=== PATIENT | male | born 1970 | race Caucasian/White ===

== ENCOUNTER 2020-09-16 14:24 | Inpatient (IN) ==
[2020-09-16] MEDS ORDERED: 0.9 % SODIUM CHLORIDE 2,000 ML IV ONE (15:06)
--- NOTE | 2020-09-16 15:15 | XRay Report ---
CLINICAL INFORMATION: fever, weakness COMPARISON: 06/21/2020 FINDINGS: Heart size, mediastinum and pulmonary vessels are normal. Lungs are clear. No effusions. Air in the right subdiaphragmatic likely represents a loop of colon. IMPRESSION: No cardiopulmonary abnormality. Air in the right subdiaphragmatic region is almost certainly a loop of colon. Consider supine upright abdomen films Interpreted and Authenticated by: Jose Patricia 09/16/20
[2020-09-16] MEDS ORDERED: ROCURONIUM 10 MG/ML ML IV ONE (15:40)
[2020-09-16] MEDS ORDERED: ePHEDrine 50 MG/ML AMPUL IV ONE (15:40)
[2020-09-16] MEDS ORDERED: PHENYLEPHRINE 10 MG/ML VIAL ONE (15:40)
[2020-09-16] MEDS ORDERED: fentaNYL 100 MCG/2 ML VIAL IV ONE (15:40)
[2020-09-16] MEDS ORDERED: GLYCOPYRROLATE 0.2 MG/ML VIAL IV ONE (15:40)
[2020-09-16] MEDS ORDERED: SUCCINYLCHOLINE 20 MG/ML ML IV ONE (15:40)
[2020-09-16] MEDS ORDERED: MIDAZOLAM 2 MG/2 ML VIAL ONE (15:40)
[2020-09-16] MEDS ORDERED: LIDOCAINE HCL/PF 100 MG/5 ML SYRINGE IV ONE (15:40)
[2020-09-16] MEDS ORDERED: DEXAMETHASONE 10 MG/ML VIAL ONE (15:40)
[2020-09-16] MEDS ORDERED: VASOPRESSIN 20 UNIT/ML VIAL ONE (15:40)
[2020-09-16] MEDS ORDERED: ALBUMIN HUMAN 12.5 GM/50 ML BAG IV ONE (15:40)
[2020-09-16] MEDS ORDERED: KETAMINE 100 MG/ML ML ONE (15:40)
[2020-09-16] MEDS ORDERED: PROPOFOL 200 MG/20 ML VIAL IV ONE (15:40)
[2020-09-16] MEDS ORDERED: ONDANSETRON 4 MG/2 ML VIAL ONE (15:40)
[2020-09-16] MEDS ORDERED: NOREPINEPHRINE BITARTRATE 4 MG/4 ML VIAL IV ONE (15:40)
--- NOTE | 2020-09-16 16:17 | Emergency Department Note ---
Weakness HPI General Chief complaint: Weakness Stated complaint: weakness, dizziness, failure to thrive Time Seen by Provider: 09/16/20 14:47 Source: patient Mode of arrival: EMS Limitations: no limitations History of Present Illness HPI Narrative: Narrative: 50-year-old comes in complaining of generalized weakness and trouble walking. He says he is having trouble with his balance. 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 Then he got prostate cancer for which he had radiation treatment. 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 Because of this he did not want to eat. So he has refused to eat for a long time to the point now he can no longer get up. He is very tearful and frustrated with the situation because it hurts to go to the bathroom he does not want to eat Denies fever chills nausea vomiting recent illness Related Data Home Medications Medication Instructions Recorded Confirmed omeprazole 40 mg capsule,delayed 40 mg PO DAILY cap 03/22/18 07/02/20 release clotrimazole 10 mg nico 10 mg MUCOUS MEM TID 03/28/20 07/02/20 vitamin E (dl, acetate) 400 unit 400 unit PO QDAY 03/28/20 07/02/20 capsule ibuprofen 600 mg PO QID 06/17/20 07/02/20 loratadine 10 mg PO DAILY 06/17/20 07/02/20 ferrous sulfate 325 mg (65 mg 325 mg PO QDAY 07/02/20 07/02/20 iron) tablet Previous Rx's Medication Instructions Recorded alprazolam 1 mg tablet 1 mg PO BID-TID PRN #30 tab 10/25/19 potassium chloride 20 mEq 20 meq PO BID #60 tab 06/17/20 tablet,extended release tamsulosin 0.4 mg capsule 0.8 mg PO QHS #180 cap 07/29/20 fentanyl 50 mcg/hr transdermal 1 patch TRANSDERMA Q72H #10 each 08/15/20 patch hydrocodone 10 mg-acetaminophen 1 tab PO Q8H PRN #90 tab 08/26/20 325 mg tablet Allergies Allergy/AdvReac Type Severity Reaction Status Date / Time aspirin Allergy Severe Diarrhea Verified 09/16/20 14:28 shellfish derived Allergy Severe Vomiting Verified 09/16/20 14:28 Latex, Natural Rubber Allergy Intermediate Rash Verified 09/16/20 14:28 iodine Allergy Mild Rash Verified 09/16/20 14:28 Bees Allergy Unknown Swelling Uncoded 07/01/20 10:35 Review of Systems ROS ROS Narrative: Narrative: All systems ED: reviewed and negative except as stated. [facility] Narrative Patient History Narrative: Narrative: Medical/Surgical/Family History All Active Problems (Updated 09/16/20 @ 18:14 by Anastacio Fox MD) Anorexia (Acute) Malnutrition (Acute) Acute dehydration (Acute) Hypothyroidism (Acute) Acute hypokalemia (Acute) Radiation injury of bowel (Acute) Urinary frequency (Acute) Bright red rectal bleeding (Acute) Radiation colitis (Chronic) Chronic generalized abdominal pain (Chronic) Radiation proctitis (Chronic) Chronic constipation (Chronic) Tonsil cancer (Chronic) Prostate cancer (Chronic) Prostate cancer (Acute) Hypokalemia (Acute) Abnormal stools (Acute) Hypokalemia (Acute) C. 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 difficile colitis (Acute) Chronic constipation (Chronic) Depression (Chronic) 1999 Ear Problem (Acute) Encounter for Health Maintenance Examination in Adult (Chronic) Hypokalemia (Acute) Hypokalemia (Acute) Hypokalemia (Acute) Insomnia (Chronic) Joint pain (Chronic) Migraine (Chronic) 1976 Polyuria (Chronic) Prostate cancer (Chronic) Radiation proctitis (Chronic) Renal calculi (Acute) Tonsil cancer (Chronic) Right Surgical History History of colonoscopy (Chronic 01/18/19) History of dental surgery (Chronic) No pertinent past surgical history (Inactive) Family History Mother Arthritis Diabetes Type 2 Hypertension Grandfather Cancer Paternal Heart attack Maternal Grandmother Leukemia Paternal Dementia Maternal Family/Other Migraine Maternal side of famiy Social History Smoking Status: Former smoker Alcohol Intake Frequency: holiday/special occasion only Substance Use: marijuana Exam Narrative Narrative: Narrative: No acute distress. Cachectic male. Tearful. Normocephalic atraumatic. Conjunctive are clear sclerae white nonicteric. No nasal discharge or congestion. Edentulous. Oropharynx pink and moist. Neck is supple without lymphadenopathy thyromegaly. Heart is tachycardic mildly and very loud as he is very thin. I do not hear a significant murmur. Lungs are clear to auscultation bilaterally without wheezes rales rhonchi or respiratory distress. Abdomen is soft nontender nondistended. No pedal edema. +2 radial pulse. Alert oriented able to give me reasonable history and review of system He has a 3 cm well-healing ulcer at his left hip-he says he heard it pop like there was a boil there earlier. Erythema or fluctuant or induration. Looked at his rectum and do see an os off to the left-could be the fistula that the patient is talking about. General Limitations: no limitations Course Vital Signs Vital signs: Vital Signs Temperature 99.6 F H 09/16/20 14:25 Pulse Rate 116 H 09/16/20 14:25 Respiratory Rate 20 09/16/20 14:25 Blood Pressure 105/81 09/16/20 14:25 Pulse Oximetry (%) 99 09/16/20 14:25 Temperature 99.6 F H 09/16/20 14:25 Pulse Rate 90 09/16/20 18:55 Respiratory Rate 14 09/16/20 18:55 Blood Pressure 94/74 09/16/20 18:46 Pulse Oximetry (%) 99 09/16/20 18:55 MDM MDM Narrative Medical decision making narrative: Narrative: Weakness secondary to malnutrition most likely. He is likely dehydrated and tachycardic. We will start some IV fluids and check some laboratory. Check for other causes of weakness. We briefly discussed further work-up and treatment of his rectal fistula [place] influenza and Covid testing are negative Chest x-ray shows no acute finding Laboratory showed significantly low prealbumin consistent with his malnutrition. Other laboratory really also consistent with dehydration and malnutrition. Potassium is low at 2.8 so we will replace that with a K rider. TSH is markedly elevated at 22 so we will start him on some low-dose levothyroxine. I discussed results with him. I recommend that he follow-up with a surgeon have him take a second look at his rectum. We will put in referral for him to see Dr. Jacob Hardy. He will be here for the next hour or more while getting his K rider. I will send prescription for levothyroxine to his pharmacy. He should follow-up with Dr. Watkins to get the reevaluated here in the next week or 2. Shift change came and I handed the patient off to Dr. Willian Jacobs. Final disposition per Dr. Jacobs Lab Data Lab results reviewed: Yes I reviewed the patient's lab results. Result diagrams: 09/16/20 15:31 09/16/20 15:31 Labs: Lab Results 09/16/20 09/16/20 09/16/20 Range/Units 15:29 15:30 15:30 WBC (4.5-11.0) K/mcL RBC (4.50-5.90) M/mcL Hgb (13.5-16.5) g/dL Hct (41.0-55.0) % MCV (80.0-100.0) fL MCH (26.0-34.0) pg MCHC (31.0-36.0) g/dL RDW (11.5-14.5) % Plt Count (140-440) K/mcL MPV (7.4-10.4) fL Neut % (Auto) (38.0-78.0) % Lymph % (Auto) (15.0-49.0) % [place] % (Auto) (1.0-12.0) % Eos % (Auto) (0.0-7.0) % Baso % (Auto) (0.0-2.0) % Lymph # (Auto) (1.50-4.80) K/mcL [place] # (Auto) (0.10-0.90) K/mcL Eos # (Auto) (0.00-0.70) K/mcL Baso # (Auto) (0.00-0.20) K/mcL Absolute Neutrophils (1.80-8.00) K/mcL VBG Lactic Acid 1.1 (0.5-2.0) mmol/L Sodium (133-145) mmol/L Potassium (3.3-5.1) mmol/L Chloride (96-108) mmol/L Carbon Dioxide (22-30) mmol/L Anion Gap (8.0-16.0) BUN (6-20) mg/dL Creatinine (0.7-1.2) mg/dL GFR Calculation Glucose (70-105) mg/dL Calcium (8.6-10.4) mg/dL Magnesium (1.6-2.5) mg/dL Total Bilirubin (0.1-1.0) mg/dL AST (<40) U/L ALT (<40) U/L Alkaline Phosphatase (39-117) U/L Troponin T < 0.01 (<0.03) ng/mL C-Reactive Protein (0.03-0.80) mg/dL NT-Pro-B Natriuret Pep (<125.0) pg/mL Total Protein (5.9-8.4) gm/dL Albumin (3.2-5.2) gm/dL Globulin (2.2-3.7) gm/dL Albumin/Globulin Ratio (1.0-2.3) Prealbumin (20.0-40.0) mg/dL Procalcitonin 0.12 H (<0.10) ng/mL TSH (0.27-5.01) uIU/mL 09/16/20 09/16/20 Range/Units 15:31 15:31 WBC 8.5 (4.5-11.0) K/mcL RBC 4.18 L (4.50-5.90) M/mcL Hgb 10.4 L (13.5-16.5) g/dL Hct 32.2 L (41.0-55.0) % MCV 77.0 L (80.0-100.0) fL MCH 24.9 L (26.0-34.0) pg MCHC 32.3 (31.0-36.0) g/dL RDW 18.3 H (11.5-14.5) % Plt Count 481 H (140-440) K/mcL MPV 8.5 (7.4-10.4) fL Neut % (Auto) 80.1 H (38.0-78.0) % Lymph % (Auto) 10.8 L (15.0-49.0) % [place] % (Auto) 8.7 (1.0-12.0) % Eos % (Auto) 0.2 (0.0-7.0) % Baso % (Auto) 0.2 (0.0-2.0) % Lymph # (Auto) 0.92 L (1.50-4.80) K/mcL [place] # (Auto) 0.74 (0.10-0.90) K/mcL Eos # (Auto) 0.02 (0.00-0.70) K/mcL Baso # (Auto) 0.02 (0.00-0.20) K/mcL Absolute Neutrophils 6.84 (1.80-8.00) K/mcL VBG Lactic Acid (0.5-2.0) mmol/L Sodium 129 L (133-145) mmol/L Potassium 2.8 L* (3.3-5.1) mmol/L Chloride 83 L (96-108) mmol/L Carbon Dioxide 19 L (22-30) mmol/L Anion Gap 27.0 H (8.0-16.0) BUN 7 (6-20) mg/dL Creatinine 0.4 L (0.7-1.2) mg/dL GFR Calculation 137 Glucose 84 (70-105) mg/dL Calcium 9.1 (8.6-10.4) mg/dL Magnesium 1.7 (1.6-2.5) mg/dL Total Bilirubin 0.4 (0.1-1.0) mg/dL AST 14 (<40) U/L ALT 13 (<40) U/L Alkaline Phosphatase 103 (39-117) U/L Troponin T (<0.03) ng/mL C-Reactive Protein 19.90 H (0.03-0.80) mg/dL NT-Pro-B Natriuret Pep 208.6 H (<125.0) pg/mL Total Protein 6.9 (5.9-8.4) gm/dL Albumin 3.5 (3.2-5.2) gm/dL Globulin 3.4 (2.2-3.7) gm/dL Albumin/Globulin Ratio 1.0 (1.0-2.3) Prealbumin 9.3 L (20.0-40.0) mg/dL Procalcitonin (<0.10) ng/mL TSH 22.59 H (0.27-5.01) uIU/mL Radiology Data Radiology results reviewed: Yes I reviewed the patient's radiology results. EKG Data EKG #1: EKG attestation: Yes I reviewed and interpreted this EKG. and Yes There are no EKG findings of acute coronary syndrome EKG results narrative: Normal sinus rhythm Discharge Plan Patient/Caregiver Discharge Instructions Pt seen by CLOTH EXAMINER/PA only: No Clinical Impression: Anorexia, Acute dehydration, Acute hypokalemia Radiation injury of bowel Qualifiers: Encounter type: subsequent encounter Qualified Code(s): T66.XXXD - Radiation sickness, unspecified, subsequent encounter Malnutrition Qualifiers: Malnutrition type: unspecified type Qualified Code(s): E46 - Unspecified protein-calorie malnutrition Hypothyroidism Qualifiers: Hypothyroidism type: acquired Qualified Code(s): E03.9 - Hypothyroidism, unspecified Patient Disposition: Still a Patient Condition: Fair Follow up with: Jose Watkins DO [Primary Care Provider] - Jacob Hardy MD [Physician] - Prescriptions: No Action alprazolam [Xanax] 1 mg tablet 1 mg PO BID-TID PRN (Reason: anxiety) Qty: 30 RF: 0 tamsulosin 0.4 mg capsule 0.8 mg PO QHS Qty: 180 RF: 1 fentanyl 50 mcg/hr patch 72 hour 1 patch TRANSDERMA Q72H Qty: 10 RF: 0 hydrocodone-acetaminophen [[place]] 10-325 mg tablet 1 tab PO Q8H PRN (Reason: pain) Qty: 90 RF: 0 vitamin E (dl, acetate) 400 unit capsule 400 unit PO QDAY RF: 0 clotrimazole 10 mg nico 10 mg MUCOUS MEM TID RF: 0 ferrous sulfate [FeroSul] 325 mg (65 mg iron) tablet 325 mg PO QDAY RF: 0 loratadine 10 mg PO DAILY RF: 0 ibuprofen 600 mg PO QID RF: 0 potassium chloride 20 mEq tablet extended release 20 meq PO BID Qty: 60 RF: 2 omeprazole 40 mg capsule,delayed release(DR/EC) 40 mg PO DAILY RF: 0
[2020-09-16 16:36] LABS: Basophils # (Auto) 0.02 K/mcL (0.00-0.20); Basophils % (Auto) 0.2 % (0.0-2.0); Eosinophils # (Auto) 0.02 K/mcL (0.00-0.70); Eosinophils % (Auto) 0.2 % (0.0-7.0); Hematocrit 32.2 % (41.0-55.0); Hemoglobin 10.4 g/dL (13.5-16.5); Lymphocytes # (Auto) 0.92 K/mcL (1.50-4.80); Lymphocytes % (Auto) 10.8 % (15.0-49.0); Mean Corpuscular HGB Conc 32.3 g/dL (31.0-36.0); Mean Platelet Volume 8.5 fL (7.4-10.4); Monocytes # (Auto) 0.74 K/mcL (0.10-0.90); Monocytes % (Auto) 8.7 % (1.0-12.0); Neutrophils % (Auto) 80.1 % (38.0-78.0); Platelet Count 481 K/mcL (140-440); RBC 4.18 M/mcL (4.50-5.90); Red Cell Distribution Width 18.3 % (11.5-14.5); WBC 8.5 K/mcL (4.5-11.0)
[2020-09-16 17:04] LABS: Prealbumin 9.3 mg/dL (20.0-40.0)
[2020-09-16 17:15] LABS: proBNP 208.6 pg/mL (<125.0)
[2020-09-16 17:27] LABS: Thyroid Stimulating Hormone 22.59 uIU/mL (0.27-5.01)
[2020-09-16 17:56] LABS: ALT/SGPT 13 U/L (<40); AST/SGOT 14 U/L (<40); Albumin 3.5 gm/dL (3.2-5.2); Alkaline Phosphatase 103 U/L (39-117); Bilirubin,Total 0.4 mg/dL (0.1-1.0); Blood Urea Nitrogen 7 mg/dL (6-20); Calcium 9.1 mg/dL (8.6-10.4); Carbon Dioxide 19 mmol/L (22-30); Chloride 83 mmol/L (96-108); Globulin 3.4 gm/dL (2.2-3.7); Glomerular Filtration Rate 137; Glucose 84 mg/dL (70-105)
[2020-09-16] MEDS ORDERED: POTASSIUM CHLORIDE 20 MEQ in DEXTROSE 5% IN WATER 250 ML IV ONE ×2 (17:56→20:42)
[2020-09-16] MEDS ORDERED: LEVOTHYROXINE 50 MCG TABLET PO ONE (17:57)
--- NOTE | 2020-09-16 20:43 | Emergency Department Note ---
HPI General Chief complaint: Weakness Stated complaint: weakness, dizziness, failure to thrive Time Seen by Provider: 09/16/20 14:47 Source: patient Mode of arrival: EMS Limitations: no limitations History of Present Illness HPI Narrative: Narrative: Signed out to me by Dr. Fox. Please refer to his note for full history and physical. Related Data Home Medications Medication Instructions Recorded Confirmed omeprazole 40 mg capsule,delayed 40 mg PO DAILY cap 03/22/18 07/02/20 release clotrimazole 10 mg nico 10 mg MUCOUS MEM TID 03/28/20 07/02/20 vitamin E (dl, acetate) 400 unit 400 unit PO QDAY 03/28/20 07/02/20 capsule ibuprofen 600 mg PO QID 06/17/20 07/02/20 loratadine 10 mg PO DAILY 06/17/20 07/02/20 ferrous sulfate 325 mg (65 mg 325 mg PO QDAY 07/02/20 07/02/20 iron) tablet Previous Rx's Medication Instructions Recorded alprazolam 1 mg tablet 1 mg PO BID-TID PRN #30 tab 10/25/19 potassium chloride 20 mEq 20 meq PO BID #60 tab 06/17/20 tablet,extended release tamsulosin 0.4 mg capsule 0.8 mg PO QHS #180 cap 07/29/20 fentanyl 50 mcg/hr transdermal 1 patch TRANSDERMA Q72H #10 each 08/15/20 patch hydrocodone 10 mg-acetaminophen 1 tab PO Q8H PRN #90 tab 08/26/20 325 mg tablet Allergies Allergy/AdvReac Type Severity Reaction Status Date / Time aspirin Allergy Severe Diarrhea Verified 09/16/20 14:28 shellfish derived Allergy Severe Vomiting Verified 09/16/20 14:28 Latex, Natural Rubber Allergy Intermediate Rash Verified 09/16/20 14:28 iodine Allergy Mild Rash Verified 09/16/20 14:28 Bees Allergy Unknown Swelling Uncoded 07/01/20 10:35 Review of Systems ROS ROS Narrative: Narrative: PFSH Narrative Patient History Narrative: Narrative: Medical/Surgical/Family History All Active Problems (Updated 09/16/20 @ 20:43 by Willian Jacobs DO) Anorexia (Acute) Malnutrition (Acute) Acute dehydration (Acute) Hypothyroidism (Acute) Acute hypokalemia (Acute) Acute hyponatremia (Acute) Radiation injury of bowel (Acute) Urinary frequency (Acute) Bright red rectal bleeding (Acute) Radiation colitis (Chronic) Chronic generalized abdominal pain (Chronic) Radiation proctitis (Chronic) Chronic constipation (Chronic) Tonsil cancer (Chronic) Prostate cancer (Chronic) Prostate cancer (Acute) Hypokalemia (Acute) Abnormal stools (Acute) Hypokalemia (Acute) C. 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 difficile colitis (Acute) Chronic constipation (Chronic) Depression (Chronic) 1999 Ear Problem (Acute) Encounter for Health Maintenance Examination in Adult (Chronic) Hypokalemia (Acute) Hypokalemia (Acute) Hypokalemia (Acute) Insomnia (Chronic) Joint pain (Chronic) Migraine (Chronic) 1976 Polyuria (Chronic) Prostate cancer (Chronic) Radiation proctitis (Chronic) Renal calculi (Acute) Tonsil cancer (Chronic) Right Surgical History History of colonoscopy (Chronic 01/18/19) History of dental surgery (Chronic) No pertinent past surgical history (Inactive) Family History Mother Arthritis Diabetes Type 2 Hypertension Grandfather Cancer Paternal Heart attack Maternal Grandmother Leukemia Paternal Dementia Maternal Family/Other Migraine Maternal side of famiy Social History Smoking Status: Former smoker Alcohol Intake Frequency: holiday/special occasion only Substance Use: marijuana Exam Narrative Narrative: Narrative: General Limitations: no limitations Course Vital Signs Vital signs: Vital Signs Temperature 99.6 F H 09/16/20 14:25 Pulse Rate 116 H 09/16/20 14:25 Respiratory Rate 20 09/16/20 14:25 Blood Pressure 105/81 09/16/20 14:25 Pulse Oximetry (%) 99 09/16/20 14:25 Temperature 99.6 F H 09/16/20 14:25 Pulse Rate 90 09/16/20 20:40 Respiratory Rate 20 09/16/20 20:01 Blood Pressure 97/72 09/16/20 20:30 Pulse Oximetry (%) 100 09/16/20 20:40 MDM MDM Narrative Medical decision making narrative: Narrative: I did personally see and evaluate the patient. Patient's labs show hyponatremia as well as hypokalemia generalized weakness and hypotension. Patient did receive fluids he still does not feel well I think patient is has a metabolic acidosis secondary to failure to thrive and not eating. Patient is very cachectic on exam. I do not feel comfortable with patient going home he seems very weak he also does not feel comfortable going home secondary to electrolyte abnormalities I think he does need fluid resuscitation as well as better protein nutrition. I spoke with the hospitalist Dr. Wild who agreed to accept the patient. Patient is excepted in stable condition. Lab Data Result diagrams: 09/16/20 15:31 09/16/20 15:31 Labs: Lab Results 09/16/20 09/16/20 09/16/20 Range/Units 15:29 15:30 15:30 WBC (4.5-11.0) K/mcL RBC (4.50-5.90) M/mcL Hgb (13.5-16.5) g/dL Hct (41.0-55.0) % MCV (80.0-100.0) fL MCH (26.0-34.0) pg MCHC (31.0-36.0) g/dL RDW (11.5-14.5) % Plt Count (140-440) K/mcL MPV (7.4-10.4) fL Neut % (Auto) (38.0-78.0) % Lymph % (Auto) (15.0-49.0) % [place] % (Auto) (1.0-12.0) % Eos % (Auto) (0.0-7.0) % Baso % (Auto) (0.0-2.0) % Lymph # (Auto) (1.50-4.80) K/mcL [place] # (Auto) (0.10-0.90) K/mcL Eos # (Auto) (0.00-0.70) K/mcL Baso # (Auto) (0.00-0.20) K/mcL Absolute Neutrophils (1.80-8.00) K/mcL VBG Lactic Acid 1.1 (0.5-2.0) mmol/L Sodium (133-145) mmol/L Potassium (3.3-5.1) mmol/L Chloride (96-108) mmol/L Carbon Dioxide (22-30) mmol/L Anion Gap (8.0-16.0) BUN (6-20) mg/dL Creatinine (0.7-1.2) mg/dL GFR Calculation Glucose (70-105) mg/dL Calcium (8.6-10.4) mg/dL Magnesium (1.6-2.5) mg/dL Total Bilirubin (0.1-1.0) mg/dL AST (<40) U/L ALT (<40) U/L Alkaline Phosphatase (39-117) U/L Troponin T < 0.01 (<0.03) ng/mL C-Reactive Protein (0.03-0.80) mg/dL NT-Pro-B Natriuret Pep (<125.0) pg/mL Total Protein (5.9-8.4) gm/dL Albumin (3.2-5.2) gm/dL Globulin (2.2-3.7) gm/dL Albumin/Globulin Ratio (1.0-2.3) Prealbumin (20.0-40.0) mg/dL Procalcitonin 0.12 H (<0.10) ng/mL TSH (0.27-5.01) uIU/mL 09/16/20 09/16/20 Range/Units 15:31 15:31 WBC 8.5 (4.5-11.0) K/mcL RBC 4.18 L (4.50-5.90) M/mcL Hgb 10.4 L (13.5-16.5) g/dL Hct 32.2 L (41.0-55.0) % MCV 77.0 L (80.0-100.0) fL MCH 24.9 L (26.0-34.0) pg MCHC 32.3 (31.0-36.0) g/dL RDW 18.3 H (11.5-14.5) % Plt Count 481 H (140-440) K/mcL MPV 8.5 (7.4-10.4) fL Neut % (Auto) 80.1 H (38.0-78.0) % Lymph % (Auto) 10.8 L (15.0-49.0) % [place] % (Auto) 8.7 (1.0-12.0) % Eos % (Auto) 0.2 (0.0-7.0) % Baso % (Auto) 0.2 (0.0-2.0) % Lymph # (Auto) 0.92 L (1.50-4.80) K/mcL [place] # (Auto) 0.74 (0.10-0.90) K/mcL Eos # (Auto) 0.02 (0.00-0.70) K/mcL Baso # (Auto) 0.02 (0.00-0.20) K/mcL Absolute Neutrophils 6.84 (1.80-8.00) K/mcL VBG Lactic Acid (0.5-2.0) mmol/L Sodium 129 L (133-145) mmol/L Potassium 2.8 L* (3.3-5.1) mmol/L Chloride 83 L (96-108) mmol/L Carbon Dioxide 19 L (22-30) mmol/L Anion Gap 27.0 H (8.0-16.0) BUN 7 (6-20) mg/dL Creatinine 0.4 L (0.7-1.2) mg/dL GFR Calculation 137 Glucose 84 (70-105) mg/dL Calcium 9.1 (8.6-10.4) mg/dL Magnesium 1.7 (1.6-2.5) mg/dL Total Bilirubin 0.4 (0.1-1.0) mg/dL AST 14 (<40) U/L ALT 13 (<40) U/L Alkaline Phosphatase 103 (39-117) U/L Troponin T (<0.03) ng/mL C-Reactive Protein 19.90 H (0.03-0.80) mg/dL NT-Pro-B Natriuret Pep 208.6 H (<125.0) pg/mL Total Protein 6.9 (5.9-8.4) gm/dL Albumin 3.5 (3.2-5.2) gm/dL Globulin 3.4 (2.2-3.7) gm/dL Albumin/Globulin Ratio 1.0 (1.0-2.3) Prealbumin 9.3 L (20.0-40.0) mg/dL Procalcitonin (<0.10) ng/mL TSH 22.59 H (0.27-5.01) uIU/mL Discharge Plan Patient/Caregiver Discharge Instructions Pt seen by AGILE TEST LEAD/PA only: No Clinical Impression: Anorexia, Radiation injury of bowel, Malnutrition, Acute dehydration, Hy pothyroidism, Acute hypokalemia, Acute hyponatremia Patient Disposition: Xfer As Outpt/Obs ([facility]) Condition: Fair Follow up with: Jose Watkins DO [Primary Care Provider] - Bud Hardy MD [Physician] - Prescriptions: No Action alprazolam [Xanax] 1 mg tablet 1 mg PO BID-TID PRN (Reason: anxiety) Qty: 30 RF: 0 tamsulosin 0.4 mg capsule 0.8 mg PO QHS Qty: 180 RF: 1 fentanyl 50 mcg/hr patch 72 hour 1 patch TRANSDERMA Q72H Qty: 10 RF: 0 hydrocodone-acetaminophen [[place]] 10-325 mg tablet 1 tab PO Q8H PRN (Reason: pain) Qty: 90 RF: 0 vitamin E (dl, acetate) 400 unit capsule 400 unit PO QDAY RF: 0 clotrimazole 10 mg nico 10 mg MUCOUS MEM TID RF: 0 ferrous sulfate [FeroSul] 325 mg (65 mg iron) tablet 325 mg PO QDAY RF: 0 loratadine 10 mg PO DAILY RF: 0 ibuprofen 600 mg PO QID RF: 0 potassium chloride 20 mEq tablet extended release 20 meq PO BID Qty: 60 RF: 2 omeprazole 40 mg capsule,delayed release(DR/EC) 40 mg PO DAILY RF: 0
[2020-09-16] MEDS ORDERED: LACTATED RINGERS 1,000 ML IV SCH (20:45)
--- NOTE | 2020-09-16 21:01 | Internal Med History&Physical ---
HPI History of Present Illness Patient information: Note initiated : 09/16/20 at 8:51 pm Service Date, if different from initiated Date: [] Patient: Jose Moulton a 50 y/o M admitted on for weakness, dizziness, failure to thrive. Chief Complaint: [] History of present illness: Mr. Moulton is a 50 year old M Presents with severe weakness and lightheadedness. Patient states the reason he came in the ED is because he was severely weak and could hardly move around and became lightheaded and get up and move. 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 Was recommended to him to get a diverting colostomy he has not made a decision on that yet. He has not been eating very much for the past couple months because it hurts to go to the bathroom. And especially the past few weeks he is eating hardly anything. He says a couple days ago he had 8 ounces of Slim fast and then nothing for the few days prior to that nothing yesterday. He has had some water and some electrolyte drinks that about it. Denies fevers chills chest pain abdominal pain. In the ED is found to be hyponatremic hypokalemic hypochloremic. An elevated TSH but denies cold intolerance dry skin or constipation. Review of Systems: Pertinent positives as above. Denies headache/fever/chills/nausea/vomiting/chest or abdominal pain/cough/dyspnea/ diarrhea. Remaining 10 point review of system reviewed negative PFSH PFSH All Active Problems (Updated 09/16/20 @ 20:43 by Willian Jacobs DO) Anorexia (Acute) Malnutrition (Acute) Acute dehydration (Acute) Hypothyroidism (Acute) Acute hypokalemia (Acute) Acute hyponatremia (Acute) Radiation injury of bowel (Acute) Urinary frequency (Acute) Bright red rectal bleeding (Acute) Radiation colitis (Chronic) Chronic generalized abdominal pain (Chronic) Radiation proctitis (Chronic) Chronic constipation (Chronic) Tonsil cancer (Chronic) Prostate cancer (Chronic) Prostate cancer (Acute) Hypokalemia (Acute) Abnormal stools (Acute) Hypokalemia (Acute) C. 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 difficile colitis (Acute) Chronic constipation (Chronic) Depression (Chronic) 1999 Ear Problem (Acute) Encounter for Health Maintenance Examination in Adult (Chronic) Hypokalemia (Acute) Hypokalemia (Acute) Hypokalemia (Acute) Insomnia (Chronic) Joint pain (Chronic) Migraine (Chronic) 1976 Polyuria (Chronic) Prostate cancer (Chronic) Radiation proctitis (Chronic) Renal calculi (Acute) Tonsil cancer (Chronic) Right Surgical History History of colonoscopy (Chronic 01/18/19) History of dental surgery (Chronic) No pertinent past surgical history (Inactive) Family History Mother Arthritis Diabetes Type 2 Hypertension Grandfather Cancer Paternal Heart attack Maternal Grandmother Leukemia Paternal Dementia Maternal Family/Other Migraine Maternal side of famiy Social History marital status: single smoking status: Former smoker alcohol intake frequency: holiday/special occasion only substance use type: marijuana MEDS/ALLERGIES Home Medications and Allergies Home Medications Medication Instructions Recorded Confirmed Type omeprazole 40 mg capsule,delayed 40 mg PO DAILY cap 03/22/18 07/02/20 History release alprazolam 1 mg tablet 1 mg PO BID-TID PRN #30 tab 10/25/19 07/02/20 Rx clotrimazole 10 mg nico 10 mg MUCOUS MEM TID 03/28/20 07/02/20 History vitamin E (dl, acetate) 400 unit 400 unit PO QDAY 03/28/20 07/02/20 History capsule ibuprofen 600 mg PO QID 06/17/20 07/02/20 History loratadine 10 mg PO DAILY 06/17/20 07/02/20 History potassium chloride 20 mEq 20 meq PO BID #60 tab 06/17/20 07/02/20 Rx tablet,extended release ferrous sulfate 325 mg (65 mg 325 mg PO QDAY 07/02/20 07/02/20 History iron) tablet tamsulosin 0.4 mg capsule 0.8 mg PO QHS #180 cap 07/29/20 Rx fentanyl 50 mcg/hr transdermal 1 patch TRANSDERMA Q72H #10 each 08/15/20 Rx patch hydrocodone 10 mg-acetaminophen 1 tab PO Q8H PRN #90 tab 08/26/20 Rx 325 mg tablet Allergies Allergy/AdvReac Type Severity Reaction Status Date / Time aspirin Allergy Severe Diarrhea Verified 09/16/20 14:28 shellfish derived Allergy Severe Vomiting Verified 09/16/20 14:28 Latex, Natural Rubber Allergy Intermediate Rash Verified 09/16/20 14:28 iodine Allergy Mild Rash Verified 09/16/20 14:28 Bees Allergy Unknown Swelling Uncoded 07/01/20 10:35 EXAM Constitutional Vitals: Temp Pulse Resp BP Pulse Ox 99.6 F H 90 20 97/72 100 09/16/20 14:25 09/16/20 20:40 09/16/20 20:01 09/16/20 20:30 09/16/20 20:40 Exam: General: Alert, Awake, No acute Distress, cachectic Eyes/N/T: EOMI, PERRL, dry MM Head/Neck: neck supple, normocephalic atraumatic CV: Mildly tachycardic but regular, No murmurs, normal s1/s2 Pulm: Clear b/l, no wheezing/rhonchi/rales Abd: soft, nontender, +BS x4 Ext: no clubbing/cyanosis/edema Neuro: Alert, no focal deficits, moves all extremities, CN 2-12 grossly intact, symmetrical strength b/l upper/lower, sensations intact b/l upper/lower Skin: warm/dry, poor skin turgor DATA Data Completed and Pending Labs: Labs from last 24 hours 09/16/20 09/16/20 09/16/20 15:31 15:31 15:30 WBC 8.5 RBC 4.18 L Hgb 10.4 L Hct 32.2 L MCV 77.0 L MCH 24.9 L MCHC 32.3 RDW 18.3 H Plt Count 481 H MPV 8.5 Neut % (Auto) 80.1 H Lymph % (Auto) 10.8 L [place] % (Auto) 8.7 Eos % (Auto) 0.2 Baso % (Auto) 0.2 Lymph # (Auto) 0.92 L [place] # (Auto) 0.74 Eos # (Auto) 0.02 Baso # (Auto) 0.02 Absolute Neutrophils 6.84 VBG Lactic Acid Sodium 129 L Potassium 2.8 L* Chloride 83 L Carbon Dioxide 19 L Anion Gap 27.0 H BUN 7 Creatinine 0.4 L GFR Calculation 137 Glucose 84 Calcium 9.1 Magnesium 1.7 Total Bilirubin 0.4 AST 14 ALT 13 Alkaline Phosphatase 103 Troponin T C-Reactive Protein 19.90 H NT-Pro-B Natriuret Pep 208.6 H Total Protein 6.9 Albumin 3.5 Globulin 3.4 Albumin/Globulin Ratio 1.0 Prealbumin 9.3 L Procalcitonin 0.12 H TSH 22.59 H 09/16/20 09/16/20 15:30 15:29 WBC RBC Hgb Hct MCV MCH MCHC RDW Plt Count MPV Neut % (Auto) Lymph % (Auto) [place] % (Auto) Eos % (Auto) Baso % (Auto) Lymph # (Auto) [place] # (Auto) Eos # (Auto) Baso # (Auto) Absolute Neutrophils VBG Lactic Acid 1.1 Sodium Potassium Chloride Carbon Dioxide Anion Gap BUN Creatinine GFR Calculation Glucose Calcium Magnesium Total Bilirubin AST ALT Alkaline Phosphatase Troponin T < 0.01 C-Reactive Protein NT-Pro-B Natriuret Pep Total Protein Albumin Globulin Albumin/Globulin Ratio Prealbumin Procalcitonin TSH A/P Narrative A/P Narrative: A: *Hyponatremia/hypokalemia/hypochloremia: 2/2 poor oral intake and volume depletion *Hypotension: 2/2 volume depletion, improved with IV fluids *Volume depletion: *Severe generalized weakness *Failure to thrive/Severe malnutrition: *Radiation proctocolitis: 2/2 radiation for prostate cancer -Supposed to follow-up Dr. Hardy for diverting colostomy *Anxiety: *GERD: *Chronic pain: *Tobacco abuse: *Subclinical hypothyroidism: * P: -IVF -Electrolyte replacement -Dietary consult, nutritional supplements -PT/OT -Low-dose levothyroxine and follow-up with PCP, pending T4 -Follow-up with Dr. Hardy for diverting colostomy -update home meds -Smoking cessation counseling -ppx: Lovenox Full code Time Spent With Patient Time: Total time spent is greater than 50% in coordination of care (as documented) at patient's floor/unit and/or counseling patient:
[2020-09-16] MEDS ORDERED: POLYETHYLENE GLYCOL 3350 17 GM PACKET PO PRN (22:09)
[2020-09-16] MEDS ORDERED: POTASSIUM CHLORIDE 20 MEQ TABLET PO ONE ×2 (22:09→23:36)
[2020-09-16] MEDS ORDERED: IPRATROPIUM/ALBUTEROL 3 ML AMPUL.NEB NEB PRN (22:09)
[2020-09-16] MEDS ORDERED: POTASSIUM CHLORIDE 40 MEQ in DEXTROSE 5% IN WATER 500 ML IV PRN (22:09)
[2020-09-16] MEDS ORDERED: POTASSIUM CHLORIDE 20 MEQ TABLET PO PRN ×2 (22:09)
[2020-09-16] MEDS ORDERED: ONDANSETRON 4 MG/2 ML VIAL IV PRN (22:09)
[2020-09-16] MEDS ORDERED: SENNOSIDES 1 TABLET PO PRN (22:09)
[2020-09-16] MEDS ORDERED: ACETAMINOPHEN 325 MG TABLET PO PRN (22:09)
[2020-09-16] MEDS ORDERED: MAGNESIUM SULFATE 2 GM/50 ML BAG IV PRN (22:09)
[2020-09-16] MEDS ORDERED: ALPRAZolam 0.25 MG TABLET PO PRN (23:08)
[2020-09-16] MEDS: ALPRAZolam 0.5 MG TABLET ONE ×2 (23:24→23:29)
[2020-09-16] MEDS: fentaNYL 50 MCG PATCH TOPICAL SCH (23:25)
[2020-09-16] MEDS: TAMSULOSIN 0.4 MG CAPSULE PO SCH (23:25)
[2020-09-16] MEDS: OMEPRAZOLE 20 MG CAPSULE PO SCH (23:26)
[2020-09-16] MEDS ORDERED: HYDROcodone/APAP 10/325MG TABLET PO ONE (23:26)
[2020-09-16] MEDS: 0.9 % SODIUM CHLORIDE 10 ML SYRINGE IV SCH (23:30)
[2020-09-16] MEDS: LEVOTHYROXINE 50 MCG TABLET PO SCH (23:30)
[2020-09-17] MEDS: POTASSIUM CHLORIDE 10 MEQ in DEXTROSE 5%-NS 1,000 ML IV SCH ×2 (00:47→15:03)
[2020-09-17] MEDS ORDERED: POTASSIUM CHLORIDE 20 MEQ/10 ML VIAL IV ONE (00:50)
[2020-09-17 03:00] LABS: Appearance,Urine CLEAR (Clear); Bilirubin,Urine Negative (Negative); Color,Urine YELLOW; Culture Indicated,Urine No; Glucose,Urine (UA) Negative (Negative); Ketones,Urine 80 mg/dL (Negative); Leukocyte Esterase,Urine Negative /ug (Negative); Nitrate,Urine Negative (Negative); Protein,Urine Negative (Negative); Specific Gravity,Urine 1.015 (1.000-1.035); Urine Blood Negative (Negative); Urobilinogen,Urine Negative
[2020-09-17] MEDS: 0.9 % SODIUM CHLORIDE 10 ML SYRINGE IV SCH ×4 (04:25→20:55)
[2020-09-17] MEDS ORDERED: ACETAMINOPHEN 325 MG TABLET PO ONE (04:29)
[2020-09-17 05:21] LABS: Phosphorous 2.7 mg/dL (2.5-4.5)
[2020-09-17 06:19] LABS: Free T4 (Free Thyroxine) 0.33 ng/dL (0.93-1.70)
[2020-09-17 06:58] LABS: Basophils # (Auto) 0.02 K/mcL (0.00-0.20); Basophils % (Auto) 0.3 % (0.0-2.0); Eosinophils # (Auto) 0.04 K/mcL (0.00-0.70); Eosinophils % (Auto) 0.6 % (0.0-7.0); Hematocrit 26.2 % (41.0-55.0); Hemoglobin 8.3 g/dL (13.5-16.5); Lymphocytes # (Auto) 1.09 K/mcL (1.50-4.80); Lymphocytes % (Auto) 16.2 % (15.0-49.0); Mean Cell Volume 78.7 fL (80.0-100.0); Mean Corpuscular HGB Conc 31.7 g/dL (31.0-36.0); Mean Platelet Volume 8.3 fL (7.4-10.4); Monocytes # (Auto) 0.73 K/mcL (0.10-0.90); Monocytes % (Auto) 10.8 % (1.0-12.0); Neutrophils % (Auto) 72.1 % (38.0-78.0); Platelet Count 365 K/mcL (140-440); RBC 3.33 M/mcL (4.50-5.90); Red Cell Distribution Width 18.6 % (11.5-14.5); WBC 6.7 K/mcL (4.5-11.0)
[2020-09-17 07:19] LABS: ALT/SGPT 11 U/L (<40); AST/SGOT 15 U/L (<40); Albumin 2.6 gm/dL (3.2-5.2); Albumin/Globulin Ratio 0.8 (1.0-2.3); Alkaline Phosphatase 81 U/L (39-117); Bilirubin,Direct < 0.2 mg/dL (<0.3); Bilirubin,Total 0.3 mg/dL (0.1-1.0); Blood Urea Nitrogen 5 mg/dL (6-20); Calcium 8.1 mg/dL (8.6-10.4); Carbon Dioxide 24 mmol/L (22-30); Chloride 96 mmol/L (96-108); Globulin 3.3 gm/dL (2.2-3.7); Glomerular Filtration Rate 137; Glucose 119 mg/dL (70-105); Lactate Dehydrogenase 118 U/L (135-225); Phosphorous 1.5 mg/dL (2.5-4.5); Triglycerides 107 mg/dL (<150); Uric Acid 4.1 mg/dL (2.5-8.0)
[2020-09-17] MEDS: LEVOTHYROXINE 50 MCG TABLET PO SCH (07:48)
[2020-09-17] MEDS: OMEPRAZOLE 20 MG CAPSULE PO SCH (07:48)
[2020-09-17] MEDS ORDERED: POTASSIUM CHLORIDE 20 MEQ TABLET PO ONE (07:54)
--- NOTE | 2020-09-17 07:58 | Internal Med Progress Note ---
SUBJECTIVE Subjective Patient information: Note initiated : 09/17/20 at 7:49 am Service Date, if different from initiated Date: [] Patient: Jose Moulton a 50 y/o M admitted on 09/16/20 for weakness, dizziness, failure to thrive. Chief Complaint: [] Interval history: History of present illness: Mr. Moulton is a 50 year old M Presents with severe weakness and lightheadedness. Patient states the reason he came in the ED is because he was severely weak and could hardly move around and became lightheaded and get up and move. 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 Was recommended to him to get a diverting colostomy he has not made a decision on that yet. He has not been eating very much for the past couple months because it hurts to go to the bathroom. And especially the past few weeks he is eating hardly an ything. He says a couple days ago he had 8 ounces of Slim fast and then nothing for the few days prior to that nothing yesterday. He has had some water and some electrolyte drinks that about it. Denies fevers chills chest pain abdominal pain. In the ED is found to be hyponatremic hypokalemic hypochloremic. An elevated TSH but denies cold intolerance dry skin or constipation. 1/5 Poor sleep. Complains of leg pain and some rectal pain from stooling. States difficulty in urinating. Electrolyte imbalance slowly improving. Patient is supposed to receive a diverting colostomy. Will consult surgery to discuss timing. Review of Systems: denies headache/fever/chills/nausea/vomiting/chest or abdominal pain/cough/dyspnea. Otherwise see above. Constitutional Vitals: Vital Signs Temp Pulse Resp BP Pulse Ox 97.8 F 88 18 96/61 97 09/17/20 07:41 09/17/20 07:41 09/17/20 07:41 09/17/20 07:41 09/17/20 07:41 Period Temp Pulse Resp BP Sys/Greer Pulse Ox Last 24 Hr 97.8 F-99.6 F 81-118 10-20 84-115/61-86 97-100 Intake and Output 09/16/20 09/17/20 09/17/20 21:59 05:59 13:59 Intake Total 2260 760 Output Total 800 Balance 2260 -40 Weight 54.431 kg 55.111 kg Intake & Output: Intake & Output 09/16/20 09/17/20 09/17/20 21:59 05:59 13:59 Intake Total 2260 760 Output Total 800 Balance 2260 -40 Weight 54.431 kg 55.111 kg Intake: IV 2260 260 Sodium Chloride 0.9% 2,000 ml @ 2000 Wide Open IV .Q0M ONE Rx#: [id number] Potassium Chloride 20 Meq In 260 260 Dextrose 5% in Water 250 ml @ 130 mls/hr IV ONCE ONE Rx#: [id number] Oral 500 Output: Void Amount 800 Other: Stool Size Smear # Bowel Movements 1 Exam: General: Alert, Awake, No acute Distress, cachectic Eyes/N/T: EOMI, Head/Neck: neck supple, CV: RRR, No murmurs, Pulm: Clear b/l, no wheezing/rhonchi/rales Abd: soft, nontender, +BS x4 Ext: no clubbing/cyanosis/edema Neuro: Alert, no focal deficits, moves all extremities, Skin: warm/dry, OBJ DATA Labs CBC & Chem 7: 09/17/20 05:45 09/17/20 05:45 Labs: Abnormal Lab Results 09/17/20 09/17/20 09/17/20 05:45 05:45 01:51 RBC 3.33 L Hgb 8.3 L Hct 26.2 L MCV 78.7 L MCH 24.9 L RDW 18.6 H Plt Count Neut % (Auto) Lymph % (Auto) Lymph # (Auto) 1.09 L Sodium 130 L Potassium 3.0 L Chloride Carbon Dioxide Anion Gap BUN 5 L Creatinine 0.4 L Glucose 119 H Calcium 8.1 L Phosphorus 1.5 L Lactate Dehydrogenase 118 L C-Reactive Protein NT-Pro-B Natriuret Pep Albumin 2.6 L Prealbumin Albumin/Globulin Ratio 0.8 L Procalcitonin TSH Free T4 Urine Ketones 80 A 09/16/20 09/16/20 09/16/20 15:31 15:31 15:31 RBC 4.18 L Hgb 10.4 L Hct 32.2 L MCV 77.0 L MCH 24.9 L RDW 18.3 H Plt Count 481 H Neut % (Auto) 80.1 H Lymph % (Auto) 10.8 L Lymph # (Auto) 0.92 L Sodium 129 L Potassium 2.8 L* Chloride 83 L Carbon Dioxide 19 L Anion Gap 27.0 H BUN Creatinine 0.4 L Glucose Calcium Phosphorus Lactate Dehydrogenase C-Reactive Protein 19.90 H NT-Pro-B Natriuret Pep 208.6 H Albumin Prealbumin 9.3 L Albumin/Globulin Ratio Procalcitonin TSH 22.59 H Free T4 0.33 L Urine Ketones 09/16/20 15:30 RBC Hgb Hct MCV MCH RDW Plt Count Neut % (Auto) Lymph % (Auto) Lymph # (Auto) Sodium Potassium Chloride Carbon Dioxide Anion Gap BUN Creatinine Glucose Calcium Phosphorus Lactate Dehydrogenase C-Reactive Protein NT-Pro-B Natriuret Pep Albumin Prealbumin Albumin/Globulin Ratio Procalcitonin 0.12 H TSH Free T4 Urine Ketones Meds: Medications Acetaminophen (Tylenol) 650 mg PO Q6HP PRN PRN Reason: PAIN/FEVER > 101 Hydrocodone Bitart/Acetaminophen ([place] 10/325mg) 1 tab PO Q8HP PRN; Protocol PRN Reason: Per Pain Protocol Albuterol/Ipratropium (Duoneb) 3 ml NEB Q4HP PRN PRN Reason: Shortness Of Breath Alprazolam (Xanax) 0.25 mg PO TIDP PRN PRN Reason: Anxiety Docusate Sodium (Colace) 100 mg PO BID [facility] Enoxaparin Sodium (Lovenox) 30 mg SQ DAILY [facility] Fentanyl (Duragesic) 50 mcg TOPICAL Q72H [facility] Last Admin: 09/16/20 23:25 Dose: Not Given Documented by: Potassium Chloride 10 meq/ (Dextrose/Sodium Chloride) 1,005 mls @ 84 mls/hr IV .[id number] [facility] Stop: 09/17/20 22:04 Last Admin: 09/17/20 00:47 Dose: 84 mls/hr Documented by: Potassium Chloride 40 meq/ (Dextrose) 520 mls @ 130 mls/hr IV UD PRN PRN Reason: Potassium < 3 Magnesium Sulfate (Magnesium Sulfate) 2 gm in 50 mls @ 50 mls/hr IV UD PRN PRN Reason: Magnesium </= 1.6 Levothyroxine Sodium (Synthroid) 50 mcg PO QAMAC [facility] Last Admin: 09/17/20 07:48 Dose: 50 mcg Documented by: Omeprazole (Prilosec) 40 mg PO ACB [facility] Last Admin: 09/17/20 07:48 Dose: 40 mg Documented by: Ondansetron HCl (Zofran) 4 mg IV Q4HP PRN PRN Reason: Nausea And Vomiting Polyethylene Glycol (Miralax) 17 gm PO DAILYP PRN PRN Reason: Constipation Potassium Chloride (Kdur) 40 meq PO UD PRN PRN Reason: Potssium is 3-3.5 Potassium Chloride (Kdur) 40 meq PO UD PRN PRN Reason: Potassium < 3 Senna (Senokot) 2 tab PO DAILYP PRN PRN Reason: Constipation Sodium Chloride (Saline Flush) 10 ml IV Q8 [facility] Last Admin: 09/17/20 04:25 Dose: Not Given Documented by: Tamsulosin HCl (Flomax) 0.8 mg PO HS [facility] Last Admin: 09/16/20 23:25 Dose: 0.8 mg Documented by: A/P Narrative A/P Narrative: A: *Hyponatremia/hypokalemia/hypochloremia/hypophos: 2/2 poor oral intake and volume depletion *Hypotension: 2/2 volume depletion, improved with IV fluids *Volume depletion: *Severe generalized weakness *Failure to thrive/Severe malnutrition: *Radiation proctocolitis: 2/2 radiation for prostate cancer -Supposed to follow-up Dr. Hardy for diverting colostomy *Anemia, chronic: *Anxiety: *GERD: *Chronic pain: *Tobacco abuse: *Primary Hypothyroidism: treatment to likely help with FTT * P: -IVF -Electrolyte replacement -Dietary consult, nutritional supplements -PT/OT -started Low-dose levothyroxine and follow-up with PCP -Follow-up with Dr. Hardy for diverting colostomy -Smoking cessation counseling -ppx: Lovenox Full code Time Spent With Patient Time: Total time spent is greater than 50% in coordination of care (as documented) at patient's floor/unit and/or counseling patient: QUALITY VTE Deep Vein Thrombosis/Pulmonary Embolism Present on Admission: No
[2020-09-17] MEDS ORDERED: MAGNESIUM SULFATE 8.12 MEQ in DEXTROSE 5% IN WATER 50 ML IV ONE (08:08)
[2020-09-17] MEDS ORDERED: POTASSIUM PHOSPHATE 40 MEQ in DEXTROSE 5% IN WATER 500 ML IV ONE (09:00)
[2020-09-17] MEDS ORDERED: ENOXAPARIN 30 MG/0.3 ML SYRINGE SQ SCH (09:00)
[2020-09-17] MEDS: DOCUSATE SODIUM 100 MG CAPSULE PO SCH ×2 (09:52→20:52)
[2020-09-17] MEDS: NEUTRA PHOS 1 PACKET PO SCH ×3 (09:52→20:52)
[2020-09-17] MEDS: fentaNYL 50 MCG PATCH TOPICAL SCH (09:53)
[2020-09-17] MEDS: HYDROcodone/APAP 10/325MG TABLET PO PRN ×2 (10:04→20:53)
[2020-09-17] MEDS ORDERED: 0.9 % SODIUM CHLORIDE 10 ML SYRINGE IV PRN (12:47)
[2020-09-17] MEDS ORDERED: TPN PER PHARMACY IV SCH (13:00)
[2020-09-17] MEDS ORDERED: 0.9 % SODIUM CHLORIDE 250 ML IV SCH (13:00)
--- NOTE | 2020-09-17 13:47 | General Surgery Consult Note ---
HPI Data of Consult Patient: known to practice within the last 3 years Consult date: 09/17/20 Requesting physician: Pravin Salvador Primary Care Provider: Jose Watkins DO Consult Narrative Patient Information: Note initiated : 09/17/20 at 1:32 pm Service Date, if different from initiated Date: [] Patient: Jose Moulton 50 y/o M admitted on 09/16/20 for weakness, dizziness, failure to thrive. 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 Patient is status post radiation therapy for prostate cancer. He developed rectal bleeding and pain. He was endoscoped on 27 June 2020. There was found to have a very large ulcerative lesion of the posterior lateral aspect of his rectum that extended full-thickness necrosis of the rectal wall above the dentate line. Biopsy. Pathologic results were consistent with ra diation necrosis. He was counseled for diverting colostomy to prevent fecal contamination of the ulcer and this was scheduled in early July. He however did not want to have the colostomy and did not show for surgery. He has essentially starved himself because he had such severe pain with each bowel movement. He was admitted to the hospital with extreme emaciation with profound weakness. I had a long discussion with him about the need for permanent stoma. He finally consents. I will start him on TPN today with plans for bowel prep on and complete diverting colostomy on Wednesday Constitutional Constitutional: Present anorexia, fatigue, lethargy, malaise, weakness and weight loss EENT Eyes: Absent loss of vision Ears: Absent decreased hearing Nose, mouth and throat: Present dizziness and dry mouth; Absent mouth lesions and vertigo Cardiovascular Cardiovascular: Present dyspnea on exertion, irregular heart rhythm, lighth eadedness and rapid heart rate; Absent chest pain at rest and chest pain with activity Respiratory Respiratory: Absent cough, dyspnea and wheezing Gastrointestinal Gastrointestinal: Present abdominal pain, change in bowel habits, change in stool character, diarrhea, hematochezia, loose stools and nausea Genitourinary Genitourinary: change in urinary stream, difficulty urinating, urinary hesitancy and urinary urgency Musculoskeletal Musculoskeletal: Present arthralgias, muscle cramps, muscle weakness, myalgias and numbness Integumentary Integumentary: Present change in hair; Absent swelling Neurological Neurological: Present numbness, paresthesias and weakness Psychiatric Psychiatric: Present anxiety and depression Endocrine Endocrine: Present fatigue Hematologic/Lymphatic Hematologic/Lymphatic: Absent easy bleeding and easy bruising Allergic/Immunologic Allergic/Immunologic: Absent tongue swelling, throat swelling, uticaria, wheezin g and lip swelling PFSH PFSH All Active Problems Chronic blood loss anemia (Acute) Moderate dehydration (Acute) Cachexia (Acute) Anorexia (Acute) Malnutrition (Acute) Acute dehydration (Acute) Hypothyroidism (Acute) Acute hypokalemia (Acute) Acute hyponatremia (Acute) Radiation injury of bowel (Acute) Urinary frequency (Acute) Bright red rectal bleeding (Acute) Radiation colitis (Chronic) Chronic generalized abdominal pain (Chronic) Radiation proctitis (Chronic) Chronic constipation (Chronic) Tonsil cancer (Chronic) Prostate cancer (Chronic) Prostate cancer (Acute) Hypokalemia (Acute) Abnormal stools (Acute) Hypokalemia (Acute) C. 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 difficile colitis (Acute) Chronic constipation (Chronic) Depression (Chronic) 1999 Ear Problem (Acute) Encounter for Health Maintenance Examination in Adult (Chronic) Hypokalemia (Acute) Hypokalemia (Acute) Hypokalemia (Acute) Insomnia (Chronic) Joint pain (Chronic) Migraine (Chronic) 1976 Polyuria (Chronic) Prostate cancer (Chronic) Radiation proctitis (Chronic) Renal calculi (Acute) Tonsil cancer (Chronic) Right Surgical History History of colonoscopy (Chronic 01/18/19) History of dental surgery (Chronic) No pertinent past surgical history (Inactive) Family History Mother Arthritis Diabetes Type 2 Hypertension Grandfather Cancer Paternal Heart attack Maternal Grandmother Leukemia Paternal Dementia Maternal Family/Other Migraine Maternal side of famiy Social History marital status: single smoking status: Former smoker alcohol intake frequency: holiday/special occasion only substance use type: marijuana MEDS/ALLERGIES Home Medications and Allergies Home Medications Medication Instructions Recorded Confirmed Type omeprazole 40 mg capsule,delayed 40 mg PO DAILY cap 03/22/18 09/16/20 History release clotrimazole 10 mg nico 10 mg MUCOUS MEM TID PRN 03/28/20 09/16/20 History vitamin E (dl, acetate) 400 unit 400 unit PO QDAY 03/28/20 09/16/20 History capsule loratadine 10 mg PO DAILY 06/17/20 09/16/20 History potassium chloride 20 mEq 20 meq PO BID #60 tab 06/17/20 09/16/20 Rx tablet,extended release tamsulosin 0.4 mg capsule 0.8 mg PO QHS #180 cap 07/29/20 09/16/20 Rx fentanyl 50 mcg/hr transdermal 1 patch TRANSDERMA Q72H #10 each 08/15/20 09/16/20 Rx patch hydrocodone 10 mg-acetaminophen 1 tab PO Q8H PRN #90 tab 08/26/20 09/16/20 Rx 325 mg tablet alprazolam [Xanax] 0.25 mg PO TID PRN 09/16/20 09/16/20 History Allergies Allergy/AdvReac Type Severity Reaction Status Date / Time iodine Allergy Mild Rash Verified 09/16/20 14:28 Latex, Natural Rubber Allergy Mild Rash Verified 09/17/20 13:15 aspirin AdvReac Mild Diarrhea Verified 09/17/20 13:15 shellfish derived AdvReac Mild Vomiting Verified 09/17/20 13:15 Physical Examination Vital Signs Vital signs: Temp Pulse Resp BP Pulse Ox 97.9 F 93 H 18 95/64 96 09/17/20 12:00 09/17/20 12:00 09/17/20 12:00 09/17/20 12:00 09/17/20 12:00 General physical appearance General physical exam: moderate pain, cachectic and chronically ill Eyes Eye exam: PERRL, normal ocular movement and pale ENT ENT exam: no hearing loss and poor assisted Head Head exam IM: Present atraumatic, normal inspection and normocephalic Neck Neck exam: no masses, no bruits, trachea midline, no lymphadenopathy and no venous distension Cardiovascular Cardiovascular exam IM: Present RRR, +S1, +S2 and tachycardia; Absent JVD Respiratory Respiratory exam: normal expansion, normal respiratory effort, clear to percussion and clear to auscultation Abdomen Abdomen: Present soft and non tender; Absent masses, guarding and rebound Rectum Rectum: Present normal sphincter tone Integumentary Integumentary: Present no rash, no growths and no abnormal pigmentation Neurologic Neurologic: Present normal coordination and normal sensation Musculoskeletal Musculoskeletal: Present normal gait and normal posture Psychiatric Psychiatric: Present oriented to time, oriented to person, oriented to place, speech is normal and memory intact Results Labs Result diagrams: 09/17/20 05:45 09/17/20 05:45 Labs: Abnormal lab results 09/16/20 09/16/20 09/16/20 Range/Units 15:30 15:31 15:31 RBC 4.18 L (4.50-5.90) M/mcL Hgb 10.4 L (13.5-16.5) g/dL Hct 32.2 L (41.0-55.0) % MCV 77.0 L (80.0-100.0) fL MCH 24.9 L (26.0-34.0) pg RDW 18.3 H (11.5-14.5) % Plt Count 481 H (140-440) K/mcL Neut % (Auto) 80.1 H (38.0-78.0) % Lymph % (Auto) 10.8 L (15.0-49.0) % Lymph # (Auto) 0.92 L (1.50-4.80) K/mcL Sodium 129 L (133-145) mmol/L Potassium 2.8 L* (3.3-5.1) mmol/L Chloride 83 L (96-108) mmol/L Carbon Dioxide 19 L (22-30) mmol/L Anion Gap 27.0 H (8.0-16.0) BUN (6-20) mg/dL Creatinine 0.4 L (0.7-1.2) mg/dL Glucose (70-105) mg/dL Calcium (8.6-10.4) mg/dL Phosphorus (2.5-4.5) mg/dL Lactate Dehydrogenase (135-225) U/L C-Reactive Protein 19.90 H (0.03-0.80) mg/dL NT-Pro-B Natriuret Pep 208.6 H (<125.0) pg/mL Albumin (3.2-5.2) gm/dL Prealbumin 9.3 L (20.0-40.0) mg/dL Albumin/Globulin Ratio (1.0-2.3) Procalcitonin 0.12 H (<0.10) ng/mL TSH 22.59 H (0.27-5.01) uIU/mL Free T4 (0.93-1.70) ng/dL Urine Ketones (Negative) mg/dL 09/16/20 09/17/20 09/17/20 Range/Units 15:31 01:51 05:45 RBC 3.33 L (4.50-5.90) M/mcL Hgb 8.3 L (13.5-16.5) g/dL Hct 26.2 L (41.0-55.0) % MCV 78.7 L (80.0-100.0) fL MCH 24.9 L (26.0-34.0) pg RDW 18.6 H (11.5-14.5) % Plt Count (140-440) K/mcL Neut % (Auto) (38.0-78.0) % Lymph % (Auto) (15.0-49.0) % Lymph # (Auto) 1.09 L (1.50-4.80) K/mcL Sodium (133-145) mmol/L Potassium (3.3-5.1) mmol/L Chloride (96-108) mmol/L Carbon Dioxide (22-30) mmol/L Anion Gap (8.0-16.0) BUN (6-20) mg/dL Creatinine (0.7-1.2) mg/dL Glucose (70-105) mg/dL Calcium (8.6-10.4) mg/dL Phosphorus (2.5-4.5) mg/dL Lactate Dehydrogenase (135-225) U/L C-Reactive Protein (0.03-0.80) mg/dL NT-Pro-B Natriuret Pep (<125.0) pg/mL Albumin (3.2-5.2) gm/dL Prealbumin (20.0-40.0) mg/dL Albumin/Globulin Ratio (1.0-2.3) Procalcitonin (<0.10) ng/mL TSH (0.27-5.01) uIU/mL Free T4 0.33 L (0.93-1.70) ng/dL Urine Ketones 80 A (Negative) mg/dL 09/17/20 Range/Units 05:45 RBC (4.50-5.90) M/mcL Hgb (13.5-16.5) g/dL Hct (41.0-55.0) % MCV (80.0-100.0) fL MCH (26.0-34.0) pg RDW (11.5-14.5) % Plt Count (140-440) K/mcL Neut % (Auto) (38.0-78.0) % Lymph % (Auto) (15.0-49.0) % Lymph # (Auto) (1.50-4.80) K/mcL Sodium 130 L (133-145) mmol/L Potassium 3.0 L (3.3-5.1) mmol/L Chloride (96-108) mmol/L Carbon Dioxide (22-30) mmol/L Anion Gap (8.0-16.0) BUN 5 L (6-20) mg/dL Creatinine 0.4 L (0.7-1.2) mg/dL Glucose 119 H (70-105) mg/dL Calcium 8.1 L (8.6-10.4) mg/dL Phosphorus 1.5 L (2.5-4.5) mg/dL Lactate Dehydrogenase 118 L (135-225) U/L C-Reactive Protein (0.03-0.80) mg/dL NT-Pro-B Natriuret Pep (<125.0) pg/mL Albumin 2.6 L (3.2-5.2) gm/dL Prealbumin (20.0-40.0) mg/dL Albumin/Globulin Ratio 0.8 L (1.0-2.3) Procalcitonin (<0.10) ng/mL TSH (0.27-5.01) uIU/mL Free T4 (0.93-1.70) ng/dL Urine Ketones (Negative) mg/dL Diabetes panel 09/16/20 09/17/20 Range/Units 15:31 05:45 Sodium 129 L 130 L (133-145) mmol/L Potassium 2.8 L* 3.0 L (3.3-5.1) mmol/L Chloride 83 L 96 (96-108) mmol/L Carbon Dioxide 19 L 24 (22-30) mmol/L BUN 7 5 L (6-20) mg/dL Creatinine 0.4 L 0.4 L (0.7-1.2) mg/dL Glucose 84 119 H (70-105) mg/dL Calcium 9.1 8.1 L (8.6-10.4) mg/dL AST 14 15 (<40) U/L ALT 13 11 (<40) U/L Alkaline Phosphatase 103 81 (39-117) U/L Total Protein 6.9 5.9 (5.9-8.4) gm/dL Albumin 3.5 2.6 L (3.2-5.2) gm/dL Triglycerides 107 (<150) mg/dL Thyroid panel 09/16/20 Range/Units 15:31 TSH 22.59 H (0.27-5.01) uIU/mL Calcium panel 09/16/20 09/16/20 09/17/20 Range/Units 15:31 15:31 05:45 Calcium 9.1 8.1 L (8.6-10.4) mg/dL Phosphorus 2.7 1.5 L (2.5-4.5) mg/dL Albumin 3.5 2.6 L (3.2-5.2) gm/dL Pituitary panel 09/16/20 09/17/20 Range/Units 15:31 05:45 Sodium 129 L 130 L (133-145) mmol/L Potassium 2.8 L* 3.0 L (3.3-5.1) mmol/L Chloride 83 L 96 (96-108) mmol/L Carbon Dioxide 19 L 24 (22-30) mmol/L BUN 7 5 L (6-20) mg/dL Creatinine 0.4 L 0.4 L (0.7-1.2) mg/dL Glucose 84 119 H (70-105) mg/dL Calcium 9.1 8.1 L (8.6-10.4) mg/dL TSH 22.59 H (0.27-5.01) uIU/mL Adrenal panel 09/16/20 09/17/20 Range/Units 15:31 05:45 Sodium 129 L 130 L (133-145) mmol/L Potassium 2.8 L* 3.0 L (3.3-5.1) mmol/L Chloride 83 L 96 (96-108) mmol/L Carbon Dioxide 19 L 24 (22-30) mmol/L BUN 7 5 L (6-20) mg/dL Creatinine 0.4 L 0.4 L (0.7-1.2) mg/dL Glucose 84 119 H (70-105) mg/dL Calcium 9.1 8.1 L (8.6-10.4) mg/dL Total Bilirubin 0.4 0.3 (0.1-1.0) mg/dL AST 14 15 (<40) U/L ALT 13 11 (<40) U/L Alkaline Phosphatase 103 81 (39-117) U/L Total Protein 6.9 5.9 (5.9-8.4) gm/dL Albumin 3.5 2.6 L (3.2-5.2) gm/dL All other labs normal. A/P Assessment and plan (1) Cachexia: Status: Acute (2) Malnutrition: Status: Acute Qualifiers: Malnutrition type: unspecified type Qualified Code(s): E46 - Unspecified protein-calorie malnutrition (3) Chronic blood loss anemia: Status: Acute (4) Moderate dehydration: Status: Acute (5) Radiation injury of bowel: Status: Acute Qualifiers: Encounter type: subsequent encounter Qualified Code(s): T66.XXXD - Radiation sickness, unspecified, subsequent encounter (6) Radiation proctitis: Status: Chronic (7) Prostate cancer: Status: Acute (8) Unintended weight loss: Status: Acute (9) Depression: Status: Chronic Comment: 2000 Qualifiers: Depression Type: major depressive disorder Major depression recurrence: recurrent Active/Remission status: in full remission Qualified Code(s): F3 3.42 - Major depressive disorder, recurrent, in full remission Narrative A/P Narrative: the patient is counseled for total diverting colostomy. He was allowed to answer all questions. He states that he is made his decision to proceed with the stoma. TPN will be started after PICC line misplaced. He will have bowel prep on of this week with surgery on Wednesday. He should be hospitalized about 4-5 days post procedure and will have TPN continued until he is discharged. He should be able to start a regular diet after he has return of intestinal function. He is advised that he will intermittently have some blood and purulent from the radiation necrosis of his rectum, but this will not require any further therapy. Time Spent With Patient Time: Total time spent is greater than 50% in coordination of care (as documented) at patient's floor/unit and/or counseling patient:
[2020-09-17 14:14] LABS: INR 1.2 (0.9-1.1); Partial Thromboplastin Time 44.1 sec (20.0-37.0); Prothrombin Time 15.6 sec (11.9-14.5)
[2020-09-17] MEDS: TAMSULOSIN 0.4 MG CAPSULE PO SCH (20:52)
[2020-09-18] MEDS: HYDROcodone/APAP 10/325MG TABLET PO PRN ×3 (04:57→21:38)
[2020-09-18] MEDS: 0.9 % SODIUM CHLORIDE 10 ML SYRINGE IV SCH ×5 (05:53→21:45)
[2020-09-18] MEDS: LEVOTHYROXINE 50 MCG TABLET PO SCH (07:08)
[2020-09-18] MEDS: OMEPRAZOLE 20 MG CAPSULE PO SCH (07:08)
[2020-09-18 07:26] LABS: Basophils # (Auto) 0.02 K/mcL (0.00-0.20); Basophils % (Auto) 0.3 % (0.0-2.0); Eosinophils # (Auto) 0.02 K/mcL (0.00-0.70); Eosinophils % (Auto) 0.3 % (0.0-7.0); Hematocrit 32.3 % (41.0-55.0); Hemoglobin 10.9 g/dL (13.5-16.5); Lymphocytes # (Auto) 0.85 K/mcL (1.50-4.80); Lymphocytes % (Auto) 13.4 % (15.0-49.0); Mean Cell Volume 79.2 fL (80.0-100.0); Mean Corpuscular HGB Conc 33.7 g/dL (31.0-36.0); Mean Platelet Volume 8.5 fL (7.4-10.4); Monocytes # (Auto) 0.63 K/mcL (0.10-0.90); Monocytes % (Auto) 9.9 % (1.0-12.0); Neutrophils % (Auto) 76.1 % (38.0-78.0); Platelet Count 324 K/mcL (140-440); RBC 4.08 M/mcL (4.50-5.90); Red Cell Distribution Width 18.1 % (11.5-14.5); WBC 6.3 K/mcL (4.5-11.0)
--- NOTE | 2020-09-18 07:44 | Internal Med Progress Note ---
SUBJECTIVE Subjective Patient information: Note initiated : 09/18/20 at 7:38 am Service Date, if different from initiated Date: [] Patient: Jose Moulton a 50 y/o M admitted on 09/16/20 for weakness, dizziness, failure to thrive. Chief Complaint: [] Interval history: History of present illness: Mr. Moulton is a 50 year old M Presents with severe weakness and lightheadedness. Patient states the reason he came in the ED is because he was severely weak and could hardly move around and became lightheaded and get up and move. 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 Was recommended to him to get a diverting colostomy he has not made a decision on that yet. He has not been eating very much for the past couple months because it hurts to go to the bathroom. And especially the past few weeks he is eating hardly an ything. He says a couple days ago he had 8 ounces of Slim fast and then nothing for the few days prior to that nothing yesterday. He has had some water and some electrolyte drinks that about it. Denies fevers chills chest pain abdominal pain. In the ED is found to be hyponatremic hypokalemic hypochloremic. An elevated TSH but denies cold intolerance dry skin or constipation. 1/ Poor sleep. Complains of leg pain and some rectal pain from stooling. States difficulty in urinating. Electrolyte imbalance slowly improving. Patient is supposed to receive a diverting colostomy. Will consult surgery to discuss timing. 09/18 no overnight events or new complaints. Seen by general surgery and scheduled for diverting colostomy on Wednesday. TPN started.. Review of Systems: denies headache/fever/chills/nausea/vomiting/chest or abdominal pain/cough/dyspnea. Otherwise see above. Constitutional Vitals: Vital Signs Temp Pulse Resp BP Pulse Ox 98.6 F 84 18 86/60 99 09/18/20 07:28 09/18/20 07:28 09/18/20 07:28 09/18/20 07:28 09/18/20 07:28 Period Temp Pulse Resp BP Sys/Greer Pulse Ox Last 24 Hr 97.8 F-99.1 F 83-99 18-20 86-118/50-78 96-100 Intake and Output 09/17/20 09/18/20 09/18/20 21:59 05:59 13:59 Intake Total 1658.0909 1040 Output Total 350 825 Balance 1308.0909 215 Weight 55.111 kg 57.379 kg Intake & Output: Intake & Output 09/17/20 09/18/20 09/18/20 21:59 05:59 13:59 Intake Total 1658.0909 1040 Output Total 350 825 Balance 1308.0909 215 Weight 55.111 kg 57.379 kg Intake: IV 693.0909 Sodium Chloride 0.9% 250 ml @ 118 20 mls/hr IV .[id number] [facility] Rx#: [id number] Potassium Chloride 10 Meq In 66 Dextrose 5%-Ns IV Solution 1, 000 ml @ 84 mls/hr IV .[id number] [facility] Rx#:[id number] Potassium Phosphate 40 Meq In 509.0909 Dextrose 5% in Water 500 ml @ 127.273 mls/hr IV ONCE ONE Rx#: [id number] Oral 240 1040 Blood Product 725 Output: Void Amount 350 825 Other: Meal Lunch Percent of Meal Consumed 25% Feeding Ability Independent Urine Appearance Clear Urine Color Bright Yellow Tea Colored [place] Urine Odor Normal Exam: General: Alert, Awake, No acute Distress, cachectic Eyes/N/T: EOMI, Head/Neck: neck supple, CV: RRR, No murmurs, Pulm: Clear b/l, no wheezing/rhonchi/rales Abd: soft, nontender, +BS x4 Ext: no clubbing/cyanosis/edema Neuro: Alert, no focal deficits, moves all extremities, Skin: warm/dry, OBJ DATA Labs CBC & Chem 7: 09/18/20 06:15 09/17/20 05:45 Labs: Abnormal Lab Results 09/18/20 09/17/20 09/17/20 06:15 13:05 05:45 RBC 4.08 L Hgb 10.9 L Hct 32.3 L MCV 79.2 L MCH RDW 18.1 H Plt Count Neut % (Auto) Lymph % (Auto) 13.4 L Lymph # (Auto) 0.85 L PT 15.6 H INR 1.2 H APTT 44.1 H Sodium 130 L Potassium 3.0 L Chloride Carbon Dioxide Anion Gap BUN 5 L Creatinine 0.4 L Glucose 119 H Calcium 8.1 L Phosphorus 1.5 L Lactate Dehydrogenase 118 L C-Reactive Protein NT-Pro-B Natriuret Pep Albumin 2.6 L Prealbumin Albumin/Globulin Ratio 0.8 L Procalcitonin TSH Free T4 Urine Ketones 09/17/20 09/17/20 09/16/20 05:45 01:51 15:31 RBC 3.33 L Hgb 8.3 L Hct 26.2 L MCV 78.7 L MCH 24.9 L RDW 18.6 H Plt Count Neut % (Auto) Lymph % (Auto) Lymph # (Auto) 1.09 L PT INR APTT Sodium Potassium Chloride Carbon Dioxide Anion Gap BUN Creatinine Glucose Calcium Phosphorus Lactate Dehydrogenase C-Reactive Protein NT-Pro-B Natriuret Pep Albumin Prealbumin Albumin/Globulin Ratio Procalcitonin TSH Free T4 0.33 L Urine Ketones 80 A 09/16/20 09/16/20 09/16/20 15:31 15:31 15:30 RBC 4.18 L Hgb 10.4 L Hct 32.2 L MCV 77.0 L MCH 24.9 L RDW 18.3 H Plt Count 481 H Neut % (Auto) 80.1 H Lymph % (Auto) 10.8 L Lymph # (Auto) 0.92 L PT INR APTT Sodium 129 L Potassium 2.8 L* Chloride 83 L Carbon Dioxide 19 L Anion Gap 27.0 H BUN Creatinine 0.4 L Glucose Calcium Phosphorus Lactate Dehydrogenase C-Reactive Protein 19.90 H NT-Pro-B Natriuret Pep 208.6 H Albumin Prealbumin 9.3 L Albumin/Globulin Ratio Procalcitonin 0.12 H TSH 22.59 H Free T4 Urine Ketones Meds: Medications Acetaminophen (Tylenol) 650 mg PO Q6HP PRN PRN Reason: PAIN/FEVER > 101 Last Admin: 09/17/20 23:11 Dose: 650 mg Documented by: Hydrocodone Bitart/Acetaminophen ([place] 10/325mg) 1 tab PO Q8HP PRN; Protocol PRN Reason: Per Pain Protocol Last Admin: 09/18/20 04:57 Dose: 1 tab Documented by: Albuterol/Ipratropium (Duoneb) 3 ml NEB Q4HP PRN PRN Reason: Shortness Of Breath Alprazolam (Xanax) 0.25 mg PO TIDP PRN PRN Reason: Anxiety Docusate Sodium (Colace) 100 mg PO BID [facility] Last Admin: 09/17/20 20:52 Dose: 100 mg Documented by: Enoxaparin Sodium (Lovenox) 30 mg SQ DAILY [facility] Last Admin: 09/17/20 09:52 Dose: 30 mg Documented by: Fentanyl (Duragesic) 50 mcg TOPICAL Q72H [facility] Last Admin: 09/17/20 09:53 Dose: 50 mcg Documented by: Heparin Sodium (Porcine) (Heparin 10 Units/Ml Flush) 2 ml IV Q12 [facility] Last Admin: 09/17/20 20:54 Dose: Not Given Documented by: Potassium Chloride 40 meq/ (Dextrose) 520 mls @ 130 mls/hr IV UD PRN PRN Reason: Potassium < 3 Magnesium Sulfate (Magnesium Sulfate) 2 gm in 50 mls @ 50 mls/hr IV UD PRN PRN Reason: Magnesium </= 1.6 Levothyroxine Sodium (Synthroid) 50 mcg PO QAMAC [facility] Last Admin: 09/18/20 07:08 Dose: 50 mcg Documented by: Omeprazole (Prilosec) 40 mg PO ACB [facility] Last Admin: 09/18/20 07:08 Dose: 40 mg Documented by: Ondansetron HCl (Zofran) 4 mg IV Q4HP PRN PRN Reason: Nausea And Vomiting Polyethylene Glycol (Miralax) 17 gm PO DAILYP PRN PRN Reason: Constipation Potassium Chloride (Kdur) 40 meq PO UD PRN PRN Reason: Potssium is 3-3.5 Potassium Chloride (Kdur) 40 meq PO UD PRN PRN Reason: Potassium < 3 Senna (Senokot) 2 tab PO DAILYP PRN PRN Reason: Constipation Sodium Chloride (Saline Flush) 10 ml IV Q8 [facility] Last Admin: 09/18/20 05:53 Dose: Not Given Documented by: Sodium Chloride (Saline Flush) 10 ml IV UD PRN PRN Reason: FLUSH Sodium Chloride (Saline Flush) 10 ml IV Q12 [facility] Last Admin: 09/17/20 20:55 Dose: Not Given Documented by: Tamsulosin HCl (Flomax) 0.8 mg PO HS [facility] Last Admin: 09/17/20 20:52 Dose: 0.8 mg Documented by: A/P Narrative A/P Narrative: A: *Hyponatremia/hypokalemia/hypochloremia/hypophos: 2/2 poor oral intake and volume depletion *Hypotension: 2/2 volume depletion, improved with IV fluids *Volume depletion: *Severe generalized weakness *Failure to thrive/Severe malnutrition: *Radiation proctocolitis: 2/2 radiation for prostate cancer -was supposed to follow-up Dr. Hardy for diverting colostomy but has not *Anemia, chronic: *Anxiety: *GERD: *Chronic pain: *Tobacco abuse: *Primary Hypothyroidism: * P: -electrolyte replacement -Dr. Hardy following, diverting colostomy likely Wednesday -TPN per surgery -wound care -Dietary consult, nutritional supplements -PT/OT -started Low-dose levothyroxine and follow-up with PCP -Smoking cessation counseling -ppx: heparin Full code Time Spent With Patient Time: Total time spent is greater than 50% in coordination of care (as documented) at patient's floor/unit and/or counseling patient: QUALITY VTE Deep Vein Thrombosis/Pulmonary Embolism Present on Admission: No
[2020-09-18 08:38] LABS: ALT/SGPT 18 U/L (<40); AST/SGOT 19 U/L (<40); Albumin 2.6 gm/dL (3.2-5.2); Albumin/Globulin Ratio 0.9 (1.0-2.3); Alkaline Phosphatase 84 U/L (39-117); Bilirubin,Direct 0.2 mg/dL (<0.3); Bilirubin,Total 0.8 mg/dL (0.1-1.0); Blood Urea Nitrogen 3 mg/dL (6-20); Calcium 8.1 mg/dL (8.6-10.4); Carbon Dioxide 28 mmol/L (22-30); Chloride 94 mmol/L (96-108); Globulin 2.9 gm/dL (2.2-3.7); Glomerular Filtration Rate 183; Glucose 111 mg/dL (70-105); Lactate Dehydrogenase 144 U/L (135-225); Phosphorous 2.3 mg/dL (2.5-4.5); Triglycerides 98 mg/dL (<150); Uric Acid 1.7 mg/dL (2.5-8.0)
[2020-09-18] MEDS: DOCUSATE SODIUM 100 MG CAPSULE PO SCH ×2 (08:50→21:39)
[2020-09-18] MEDS: HEPARIN 5,000 UNIT/ML VIAL SQ SCH ×2 (08:50→21:41)
[2020-09-18] MEDS ORDERED: POTASSIUM CHLORIDE 40 MEQ in DEXTROSE 5% IN WATER 500 ML IV ONE (08:55)
--- NOTE | 2020-09-18 10:39 | XRay Report ---
CLINICAL INFORMATION: PICC placement COMPARISON: 09/16/2020 FINDINGS: Left PICC line tip is optimally placed over the SVC right atrial junction. Heart size, mediastinum and pulmonary vessels are normal. The lungs are clear. No effusions. Bones and soft tissues normal IMPRESSION: Negative chest. Left PICC line tip overlying the SVC right atrial junction. Interpreted and Authenticated by: Jose Patricia 09/18/20
[2020-09-18] MEDS: ALPRAZolam 0.25 MG TABLET PO PRN (11:35)
[2020-09-18] MEDS: INSULIN LISPRO 1 UNIT/0.01 ML UNIT SQ SCH ×3 (11:55→23:51)
[2020-09-18] MEDS ORDERED: CALCIUM GLUCONATE IV SCH (13:00)
[2020-09-18] MEDS ORDERED: [UNRECOGNIZED DRUG - OTHER] IV SCH (13:00)
[2020-09-18] MEDS ORDERED: SODIUM CHLORIDE IV SCH (13:00)
[2020-09-18] MEDS ORDERED: MAGNESIUM SULFATE IV SCH (13:00)
--- NOTE | 2020-09-18 15:44 | General Surgery Progress Note ---
SUBJECTIVE Subjective Patient information: Note initiated : 09/18/20 at 3:37 pm Service Date, if different from initiated Date: [] Patient: Jose Moulton 50 y/o M admitted on 09/16/20 for weakness, dizziness, failure to thrive. Chief Complaint: [] Interval history: patient states that he feels better. He is tolerated by mouth much better. He still has pain with bowel movements. His PICC line has been started and he is on TPN. Discussed with him the plan to proceed with surgery on Wednesday and he is agreeable. Advised that I will give him MiraLAX starting tomorrow morning along with clear liquids for prep. Potassium 3.1, BUN 3, creatinine 0.2, phosphorus 2.3, white blood count 6.3, hemoglobin 10.9, hematocrit 30 2.. Constitutional Vitals: Vital Signs Temp Pulse Resp BP Pulse Ox 98.1 F 85 20 102/69 97 09/18/20 12:00 09/18/20 12:00 09/18/20 12:00 09/18/20 12:00 09/18/20 12:00 Period Temp Pulse Resp BP Sys/Greer Pulse Ox Last 24 Hr 98.0 F-99.1 F 83-99 18-20 86-118/50-78 97-100 Intake and Output 09/18/20 09/18/20 09/18/20 05:59 13:59 21:59 Intake Total 1040 1229 Output Total 825 300 300 Balance 215 929 -300 Weight 126 lb 8 oz Intake & Output: Intake & Output 09/18/20 09/18/20 09/18/20 05:59 13:59 21:59 Intake Total 1040 1229 Output Total 825 300 300 Balance 215 929 -300 Weight 126 lb 8 oz Intake: IV 989 Potassium Chloride 10 Meq In 939 Dextrose 5%-Ns IV Solution 1, 000 ml @ 84 mls/hr IV .[id number] [facility] Rx#:[id number] Oral 1040 240 Output: Void Amount 825 300 300 Other: Meal Breakfast Percent of Meal Consumed 30 Feeding Ability Independent Urine Appearance Clear Clear Urine Color Tea Colored Dark Alisha Bartow Head Head exam: Present atraumatic and normocephalic Eye Eye exam: Present EOMI and normal appearance Pupils: Present PERRL ENT ENT exam: Present normal oropharynx Neck Neck exam: Present full ROM; Absent lymphadenopathy Respiratory Respiratory exam: Present normal respiratory exam and CTAB; Absent rales, rhonchi and wheezes Cardiovascular Cardiovascular exam: Present normal rate and rhythm, RRR, +S1 and +S2; Absent JVD GI/Abdominal GI/Abdominal exam: Present normal bowel sounds, soft and diminished bowel sounds; Absent guarding and mass Extremities Exam Extremities exam: Present full ROM and neurovascular intact; Absent pedal edema Back Exam Back exam: Present full ROM and normal inspection Neurological Exam Neurological exam: Present alert, normal gait and oriented X3; Absent motor sensory deficit Psychiatric Psychiatric exam: Present depressed and normal mood A/P Assessment and plan (1) Radiation injury of bowel: Status: Acute Qualifiers: Encounter type: subsequent encounter Qualified Code(s): T66.XXXD - Radiation sickness, unspecified, subsequent encounter (2) Chronic blood loss anemia: Status: Acute (3) Moderate dehydration: Status: Acute (4) Malnutrition: Status: Acute Qualifiers: Malnutrition type: unspecified type Qualified Code(s): E46 - Unspecified protein-calorie malnutrition (5) Radiation proctitis: Status: Chronic Narrative A/P Narrative: clear liquid diet in the a.m. MiraLAX every 4 hours 2 doses tomorrow. Potassium phosphate rider. Recheck chemistries in the a.m. Time Spent With Patient Time: Total time spent is greater than 50% in coordination of care (as documented) at patient's floor/unit and/or counseling patient:
[2020-09-18] MEDS ORDERED: FAT EMULSION 20% 250 ML in PREMIX 1 BAG IV SCH (16:00)
[2020-09-18 16:44] LABS: Prealbumin 5.8 mg/dL (20.0-40.0)
[2020-09-18] MEDS: TAMSULOSIN 0.4 MG CAPSULE PO SCH (21:38)
[2020-09-19] MEDS: HYDROcodone/APAP 10/325MG TABLET PO PRN ×3 (05:19→20:10)
[2020-09-19] MEDS: INSULIN LISPRO 1 UNIT/0.01 ML UNIT SQ SCH ×4 (05:33→23:52)
[2020-09-19 06:43] LABS: Basophils # (Auto) 0.02 K/mcL (0.00-0.20); Basophils % (Auto) 0.3 % (0.0-2.0); Eosinophils # (Auto) 0.02 K/mcL (0.00-0.70); Eosinophils % (Auto) 0.3 % (0.0-7.0); Hematocrit 34.7 % (41.0-55.0); Hemoglobin 11.5 g/dL (13.5-16.5); Lymphocytes % (Auto) 15.4 % (15.0-49.0); Mean Cell Volume 80.1 fL (80.0-100.0); Mean Corpuscular HGB Conc 33.1 g/dL (31.0-36.0); Mean Platelet Volume 8.7 fL (7.4-10.4); Monocytes # (Auto) 0.63 K/mcL (0.10-0.90); Monocytes % (Auto) 8.8 % (1.0-12.0); Neutrophils % (Auto) 75.2 % (38.0-78.0); Platelet Count 317 K/mcL (140-440); RBC 4.33 M/mcL (4.50-5.90); Red Cell Distribution Width 18.5 % (11.5-14.5); WBC 7.1 K/mcL (4.5-11.0)
[2020-09-19 07:06] LABS: ALT/SGPT 17 U/L (<40); AST/SGOT 15 U/L (<40); Albumin 2.7 gm/dL (3.2-5.2); Albumin/Globulin Ratio 0.8 (1.0-2.3); Alkaline Phosphatase 87 U/L (39-117); Bilirubin,Direct < 0.2 mg/dL (<0.3); Bilirubin,Total 0.4 mg/dL (0.1-1.0); Blood Urea Nitrogen 5 mg/dL (6-20); Calcium 8.2 mg/dL (8.6-10.4); Carbon Dioxide 28 mmol/L (22-30); Chloride 93 mmol/L (96-108); Globulin 3.3 gm/dL (2.2-3.7); Glomerular Filtration Rate 155; Glucose 115 mg/dL (70-105); Lactate Dehydrogenase 151 U/L (135-225); Phosphorous 2.3 mg/dL (2.5-4.5); Triglycerides 108 mg/dL (<150); Uric Acid 1.1 mg/dL (2.5-8.0)
[2020-09-19] MEDS: LEVOTHYROXINE 50 MCG TABLET PO SCH (07:22)
[2020-09-19] MEDS: OMEPRAZOLE 20 MG CAPSULE PO SCH (07:22)
--- NOTE | 2020-09-19 07:31 | Internal Med Progress Note ---
SUBJECTIVE Subjective Patient information: Note initiated : 09/19/20 at 7:30 am Service Date, if different from initiated Date: [] Patient: Jsoe Moulton a 50 y/o M admitted on 09/16/20 for weakness, dizziness, failure to thrive. Chief Complaint: [] Interval history: History of present illness: Mr. Moulton is a 50 year old M Presents with severe weakness and lightheadedness. Patient states the reason he came in the ED is because he was severely weak and could hardly move around and became lightheaded and get up and move. 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 Was recommended to him to get a diverting colostomy he has not made a decision on that yet. He has not been eating very much for the past couple months because it hurts to go to the bathroom. And especially the past few weeks he is eating hardly an ything. He says a couple days ago he had 8 ounces of Slim fast and then nothing for the few days prior to that nothing yesterday. He has had some water and some electrolyte drinks that about it. Denies fevers chills chest pain abdominal pain. In the ED is found to be hyponatremic hypokalemic hypochloremic. An elevated TSH but denies cold intolerance dry skin or constipation. 09/17 Poor sleep. Complains of leg pain and some rectal pain from stooling. States difficulty in urinating. Electrolyte imbalance slowly improving. Patient is supposed to receive a diverting colostomy. Will consult surgery to discuss timing. 09/18 no overnight events or new complaints. Seen by general surgery and scheduled for diverting colostomy on Wednesday. TPN started.. 09/19 Poor sleep. No new complaints. Will be prepped for surgery tomorrow. Review of Systems: denies headache/fever/chills/nausea/vomiting/chest or abdominal pain/cough/dyspnea. Otherwise see above. Constitutional Vitals: Vital Signs Temp Pulse Resp BP Pulse Ox 98.2 F 85 16 99/69 96 09/19/20 04:35 09/19/20 04:35 09/19/20 04:35 09/19/20 04:35 09/19/20 04:35 Period Temp Pulse Resp BP Sys/Greer Pulse Ox Last 24 Hr 98.1 F-99.2 F 85-99 16-20 90-102/61-75 96-99 Intake and Output 09/18/20 09/19/20 09/19/20 21:59 05:59 13:59 Intake Total 1680 750 Output Total 1475 1175 Balance 205 -425 Intake & Output: Intake & Output 09/18/20 09/19/20 09/19/20 21:59 05:59 13:59 Intake Total 1680 750 Output Total 1475 1175 Balance 205 -425 Intake: IV 520 250 Intralipid 20% 250 ml In Premix 250 1 Bag @ 25 mls/hr IV MoWeFr@ 1600 [facility] Rx#:[id number] Potassium Chloride 40 Meq In 520 Dextrose 5% in Water 500 ml @ 130 mls/hr IV ONCE ONE Rx#: [id number] Oral 1160 500 Output: Void Amount 1475 1175 Other: Meal Lunch Percent of Meal Consumed 100% Feeding Ability Assist with Tray Set Up Urine Color Straw Urine Odor Normal # of times incontinent of 1 Bowels Exam: General: Alert, Awake, No acute Distress, cachectic Eyes/N/T: EOMI, Head/Neck: neck supple, CV: RRR, No murmurs, Pulm: Clear b/l, no wheezing/rhonchi/rales Abd: soft, nontender, +BS x4 Ext: no clubbing/cyanosis/edema Neuro: Alert, no focal deficits, moves all extremities, Skin: warm/dry, OBJ DATA Labs CBC & Chem 7: 09/19/20 05:25 09/19/20 05:25 Labs: Abnormal Lab Results 09/19/20 09/19/20 09/18/20 05:25 05:25 11:29 RBC 4.33 L Hgb 11.5 L Hct 34.7 L MCV MCH RDW 18.5 H Plt Count Neut % (Auto) Lymph % (Auto) Lymph # (Auto) 1.10 L PT INR APTT Sodium 130 L Potassium 3.2 L Chloride 93 L Carbon Dioxide Anion Gap BUN 5 L Creatinine 0.3 L Glucose 115 H Uric Acid 1.1 L Calcium 8.2 L Phosphorus 2.3 L Lactate Dehydrogenase C-Reactive Protein NT-Pro-B Natriuret Pep Total Protein Albumin 2.7 L Prealbumin 5.8 L Albumin/Globulin Ratio 0.8 L Procalcitonin TSH Free T4 Urine Ketones 09/18/20 09/18/20 09/18/20 06:15 06:15 06:15 RBC 4.08 L Hgb 10.9 L Hct 32.3 L MCV 79.2 L MCH RDW 18.1 H Plt Count Neut % (Auto) Lymph % (Auto) 13.4 L Lymph # (Auto) 0.85 L PT INR APTT Sodium Potassium 3.1 L Chloride 94 L Carbon Dioxide Anion Gap BUN 3 L Creatinine 0.2 L Glucose 111 H Uric Acid 1.7 L Calcium 8.1 L Phosphorus 2.3 L Lactate Dehydrogenase C-Reactive Protein 12.80 H NT-Pro-B Natriuret Pep Total Protein 5.5 L Albumin 2.6 L Prealbumin Albumin/Globulin Ratio 0.9 L Procalcitonin TSH Free T4 Urine Ketones 09/17/20 09/17/20 09/17/20 13:05 05:45 05:45 RBC 3.33 L Hgb 8.3 L Hct 26.2 L MCV 78.7 L MCH 24.9 L RDW 18.6 H Plt Count Neut % (Auto) Lymph % (Auto) Lymph # (Auto) 1.09 L PT 15.6 H INR 1.2 H APTT 44.1 H Sodium 130 L Potassium 3.0 L Chloride Carbon Dioxide Anion Gap BUN 5 L Creatinine 0.4 L Glucose 119 H Uric Acid Calcium 8.1 L Phosphorus 1.5 L Lactate Dehydrogenase 118 L C-Reactive Protein NT-Pro-B Natriuret Pep Total Protein Albumin 2.6 L Prealbumin Albumin/Globulin Ratio 0.8 L Procalcitonin TSH Free T4 Urine Ketones 09/17/20 09/16/20 09/16/20 01:51 15:31 15:31 RBC Hgb Hct MCV MCH RDW Plt Count Neut % (Auto) Lymph % (Auto) Lymph # (Auto) PT INR APTT Sodium 129 L Potassium 2.8 L* Chloride 83 L Carbon Dioxide 19 L Anion Gap 27.0 H BUN Creatinine 0.4 L Glucose Uric Acid Calcium Phosphorus Lactate Dehydrogenase C-Reactive Protein 19.90 H NT-Pro-B Natriuret Pep 208.6 H Total Protein Albumin Prealbumin 9.3 L Albumin/Globulin Ratio Procalcitonin TSH 22.59 H Free T4 0.33 L Urine Ketones 80 A 09/16/20 09/16/20 15:31 15:30 RBC 4.18 L Hgb 10.4 L Hct 32.2 L MCV 77.0 L MCH 24.9 L RDW 18.3 H Plt Count 481 H Neut % (Auto) 80.1 H Lymph % (Auto) 10.8 L Lymph # (Auto) 0.92 L PT INR APTT Sodium Potassium Chloride Carbon Dioxide Anion Gap BUN Creatinine Glucose Uric Acid Calcium Phosphorus Lactate Dehydrogenase C-Reactive Protein NT-Pro-B Natriuret Pep Total Protein Albumin Prealbumin Albumin/Globulin Ratio Procalcitonin 0.12 H TSH Free T4 Urine Ketones Meds: Medications Acetaminophen (Tylenol) 650 mg PO Q6HP PRN PRN Reason: PAIN/FEVER > 101 Last Admin: 09/17/20 23:11 Dose: 650 mg Documented by: Hydrocodone Bitart/Acetaminophen (Iola 10/325mg) 1 tab PO Q8HP PRN; Protocol PRN Reason: Per Pain Protocol Last Admin: 09/19/20 05:19 Dose: 1 tab Documented by: Albuterol/Ipratropium (Duoneb) 3 ml NEB Q4HP PRN PRN Reason: Shortness Of Breath Alprazolam (Xanax) 0.25 mg PO TIDP PRN PRN Reason: Anxiety Last Admin: 09/18/20 11:35 Dose: 0.25 mg Documented by: Diagnostic Test (Pha) (Accu-Chek) 1 each FS Q6 [facility] Last Admin: 09/19/20 05:33 Dose: 1 each Documented by: Docusate Sodium (Colace) 100 mg PO BID [facility] Last Admin: 09/18/20 21:39 Dose: Not Given Documented by: Fentanyl (Duragesic) 50 mcg TOPICAL Q72H [facility] Last Admin: 09/17/20 09:53 Dose: 50 mcg Documented by: Heparin Sodium (Porcine) (Heparin 10 Units/Ml Flush) 2 ml IV Q12 [facility] Last Admin: 09/18/20 21:42 Dose: 2 ml Documented by: Heparin Sodium (Porcine) (Heparin) 5,000 unit SQ Q12 [facility] Last Admin: 09/18/20 21:41 Dose: 5,000 unit Documented by: Potassium Chloride 40 meq/ (Dextrose) 520 mls @ 130 mls/hr IV UD PRN PRN Reason: Potassium < 3 Magnesium Sulfate (Magnesium Sulfate) 2 gm in 50 mls @ 50 mls/hr IV UD PRN PRN Reason: Magnesium </= 1.6 Last Infusion: 09/18/20 12:25 Dose: Infused Documented by: Fat Emulsion Intravenous 250 (ml/ Premix) 250 mls @ 25 mls/hr IV MoWeFr@1600 [facility] Last Infusion: 09/19/20 02:07 Dose: Infused Documented by: Calcium Gluconate 5 meq/Magnesium Sulfate 8.12 meq/Sodium Chloride 30 meq/Potassium Chloride 40 meq/Multivitamins/Minerals 10 ml/Potassium Phosphate 10 meq/Amino Acids 1,052.5253 mls @ 30 mls/hr IV Q24H [facility] Last Admin: 09/18/20 13:08 Dose: 30 mls/hr Documented by: Insulin Human Lispro (Humalog) 0 unit SQ Q6 [facility]; Protocol Last Admin: 09/19/20 05:33 Dose: Not Given Documented by: Levothyroxine Sodium (Synthroid) 50 mcg PO QAMAC [facility] Last Admin: 09/19/20 07:22 Dose: 50 mcg Documented by: Omeprazole (Prilosec) 40 mg PO ACB [facility] Last Admin: 09/19/20 07:22 Dose: 40 mg Documented by: Ondansetron HCl (Zofran) 4 mg IV Q4HP PRN PRN Reason: Nausea And Vomiting Polyethylene Glycol (Miralax) 17 gm PO DAILYP PRN PRN Reason: Constipation Polyethylene Glycol (Miralax) 17 gm PO Q4H [facility] Stop: 09/20/20 04:01 Potassium Chloride (Kdur) 40 meq PO UD PRN PRN Reason: Potssium is 3-3.5 Potassium Chloride (Kdur) 40 meq PO UD PRN PRN Reason: Potassium < 3 Senna (Senokot) 2 tab PO DAILYP PRN PRN Reason: Constipation Sodium Chloride (Saline Flush) 10 ml IV UD PRN PRN Reason: FLUSH Sodium Chloride (Saline Flush) 10 ml IV Q12 [facility] Last Admin: 09/18/20 21:42 Dose: 10 ml Documented by: Tamsulosin HCl (Flomax) 0.8 mg PO HS [facility] Last Admin: 09/18/20 21:38 Dose: 0.8 mg Documented by: A/P Narrative A/P Narrative: A: *Hyponatremia/hypokalemia/hypochloremia/hypophos: 2/2 poor oral intake and volume depletion *Hypotension: 2/2 volume depletion, improved with IV fluids *Volume depletion: *Severe generalized weakness *Failure to thrive/Severe malnutrition: *Radiation proctocolitis: 2/2 radiation for prostate cancer -was supposed to follow-up Dr. Hardy for diverting colostomy but has not *Anemia, chronic: *Anxiety: *GERD: *Chronic pain: *Tobacco abuse: *Primary Hypothyroidism: * P: -electrolyte replacement, adjust per electrolytes -Dr. Hardy following, diverting colostomy likely Wednesday -TPN per surgery -wound care -Dietary consult, nutritional supplements -PT/OT -started Low-dose levothyroxine and follow-up with PCP for repeat labs -Smoking cessation counseling -ppx: heparin Full code Time Spent With Patient Time: Total time spent is greater than 50% in coordination of care (as documented) at patient's floor/unit and/or counseling patient: QUALITY VTE Deep Vein Thrombosis/Pulmonary Embolism Present on Admission: No
[2020-09-19] MEDS ORDERED: diphenhydrAMINE 25 MG CAPSULE PO PRN (08:31)
[2020-09-19] MEDS: HEPARIN 5,000 UNIT/ML VIAL SQ SCH ×2 (08:32→20:14)
[2020-09-19] MEDS: POLYETHYLENE GLYCOL 3350 17 GM PACKET PO SCH ×4 (08:32→20:09)
[2020-09-19] MEDS: 0.9 % SODIUM CHLORIDE 10 ML SYRINGE IV SCH ×2 (08:33→20:12)
[2020-09-19] MEDS: DOCUSATE SODIUM 100 MG CAPSULE PO SCH ×2 (08:33→20:10)
[2020-09-19] MEDS: HYDROmorphone 0.5 MG/0.5 ML SYRINGE IV PRN ×5 (08:34→23:52)
[2020-09-19] MEDS ORDERED: POTASSIUM CHLORIDE 20 MEQ in DEXTROSE 5% IN WATER 100 ML IV ONE (10:00)
--- NOTE | 2020-09-19 12:41 | General Surgery Progress Note ---
SUBJECTIVE Subjective Patient information: Note initiated : 09/19/20 at 12:35 pm Service Date, if different from initiated Date: [] Patient: Jose Moulton 50 y/o M admitted on 09/16/20 for weakness, dizziness, failure to thrive. Chief Complaint: [] Principal diagnosis: severe radiation necrosis of rectum.protein calorie malnutrition Interval history: patient is slightly improved clinically. His electrolytes and beginning to normalize. He still has moderately severe pain. He is counseled for laparotomy with colostomy in the morning. He is still agreeable to proceed. Sodium 1:30, potassium 3.2, phosphorus 2.3, white blood count 7.1, hemoglobin 11.5 Constitutional Vitals: Vital Signs Temp Pulse Resp BP Pulse Ox 98.0 F 78 22 106/56 96 09/19/20 08:00 09/19/20 08:00 09/19/20 08:00 09/19/20 08:00 09/19/20 08:00 Period Temp Pulse Resp BP Sys/Greer Pulse Ox Last 24 Hr 98.0 F-99.2 F 78-99 16-22 90-106/56-75 96-99 Intake and Output 09/18/20 09/19/20 09/19/20 21:59 05:59 13:59 Intake Total 1680 750 Output Total 1475 1175 Balance 205 -425 Weight 126 lb 8 oz Patient Weight 09/20/20 05:59 Weight 126 lb 8 oz Intake & Output: Intake & Output 09/18/20 09/19/20 09/19/20 21:59 05:59 13:59 Intake Total 1680 750 Output Total 1475 1175 Balance 205 -425 Weight 126 lb 8 oz Intake: IV 520 250 Intralipid 20% 250 ml In Premix 250 1 Bag @ 25 mls/hr IV MoWeFr@ 1600 [facility] Rx#:[id number] Potassium Chloride 40 Meq In 520 Dextrose 5% in Water 500 ml @ 130 mls/hr IV ONCE ONE Rx#: [id number] Oral 1160 500 Output: Void Amount 1475 1175 Other: Meal Lunch Percent of Meal Consumed 100% Feeding Ability Assist with Tray Set Up Urine Color Straw Urine Odor Normal # of times incontinent of 1 Bowels Head Head exam: Present atraumatic and normocephalic Eye Eye exam: Present EOMI and normal appearance Pupils: Present PERRL ENT ENT exam: Present normal oropharynx Neck Neck exam: Present full ROM; Absent lymphadenopathy Respiratory Respiratory exam: Present normal respiratory exam and CTAB; Absent rales, rhonchi and wheezes Cardiovascular Cardiovascular exam: Present normal rate and rhythm, RRR, +S1 and +S2; Absent JVD GI/Abdominal GI/Abdominal exam: Present normal bowel sounds, soft and diminished bowel sounds; Absent guarding and mass Extremities Exam Extremities exam: Present full ROM and neurovascular intact; Absent pedal edema Back Exam Back exam: Present full ROM and normal inspection Neurological Exam Neurological exam: Present alert, normal gait and oriented X3; Absent motor sensory deficit Psychiatric Psychiatric exam: Present depressed and normal mood A/P Assessment and plan (1) Radiation proctitis: Status: Chronic (2) Chronic blood loss anemia: Status: Acute (3) Moderate dehydration: Status: Acute (4) Malnutrition: Status: Acute Qualifiers: Malnutrition type: unspecified type Qualified Code(s): E46 - Unspecified protein-calorie malnutrition Narrative A/P Narrative: potassium phosphate replacement. nothing by mouth after midnight Ativan 1 mg daily at bedtime when necessary Operative treatment with colostomy tomorrow Time Spent With Patient Time: Total time spent is greater than 50% in coordination of care (as documented) at patient's floor/unit and/or counseling patient:
[2020-09-19] MEDS: CALCIUM GLUCONATE 5 MEQ, MAGNESIUM SULFATE 8.12 MEQ, SODIUM CHLORIDE 40 MEQ, POTASSIUM ... IV SCH (13:05)
[2020-09-19] MEDS ORDERED: POLYETHYLENE GLYCOL 3350 17 GM PACKET PO SCH (16:00)
[2020-09-19] MEDS: ALPRAZolam 0.25 MG TABLET PO PRN (20:10)
[2020-09-19] MEDS: TAMSULOSIN 0.4 MG CAPSULE PO SCH (20:10)
[2020-09-19] MEDS ORDERED: MELATONIN 3 MG TABLET PO SCH (21:00)
[2020-09-20] MEDS: HYDROmorphone 0.5 MG/0.5 ML SYRINGE IV PRN ×10 (02:27→23:41)
[2020-09-20] MEDS: INSULIN LISPRO 1 UNIT/0.01 ML UNIT SQ SCH ×4 (05:02→23:40)
[2020-09-20 07:02] LABS: ALT/SGPT 13 U/L (<40); AST/SGOT 11 U/L (<40); Albumin 2.7 gm/dL (3.2-5.2); Albumin/Globulin Ratio 0.8 (1.0-2.3); Alkaline Phosphatase 85 U/L (39-117); Bilirubin,Direct < 0.2 mg/dL (<0.3); Bilirubin,Total 0.4 mg/dL (0.1-1.0); Blood Urea Nitrogen 7 mg/dL (6-20); Calcium 8.4 mg/dL (8.6-10.4); Carbon Dioxide 28 mmol/L (22-30); Chloride 94 mmol/L (96-108); Globulin 3.4 gm/dL (2.2-3.7); Glomerular Filtration Rate 155; Glucose 118 mg/dL (70-105); Lactate Dehydrogenase 150 U/L (135-225); Triglycerides 133 mg/dL (<150); Uric Acid 0.8 mg/dL (2.5-8.0)
[2020-09-20] MEDS: OMEPRAZOLE 20 MG CAPSULE PO SCH (07:20)
[2020-09-20] MEDS: LEVOTHYROXINE 50 MCG TABLET PO SCH (07:20)
[2020-09-20] MEDS: DOCUSATE SODIUM 100 MG CAPSULE PO SCH ×2 (07:24→20:12)
[2020-09-20] MEDS: 0.9 % SODIUM CHLORIDE 10 ML SYRINGE IV SCH ×2 (08:14→20:12)
[2020-09-20] MEDS: HEPARIN 5,000 UNIT/ML VIAL SQ SCH ×2 (08:17→20:12)
[2020-09-20] MEDS: CALCIUM GLUCONATE 5 MEQ, MAGNESIUM SULFATE 8.12 MEQ, SODIUM CHLORIDE 40 MEQ, POTASSIUM ... IV SCH (09:00)
[2020-09-20] MEDS: fentaNYL 50 MCG PATCH TOPICAL SCH (09:19)
[2020-09-20] MEDS ORDERED: SODIUM CHLORIDE IV SCH (10:00)
[2020-09-20] MEDS ORDERED: [UNRECOGNIZED DRUG - OTHER] IV SCH (10:00)
[2020-09-20] MEDS ORDERED: CALCIUM GLUCONATE IV SCH (10:00)
[2020-09-20] MEDS ORDERED: MAGNESIUM SULFATE IV SCH (10:00)
[2020-09-20] MEDS ORDERED: ALBUMIN HUMAN 25 GM/100 ML BAG IV ONE ×2 (10:40→11:00)
[2020-09-20] MEDS ORDERED: DEXAMETHASONE 10 MG/ML VIAL ONE (11:00)
[2020-09-20] MEDS ORDERED: HYDROmorphone 1 MG/ML SYRINGE ONE (11:00)
[2020-09-20] MEDS ORDERED: IPRATROPIUM/ALBUTEROL 3 ML AMPUL.NEB NEB PRN ×4 (11:00→13:59)
[2020-09-20] MEDS ORDERED: PHENYLEPHRINE 10 MG/ML VIAL ONE (11:00)
[2020-09-20] MEDS ORDERED: LEVOFLOXACIN 750 MG/150 ML BAG IV ONE (11:00)
[2020-09-20] MEDS ORDERED: LIDOCAINE HCL/PF 100 MG/5 ML SYRINGE IV ONE (11:00)
[2020-09-20] MEDS ORDERED: SCOPOLAMINE 1 PATCH PATCH TOPICAL PRN ×2 (11:00→13:43)
[2020-09-20] MEDS ORDERED: SUGAMMADEX SODIUM 200 MG/2 ML VIAL IV ONE (11:00)
[2020-09-20] MEDS ORDERED: GLYCOPYRROLATE 0.2 MG/ML VIAL IV ONE (11:00)
[2020-09-20] MEDS ORDERED: ROCURONIUM 10 MG/ML ML IV ONE (11:00)
[2020-09-20] MEDS ORDERED: MIDAZOLAM 2 MG/2 ML VIAL ONE (11:00)
[2020-09-20] MEDS ORDERED: KETAMINE 100 MG/ML ML ONE (11:00)
[2020-09-20] MEDS ORDERED: ONDANSETRON 4 MG/2 ML VIAL ONE (11:00)
[2020-09-20] MEDS ORDERED: metroNIDAZOLE 500 MG/100 ML BAG IV ONE (11:00)
--- NOTE | 2020-09-20 12:28 | Brief Operative Note ---
Brief Operative Note Date of procedure: 09/20/20 Pre-op diagnosis: radiation proctitis with ulceration Post-op diagnosis: other Procedure: radiation proctitis with ulceration severe constipation Grafts/Implants: No Anesthesia: GETA Findings: severe total colonic constipation with near obstruction radiation proctitis Complications: none Surgeon: Bud Hardy Estimated blood loss (cc): 20 Specimens Removed/Pathology: none sent Condition: stable Disposition: PACU
[2020-09-20] MEDS ORDERED: MAGNESIUM SULFATE 2 GM/50 ML BAG IV PRN (13:43)
[2020-09-20] MEDS ORDERED: POTASSIUM CHLORIDE 20 MEQ TABLET PO PRN ×2 (13:43)
[2020-09-20] MEDS ORDERED: TPN PER PHARMACY IV SCH (13:43)
[2020-09-20] MEDS ORDERED: POTASSIUM CHLORIDE 40 MEQ in DEXTROSE 5% IN WATER 500 ML IV PRN (13:43)
[2020-09-20] MEDS ORDERED: SENNOSIDES 1 TABLET PO PRN (13:43)
[2020-09-20] MEDS ORDERED: fentaNYL 50 MCG PATCH TOPICAL SCH (13:43)
[2020-09-20] MEDS ORDERED: CLOTRIMAZOLE 10 MG TROCHE PO PRN (13:43)
[2020-09-20] MEDS ORDERED: ACETAMINOPHEN 325 MG TABLET PO PRN (13:43)
[2020-09-20] MEDS ORDERED: HYDROcodone/APAP 10/325MG TABLET PO PRN (13:43)
[2020-09-20] MEDS ORDERED: POLYETHYLENE GLYCOL 3350 17 GM PACKET PO PRN (13:43)
[2020-09-20] MEDS ORDERED: fentaNYL 100 MCG/2 ML VIAL IV PRN (13:59)
[2020-09-20] MEDS ORDERED: KETOROLAC 30 MG/ML VIAL IV PRN (13:59)
[2020-09-20] MEDS ORDERED: ePHEDrine 50 MG/ML AMPUL IV PRN (13:59)
[2020-09-20] MEDS ORDERED: HYDROmorphone 0.5 MG/0.5 ML SYRINGE IV PRN (13:59)
[2020-09-20] MEDS ORDERED: MEPERIDINE 25 MG/ML SYRINGE IV PRN (13:59)
[2020-09-20] MEDS ORDERED: ONDANSETRON 4 MG/2 ML VIAL IV PRN (13:59)
[2020-09-20] MEDS ORDERED: LACTATED RINGERS 1,000 ML IV SCH (14:00)
[2020-09-20] MEDS: ALPRAZolam 0.25 MG TABLET PO PRN ×2 (14:06→23:12)
[2020-09-20] MEDS: HYDROcodone/APAP 10/325MG TABLET PO PRN ×2 (14:49→23:11)
[2020-09-20] MEDS: METHYLNALTREXONE BROMIDE 12 MG/0.6 ML SYRINGE SQ SCH (14:50)
[2020-09-20] MEDS: FAT EMULSION 20% 250 ML in PREMIX 1 BAG IV SCH (15:53)
[2020-09-20] MEDS: POTASSIUM CHLORIDE 20 MEQ TABLET PO SCH (17:13)
[2020-09-20] MEDS: POLYETHYLENE GLYCOL 3350 17 GM PACKET PO SCH ×2 (17:13→23:12)
[2020-09-20] MEDS: METOCLOPRAMIDE 10 MG/2 ML VIAL IV SCH ×2 (17:17→23:41)
--- NOTE | 2020-09-20 17:58 | Internal Med Progress Note ---
SUBJECTIVE Subjective Patient information: Note initiated : 09/20/20 at 5:58 pm Service Date, if different from initiated Date: [] Patient: Jose Moulton a 50 y/o M admitted on 09/16/20 for weakness, dizziness, failure to thrive. Chief Complaint: [] Principal diagnosis: severe radiation necrosis of rectum.protein calorie malnutrition Interval history: Mr. Moulton is a 50 year old M Presents with severe weakness and lightheadedness. Patient states the reason he came in the ED is because he was severely weak and could hardly move around and became lightheaded and get up and move. 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 Was recommended to him to get a diverting colostomy he has not made a decision on that yet. He has not been eating very much for the past couple months because it hurts to go to the bathroom. And especially the past few weeks he is eating hardly anything. He says a couple days ago he had 8 ounces of Slim fast and then nothing for the few days prior to that nothing yesterday. He has had some water and some electrolyte drinks that about it. Denies fevers chills chest pain abdominal pain. In the ED is found to be hyponatremic hypokalemic hypochloremic. An elevated TSH but denies cold intolerance dry skin or constipation. 09/17 Poor sleep. Complains of leg pain and some rectal pain from stooling. States difficulty in urinating. Electrolyte imbalance slowly improving. Patient is supposed to receive a diverting colostomy. Will consult surgery to discuss timing. 09/18 no overnight events or new complaints. Seen by general surgery and scheduled for diverting colostomy on Wednesday. TPN started.. 09/19 Poor sleep. No new complaints. Will be prepped for surgery tomorrow. 09/20-patient seen postop. Doing well. Anxious and appears uncomfortable. On p ain management per surgery. Currently on TPN. No fever. White count stable. Stable electrolytes and renal function. Constitutional Vitals: Vital Signs Temp Pulse Resp BP Pulse Ox 97 F 97 H 18 105/77 99 09/20/20 13:38 09/20/20 15:38 09/20/20 14:14 09/20/20 15:38 09/20/20 15:38 Period Temp Pulse Resp BP Sys/Greer Pulse Ox Last 24 Hr 97 F-99.3 F 93-105 14-18 91-114/63-78 94-99 Intake and Output 09/20/20 09/20/20 09/20/20 05:59 13:59 21:59 Intake Total 480 3007.2981 0 Output Total 950 1010 1000 Balance -470 2981 Doing well postop On TPN Nonlabored breathing Appears anxious Intake & Output: Intake & Output 09/20/20 09/20/20 09/20/20 05:59 13:59 21:59 Intake Total 480 3007.2981 0 Output Total 950 1010 1000 Balance -470 2981 Intake: IV 1307.2981 Calcium Gluconate 5 Meq 1057.2981 Magnesium Sulfate 8.12 Meq Sodium Chloride 40 Meq Potassium Chloride 40 Meq Infuvite Adult 10 ml Potassium Phosphate 20 Meq In Clinimix 5% -20% Solution 1,000 ml @ 60 mls /hr IV Q17H [facility] Rx#:[id number] Oral 480 0 IV - Manual Only 1700 Output: Urine Catheter Amount 725 1000 Void Amount 950 275 Estimated Blood Loss 10 Other: Urine Appearance Clear Clear Clear Uretheral (Vincent) Clear Clear Urine Color Straw Bright Yellow Pale Uretheral (Vincent) Bright Yellow Bright Yellow Urine Odor Normal Normal Stool Size Small Stool Consistency Liquid # Bowel Movements 4 OBJ DATA Labs CBC & Chem 7: 09/21/20 05:32 09/21/20 05:31 Labs: Abnormal Lab Results 09/20/20 09/19/20 09/19/20 05:49 05:25 05:25 RBC 4.33 L Hgb 11.5 L Hct 34.7 L MCV RDW 18.5 H Lymph % (Auto) Lymph # (Auto) 1.10 L Sodium 131 L 130 L Potassium 3.2 L Chloride 94 L 93 L BUN 5 L Creatinine 0.3 L 0.3 L Glucose 118 H 115 H Uric Acid 0.8 L 1.1 L Calcium 8.4 L 8.2 L Phosphorus 2.3 L C-Reactive Protein Total Protein Albumin 2.7 L 2.7 L Albumin/Globulin Ratio 0.8 L 0.8 L Prealbumin 09/18/20 09/18/20 09/18/20 11:29 06:15 06:15 RBC 4.08 L Hgb 10.9 L Hct 32.3 L MCV 79.2 L RDW 18.1 H Lymph % (Auto) 13.4 L Lymph # (Auto) 0.85 L Sodium Potassium 3.1 L Chloride 94 L BUN 3 L Creatinine 0.2 L Glucose 111 H Uric Acid 1.7 L Calcium 8.1 L Phosphorus 2.3 L C-Reactive Protein Total Protein 5.5 L Albumin 2.6 L Albumin/Globulin Ratio 0.9 L Prealbumin 5.8 L 09/18/20 06:15 RBC Hgb Hct MCV RDW Lymph % (Auto) Lymph # (Auto) Sodium Potassium Chloride BUN Creatinine Glucose Uric Acid Calcium Phosphorus C-Reactive Protein 12.80 H Total Protein Albumin Albumin/Globulin Ratio Prealbumin Meds: Medications Acetaminophen (Tylenol) 650 mg PO Q6HP PRN PRN Reason: PAIN/FEVER > 101 Hydrocodone Bitart/Acetaminophen ([place] 10/325mg) 1 tab PO Q8HP PRN; Protocol PRN Reason: pain Last Admin: 09/20/20 14:49 Dose: 1 tab Documented by: Albuterol/Ipratropium (Duoneb) 3 ml NEB Q4HP PRN PRN Reason: Shortness Of Breath Alprazolam (Xanax) 0.25 mg PO TIDP PRN PRN Reason: Anxiety Last Admin: 09/20/20 14:06 Dose: 0.25 mg Documented by: Clotrimazole (Mycelex) 10 mg PO TIDP PRN PRN Reason: Mouth Pain Diagnostic Test (Pha) (Accu-Chek) 1 each FS Q6 [facility] Last Admin: 09/20/20 17:45 Dose: 1 each Documented by: Diphenhydramine HCl (Benadryl) 25 mg PO HSP PRN PRN Reason: Insomnia Docusate Sodium (Colace) 100 mg PO BID [facility] Fentanyl (Duragesic) 50 mcg TOPICAL Q72H [facility] Heparin Sodium (Porcine) (Heparin) 5,000 unit SQ Q12 [facility] Heparin Sodium (Porcine) (Heparin 10 Units/Ml Flush) 2 ml IV Q12 [facility] Hydromorphone HCl (Dilaudid) 0.5 mg IV Q2HP PRN; Protocol PRN Reason: Per Pain Protocol Last Admin: 09/20/20 17:18 Dose: 0.5 mg Documented by: Calcium Gluconate 10 meq/Magnesium Sulfate 16.24 meq/Sodium Chloride 100 meq/Potassium Chloride 80 meq/Multivitamins/Minerals 10 ml/Potassium Phosphate 40 meq/Amino Acids 2,109.5962 mls @ 80 mls/hr IV Q24H [facility] Fat Emulsion Intravenous 250 (ml/ Premix) 250 mls @ 25 mls/hr IV MoWeFr@1600 [facility] Last Admin: 09/20/20 15:53 Dose: 25 mls/hr Documented by: Magnesium Sulfate (Magnesium Sulfate) 2 gm in 50 mls @ 50 mls/hr IV UD PRN PRN Reason: Magnesium </= 1.6 Potassium Chloride 40 meq/ (Dextrose) 520 mls @ 130 mls/hr IV UD PRN PRN Reason: Potassium < 3 Insulin Human Lispro (Humalog) 0 unit SQ Q6H [facility]; Protocol Last Admin: 09/20/20 17:50 Dose: 6 units Documented by: Levothyroxine Sodium (Synthroid) 50 mcg PO QAMAC [facility] Loratadine (Claritin) 10 mg PO DAILY [facility] Melatonin (Melatonin 3mg Tablet) 3 mg PO QHS [facility] Methylnaltrexone [place] (Relistor) 12 mg SQ DAILY [facility] Stop: 09/23/20 09:01 Last Admin: 09/20/20 14:50 Dose: 12 mg Documented by: Metoclopramide HCl (Reglan) 10 mg IV Q6 [facility] Last Admin: 09/20/20 17:17 Dose: 10 mg Documented by: Omeprazole (Prilosec) 40 mg PO ACB [facility] Ondansetron HCl (Zofran) 4 mg IV Q4HP PRN PRN Reason: Nausea And Vomiting Polyethylene Glycol (Miralax) 17 gm PO Q6H [facility] Last Admin: 09/20/20 17:13 Dose: 17 gm Documented by: Potassium Chloride (Kdur) 40 meq PO UD PRN PRN Reason: Potssium is 3-3.5 Potassium Chloride (Kdur) 40 meq PO UD PRN PRN Reason: Potassium < 3 Potassium Chloride (Kdur) 20 meq PO BIDCC [facility] Last Admin: 09/20/20 17:13 Dose: 20 meq Documented by: Senna (Senokot) 2 tab PO DAILYP PRN PRN Reason: Constipation Sodium Chloride (Saline Flush) 10 ml IV Q12 [facility] Sodium Chloride (Saline Flush) 10 ml IV UD PRN PRN Reason: FLUSH Tamsulosin HCl (Flomax) 0.8 mg PO HS [facility] Vitamin E (Vitamin E) 400 unit PO QDAY [facility] A/P Narrative A/P Narrative: * 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 Postop day 1 with diverting colostomy. Managed per surgery Dr. Hardy * Postop pain management per Dr. Hardy surgery * Parenteral nutrition per surgery Stable medical issues as below *Hyponatremia/hypokalemia/hypochloremia/hypophos: Secondary to poor p.o. intake. On TPN. Fully resolved. *Hypotension: Resolved *Volume depletion: Resolved *Severe generalized weakness improving *Failure to thrive/Severe malnutrition: *Anemia, chronic: Stable *Anxiety: Stable *GERD: *Chronic pain: *Tobacco abuse: *Primary Hypothyroidism: On low-dose levothyroxine. Plan -Postop care per Dr. Hardy/colostomy care/pain management -TPN per surgery -PT/OT as tolerated -Smoking cessation counseling -ppx: heparin Full code Time Spent With Patient Time: Total time spent is greater than 50% in coordination of care (as documented) at patient's floor/unit and/or counseling patient: QUALITY VTE Deep Vein Thrombosis/Pulmonary Embolism Present on Admission: No
[2020-09-20] MEDS: MELATONIN 3 MG TABLET PO SCH (20:12)
[2020-09-20] MEDS: TAMSULOSIN 0.4 MG CAPSULE PO SCH (20:12)
[2020-09-20] MEDS ORDERED: diphenhydrAMINE 25 MG CAPSULE PO PRN (21:00)
[2020-09-20] MEDS ORDERED: TAMSULOSIN 0.4 MG CAPSULE PO SCH (21:00)
[2020-09-21] MEDS: HYDROmorphone 0.5 MG/0.5 ML SYRINGE IV PRN ×6 (01:27→12:28)
[2020-09-21] MEDS: POLYETHYLENE GLYCOL 3350 17 GM PACKET PO SCH ×4 (05:45→23:25)
[2020-09-21] MEDS: METOCLOPRAMIDE 10 MG/2 ML VIAL IV SCH ×4 (05:47→23:25)
[2020-09-21] MEDS: INSULIN LISPRO 1 UNIT/0.01 ML UNIT SQ SCH ×4 (05:47→23:25)
[2020-09-21 06:25] LABS: Basophils # (Auto) 0.01 K/mcL (0.00-0.20); Basophils % (Auto) 0.1 % (0.0-2.0); Eosinophils # (Auto) 0 K/mcL (0.00-0.70); Eosinophils % (Auto) 0 % (0.0-7.0); Hematocrit 34.9 % (41.0-55.0); Hemoglobin 11.4 g/dL (13.5-16.5); Lymphocytes # (Auto) 0.67 K/mcL (1.50-4.80); Lymphocytes % (Auto) 6.9 % (15.0-49.0); Mean Cell Volume 82.7 fL (80.0-100.0); Mean Corpuscular HGB Conc 32.7 g/dL (31.0-36.0); Monocytes # (Auto) 0.99 K/mcL (0.10-0.90); Monocytes % (Auto) 10.2 % (1.0-12.0); Neutrophils % (Auto) 82.8 % (38.0-78.0); Platelet Count 281 K/mcL (140-440); RBC 4.22 M/mcL (4.50-5.90); Red Cell Distribution Width 19.2 % (11.5-14.5); WBC 9.7 K/mcL (4.5-11.0)
[2020-09-21 06:56] LABS: ALT/SGPT 11 U/L (<40); AST/SGOT 10 U/L (<40); Albumin 3.2 gm/dL (3.2-5.2); Albumin/Globulin Ratio 0.9 (1.0-2.3); Alkaline Phosphatase 95 U/L (39-117); Bilirubin,Direct < 0.2 mg/dL (<0.3); Bilirubin,Total 0.4 mg/dL (0.1-1.0); Blood Urea Nitrogen 10 mg/dL (6-20); Calcium 9.1 mg/dL (8.6-10.4); Carbon Dioxide 28 mmol/L (22-30); Chloride 97 mmol/L (96-108); Globulin 3.5 gm/dL (2.2-3.7); Glomerular Filtration Rate 155; Glucose 202 mg/dL (70-105); Lactate Dehydrogenase 170 U/L (135-225); Phosphorous 2.1 mg/dL (2.5-4.5); Triglycerides 83 mg/dL (<150); Uric Acid 0.5 mg/dL (2.5-8.0)
[2020-09-21] MEDS: LEVOTHYROXINE 50 MCG TABLET PO SCH (07:13)
[2020-09-21] MEDS: HYDROcodone/APAP 10/325MG TABLET PO PRN (07:13)
[2020-09-21] MEDS: OMEPRAZOLE 20 MG CAPSULE PO SCH (07:13)
[2020-09-21] MEDS: ALPRAZolam 0.25 MG TABLET PO PRN ×2 (08:13→23:14)
[2020-09-21] MEDS: DOCUSATE SODIUM 100 MG CAPSULE PO SCH ×2 (08:14→21:02)
[2020-09-21] MEDS: POTASSIUM CHLORIDE 20 MEQ TABLET PO SCH ×2 (08:14→17:01)
[2020-09-21] MEDS: LORATADINE 10 MG TABLET PO SCH (08:15)
[2020-09-21] MEDS: VITAMIN E (DL,TOCOPHERYL ACET) 400 UNIT CAPSULE PO SCH (08:15)
[2020-09-21] MEDS: 0.9 % SODIUM CHLORIDE 10 ML SYRINGE IV SCH ×2 (08:16→21:02)
[2020-09-21] MEDS: HEPARIN 5,000 UNIT/ML VIAL SQ SCH ×2 (08:22→21:02)
[2020-09-21] MEDS: METHYLNALTREXONE BROMIDE 12 MG/0.6 ML SYRINGE SQ SCH (08:24)
[2020-09-21] MEDS ORDERED: NON FORMULARY MEDICATION 1 DOSE MISCELL (Omeprazole 40 MG) PO SCH (09:00)
[2020-09-21] MEDS ORDERED: [UNRECOGNIZED DRUG - OTHER] IV SCH ×2 (10:00)
[2020-09-21] MEDS ORDERED: SODIUM CHLORIDE IV SCH ×2 (10:00)
[2020-09-21] MEDS ORDERED: CALCIUM GLUCONATE IV SCH ×2 (10:00)
[2020-09-21] MEDS ORDERED: MAGNESIUM SULFATE IV SCH ×2 (10:00)
--- NOTE | 2020-09-21 10:40 | Internal Med Progress Note ---
SUBJECTIVE Subjective Patient information: Note initiated : 09/21/20 at 10:38 am Service Date, if different from initiated Date: [] Patient: Jose Moulton a 50 y/o M admitted on 09/16/20 for weakness, dizziness, failure to thrive. Chief Complaint: [] Principal diagnosis: severe radiation necrosis of rectum.protein calorie malnutrition Interval history: Mr. Moulton is a 50 year old M Presents with severe weakness and lightheadedness. Patient states the reason he came in the ED is because he was severely weak and could hardly move around and became lightheaded and get up and move. 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 Was recommended to him to get a diverting colostomy he has not made a decision on that yet. He has not been eating very much for the past couple months because it hurts to go to the bathroom. And especially the past few weeks he is eating hardly anything. He says a couple days ago he had 8 ounces of Slim fast and then nothing for the few days prior to that nothing yesterday. He has had some water and some electrolyte drinks that about it. Denies fevers chills chest pain abdominal pain. In the ED is found to be hyponatremic hypokalemic hypochloremic. An elevated TSH but denies cold intolerance dry skin or constipation. 09/17 Poor sleep. Complains of leg pain and some rectal pain from stooling. States difficulty in urinating. Electrolyte imbalance slowly improving. Patient is supposed to receive a diverting colostomy. Will consult surgery to discuss timing. 09/18 no overnight events or new complaints. Seen by general surgery and scheduled for diverting colostomy on Wednesday. TPN started.. 09/19 Poor sleep. No new complaints. Will be prepped for surgery tomorrow. 09/20-patient seen postop. Doing well. Anxious and appears uncomfortable. On pain management per surgery. Currently on TPN. No fever. White count stable. Stable electrolytes and renal function. 09/21-patient doing well. No overnight events. No concerns per staff. Postop day 2. Managed per surgery. Feels little uncomfortable unable to get a restful night sleep. Ongoing TPN. Constitutional Vitals: Vital Signs Temp Pulse Resp BP Pulse Ox 97.7 F 87 18 118/79 100 09/21/20 07:19 09/21/20 07:30 09/21/20 07:30 09/21/20 07:19 09/21/20 07:30 Period Temp Pulse Resp BP Sys/Greer Pulse Ox Last 24 Hr 97 F-99 F 86-105 14-22 92-118/67-79 94-100 Intake and Output 09/20/20 09/21/20 09/21/20 21:59 05:59 13:59 Intake Total 0 990 Output Total 1000 1650 Balance -1000 -660 Weight 55.338 kg alert but anxious Nonlabored breathing Colostomy site nontender Intake & Output: Intake & Output 09/20/20 09/21/20 09/21/20 21:59 05:59 13:59 Intake Total 0 990 Output Total 1000 1650 Balance -1000 -660 Weight 55.338 kg Intake: IV 250 Intralipid 20% 250 ml In Premix 250 1 Bag @ 25 mls/hr IV MoWeFr@ 1600 [facility] Rx#:[id number] Oral 0 740 Output: Urine Catheter Amount 1000 1650 Other: Urine Appearance Clear Clear Clear Uretheral (Vincent) Clear Clear Urine Color Bright Yellow Dark Yellow Dark Yellow Uretheral (Vincent) Bright Yellow Bright Yellow Urine Odor Normal Normal Exam: General: Alert, Awake, No acute Distress, cachectic Eyes/N/T: EOMI, Head/Neck: neck supple, CV: RRR, No murmurs, Pulm: Clear b/l, no wheezing/rhonchi/rales Abd: soft, nontender, +BS x4 Ext: no clubbing/cyanosis/edema Neuro: Alert, no focal deficits, moves all extremities, Skin: warm/dry, OBJ DATA Labs CBC & Chem 7: 09/21/20 05:32 09/21/20 05:31 Labs: Abnormal Lab Results 09/21/20 09/21/20 09/21/20 05:32 05:31 05:31 RBC 4.22 L Hgb 11.4 L Hct 34.9 L RDW 19.2 H Neut % (Auto) 82.8 H Lymph % (Auto) 6.9 L Lymph # (Auto) 0.67 L [place] # (Auto) 0.99 H Sodium Potassium Chloride BUN Creatinine 0.3 L Glucose 202 H Uric Acid 0.5 L Calcium Phosphorus 2.1 L Albumin Albumin/Globulin Ratio 0.9 L Prealbumin 8.4 L 09/20/20 09/19/20 09/19/20 05:49 05:25 05:25 RBC 4.33 L Hgb 11.5 L Hct 34.7 L RDW 18.5 H Neut % (Auto) Lymph % (Auto) Lymph # (Auto) 1.10 L [place] # (Auto) Sodium 131 L 130 L Potassium 3.2 L Chloride 94 L 93 L BUN 5 L Creatinine 0.3 L 0.3 L Glucose 118 H 115 H Uric Acid 0.8 L 1.1 L Calcium 8.4 L 8.2 L Phosphorus 2.3 L Albumin 2.7 L 2.7 L Albumin/Globulin Ratio 0.8 L 0.8 L Prealbumin 09/18/20 11:29 RBC Hgb Hct RDW Neut % (Auto) Lymph % (Auto) Lymph # (Auto) [place] # (Auto) Sodium Potassium Chloride BUN Creatinine Glucose Uric Acid Calcium Phosphorus Albumin Albumin/Globulin Ratio Prealbumin 5.8 L Meds: Medications Acetaminophen (Tylenol) 650 mg PO Q6HP PRN PRN Reason: PAIN/FEVER > 101 Hydrocodone Bitart/Acetaminophen ([place] 10/325mg) 1 tab PO Q8HP PRN; Protocol PRN Reason: pain Last Admin: 09/21/20 07:13 Dose: 1 tab Documented by: Albuterol/Ipratropium (Duoneb) 3 ml NEB Q4HP PRN PRN Reason: Shortness Of Breath Alprazolam (Xanax) 0.25 mg PO TIDP PRN PRN Reason: Anxiety Last Admin: 09/21/20 08:13 Dose: 0.25 mg Documented by: Clotrimazole (Mycelex) 10 mg PO TIDP PRN PRN Reason: Mouth Pain Diagnostic Test (Pha) (Accu-Chek) 1 each FS Q6 [facility] Last Admin: 09/21/20 05:46 Dose: 1 each Documented by: Diphenhydramine HCl (Benadryl) 25 mg PO HSP PRN PRN Reason: Insomnia Docusate Sodium (Colace) 100 mg PO BID [facility] Last Admin: 09/21/20 08:14 Dose: 100 mg Documented by: Fentanyl (Duragesic) 50 mcg TOPICAL Q72H [facility] Heparin Sodium (Porcine) (Heparin) 5,000 unit SQ Q12 [facility] Last Admin: 09/21/20 08:22 Dose: 5,000 unit Documented by: Heparin Sodium (Porcine) (Heparin 10 Units/Ml Flush) 2 ml IV Q12 [facility] Last Admin: 09/21/20 08:21 Dose: 2 ml Documented by: Hydromorphone HCl (Dilaudid) 0.5 mg IV Q2HP PRN; Protocol PRN Reason: Per Pain Protocol Last Admin: 09/21/20 10:07 Dose: 0.5 mg Documented by: Fat Emulsion Intravenous 250 (ml/ Premix) 250 mls @ 25 mls/hr IV MoWeFr@1600 [facility] Last Infusion: 09/21/20 02:09 Dose: Infused Documented by: Magnesium Sulfate (Magnesium Sulfate) 2 gm in 50 mls @ 50 mls/hr IV UD PRN PRN Reason: Magnesium </= 1.6 Potassium Chloride 40 meq/ (Dextrose) 520 mls @ 130 mls/hr IV UD PRN PRN Reason: Potassium < 3 Calcium Gluconate 10 meq/Magnesium Sulfate 16.24 meq/Sodium Chloride 100 meq/Potassium Chloride 20 meq/Multivitamins/Minerals 10 ml/Potassium Phosphate 60 meq/Amino Acids 2,084.1417 mls @ 80 mls/hr IV DAILY@1000 [facility] Last Admin: 09/21/20 09:53 Dose: 80 mls/hr Documented by: Insulin Human Lispro (Humalog) 0 unit SQ Q6H [facility]; Protocol Last Admin: 09/21/20 05:47 Dose: 6 units Documented by: Levothyroxine Sodium (Synthroid) 50 mcg PO QAMAC [facility] Last Admin: 09/21/20 07:13 Dose: 50 mcg Documented by: Loratadine (Claritin) 10 mg PO DAILY [facility] Last Admin: 09/21/20 08:15 Dose: Not Given Documented by: Melatonin (Melatonin 3mg Tablet) 3 mg PO QHS [facility] Last Admin: 09/20/20 20:12 Dose: 3 mg Documented by: Methylnaltrexone [place] (Relistor) 12 mg SQ DAILY [facility] Stop: 09/23/20 09:01 Last Admin: 09/21/20 08:24 Dose: 12 mg Documented by: Metoclopramide HCl (Reglan) 10 mg IV Q6 [facility] Last Admin: 09/21/20 05:47 Dose: 10 mg Documented by: Omeprazole (Prilosec) 40 mg PO ACB [facility] Last Admin: 09/21/20 07:13 Dose: 40 mg Documented by: Ondansetron HCl (Zofran) 4 mg IV Q4HP PRN PRN Reason: Nausea And Vomiting Polyethylene Glycol (Miralax) 17 gm PO Q6H [facility] Last Admin: 09/21/20 05:45 Dose: 17 gm Documented by: Potassium Chloride (Kdur) 40 meq PO UD PRN PRN Reason: Potssium is 3-3.5 Potassium Chloride (Kdur) 40 meq PO UD PRN PRN Reason: Potassium < 3 Potassium Chloride (Kdur) 20 meq PO BIDCC [facility] Last Admin: 09/21/20 08:14 Dose: 20 meq Documented by: Senna (Senokot) 2 tab PO DAILYP PRN PRN Reason: Constipation Sodium Chloride (Saline Flush) 10 ml IV Q12 [facility] Last Admin: 09/21/20 08:16 Dose: 10 ml Documented by: Sodium Chloride (Saline Flush) 10 ml IV UD PRN PRN Reason: FLUSH Tamsulosin HCl (Flomax) 0.8 mg PO HS [facility] Last Admin: 09/20/20 20:12 Dose: 0.8 mg Documented by: Vitamin E (Vitamin E) 400 unit PO QDAY [facility] Last Admin: 09/21/20 08:15 Dose: Not Given Documented by: A/P Assessment and plan (1) Radiation proctitis: Status: Chronic Narrative A/P Narrative: * 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 Postop diverting colostomy. Managed per surgery Dr. Hardy * Postop pain management per Dr. Hardy surgery * Parenteral nutrition per surgery-continue TPN Stable medical issues as below *Multiple electrolyte maladies including low sodium/hypokalemia/hypophos: Secondary to poor p.o. intake. Fully resolved on TPN *Hypotension secondary to volume depletion: Resolved *Severe generalized weakness improving with parenteral nutrition/therapies *Anemia, chronic: Stable *Anxiety: Stable *GERD: *Chronic pain: *Tobacco abuse: Counseled for cessation *Primary Hypothyroidism: On low-dose levothyroxine. Plan -Postop care per Dr. Hardy/colostomy care/pain management -TPN per surgery -PT/OT as tolerated -ppx: heparin Full code Time Spent With Patient Time: Total time spent is greater than 50% in coordination of care (as documented) at patient's floor/unit and/or counseling patient: QUALITY VTE Deep Vein Thrombosis/Pulmonary Embolism Present on Admission: No
[2020-09-21] MEDS: HYDROmorphone 1 MG/ML SYRINGE IV PRN ×5 (14:32→23:10)
[2020-09-21] MEDS: ACETAMINOPHEN 800 MG/80 ML BAG IV SCH ×2 (17:13→23:46)
[2020-09-21] MEDS: oxyCODONE HCL 5 MG TABLET PO PRN (21:01)
[2020-09-21] MEDS: TAMSULOSIN 0.4 MG CAPSULE PO SCH (21:01)
[2020-09-21] MEDS: MELATONIN 3 MG TABLET PO SCH (21:02)
[2020-09-21] MEDS: ONDANSETRON 4 MG/2 ML VIAL IV PRN (23:39)
[2020-09-22] MEDS: HYDROmorphone 1 MG/ML SYRINGE IV PRN ×10 (01:10→20:16)
[2020-09-22] MEDS: 0.9 % SODIUM CHLORIDE 10 ML SYRINGE IV SCH ×3 (05:11→21:07)
[2020-09-22] MEDS: oxyCODONE HCL 5 MG TABLET PO PRN ×3 (05:34→22:16)
[2020-09-22] MEDS: METOCLOPRAMIDE 10 MG/2 ML VIAL IV SCH ×3 (05:39→17:54)
[2020-09-22] MEDS: ACETAMINOPHEN 800 MG/80 ML BAG IV SCH ×3 (05:49→18:01)
[2020-09-22] MEDS: INSULIN LISPRO 1 UNIT/0.01 ML UNIT SQ SCH ×3 (05:58→18:00)
[2020-09-22] MEDS: POLYETHYLENE GLYCOL 3350 17 GM PACKET PO SCH ×3 (05:58→17:49)
[2020-09-22 06:39] LABS: Basophils # (Auto) 0.02 K/mcL (0.00-0.20); Basophils % (Auto) 0.3 % (0.0-2.0); Eosinophils # (Auto) 0.02 K/mcL (0.00-0.70); Eosinophils % (Auto) 0.3 % (0.0-7.0); Hematocrit 39.3 % (41.0-55.0); Hemoglobin 10.7 g/dL (13.5-16.5); Lymphocytes # (Auto) 0.91 K/mcL (1.50-4.80); Lymphocytes % (Auto) 11.4 % (15.0-49.0); Mean Corpuscular HGB Conc 27.2 g/dL (31.0-36.0); Mean Platelet Volume 9.3 fL (7.4-10.4); Monocytes # (Auto) 0.76 K/mcL (0.10-0.90); Monocytes % (Auto) 9.6 % (1.0-12.0); Neutrophils % (Auto) 78.4 % (38.0-78.0); Platelet Count 275 K/mcL (140-440); RBC 4.05 M/mcL (4.50-5.90); Red Cell Distribution Width 21.2 % (11.5-14.5)
[2020-09-22] MEDS: POTASSIUM CHLORIDE 20 MEQ TABLET PO SCH ×2 (07:32→17:48)
[2020-09-22] MEDS: LEVOTHYROXINE 50 MCG TABLET PO SCH (07:33)
[2020-09-22] MEDS: OMEPRAZOLE 20 MG CAPSULE PO SCH (07:35)
[2020-09-22] MEDS: LORATADINE 10 MG TABLET PO SCH (07:44)
[2020-09-22] MEDS: VITAMIN E (DL,TOCOPHERYL ACET) 400 UNIT CAPSULE PO SCH (07:44)
[2020-09-22] MEDS: ONDANSETRON 4 MG/2 ML VIAL IV PRN (09:39)
[2020-09-22] MEDS: DOCUSATE SODIUM 100 MG CAPSULE PO SCH ×2 (09:42→20:27)
[2020-09-22] MEDS: HEPARIN 5,000 UNIT/ML VIAL SQ SCH ×2 (09:43→20:27)
[2020-09-22] MEDS: METHYLNALTREXONE BROMIDE 12 MG/0.6 ML SYRINGE SQ SCH (09:46)
[2020-09-22 09:57] LABS: ALT/SGPT 12 U/L (<40); AST/SGOT 14 U/L (<40); Albumin 3.1 gm/dL (3.2-5.2); Albumin/Globulin Ratio 0.9 (1.0-2.3); Alkaline Phosphatase 103 U/L (39-117); Bilirubin,Direct < 0.2 mg/dL (<0.3); Bilirubin,Total 0.4 mg/dL (0.1-1.0); Blood Urea Nitrogen 12 mg/dL (6-20); Calcium 9.2 mg/dL (8.6-10.4); Carbon Dioxide 28 mmol/L (22-30); Chloride 94 mmol/L (96-108); Globulin 3.5 gm/dL (2.2-3.7); Glomerular Filtration Rate 155; Glucose 133 mg/dL (70-105); Lactate Dehydrogenase 239 U/L (135-225); Phosphorous 3.7 mg/dL (2.5-4.5); Triglycerides 104 mg/dL (<150); Uric Acid 0.4 mg/dL (2.5-8.0)
--- NOTE | 2020-09-22 10:42 | Internal Med Progress Note ---
SUBJECTIVE Subjective Patient information: Note initiated : 09/22/20 at 10:41 am Service Date, if different from initiated Date: [] Patient: Jose Moulton a 50 y/o M admitted on 09/16/20 for weakness, dizziness, failure to thrive. Chief Complaint: [] Principal diagnosis: severe radiation necrosis of rectum.protein calorie malnutrition Interval history: Mr. Moulton is a 50 year old M Presents with severe weakness and lightheadedness. Patient states the reason he came in the ED is because he was severely weak and could hardly move around and became lightheaded and get up and move. 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 Was recommended to him to get a diverting colostomy he has not made a decision on that yet. He has not been eating very much for the past couple months because it hurts to go to the bathroom. And especially the past few weeks he is eating hardly anything. He says a couple days ago he had 8 ounces of Slim fast and then nothing for the few days prior to that nothing yesterday. He has had some water and some electrolyte drinks that about it. Denies fevers chills chest pain abdominal pain. In the ED is found to be hyponatremic hypokalemic hypochloremic. An elevated TSH but denies cold intolerance dry skin or constipation. 09/17 Poor sleep. Complains of leg pain and some rectal pain from stooling. States difficulty in urinating. Electrolyte imbalance slowly improving. Patient is supposed to receive a diverting colostomy. Will consult surgery to discuss timing. 09/18 no overnight events or new complaints. Seen by general surgery and scheduled for diverting colostomy on Wednesday. TPN started.. 09/19 Poor sleep. No new complaints. Will be prepped for surgery tomorrow. 09/20-patient seen postop. Doing well. Anxious and appears uncomfortable. On pain management per surgery. Currently on TPN. No fever. White count stable. Stable electrolytes and renal function. 09/21-patient doing well. No overnight events. No concerns per staff. Postop day 2. Managed per surgery. Feels little uncomfortable unable to get a restful night sleep. Ongoing TPN. 09/22-patient doing well postop. Ongoing management per surgery. Continue TPN. Denies overnight events. Minimal anxiety. No additional recommendations from hospitalist service. Case discussed with surgery. At this time hospital service will sign off Constitutional Vitals: Vital Signs Temp Pulse Resp BP Pulse Ox 97.8 F 108 H 22 124/82 97 09/22/20 08:00 09/22/20 08:00 09/22/20 08:00 09/22/20 08:00 09/22/20 08:00 Period Temp Pulse Resp BP Sys/Greer Pulse Ox Last 24 Hr 97.3 F-98.5 F 90-108 16-22 108-131/63-83 96-99 Intake and Output 09/21/20 09/22/20 09/22/20 21:59 05:59 13:59 Intake Total 1120 560 80 Output Total 550 1500 Balance 570 -940 80 Weight 55.792 kg nonlabored breathing Minimally anxious ostomy site nontender Intake & Output: Intake & Output 09/21/20 09/22/20 09/22/20 21:59 05:59 13:59 Intake Total 1120 560 80 Output Total 550 1500 Balance 570 -940 80 Weight 55.792 kg Intake: IV 80 80 80 Oral 1040 480 Output: Urine Catheter Amount 550 1500 Other: Urine Appearance Clear Clear Clear Uretheral (Vincent) Clear Clear Urine Color Dark Yellow Dark Yellow Dark Yellow Uretheral (Vincent) Dark Yellow Dark Yellow Urine Odor Normal Normal Normal Uretheral (Vincent) Normal Normal Stool Size Smear Smear Stool Color Bright Red Blood Bright Red Blood Stool Consistency Liquid Liquid Exam: General: Alert, Awake, No acute Distress, cachectic Eyes/N/T: EOMI, Head/Neck: neck supple, CV: RRR, No murmurs, Pulm: Clear b/l, no wheezing/rhonchi/rales Abd: soft, nontender, +BS x4 Ext: no clubbing/cyanosis/edema Neuro: Alert, no focal deficits, moves all extremities, Skin: warm/dry, OBJ DATA Labs CBC & Chem 7: 09/22/20 05:54 09/23/20 04:38 Labs: Abnormal Lab Results 09/22/20 09/22/20 09/22/20 08:35 05:54 05:54 RBC 4.05 L Hgb 10.7 L Hct 39.3 L MCHC 27.2 L RDW 21.2 H Neut % (Auto) 78.4 H Lymph % (Auto) 11.4 L Lymph # (Auto) 0.91 L Vernon # (Auto) Sodium Chloride 94 L Creatinine 0.3 L Glucose 133 H Uric Acid 0.4 L Calcium Phosphorus GGT 66 H Lactate Dehydrogenase 239 H Albumin 3.1 L Albumin/Globulin Ratio 0.9 L Prealbumin 10.0 L 09/21/20 09/21/20 09/21/20 05:32 05:31 05:31 RBC 4.22 L Hgb 11.4 L Hct 34.9 L MCHC RDW 19.2 H Neut % (Auto) 82.8 H Lymph % (Auto) 6.9 L Lymph # (Auto) 0.67 L Vernon # (Auto) 0.99 H Sodium Chloride Creatinine 0.3 L Glucose 202 H Uric Acid 0.5 L Calcium Phosphorus 2.1 L GGT Lactate Dehydrogenase Albumin Albumin/Globulin Ratio 0.9 L Prealbumin 8.4 L 09/20/20 05:49 RBC Hgb Hct MCHC RDW Neut % (Auto) Lymph % (Auto) Lymph # (Auto) Vernon # (Auto) Sodium 131 L Chloride 94 L Creatinine 0.3 L Glucose 118 H Uric Acid 0.8 L Calcium 8.4 L Phosphorus GGT Lactate Dehydrogenase Albumin 2.7 L Albumin/Globulin Ratio 0.8 L Prealbumin Meds: Medications Acetaminophen (Tylenol) 650 mg PO Q6HP PRN PRN Reason: PAIN/FEVER > 101 Albuterol/Ipratropium (Duoneb) 3 ml NEB Q4HP PRN PRN Reason: Shortness Of Breath Alprazolam (Xanax) 0.25 mg PO TIDP PRN PRN Reason: Anxiety Last Admin: 09/21/20 23:14 Dose: 0.25 mg Documented by: Clotrimazole (Mycelex) 10 mg PO TIDP PRN PRN Reason: Mouth Pain Diagnostic Test (Pha) (Accu-Chek) 1 each FS Q6 [facility] Last Admin: 09/22/20 05:38 Dose: 1 each Documented by: Diphenhydramine HCl (Benadryl) 25 mg PO HSP PRN PRN Reason: Insomnia Docusate Sodium (Colace) 100 mg PO BID [facility] Last Admin: 09/22/20 09:42 Dose: 100 mg Documented by: Fentanyl (Duragesic) 50 mcg TOPICAL Q72H [facility] Heparin Sodium (Porcine) (Heparin) 5,000 unit SQ Q12 [facility] Last Admin: 09/22/20 09:43 Dose: 5,000 unit Documented by: Heparin Sodium (Porcine) (Heparin 10 Units/Ml Flush) 2 ml IV Q12 [facility] Last Admin: 09/22/20 09:48 Dose: 2 ml Documented by: Hydromorphone HCl (Dilaudid) 1 mg IV Q2HP PRN; Protocol PRN Reason: Per Pain Protocol Last Admin: 09/22/20 09:37 Dose: 1 mg Documented by: Fat Emulsion Intravenous 250 (ml/ Premix) 250 mls @ 25 mls/hr IV MoWeFr@1600 [facility] Last Infusion: 09/21/20 02:09 Dose: Infused Documented by: Magnesium Sulfate (Magnesium Sulfate) 2 gm in 50 mls @ 50 mls/hr IV UD PRN PRN Reason: Magnesium </= 1.6 Potassium Chloride 40 meq/ (Dextrose) 520 mls @ 130 mls/hr IV UD PRN PRN Reason: Potassium < 3 Acetaminophen (Ofirmev) 800 mg in 80 mls @ 160 mls/hr IV Q6H [facility]; Protocol Last Infusion: 09/22/20 06:21 Dose: Infused Documented by: Calcium Gluconate 10 meq/Magnesium Sulfate 16.24 meq/Sodium Chloride 140 meq/Multivitamins/Minerals 10 ml/Potassium Phosphate 40 meq/Amino Acids 2,079.5962 mls @ 80 mls/hr IV DAILY@1100 [facility] Insulin Human Lispro (Humalog) 0 unit SQ Q6H [facility]; Protocol Last Admin: 09/22/20 05:58 Dose: 2 units Documented by: Levothyroxine Sodium (Synthroid) 50 mcg PO QAMAC [facility] Last Admin: 09/22/20 07:33 Dose: 50 mcg Documented by: Loratadine (Claritin) 10 mg PO DAILY [facility] Last Admin: 09/22/20 07:44 Dose: Not Given Documented by: Melatonin (Melatonin 3mg Tablet) 3 mg PO QHS [facility] Last Admin: 09/21/20 21:02 Dose: 3 mg Documented by: Methylnaltrexone [place] (Relistor) 12 mg SQ DAILY [facility] Stop: 09/23/20 09:01 Last Admin: 09/22/20 09:46 Dose: 12 mg Documented by: Metoclopramide HCl (Reglan) 10 mg IV Q6 [facility] Last Admin: 09/22/20 05:39 Dose: 10 mg Documented by: Omeprazole (Prilosec) 40 mg PO ACB [facility] Last Admin: 09/22/20 07:35 Dose: 40 mg Documented by: Ondansetron HCl (Zofran) 4 mg IV Q4HP PRN PRN Reason: Nausea And Vomiting Last Admin: 09/22/20 09:39 Dose: 4 mg Documented by: Oxycodone HCl (Roxicodone) 10 mg PO Q8HP PRN; Protocol PRN Reason: PAIN PROTOCOL Last Admin: 09/22/20 05:34 Dose: 10 mg Documented by: Polyethylene Glycol (Miralax) 17 gm PO Q6H [facility] Last Admin: 09/22/20 05:58 Dose: 17 gm Documented by: Potassium Chloride (Kdur) 40 meq PO UD PRN PRN Reason: Potssium is 3-3.5 Potassium Chloride (Kdur) 40 meq PO UD PRN PRN Reason: Potassium < 3 Potassium Chloride (Kdur) 20 meq PO BIDCC [facility] Last Admin: 09/22/20 07:32 Dose: 20 meq Documented by: Senna (Senokot) 2 tab PO DAILYP PRN PRN Reason: Constipation Sodium Chloride (Saline Flush) 10 ml IV Q12 [facility] Last Admin: 09/22/20 09:47 Dose: 10 ml Documented by: Sodium Chloride (Saline Flush) 10 ml IV UD PRN PRN Reason: FLUSH Tamsulosin HCl (Flomax) 0.8 mg PO HS [facility] Last Admin: 09/21/20 21:01 Dose: 0.8 mg Documented by: Vitamin E (Vitamin E) 400 unit PO QDAY [facility] Last Admin: 09/22/20 07:44 Dose: Not Given Documented by: A/P Assessment and plan (1) Radiation proctitis: Status: Chronic Narrative A/P Narrative: * 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 Postop diverting colostomy. Managed per surgery Dr. Hardy * Postop pain management per Dr. Hardy surgery * Parenteral nutrition per surgery-continue TPN Stable medical issues as below *Multiple electrolyte maladies including low sodium/hypokalemia/hypophos: Clinically resolved. Currently on TPN. *Hypotension secondary to volume depletion: Resolved *Severe generalized weakness improving with parenteral nutrition/therapies *Anemia, chronic: Stable *Anxiety: Stable *GERD: *Chronic pain: *Tobacco abuse: Counseled for cessation *Primary Hypothyroidism: On low-dose levothyroxine. Plan -Postop care per Dr. Hardy/colostomy care/pain management -TPN per surgery -PT/OT as tolerated -ppx: heparin -All active acute issues appears to have resolved. At this time hospital service will sign off and will be available for future needs. Time Spent With Patient Time: Total time spent is greater than 50% in coordination of care (as documented) at patient's floor/unit and/or counseling patient: QUALITY VTE Deep Vein Thrombosis/Pulmonary Embolism Present on Admission: No
[2020-09-22] MEDS ORDERED: [UNRECOGNIZED DRUG - OTHER] IV SCH (11:00)
[2020-09-22] MEDS ORDERED: SODIUM CHLORIDE IV SCH ×2 (11:00)
[2020-09-22] MEDS ORDERED: MVI IV SCH ×2 (11:00)
[2020-09-22] MEDS ORDERED: [UNRECOGNIZED DRUG - OTHER] IV SCH (11:00)
[2020-09-22] MEDS ORDERED: MAGNESIUM SULFATE IV SCH ×2 (11:00)
[2020-09-22] MEDS ORDERED: CALCIUM GLUCONATE IV SCH ×2 (11:00)
--- NOTE | 2020-09-22 12:09 | General Surgery Progress Note ---
SUBJECTIVE Subjective Patient information: Note initiated : 09/22/20 at 12:05 pm Service Date, if different from initiated Date: [] Patient: Jose Moulton 50 y/o M admitted on 09/16/20 for weakness, dizziness, failure to thrive. Chief Complaint: [] Principal diagnosis: severe radiation necrosis of rectum.protein calorie malnutrition Interval history: the patient is clinically stable, but he has significant pain due to constipation. He has not had any output through his stoma so far. White blood count 8, hemoglobin 10.7, hematocrit 39.3, potassium 4.9, BUN 12, creatinine 0.3. Constitutional Vitals: Vital Signs Temp Pulse Resp BP Pulse Ox 97.8 F 108 H 22 124/82 97 09/22/20 08:00 09/22/20 08:00 09/22/20 08:00 09/22/20 08:00 09/22/20 08:00 Period Temp Pulse Resp BP Sys/Greer Pulse Ox Last 24 Hr 97.3 F-98.0 F 90-108 16-22 117-131/63-83 96-99 Intake and Output 09/21/20 09/22/20 09/22/20 21:59 05:59 13:59 Intake Total 1120 560 80 Output Total 550 1500 Balance 570 -940 80 Weight 123 lb Intake & Output: Intake & Output 09/21/20 09/22/20 09/22/20 21:59 05:59 13:59 Intake Total 1120 560 80 Output Total 550 1500 Balance 570 -940 80 Weight 123 lb Intake: IV 80 80 80 Oral 1040 480 Output: Urine Catheter Amount 550 1500 Other: Urine Appearance Clear Clear Clear Uretheral (Vincent) Clear Clear Urine Color Dark Yellow Dark Yellow Dark Yellow Uretheral (Vincent) Dark Yellow Dark Yellow Urine Odor Normal Normal Normal Uretheral (Vincent) Normal Normal Stool Size Smear Smear Stool Color Bright Red Blood Bright Red Blood Stool Consistency Liquid Liquid Head Head exam: Present atraumatic and normocephalic Eye Eye exam: Present EOMI and normal appearance Pupils: Present PERRL ENT ENT exam: Present normal oropharynx Neck Neck exam: Present full ROM; Absent lymphadenopathy Respiratory Respiratory exam: Present normal respiratory exam and CTAB; Absent rales, rhonchi and wheezes Cardiovascular Cardiovascular exam: Present normal rate and rhythm, RRR, +S1 and +S2; Absent JVD GI/Abdominal GI/Abdominal exam: Present normal bowel sounds, soft, diminished bowel sounds and distended (moderate distention and tenderness; active bowel sounds); Absent guarding and mass Extremities Exam Extremities exam: Present full ROM and neurovascular intact; Absent pedal edema Back Exam Back exam: Present full ROM and normal inspection Psychiatric Psychiatric exam: Present depressed and normal mood A/P Assessment and plan (1) Radiation injury of bowel: Status: Acute Qualifiers: Encounter type: subsequent encounter Qualified Code(s): T66.XXXD - Radiation sickness, unspecified, subsequent encounter (2) Chronic blood loss anemia: Status: Acute (3) Colostomy status: Status: Acute Narrative A/P Narrative: continue with MiraLAX. 2 view abdominal x-rays. We will try stronger laxatives if no bowel movement by tomorrow Time Spent With Patient Time: Total time spent is greater than 50% in coordination of care (as documented) at patient's floor/unit and/or counseling patient:
[2020-09-22] MEDS: 0.9 % SODIUM CHLORIDE 10 ML SYRINGE IV PRN (20:22)
[2020-09-22] MEDS: MELATONIN 3 MG TABLET PO SCH (20:27)
[2020-09-22] MEDS: ALPRAZolam 0.25 MG TABLET PO PRN (20:30)
[2020-09-22] MEDS: TAMSULOSIN 0.4 MG CAPSULE PO SCH (20:30)
[2020-09-23] MEDS: HYDROmorphone 1 MG/ML SYRINGE IV PRN ×11 (00:12→22:28)
[2020-09-23] MEDS: METOCLOPRAMIDE 10 MG/2 ML VIAL IV SCH ×4 (00:13→17:37)
[2020-09-23] MEDS: POLYETHYLENE GLYCOL 3350 17 GM PACKET PO SCH ×4 (00:16→17:57)
[2020-09-23] MEDS: ACETAMINOPHEN 800 MG/80 ML BAG IV SCH ×4 (00:17→17:57)
[2020-09-23] MEDS: INSULIN LISPRO 1 UNIT/0.01 ML UNIT SQ SCH ×4 (00:40→17:59)
[2020-09-23] MEDS: 0.9 % SODIUM CHLORIDE 10 ML SYRINGE IV PRN (03:51)
[2020-09-23] MEDS: oxyCODONE HCL 5 MG TABLET PO PRN ×3 (06:00→23:39)
[2020-09-23] MEDS: 0.9 % SODIUM CHLORIDE 10 ML SYRINGE IV SCH ×3 (06:01→18:59)
[2020-09-23 06:49] LABS: ALT/SGPT 16 U/L (<40); AST/SGOT 15 U/L (<40); Albumin 3.4 gm/dL (3.2-5.2); Alkaline Phosphatase 119 U/L (39-117); Bilirubin,Direct 0.4 mg/dL (<0.3); Bilirubin,Total 0.8 mg/dL (0.1-1.0); Blood Urea Nitrogen 21 mg/dL (6-20); Calcium 9.1 mg/dL (8.6-10.4); Carbon Dioxide 28 mmol/L (22-30); Chloride 92 mmol/L (96-108); Globulin 3.5 gm/dL (2.2-3.7); Glomerular Filtration Rate 155; Glucose 121 mg/dL (70-105); Lactate Dehydrogenase 188 U/L (135-225); Phosphorous 3.2 mg/dL (2.5-4.5); Triglycerides 117 mg/dL (<150); Uric Acid 0.5 mg/dL (2.5-8.0)
[2020-09-23] MEDS: VITAMIN E (DL,TOCOPHERYL ACET) 400 UNIT CAPSULE PO SCH (08:08)
[2020-09-23] MEDS: HEPARIN 5,000 UNIT/ML VIAL SQ SCH ×2 (08:08→20:35)
[2020-09-23] MEDS: OMEPRAZOLE 20 MG CAPSULE PO SCH (08:09)
[2020-09-23] MEDS: LORATADINE 10 MG TABLET PO SCH (08:09)
[2020-09-23] MEDS: POTASSIUM CHLORIDE 20 MEQ TABLET PO SCH ×2 (08:09→17:37)
[2020-09-23] MEDS: LEVOTHYROXINE 50 MCG TABLET PO SCH (08:10)
[2020-09-23] MEDS: DOCUSATE SODIUM 100 MG CAPSULE PO SCH ×2 (08:10→20:35)
[2020-09-23] MEDS: METHYLNALTREXONE BROMIDE 12 MG/0.6 ML SYRINGE SQ SCH (08:35)
--- NOTE | 2020-09-23 08:58 | XRay Report ---
CLINICAL INFORMATION: FOR F/U OF ILEUS COMPARISON: 06/30/2016 FINDINGS: Stomach small and large bowel show moderate dilatation with air-fluid levels on the decubitus film. A tiny amount of free air is seen over the diaphragm recent: laparotomy acknowledged. No pathologic calcification, soft tissue mass or organomegaly. IMPRESSION: Moderate postsurgical ileus Interpreted and Authenticated by: Jose Patricia 09/23/20
[2020-09-23] MEDS ORDERED: fentaNYL 50 MCG PATCH TOPICAL SCH (10:00)
[2020-09-23] MEDS ORDERED: CALCIUM GLUCONATE IV SCH (11:00)
[2020-09-23] MEDS ORDERED: [UNRECOGNIZED DRUG - OTHER] IV SCH (11:00)
[2020-09-23] MEDS ORDERED: SODIUM CHLORIDE IV SCH (11:00)
[2020-09-23] MEDS ORDERED: MVI IV SCH (11:00)
[2020-09-23] MEDS ORDERED: MAGNESIUM SULFATE IV SCH (11:00)
[2020-09-23] MEDS: FAT EMULSION 20% 250 ML in PREMIX 1 BAG IV SCH (15:55)
[2020-09-23] MEDS: CALCIUM CARBONATE 500 MG TAB.CHEW CHEWED PRN (17:37)
[2020-09-23] MEDS: PANTOPRAZOLE 40 MG TABLET PO SCH (17:37)
--- NOTE | 2020-09-23 18:11 | General Surgery Progress Note ---
SUBJECTIVE Subjective Patient information: Note initiated : 09/23/20 at 6:10 pm Service Date, if different from initiated Date: [] Patient: Jose Moulton 50 y/o M admitted on 09/16/20 for weakness, dizziness, failure to thrive. Chief Complaint: [] Principal diagnosis: severe radiation necrosis of rectum.protein calorie malnutrition Interval history: Patient remains symptomatic. He has not had any output of stool or gas through his stoma. He complains of moderately severe pain and nausea. X-rays of the abdomen showed dilation of the small bowel and colon with persistent large volume of stool. Sodium 128, potassium 4.8, BUN 21, creatinine 0.3. Constitutional Vitals: Vital Signs Temp Pulse Resp BP Pulse Ox 97.5 F 123 H 20 112/75 96 09/23/20 12:00 09/23/20 12:00 09/23/20 12:00 09/23/20 12:00 09/23/20 12:00 Period Temp Pulse Resp BP Sys/Greer Pulse Ox Last 24 Hr 97.4 F-98.1 F 117-125 16-20 109-117/75-80 96-98 Intake and Output 09/23/20 09/23/20 09/23/20 05:59 13:59 21:59 Intake Total 1666 860 400 Output Total 625 600 Balance 1041 860 -200 Weight 133 lb 5 oz Intake & Output: Intake & Output 09/23/20 09/23/20 09/23/20 05:59 13:59 21:59 Intake Total 1666 860 400 Output Total 625 600 Balance 1041 860 -200 Weight 133 lb 5 oz Intake: IV 1416 160 Calcium Gluconate 10 Meq 1336 Magnesium Sulfate 16.24 Meq Sodium Chloride 140 Meq Infuvite Adult 10 ml Potassium Phosphate 40 Meq In Clinimix 5% -20% Solution 2,000 ml @ 80 mls /hr IV DAILY@1100 [facility] Rx#: [id number] Oral 250 700 400 Output: Urine Catheter Amount 610 600 Stool 15 Other: Urine Appearance Clear Clear Uretheral (Vincent) Clear Urine Color Dark Alisha Dark Yellow Uretheral (Vincent) Dark Yellow Urine Odor Normal Strong Uretheral (Vincent) Normal Stool Size Smear Stool Color Dark Red Blood Dark Red Blood Stool Consistency Liquid ENT ENT exam: Present normal oropharynx Neck Neck exam: Present full ROM; Absent lymphadenopathy Respiratory Respiratory exam: Present accessory muscle use, decreased breath sounds and CTAB; Absent rales, rhonchi and wheezes Additional comments: patient is ventilated Cardiovascular Cardiovascular exam: Present normal rate and rhythm, RRR, +S1 and +S2; Absent JVD GI/Abdominal GI/Abdominal exam: Present normal bowel sounds, soft, diminished bowel sounds and distended (moderate distention and tenderness; active bowel sounds); Absent guarding and mass Extremities Exam Extremities exam: Present full ROM and neurovascular intact; Absent pedal edema Back Exam Back exam: Present full ROM and normal inspection Psychiatric Psychiatric exam: Present depressed and normal mood A/P Assessment and plan (1) Colostomy status: Status: Acute (2) Moderate dehydration: Status: Acute (3) Cachexia: Status: Acute (4) Malnutrition: Status: Acute Qualifiers: Malnutrition type: unspecified type Qualified Code(s): E46 - Unspecified protein-calorie malnutrition (5) Radiation injury of bowel: Status: Acute Qualifiers: Encounter type: subsequent encounter Qualified Code(s): T66.XXXD - Radiation sickness, unspecified, subsequent encounter (6) Chronic constipation: Status: Chronic Narrative A/P Narrative: Continue present therapy Discussed with patient the probable need for reoperation with examination under anesthesia and attempted disimpaction of the stoma Time Spent With Patient Time: Total time spent is greater than 50% in coordination of care (as documented) at patient's floor/unit and/or counseling patient:
[2020-09-23] MEDS: MELATONIN 3 MG TABLET PO SCH (20:35)
[2020-09-23] MEDS: TAMSULOSIN 0.4 MG CAPSULE PO SCH (20:35)
[2020-09-23] MEDS: ALPRAZolam 0.25 MG TABLET PO PRN (20:35)
[2020-09-24] MEDS: HYDROmorphone 1 MG/ML SYRINGE IV PRN ×11 (00:31→23:19)
[2020-09-24] MEDS: ACETAMINOPHEN 800 MG/80 ML BAG IV SCH ×5 (00:32→23:29)
[2020-09-24] MEDS: POLYETHYLENE GLYCOL 3350 17 GM PACKET PO SCH ×5 (00:32→23:36)
[2020-09-24] MEDS: METOCLOPRAMIDE 10 MG/2 ML VIAL IV SCH ×5 (00:32→23:36)
[2020-09-24] MEDS: INSULIN LISPRO 1 UNIT/0.01 ML UNIT SQ SCH ×5 (00:33→23:42)
[2020-09-24] MEDS: ALPRAZolam 0.25 MG TABLET PO PRN (00:39)
[2020-09-24] MEDS: 0.9 % SODIUM CHLORIDE 10 ML SYRINGE IV SCH ×3 (04:07→20:46)
[2020-09-24] MEDS: 0.9 % SODIUM CHLORIDE 10 ML SYRINGE IV PRN ×3 (05:51→23:20)
[2020-09-24 07:27] LABS: ALT/SGPT 24 U/L (<40); AST/SGOT 20 U/L (<40); Albumin 2.9 gm/dL (3.2-5.2); Albumin/Globulin Ratio 0.8 (1.0-2.3); Alkaline Phosphatase 135 U/L (39-117); Bilirubin,Direct 0.5 mg/dL (<0.3); Bilirubin,Total 0.8 mg/dL (0.1-1.0); Blood Urea Nitrogen 20 mg/dL (6-20); Carbon Dioxide 27 mmol/L (22-30); Chloride 92 mmol/L (96-108); Globulin 3.5 gm/dL (2.2-3.7); Glomerular Filtration Rate 155; Glucose 102 mg/dL (70-105); Lactate Dehydrogenase 184 U/L (135-225); Phosphorous 3.2 mg/dL (2.5-4.5); Triglycerides 129 mg/dL (<150); Uric Acid 0.6 mg/dL (2.5-8.0)
[2020-09-24] MEDS: POTASSIUM CHLORIDE 20 MEQ TABLET PO SCH ×2 (08:05→16:58)
[2020-09-24] MEDS: oxyCODONE HCL 5 MG TABLET PO PRN ×2 (08:06→20:44)
[2020-09-24] MEDS: LORATADINE 10 MG TABLET PO SCH (08:08)
[2020-09-24] MEDS: DOCUSATE SODIUM 100 MG CAPSULE PO SCH ×2 (08:08→20:45)
[2020-09-24] MEDS: VITAMIN E (DL,TOCOPHERYL ACET) 400 UNIT CAPSULE PO SCH (08:08)
[2020-09-24] MEDS: LEVOTHYROXINE 50 MCG TABLET PO SCH (08:08)
[2020-09-24] MEDS: PANTOPRAZOLE 40 MG TABLET PO SCH ×2 (08:08→16:58)
[2020-09-24] MEDS: HEPARIN 5,000 UNIT/ML VIAL SQ SCH ×2 (08:09→20:45)
--- NOTE | 2020-09-24 10:41 | Operative Note ---
DATE OF OPERATION: 09/20/2020 PREOPERATIVE DIAGNOSES: Radiation proctitis with ulceration. POSTOPERATIVE DIAGNOSES: 1. Radiation proctitis with ulceration. 2. Severe constipation. PROCEDURE: Flexible sigmoidoscopy. SURGEON: Bud Hardy M.D. FINDINGS: Severe total colonic constipation with near obstruction and radiation proctitis. DESCRIPTION OF PROCEDURE: Under general anesthesia, the patient was turned to the left lateral decubitus position. Digital examination confirmed the presence of the major ulcer along the posterolateral aspect of the rectum. Solid stool could be palpated above that in the rectum. Scope was introduced and with some maneuvering and washing could be advanced to about 25 cm. There was solid stool above that. The scope was gradually withdrawn. The large ulcer was noted. Previous biopsies had been taken. The scope was removed. The patient tolerated the procedure well. RECOMMENDATION: The patient is advised very strongly to proceed with diverting colostomy in order to prevent continuous pain and contamination of the ulcerated rectum and perirectal space. The patient was awakened and transferred to the postanesthetic care unit. LCS:maricruz Job ID: [id number] Doc ID: [id number] Bud Hardy M.D.
[2020-09-24] MEDS ORDERED: MVI IV SCH (11:00)
[2020-09-24] MEDS ORDERED: MAGNESIUM SULFATE IV SCH (11:00)
[2020-09-24] MEDS ORDERED: [UNRECOGNIZED DRUG - OTHER] IV SCH (11:00)
[2020-09-24] MEDS ORDERED: SODIUM CHLORIDE IV SCH (11:00)
[2020-09-24] MEDS ORDERED: CALCIUM GLUCONATE IV SCH (11:00)
[2020-09-24] MEDS: CALCIUM CARBONATE 500 MG TAB.CHEW CHEWED PRN (11:51)
--- NOTE | 2020-09-24 16:55 | General Surgery Progress Note ---
SUBJECTIVE Subjective Patient information: Note initiated : 09/24/20 at 4:51 pm Service Date, if different from initiated Date: [] Patient: Jose Moulton 50 y/o M admitted on 09/16/20 for weakness, dizziness, failure to thrive. Chief Complaint: [] Principal diagnosis: severe radiation necrosis of rectum.protein calorie malnutrition Interval history: patient continues to have poor movement of stool. He had a very small amount of gas earlier today. Discussed with him the need to do examination under anesthesia and to disimpact his stoma. This will be performed tomorrow. Constitutional Vitals: Vital Signs Temp Pulse Resp BP Pulse Ox 98.2 F 127 H 22 109/84 94 09/24/20 12:00 09/24/20 12:00 09/24/20 12:00 09/24/20 12:00 09/24/20 12:00 Period Temp Pulse Resp BP Sys/Greer Pulse Ox Last 24 Hr 97.6 F-98.2 F 114-127 22-24 109-125/73-85 92-97 Intake and Output 09/24/20 09/24/20 09/24/20 05:59 13:59 21:59 Intake Total 2167 410 100 Output Total 700 300 5 Balance 1467 110 95 Weight 133 lb 5 oz Patient Weight 09/25/20 05:59 Weight 133 lb 5 oz Intake & Output: Intake & Output 09/24/20 09/24/20 09/24/20 05:59 13:59 21:59 Intake Total 2167 410 100 Output Total 700 300 5 Balance 1467 110 95 Weight 133 lb 5 oz Intake: IV 1667 160 Calcium Gluconate 10 Meq 1337 Magnesium Sulfate 16.24 Meq Sodium Chloride 180 Meq Infuvite Adult 10 ml Potassium Phosphate 40 Meq In Clinimix 5% -20% Solution 2,000 ml @ 80 mls /hr IV DAILY@1100 [facility] Rx#: [id number] Intralipid 20% 250 ml In Premix 250 1 Bag @ 25 mls/hr IV MoWeFr@ 1600 [facility] Rx#:[id number] Oral 500 250 100 Output: Urine Catheter Amount 700 300 Stool 0 5 Other: Urine Appearance Clear Clear Uretheral (Vincent) Clear Urine Color Light Alisha Tea Colored Tea Colored Uretheral (Vincent) Dark Yellow Urine Odor Normal Stool Size Smear Small Stool Color Dark Red Blood Dark Red Blood Stool Consistency Liquid Loose # Bowel Movements 1 Head Head exam: Present atraumatic and normocephalic Eye Eye exam: Present EOMI and normal appearance Pupils: Present PERRL ENT ENT exam: Present normal oropharynx Neck Neck exam: Present full ROM; Absent lymphadenopathy Respiratory Respiratory exam: Present normal respiratory exam and CTAB; Absent rales, rhonchi and wheezes Cardiovascular Cardiovascular exam: Present normal rate and rhythm, RRR, +S1 and +S2; Absent JVD GI/Abdominal GI/Abdominal exam: Present normal bowel sounds, soft, diminished bowel sounds and distended (moderate distention and tenderness; active bowel sounds); Absent guarding and mass Extremities Exam Extremities exam: Present full ROM and neurovascular intact; Absent pedal edema Back Exam Back exam: Present full ROM and normal inspection Neurological Exam Neurological exam: Present alert, normal gait and oriented X3; Absent motor sensory deficit Psychiatric Psychiatric exam: Present depressed and normal mood A/P Assessment and plan (1) Colostomy status: Status: Acute (2) Chronic constipation: Status: Chronic (3) Radiation injury of bowel: Status: Acute Qualifiers: Encounter type: subsequent encounter Qualified Code(s): T66.XXXD - Radiation sickness, unspecified, subsequent encounter Narrative A/P Narrative: nothing by mouth after midnight. Scheduled for examination under anesthesia with fecal disimpaction of stoma tomorrow Time Spent With Patient Time: Total time spent is greater than 50% in coordination of care (as documented) at patient's floor/unit and/or counseling patient:
[2020-09-24] MEDS: TAMSULOSIN 0.4 MG CAPSULE PO SCH (20:44)
[2020-09-24] MEDS: MELATONIN 3 MG TABLET PO SCH (20:45)
[2020-09-25] MEDS: HYDROmorphone 1 MG/ML SYRINGE IV PRN ×6 (01:51→11:19)
[2020-09-25] MEDS: oxyCODONE HCL 5 MG TABLET PO PRN (03:59)
[2020-09-25] MEDS: 0.9 % SODIUM CHLORIDE 10 ML SYRINGE IV PRN ×2 (04:01→06:56)
[2020-09-25] MEDS: POLYETHYLENE GLYCOL 3350 17 GM PACKET PO SCH ×2 (07:16→11:46)
[2020-09-25] MEDS: PANTOPRAZOLE 40 MG TABLET PO SCH (07:17)
[2020-09-25] MEDS: LEVOTHYROXINE 50 MCG TABLET PO SCH (07:18)
[2020-09-25] MEDS: POTASSIUM CHLORIDE 20 MEQ TABLET PO SCH (07:18)
[2020-09-25] MEDS: METOCLOPRAMIDE 10 MG/2 ML VIAL IV SCH ×3 (07:49→23:42)
[2020-09-25] MEDS: ACETAMINOPHEN 800 MG/80 ML BAG IV SCH ×4 (07:50→23:43)
[2020-09-25 08:30] LABS: ALT/SGPT 42 U/L (<40); AST/SGOT 38 U/L (<40); Albumin 2.7 gm/dL (3.2-5.2); Albumin/Globulin Ratio 0.9 (1.0-2.3); Alkaline Phosphatase 171 U/L (39-117); Bilirubin,Direct 1.7 mg/dL (<0.3); Blood Urea Nitrogen 24 mg/dL (6-20); Calcium 8.9 mg/dL (8.6-10.4); Carbon Dioxide 20 mmol/L (22-30); Chloride 92 mmol/L (96-108); Globulin 2.9 gm/dL (2.2-3.7); Glomerular Filtration Rate 155; Glucose 197 mg/dL (70-105); Lactate Dehydrogenase 196 U/L (135-225); Phosphorous 3.2 mg/dL (2.5-4.5); Triglycerides 116 mg/dL (<150)
[2020-09-25] MEDS: LORATADINE 10 MG TABLET PO SCH (08:35)
[2020-09-25] MEDS: DOCUSATE SODIUM 100 MG CAPSULE PO SCH (08:35)
[2020-09-25] MEDS: HEPARIN 5,000 UNIT/ML VIAL SQ SCH (08:36)
[2020-09-25] MEDS: VITAMIN E (DL,TOCOPHERYL ACET) 400 UNIT CAPSULE PO SCH (08:36)
[2020-09-25 08:41] LABS: Basophils # (Auto) 0.02 K/mcL (0.00-0.20); Basophils % (Auto) 0.2 % (0.0-2.0); Eosinophils # (Auto) 0.01 K/mcL (0.00-0.70); Eosinophils % (Auto) 0.1 % (0.0-7.0); Hematocrit 25.9 % (41.0-55.0); Hemoglobin 8.3 g/dL (13.5-16.5); Lymphocytes # (Auto) 1.48 K/mcL (1.50-4.80); Lymphocytes % (Auto) 11.4 % (15.0-49.0); Mean Cell Volume 84.1 fL (80.0-100.0); Mean Platelet Volume 9.5 fL (7.4-10.4); Monocytes # (Auto) 1.09 K/mcL (0.10-0.90); Monocytes % (Auto) 8.4 % (1.0-12.0); Neutrophils % (Auto) 79.9 % (38.0-78.0); Platelet Count 325 K/mcL (140-440); RBC 3.08 M/mcL (4.50-5.90); Red Cell Distribution Width 20.3 % (11.5-14.5); WBC 12.9 K/mcL (4.5-11.0)
[2020-09-25] MEDS ORDERED: 0.9 % SODIUM CHLORIDE 250 ML IV SCH ×3 (09:30→19:02)
[2020-09-25] MEDS: INSULIN LISPRO 1 UNIT/0.01 ML UNIT SQ SCH ×3 (10:05→23:39)
[2020-09-25] MEDS: 0.9 % SODIUM CHLORIDE 10 ML SYRINGE IV SCH ×2 (10:09→21:55)
[2020-09-25] MEDS ORDERED: SODIUM CHLORIDE IV SCH (11:00)
[2020-09-25] MEDS ORDERED: MVI IV SCH (11:00)
[2020-09-25] MEDS ORDERED: [UNRECOGNIZED DRUG - OTHER] IV SCH (11:00)
[2020-09-25] MEDS ORDERED: CALCIUM GLUCONATE IV SCH (11:00)
[2020-09-25] MEDS ORDERED: MAGNESIUM SULFATE IV SCH (11:00)
[2020-09-25] MEDS ORDERED: ALBUMIN HUMAN 37.5 GM/150 ML BAG IV ONE (16:20)
[2020-09-25] MEDS ORDERED: MINERAL OIL 1 DOSE ENEMA PR ONE (16:55)
[2020-09-25] MEDS ORDERED: FLEETS ADULT ENEMA PR ONE (17:01)
[2020-09-25] MEDS ORDERED: PIPERACILLIN SODIUM/TAZOBACTAM 3.375 GM in DEXTROSE 5% IN WATER 50 ML IV SCH (17:15)
[2020-09-25] MEDS ORDERED: DIATRIZOATE MEGLU/DIATRIZO SOD 30 ML BOTTLE PO ONE (17:16)
[2020-09-25] MEDS ORDERED: NOREPINEPHRINE BITARTRATE 16 MG in 0.9 % SODIUM CHLORIDE 234 ML IV SCH (18:00)
--- NOTE | 2020-09-25 18:45 | Brief Operative Note ---
Brief Operative Note Date of procedure: 11/08/20 Pre-op diagnosis: small BOWEL OBSTRUCTION;FECAL IMPACTION; RECTAL BLEEDING FROM RADIATION INJ Post-op diagnosis: other (SBO, FECAL IMPACTION ;ULCERATION OF ANTERIOR HALF OF RECTAL STUMP) Procedure: LAPAROTOMY WITH APPENDECTOMY AND LAVAGE OF COLON WITH GASTROGRAPHIN AND FLEETS ENEMA VIA RECTAL STUMP; COLOSTOMY REVISION ANOSCOPY WITH EVALUATION OF BLEEDING FROM RECTAL STUMP; PACKING OF RECTAL POUCH Grafts/Implants: No Anesthesia: GETA Complications: other (PATIENT HYPOTENSIVE DURING THE PROCEDURE ) Surgeon: Bud Hardy Estimated blood loss (cc): 50 Specimens Removed/Pathology: none sent Condition: critical Disposition: ICU
[2020-09-25] MEDS: 0.9 % SODIUM CHLORIDE 250 ML IV SCH (19:02)
[2020-09-25] MEDS ORDERED: MAGNESIUM SULFATE 2 GM/50 ML BAG IV PRN (19:02)
[2020-09-25] MEDS ORDERED: ONDANSETRON 4 MG/2 ML VIAL IV PRN (19:02)
[2020-09-25] MEDS ORDERED: POTASSIUM CHLORIDE 40 MEQ in DEXTROSE 5% IN WATER 500 ML IV PRN (19:02)
[2020-09-25] MEDS ORDERED: IPRATROPIUM/ALBUTEROL 3 ML AMPUL.NEB NEB PRN (19:02)
[2020-09-25] MEDS ORDERED: HETASTARCH 6% 30 GM/500 ML BAG IV ONE ×2 (19:02→22:15)
[2020-09-25] MEDS ORDERED: TPN PER PHARMACY IV SCH (19:02)
[2020-09-25] MEDS ORDERED: 0.9 % SODIUM CHLORIDE 10 ML SYRINGE IV PRN (19:02)
--- NOTE | 2020-09-25 19:08 | Internal Med Progress Note ---
SUBJECTIVE Subjective Patient information: Note initiated : 09/25/20 at 7:02 pm Service Date, if different from initiated Date: [] Patient: Jose Moulton a 50 y/o M admitted on 09/16/20 for weakness, dizziness, failure to thrive. Chief Complaint: [] Principal diagnosis: severe radiation necrosis of rectum.protein calorie malnutrition Interval history: severe radiation necrosis of rectum.protein calorie malnutrition Interval history: Mr. Moulton is a 50 year old M Presents with severe weakness and lightheadedness. Patient states the reason he came in the ED is because he was severely weak and could hardly move around and became lightheaded and get up and move. 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 Was recommended to him to get a diverting colostomy he has not made a decision on that yet. He has not been eating very much for the past couple months because it hurts to go to the bathroom. And especially the past few weeks he is eating hardly anything. He says a couple days ago he had 8 ounces of Slim fast and then nothing for the few days prior to that nothing yesterday. He has had some water and some electrolyte drinks that about it. Denies fevers chills chest pain abdominal pain. In the ED is found to be hyponatremic hypokalemic hypochloremic. An elevated TSH but denies cold intolerance dry skin or constipation. 09/17 Poor sleep. Complains of leg pain and some rectal pain from stooling. States difficulty in urinating. Electrolyte imbalance slowly improving. Patient is supposed to receive a diverting colostomy. Will consult surgery to discuss timing. 09/18 no overnight events or new complaints. Seen by general surgery and scheduled for diverting colostomy on Wednesday. TPN started.. 09/19 Poor sleep. No new complaints. Will be prepped for surgery tomorrow. 09/20-patient seen postop. Doing well. Anxious and appears uncomfortable. On pain management per surgery. Currently on TPN. No fever. White count stable. Stable electrolytes and renal function. 09/21-patient doing well. No overnight events. No concerns per staff. Postop day 2. Managed per surgery. Feels little uncomfortable unable to get a restful night sleep. Ongoing TPN. 09/22-patient doing well postop. Ongoing management per surgery. Continue TPN. Denies overnight events. Minimal anxiety. No additional recommendations from hospitalist service. Case discussed with surgery. At this time hospital service will sign off 09/25-received phone call from Dr. Hardy postoperatively for reconsultation and management of mechanical ventilation/circulatory shock. Patient intubated currently on mechanical ventilation at 100% FiO2. On vasopressors. Patient also received 2 units PRBC transfusion. Levophed 12 mics. Case discussed with anesthesia Julia Sandoval. Patient had over 4500 cc of NG aspirate and possibly aspirated which may explain the profound hypoxemia despite 100% FiO2 on mechanical ventilation. Patient critically ill with [place] 2 score over 20 and very high risk mortality. Surgery confirms extremely poor prognosis. At this time patient is being transferred to ICU for continued management of mechanical ventilation/circulatory shock and postop care will be managed as per surgery. We will initiate fentanyl/propofol sedation along with continued TPN/vasopressors and crystalloid challenges to keep MAP at goal. Serial electrolytes/blood gases and vent titration will be managed per protocol. Reviewed ABG/chest imaging. Bilateral diffuse airspace disease. Likely aspiration. On empiric antibiotic coverage. ABG 7.1 /50 on 100% FiO2. Remains critically ill. Surgery discussed patient's critical status with patient's family. Continue mechanical ventilation per protocol Constitutional Vitals: Vital Signs Temp Pulse Resp BP Pulse Ox 97.6 F 126 H 26 H 97/68 94 09/25/20 12:14 09/25/20 12:14 09/25/20 12:14 09/25/20 12:14 09/25/20 12:14 Period Temp Pulse Resp BP Sys/Greer Pulse Ox Last 24 Hr 97.6 F-98.5 F 118-132 22-26 97-119/68-78 91-95 Intake and Output 09/25/20 09/25/20 09/25/20 05:59 13:59 21:59 Intake Total 505 2184.5962 Output Total 425 250 Balance 80 2184.5962 -250 on mechanical ventilation Map at goal on vasopressors Quad lumen PICC line Tachycardia Colostomy stoma no bleeding No edema Vincent draining clear urine Bilateral diminished breath sounds Intake & Output: Intake & Output 09/25/20 09/25/20 09/25/20 05:59 13:59 21:59 Intake Total 505 2184.5962 Output Total 425 250 Balance 80 2184.5962 -250 Intake: IV 80 2184.5962 Sodium Chloride 0.9% 250 ml @ 0 20 mls/hr IV .[id number] [facility] Rx#: [id number] Calcium Gluconate 10 Meq 2104.5962 Magnesium Sulfate 16.24 Meq Sodium Chloride 240 Meq Infuvite Adult 10 ml Potassium Phosphate 40 Meq In Clinimix 5% -20% Solution 2,000 ml @ 80 mls /hr IV DAILY@1100 [facility] Rx#: [id number] Oral 425 Output: Urine Catheter Amount 425 Stool 0 Estimated Blood Loss 250 Other: Urine Appearance Clear Clear Uretheral (Vincent) Clear Urine Color Tea Colored Tea Colored Uretheral (Vincent) Tea Colored Urine Odor Strong Stool Size Moderate Moderate Stool Color Dark Red Blood Dark Red Blood Stool Consistency Liquid # Unmeasured Emesis 1 OBJ DATA Labs CBC & Chem 7: 09/26/20 05:01 09/26/20 05:01 Labs: Abnormal Lab Results 09/25/20 09/25/20 09/24/20 06:39 06:39 05:00 WBC 12.9 H RBC 3.08 L Hgb 8.3 L Hct 25.9 L RDW 20.3 H Neut % (Auto) 79.9 H Lymph % (Auto) 11.4 L Lymph # (Auto) 1.48 L [place] # (Auto) 1.09 H Absolute Neutrophils 10.33 H Sodium 127 L 126 L Chloride 92 L 92 L Carbon Dioxide 20 L Anion Gap 7.0 L BUN 24 H Creatinine 0.3 L 0.3 L Glucose 197 H Uric Acid 1.0 L 0.6 L Total Bilirubin 2.0 H Direct Bilirubin 1.7 H 0.5 H GGT 244 H 195 H ALT 42 H Alkaline Phosphatase 171 H 135 H Total Protein 5.6 L Albumin 2.7 L 2.9 L Albumin/Globulin Ratio 0.9 L 0.8 L Prealbumin 09/23/20 09/23/20 04:38 04:38 WBC RBC Hgb Hct RDW Neut % (Auto) Lymph % (Auto) Lymph # (Auto) [place] # (Auto) Absolute Neutrophils Sodium 128 L Chloride 92 L Carbon Dioxide Anion Gap BUN 21 H Creatinine 0.3 L Glucose 121 H Uric Acid 0.5 L Total Bilirubin Direct Bilirubin 0.4 H GGT 144 H ALT Alkaline Phosphatase 119 H Total Protein Albumin Albumin/Globulin Ratio Prealbumin 15.2 L Meds: Medications Acetaminophen (Tylenol) 650 mg PO Q6HP PRN PRN Reason: PAIN/FEVER > 101 Albuterol/Ipratropium (Duoneb) 3 ml NEB Q4HP PRN PRN Reason: Shortness Of Breath Alprazolam (Xanax) 0.25 mg PO TIDP PRN PRN Reason: Anxiety Last Admin: 09/24/20 00:39 Dose: 0.25 mg Documented by: Calcium Carbonate/Glycine (Tums) 1,000 mg CHEWED Q4HP PRN PRN Reason: Dyspepsia Last Admin: 09/24/20 11:51 Dose: 1,000 mg Documented by: Clotrimazole (Mycelex) 10 mg PO TIDP PRN PRN Reason: Mouth Pain Diagnostic Test (Pha) (Accu-Chek) 1 each FS Q6 [facility] Last Admin: 09/25/20 12:24 Dose: 1 each Documented by: Diphenhydramine HCl (Benadryl) 25 mg PO HSP PRN PRN Reason: Insomnia Docusate Sodium (Colace) 100 mg PO BID [facility] Last Admin: 09/25/20 08:35 Dose: Not Given Documented by: Fentanyl (Duragesic) 50 mcg TOPICAL Q72H [facility] Last Admin: 09/23/20 09:48 Dose: 50 mcg Documented by: Heparin Sodium (Porcine) (Heparin) 5,000 unit SQ Q12 [facility] Last Admin: 09/25/20 08:36 Dose: Not Given Documented by: Heparin Sodium (Porcine) (Heparin 10 Units/Ml Flush) 2 ml IV Q12 [facility] Last Admin: 09/25/20 11:42 Dose: Not Given Documented by: Hydromorphone HCl (Dilaudid) 1 mg IV Q1HP PRN; Protocol PRN Reason: Per Pain Protocol Last Admin: 09/25/20 11:19 Dose: 1 mg Documented by: Fat Emulsion Intravenous 250 (ml/ Premix) 250 mls @ 25 mls/hr IV MoWeFr@1600 [facility] Last Infusion: 09/24/20 01:55 Dose: Infused Documented by: Magnesium Sulfate (Magnesium Sulfate) 2 gm in 50 mls @ 50 mls/hr IV UD PRN PRN Reason: Magnesium </= 1.6 Potassium Chloride 40 meq/ (Dextrose) 520 mls @ 130 mls/hr IV UD PRN PRN Reason: Potassium < 3 Acetaminophen (Ofirmev) 800 mg in 80 mls @ 160 mls/hr IV Q6H [facility]; Protocol Last Admin: 09/25/20 15:01 Dose: Not Given Documented by: Calcium Gluconate 10 meq/Magnesium Sulfate 32.48 meq/Sodium Chloride 240 meq/Multivitamins/Minerals 10 ml/Potassium Phosphate 60 meq/Sodium Acetate 40 meq/Potassium Acetate 20 meq/Amino Acids 2,143.1417 mls @ 80 mls/hr IV DAILY@1100 [facility] Last Admin: 09/25/20 11:22 Dose: 80 mls/hr Documented by: Sodium Chloride (Sodium Chloride 0.9%) 250 mls @ 20 mls/hr IV .[id number] [facility] Stop: 09/25/20 21:59 Last Infusion: 09/25/20 12:15 Dose: 0 mls/hr Documented by: Piperacillin Sod/Tazobactam (Sod 3.375 gm/ Dextrose) 50 mls @ 100 mls/hr IV Q6H [facility]; Protocol Norepinephrine Bitartrate 16 (mg/ Sodium Chloride) 250 mls @ 9.375 mls/hr IV Q24H [facility]; Protocol Sodium Chloride (Sodium Chloride 0.9%) 250 mls @ 20 mls/hr IV .[id number] [facility] Stop: 09/26/20 06:14 Insulin Human Lispro (Humalog) 0 unit SQ Q6H [facility]; Protocol Last Admin: 09/25/20 12:28 Dose: 6 units Documented by: Levothyroxine Sodium (Synthroid) 50 mcg PO QAMAC [facility] Last Admin: 09/25/20 07:18 Dose: Not Given Documented by: Loratadine (Claritin) 10 mg PO DAILY [facility] Last Admin: 09/25/20 08:35 Dose: Not Given Documented by: Melatonin (Melatonin 3mg Tablet) 3 mg PO QHS [facility] Last Admin: 09/24/20 20:45 Dose: 3 mg Documented by: Metoclopramide HCl (Reglan) 10 mg IV Q6 [facility] Last Admin: 09/25/20 11:59 Dose: 10 mg Documented by: Ondansetron HCl (Zofran) 4 mg IV Q4HP PRN PRN Reason: Nausea And Vomiting Last Admin: 09/22/20 09:39 Dose: 4 mg Documented by: Oxycodone HCl (Roxicodone) 10 mg PO Q8HP PRN; Protocol PRN Reason: PAIN PROTOCOL Last Admin: 09/25/20 03:59 Dose: 10 mg Documented by: Pantoprazole Sodium (Protonix) 40 mg PO BIDAC [facility] Last Admin: 09/25/20 07:17 Dose: Not Given Documented by: Polyethylene Glycol (Miralax) 17 gm PO Q6H [facility] Last Admin: 09/25/20 11:46 Dose: Not Given Documented by: Potassium Chloride (Kdur) 40 meq PO UD PRN PRN Reason: Potssium is 3-3.5 Potassium Chloride (Kdur) 40 meq PO UD PRN PRN Reason: Potassium < 3 Potassium Chloride (Kdur) 20 meq PO BIDCC [facility] Last Admin: 09/25/20 07:18 Dose: Not Given Documented by: Senna (Senokot) 2 tab PO DAILYP PRN PRN Reason: Constipation Sodium Chloride (Saline Flush) 10 ml IV Q12 [facility] Last Admin: 09/25/20 10:09 Dose: 10 ml Documented by: Sodium Chloride (Saline Flush) 10 ml IV UD PRN PRN Reason: FLUSH Last Admin: 09/25/20 06:56 Dose: 10 ml Documented by: Tamsulosin HCl (Flomax) 0.8 mg PO HS [facility] Last Admin: 09/24/20 20:44 Dose: 0.8 mg Documented by: Vitamin E (Vitamin E) 400 unit PO QDAY [facility] Last Admin: 09/25/20 08:36 Dose: Not Given Documented by: A/P Narrative A/P Narrative: * Mechanical ventilation for airway protection and acute hypoxic respiratory failure. Continue midazolam/fentanyl sedation * Acute hypoxic respiratory failure secondary to aspiration pneumonia. Large AA gradient. ABG 7.1 8/50 100% FiO2/PEEP 8. * Circulatory shock likely volume depletion versus severe sepsis. Continue crystalloids/Vasopressors, Follow central venous oxygen sats. On broad antibiotic coverage * 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 Status post repeat ex lap today. For details refer to surgery note/description of procedure * Acute blood loss anemia secondary to rectal bleed. Status post 2 units blood transfusion. * Parenteral nutrition on TPN * Hyponatremia/hypokalemia-corrected via TPN Plan * Start mechanical ventilation per protocol * Propofol fentanyl sedation * Repeat blood gas/serial chest imaging * Vasopressors to keep MAP goal * Crystalloid challenges * TPN * Extremely poor prognosis based on [place] 2 score 20. Time Spent With Patient Time: Critical time in excess of 105 minutes spent on management of hypoxic respiratory failure/labs, imaging/antibiotics pressure management QUALITY VTE Deep Vein Thrombosis/Pulmonary Embolism Present on Admission: No
[2020-09-25] MEDS ORDERED: 0.9 % SODIUM CHLORIDE 1,000 ML IV ONE (19:10)
[2020-09-25] MEDS: fentaNYL 2,500 MCG in 0.9 % SODIUM CHLORIDE 200 ML IV SCH (19:15)
[2020-09-25] MEDS ORDERED: HEPARIN/NS 500 ML IV SCH (19:15)
[2020-09-25] MEDS: 0.9 % SODIUM CHLORIDE 1,000 ML IV SCH (19:15)
[2020-09-25] MEDS ORDERED: MIDAZOLAM PF 50 MG in 0.9 % SODIUM CHLORIDE 90 ML IV SCH (19:15)
[2020-09-25] MEDS ORDERED: fentaNYL 50 ML ONE (19:24)
[2020-09-25] MEDS: FAT EMULSION 20% 250 ML in PREMIX 1 BAG IV SCH (21:14)
[2020-09-25 22:04] LABS: POC Blood Urea Nitrogen 19 mg/dL (6-20); POC CO2 22 mmol/L (22-30); POC Calcium, Ionized 0.88 mmEq/L (1.16-1.32); POC Chloride 103 mEq/L (96-108); POC Creatinine < 0.2 mg/dL; POC Glucose, Random 245 mg/dL (70-105); POC Hematocrit 30 % (41-55); POC Potassium 3.2 mEql/L (3.3-5.1); POC Sodium 139 mEq/L (133-145)
[2020-09-25] MEDS: CHLORHEXIDINE GLUCONATE 1 ML ORAL.SOL SWABMOUTH SCH (23:06)
[2020-09-25] MEDS: FAMOTIDINE/PF 20 MG/2 ML VIAL IV SCH (23:06)
[2020-09-25] MEDS: PIPERACILLIN SODIUM/TAZOBACTAM 3.375 GM in DEXTROSE 5% IN WATER 50 ML IV SCH (23:07)
[2020-09-26] MEDS: POTASSIUM CHLORIDE 20 MEQ TABLET PO SCH (00:23)
[2020-09-26] MEDS: POLYETHYLENE GLYCOL 3350 17 GM PACKET PO SCH (00:27)
[2020-09-26] MEDS: INSULIN LISPRO 1 UNIT/0.01 ML UNIT SQ SCH ×4 (00:27→18:29)
[2020-09-26] MEDS: PANTOPRAZOLE 40 MG TABLET PO SCH (00:28)
[2020-09-26] MEDS: METOCLOPRAMIDE 10 MG/2 ML VIAL IV SCH ×5 (00:29→23:37)
[2020-09-26] MEDS: 0.9 % SODIUM CHLORIDE 1,000 ML IV SCH ×3 (02:30→16:18)
--- NOTE | 2020-09-26 04:17 | XRay Report ---
CLINICAL INFORMATION: ETT Placement COMPARISON: 09/18/2020 FINDINGS: Endotracheal tube has been placed tip is 4 cm above the lilly. NG tube is also in place tip is off the edge of the patella with the gastric body. Heart size, mediastinum and pulmonary vessels are normal. Diffuse airspace disease has developed throughout both lungs. It is relatively vague with the exception of the right lung base which shows increased density. Probable small bilateral pleural effusions noted. IMPRESSION: Diffuse bilateral alveolar airspace disease - more severe in the right base. Consider ARDS, infection, aspiration and hemorrhage Interpreted and Authenticated by: Jose Patricia 09/26/20
[2020-09-26] MEDS: ACETAMINOPHEN 800 MG/80 ML BAG IV SCH ×4 (05:18→23:38)
[2020-09-26] MEDS: PIPERACILLIN SODIUM/TAZOBACTAM 3.375 GM in DEXTROSE 5% IN WATER 50 ML IV SCH ×4 (05:20→23:38)
[2020-09-26] MEDS: 0.9 % SODIUM CHLORIDE 250 ML IV SCH (05:37)
--- NOTE | 2020-09-26 05:55 | XRay Report ---
CLINICAL INFORMATION: Mechanically Ventilated COMPARISON: 09/25/2020 FINDINGS: Lines and tubes in stable satisfactory position. Heart is normal for technique. Mediastinum and pulmonary vessels are unremarkable. Bilateral infiltrates have improved since yesterday's exam. There is now only moderate vague patchy airspace disease in the right mid / lower lung and the left lower lung. Small region of consolidated atelectasis seen in the left medial base has also improved. No effusion IMPRESSION: Moderate improvement in bilateral infiltrates since yesterday Interpreted and Authenticated by: Jose Patricia 09/26/20
[2020-09-26 06:56] LABS: Hematocrit 25.8 % (41.0-55.0); Hemoglobin 8.4 g/dL (13.5-16.5); Mean Cell Volume 87.2 fL (80.0-100.0); Mean Corpuscular HGB Conc 32.6 g/dL (31.0-36.0); Mean Platelet Volume 10.6 fL (7.4-10.4); Platelet Count 138 K/mcL (140-440); RBC 2.96 M/mcL (4.50-5.90); Red Cell Distribution Width 17.1 % (11.5-14.5); WBC 5.4 K/mcL (4.5-11.0)
[2020-09-26] MEDS: HYDROmorphone 1 MG/ML SYRINGE IV PRN (07:28)
[2020-09-26] MEDS ORDERED: LEVOTHYROXINE 50 MCG TABLET PO SCH (07:30)
[2020-09-26 07:39] LABS: ALT/SGPT 35 U/L (<40); AST/SGOT 20 U/L (<40); Albumin 1.6 gm/dL (3.2-5.2); Albumin/Globulin Ratio 0.7 (1.0-2.3); Alkaline Phosphatase 87 U/L (39-117); Bilirubin,Direct 1.7 mg/dL (<0.3); Bilirubin,Total 2.2 mg/dL (0.1-1.0); Blood Urea Nitrogen 16 mg/dL (6-20); Calcium 6.9 mg/dL (8.6-10.4); Carbon Dioxide 23 mmol/L (22-30); Chloride 111 mmol/L (96-108); Globulin 2.2 gm/dL (2.2-3.7); Glomerular Filtration Rate 137; Glucose 162 mg/dL (70-105); Lactate Dehydrogenase 151 U/L (135-225); Phosphorous 4.1 mg/dL (2.5-4.5); Triglycerides 88 mg/dL (<150); Uric Acid 0.7 mg/dL (2.5-8.0)
[2020-09-26 08:03] LABS: Anisocytosis 1+ (None Seen); Band Neutrophils % 55 % (0-10); Hypochromasia 1+ (None Seen); Lymphocytes % 10 % (15-49); Metamyelocytes % 1 %; Monocytes % (Manual) 2 % (1-12); Platelet Estimate NORMAL (Normal); Poikilocytosis 1+ (None Seen); Polychromasia 1+ (None Seen); RBC Fragments OCC (None Seen); RBC Morphology ABNORMAL (Normal); Segmented Neutrophils % 32 % (38-78); Spherocytes 1+ (None Seen); Tear Drop Cells OCC (None Seen); Toxic Granulation 2+ (None Seen)
[2020-09-26] MEDS: MIDAZOLAM PF 50 MG in 0.9 % SODIUM CHLORIDE 90 ML IV SCH ×2 (08:05→23:22)
[2020-09-26] MEDS: FAMOTIDINE/PF 20 MG/2 ML VIAL IV SCH ×2 (09:28→20:18)
[2020-09-26] MEDS: methylPREDNISolone SOD SUCC 125 MG/2 ML VIAL IV SCH ×2 (09:29→20:17)
[2020-09-26] MEDS: CHLORHEXIDINE GLUCONATE 1 ML ORAL.SOL SWABMOUTH SCH ×2 (09:29→19:40)
[2020-09-26] MEDS: 0.9 % SODIUM CHLORIDE 10 ML SYRINGE IV SCH ×2 (09:30→20:18)
[2020-09-26] MEDS ORDERED: fentaNYL 50 MCG PATCH TOPICAL SCH (10:00)
--- NOTE | 2020-09-26 10:41 | XRay Report ---
CLINICAL INFORMATION: NG tube placement COMPARISON: None. FINDINGS: The NG tube is distally placed and coiled the gastric antrum and the tip is redirected towards the fundus. Mild ileus pattern persists. The stomach small bowel and colon are mildly dilated. There is retained enteric contrast seen within the colon. No free air or soft tissue mass. IMPRESSION: Mild ileus pattern. NG tube is distally position. ICU nurses were instructed to withdraw tube 20 cm. Interpreted and Authenticated by: Jose Patricia 09/26/20
[2020-09-26] MEDS ORDERED: SODIUM CHLORIDE IV SCH (11:00)
[2020-09-26] MEDS ORDERED: CALCIUM GLUCONATE IV SCH (11:00)
[2020-09-26] MEDS ORDERED: MAGNESIUM SULFATE IV SCH (11:00)
[2020-09-26] MEDS ORDERED: [UNRECOGNIZED DRUG - OTHER] IV SCH (11:00)
--- NOTE | 2020-09-26 11:31 | Internal Med Progress Note ---
SUBJECTIVE Subjective Patient information: Note initiated : 09/26/20 at 11:28 am Service Date, if different from initiated Date: [] Patient: Jose Moulton a 50 y/o M admitted on 09/16/20 for weakness, dizziness, failure to thrive. Chief Complaint: [] Principal diagnosis: severe radiation necrosis of rectum.protein calorie malnutrition Interval history: severe radiation necrosis of rectum.protein calorie malnutrition Interval history: Mr. Moulton is a 50 year old M Presents with severe weakness and lightheadedness. Patient states the reason he came in the ED is because he was severely weak and could hardly move around and became lightheaded and get up and move. 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 Was recommended to him to get a diverting colostomy he has not made a decision on that yet. He has not been eating very much for the past couple months because it hurts to go to the bathroom. And especially the past few weeks he is eating hardly anything. He says a couple days ago he had 8 ounces of Slim fast and then nothing for the few days prior to that nothing yesterday. He has had some water and some electrolyte drinks that about it. Denies fevers chills chest pain abdominal pain. In the ED is found to be hyponatremic hypokalemic hypochloremic. An elevated TSH but denies cold intolerance dry skin or constipation. 09/17 Poor sleep. Complains of leg pain and some rectal pain from stooling. States difficulty in urinating. Electrolyte imbalance slowly improving. Patient is supposed to receive a diverting colostomy. Will consult surgery to discuss timing. 09/18 no overnight events or new complaints. Seen by general surgery and scheduled for diverting colostomy on Wednesday. TPN started.. 09/19 Poor sleep. No new complaints. Will be prepped for surgery tomorrow. 09/20-patient seen postop. Doing well. Anxious and appears uncomfortable. On pain management per surgery. Currently on TPN. No fever. White count stable. Stable electrolytes and renal function. 09/21-patient doing well. No overnight events. No concerns per staff. Postop day 2. Managed per surgery. Feels little uncomfortable unable to get a restful night sleep. Ongoing TPN. 09/22-patient doing well postop. Ongoing management per surgery. Continue TPN. Denies overnight events. Minimal anxiety. No additional recommendations from hospitalist service. Case discussed with surgery. At this time hospital service will sign off 09/25-received phone call from Dr. Hardy postoperatively for reconsultation and management of mechanical ventilation/circulatory shock. Patient intubated currently on mechanical ventilation at 100% FiO2. On vasopressors. Patient also received 2 units PRBC transfusion. Levophed 12 mics. Case discussed with anesthesia Julia Sandoval. Patient had over 4500 cc of NG aspirate and possibly aspirated which may explain the profound hypoxemia despite 100% FiO2 on mechanical ventilation. Patient critically ill with [place] 2 score over 20 and very high risk mortality. Surgery confirms extremely poor prognosis. At this time patient is being transferred to ICU for continued management of mechanical ventilation/circulatory shock and postop care will be managed as per surgery. We will initiate fentanyl/propofol sedation along with continued TPN/vasopressors and crystalloid challenges to keep MAP at goal. Serial electrolytes/blood gases and vent titration will be managed per protocol. Reviewed ABG/chest imaging. Bilateral diffuse airspace disease. Likely aspiration. On empiric antibiotic coverage. ABG 7.1 /50 on 100% FiO2. Remains critically ill. Surgery discussed patient's critical status with patient's family. Continue mechanical ventilation per protocol 09/26-patient continuing on mechanical ventilation. On midazolam/Versed. Improved interval chest infiltrate. On antibiotic coverage. Continue TPN/potassium replacement, potassium 2.7. Off pressors. Will undergo trial of spontaneous breathing/sedation holiday in a.m. Case discussed with surgery. No major telemetry events or concerns per staff. Blood gases stable, white count 5.4, hemoglobin 8.4 additional units transfusion ongoing per surgery. Constitutional Vitals: Vital Signs Temp Pulse Resp BP Pulse Ox 98.4 F 121 H 26 H 115/78 95 09/26/20 08:00 09/26/20 11:05 09/26/20 11:05 09/26/20 11:00 09/26/20 11:05 Period Temp Pulse Resp BP Sys/Greer Pulse Ox Last 24 Hr 95.7 F-98.4 F 91-126 12-33 97-145/68-94 90-100 Intake and Output 09/25/20 09/26/20 09/26/20 21:59 05:59 13:59 Intake Total 3 2513 1454 Output Total 1500 1925 930 Balance 533 588 524 Weight 58.604 kg Patient Weight 09/27/20 05:59 Weight 58.604 kg On mechanical ventilation TPN infusing NG minimal output Urine output 60 to 80 cc an hour Map at goal No telemetry events Ostomy output liquid Intake & Output: Intake & Output 09/25/20 09/26/20 09/26/20 21:59 05:59 13:59 Intake Total 20323 1454 Output Total 1500 1925 930 Balance 533 588 524 Weight 58.604 kg Intake: IV 1723 2513 1454 Sodium Chloride 0.9% 1,000 ml @ 1000 1000 1000 150 mls/hr IV .Q6H40M [facility] Rx#: [id number] Sodium Chloride 0.9% 250 ml @ 0 212 20 mls/hr IV .[id number] [facility] Rx#: [id number] Calcium Gluconate 10 Meq 713 Magnesium Sulfate 32.48 Meq Sodium Chloride 240 Meq Infuvite Adult 10 ml Potassium Phosphate 60 Meq Sodium Acetate 40 Meq Potassium Acetate 20 Meq In Clinimix 5%-20% Solution 2,000 ml @ 80 mls/hr IV DAILY@ 1100 [facility] Rx#:[id number] Intralipid 20% 250 ml In Premix 250 1 Bag @ 25 mls/hr IV MoWeFr@ 1600 [facility] Rx#:[id number] Versed 50 mg In Sodium Chloride 13 113 0.9% 90 ml @ 0.02 MG/KG/HR 2. 344 mls/hr IV Q12H [facility] Rx#: [id number] Levophed 16 mg In Sodium 10 Chloride 0.9% 234 ml @ 10 MCG/ MIN 9.375 mls/hr IV Q24H [facility] Rx #:[id number] Zosyn 3.375 gm In Dextrose 5% 100 in Water 50 ml @ 100 mls/hr IV Q6H [facility] Rx#:[id number] fentaNYL 2,500 MCG In Sodium 28 91 Chloride 0.9% 200 ml @ 25 MCG/ HR 2.5 mls/hr IV Q24H [facility] Rx#: [id number] Tube Feeding 0 Blood Product 310 Output: Gastric Drainage 350 150 NG/OG 350 150 Urine Catheter Amount 1250 1300 730 Void Amount 130 Stool 145 50 Estimated Blood Loss 250 Other: Urine Appearance Clear Clear Clear Uretheral (Vincent) Clear Clear Urine Color Dark Yellow Dark Yellow Dark Yellow Uretheral (Vincent) Dark Yellow Dark Yellow Urine Odor Normal Normal Uretheral (Vincent) Normal Normal Stool Color Brown Pale Stool Consistency Liquid Watery # Unmeasured Emesis 1 Exam: General: Alert, Awake, No acute Distress, cachectic Eyes/N/T: EOMI, Head/Neck: neck supple, CV: RRR, No murmurs, Pulm: Clear b/l, no wheezing/rhonchi/rales Abd: soft, nontender, +BS x4 Ext: no clubbing/cyanosis/edema Neuro: Alert, no focal deficits, moves all extremities, Skin: warm/dry, OBJ DATA Labs CBC & Chem 7: 09/26/20 05:01 09/27/20 07:14 Labs: Abnormal Lab Results 09/26/20 09/26/20 09/25/20 05:01 05:01 21:57 WBC RBC 2.96 L Hgb 8.4 L Hct 25.8 L POC Hct 30 L RDW 17.1 H Plt Count 138 L MPV 10.6 H Neut % (Auto) Lymph % (Auto) Lymph # (Auto) [place] # (Auto) Seg Neutrophils % 32 L Band Neutrophils % 55 H Lymphocytes % 10 L Absolute Neutrophils WBC Morphology Abnormal A Toxic Granulation 2+ A RBC Morphology Abnormal A Polychromasia 1+ A Hypochromasia 1+ A Poikilocytosis 1+ A Anisocytosis 1+ A Spherocytes 1+ A Tear Drop Cells Occ A RBC Fragments Occ A Sodium POC Potassium 3.2 L Potassium 2.9 L* Chloride 111 H Carbon Dioxide Anion Gap BUN Creatinine 0.4 L POC Creatinine < 0.2 L Glucose 162 H POC Glucose 245 H Uric Acid 0.7 L Calcium 6.9 L POC WB Ioniz Calcium 0.88 L Total Bilirubin 2.2 H Direct Bilirubin 1.7 H GGT 117 H ALT Alkaline Phosphatase Total Protein 3.8 L Albumin 1.6 L Albumin/Globulin Ratio 0.7 L 09/25/20 09/25/20 09/24/20 06:39 06:39 05:00 WBC 12.9 H RBC 3.08 L Hgb 8.3 L Hct 25.9 L POC Hct RDW 20.3 H Plt Count MPV Neut % (Auto) 79.9 H Lymph % (Auto) 11.4 L Lymph # (Auto) 1.48 L [place] # (Auto) 1.09 H Seg Neutrophils % Band Neutrophils % Lymphocytes % Absolute Neutrophils 10.33 H WBC Morphology Toxic Granulation RBC Morphology Polychromasia Hypochromasia Poikilocytosis Anisocytosis Spherocytes Tear Drop Cells RBC Fragments Sodium 127 L 126 L POC Potassium Potassium Chloride 92 L 92 L Carbon Dioxide 20 L Anion Gap 7.0 L BUN 24 H Creatinine 0.3 L 0.3 L POC Creatinine Glucose 197 H POC Glucose Uric Acid 1.0 L 0.6 L Calcium POC WB Ioniz Calcium Total Bilirubin 2.0 H Direct Bilirubin 1.7 H 0.5 H GGT 244 H 195 H ALT 42 H Alkaline Phosphatase 171 H 135 H Total Protein 5.6 L Albumin 2.7 L 2.9 L Albumin/Globulin Ratio 0.9 L 0.8 L Meds: Medications Albuterol/Ipratropium (Duoneb) 3 ml NEB Q4HP PRN PRN Reason: Shortness Of Breath Chlorhexidine Gluconate (Peridex) 15 ml SWABMOUTH BID [facility] Last Admin: 09/26/20 09:29 Dose: 15 ml Documented by: Diagnostic Test (Pha) (Accu-Chek) 1 each FS Q6 [facility] Last Admin: 09/26/20 05:18 Dose: 1 each Documented by: Famotidine (Pepcid) 20 mg IV Q12 [facility] Last Admin: 09/26/20 09:28 Dose: 20 mg Documented by: Hydromorphone HCl (Dilaudid) 1 mg IV Q1HP PRN; Protocol PRN Reason: Per Pain Protocol Last Admin: 09/26/20 07:28 Dose: 1 mg Documented by: Sodium Chloride (Sodium Chloride 0.9%) 1,000 mls @ 150 mls/hr IV .Q6H40M [facility] Last Infusion: 09/26/20 09:12 Dose: Infused Documented by: Acetaminophen (Ofirmev) 800 mg in 80 mls @ 160 mls/hr IV Q6H [facility]; Protocol Last Admin: 09/26/20 11:23 Dose: 160 mls/hr Documented by: Fat Emulsion Intravenous 250 (ml/ Premix) 250 mls @ 25 mls/hr IV MoWeFr@1600 [facility] Magnesium Sulfate (Magnesium Sulfate) 2 gm in 50 mls @ 50 mls/hr IV UD PRN PRN Reason: Magnesium </= 1.6 Norepinephrine Bitartrate 16 (mg/ Sodium Chloride) 250 mls @ 9.375 mls/hr IV Q24HP PRN; Protocol PRN Reason: Hypotension Piperacillin Sod/Tazobactam (Sod 3.375 gm/ Dextrose) 50 mls @ 100 mls/hr IV Q6H [facility]; Protocol Last Admin: 09/26/20 11:23 Dose: 100 mls/hr Documented by: Potassium Chloride 40 meq/ (Dextrose) 520 mls @ 130 mls/hr IV UD PRN PRN Reason: Potassium < 3 Last Admin: 09/26/20 07:58 Dose: 130 mls/hr Documented by: Heparin Sodium/Sodium Chloride (Heparin/Ns) 500 mls @ 0 mls/hr IV .Q0M [facility]; Protocol Fentanyl 2,500 mcg/ Sodium (Chloride) 250 mls @ 2.5 mls/hr IV Q24H [facility]; Protocol Last Titration: 09/26/20 10:35 Dose: 100 mcg/hr, 10 mls/hr Documented by: Midazolam HCl 50 mg/ Sodium (Chloride) 100 mls @ 2.344 mls/hr IV Q12H [facility]; P rotocol Last Titration: 09/26/20 10:35 Dose: 0.12 mg/kg/hr, 14 mls/hr Documented by: Calcium Gluconate 15 meq/Magnesium Sulfate 32.48 meq/Sodium Chloride 160 meq/Potassium Chloride 80 meq/Potassium Phosphate 40 meq/Multivitamins/Minerals 10 ml/Amino Acids 2,139.3489 mls @ 80 mls/hr IV Q24H [facility] Last Admin: 09/26/20 11:12 Dose: 80 mls/hr Documented by: Insulin Human Lispro (Humalog) 0 unit SQ Q6H [facility]; Protocol Last Admin: 09/26/20 05:18 Dose: 2 units Documented by: Levothyroxine Sodium (Synthroid) 50 mcg PO QAMAC [facility] Last Admin: 09/26/20 06:56 Dose: Not Given Documented by: Methylprednisolone Sodium Succinate (Solu-Medrol) 62.5 mg IV Q12 [facility] Last Admin: 09/26/20 09:29 Dose: 62.5 mg Documented by: Metoclopramide HCl (Reglan) 10 mg IV Q6 [facility] Last Admin: 09/26/20 11:24 Dose: 10 mg Documented by: Ondansetron HCl (Zofran) 4 mg IV Q4HP PRN PRN Reason: Nausea And Vomiting Sodium Chloride (Saline Flush) 10 ml IV Q12 [facility] Last Admin: 09/26/20 09:30 Dose: 10 ml Documented by: Sodium Chloride (Saline Flush) 10 ml IV UD PRN PRN Reason: FLUSH A/P Assessment and plan (1) Colostomy status: Status: Acute (2) Chronic constipation: Status: Chronic (3) Radiation injury of bowel: Status: Acute Qualifiers: Encounter type: subsequent encounter Qualified Code(s): T66.XXXD - Radiation sickness, unspecified, subsequent encounter Narrative A/P Narrative: * Mechanical ventilation for airway protection and acute hypoxic respiratory failure. Continue midazolam/fentanyl sedation, sedation holiday a.m./weaning protocol * Acute hypoxic respiratory failure secondary to aspiration pneumonia. Clinically improving on interval imaging/not tolerating low PEEP/FiO2 down to 40%. Continue titrating/antibiotic coverage. * Circulatory shock likely volume depletion versus severe sepsis. Continue crystalloids/Vasopressors, Follow central venous oxygen sats. On broad antibiotic coverage * Hypokalemia 2.7 on aggressive replacement IV/TPN * 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 Status post repeat ex lap today. For details refer to surgery note/description of procedure. Management per surgery. * Acute blood loss anemia secondary to rectal bleed. Status post 4 units PRBC * Nutrition on TPN * Full code * Prophylaxis heparin Plan * Continue mechanical ventilation per protocol. Wean as tolerated * Sedation holiday * Interval chest imaging/blood gas * Antibiotic coverage * TPN * Improved short-term prognosis, possible extubation in 24 hours Time Spent With Patient Time: Total time spent is greater than 50% in coordination of care (as documented) at patient's floor/unit and/or counseling patient: QUALITY VTE Deep Vein Thrombosis/Pulmonary Embolism Present on Admission: No
[2020-09-26] MEDS ORDERED: 0.9 % SODIUM CHLORIDE 250 ML IV SCH (13:15)
--- NOTE | 2020-09-26 13:18 | General Surgery Progress Note ---
SUBJECTIVE Subjective Patient information: Note initiated : 09/26/20 at 1:10 pm Service Date, if different from initiated Date: [] Patient: Jose Moulton 50 y/o M admitted on 09/16/20 for weakness, dizziness, failure to thrive. Chief Complaint: [] Principal diagnosis: severe radiation necrosis of rectum.protein calorie malnutrition Interval history: patient has improved since last evening. His vital signs have stabilized and he no longer needs pressors. His blood gases are improved and his oxygen requirement is down to 45% with a PO2 of 86. He is still ventilated. Chest x-ray shows significant improvement from last evening. White blood count 5.4, hemoglobin 8.4, hematocrit 25.8, potassium 2.9, BUN 16, creatinine 0.4, magnesium 1.8, albumin 1.6. Constitutional Vitals: Vital Signs Temp Pulse Resp BP Pulse Ox 100.0 F H 125 H 30 H 110/78 94 09/26/20 12:00 09/26/20 12:06 09/26/20 12:06 09/26/20 12:00 09/26/20 12:06 Period Temp Pulse Resp BP Sys/Greer Pulse Ox Last 24 Hr 95.7 F-100.0 F 91-126 12-33 106-145/68-94 90-100 Intake and Output 09/25/20 09/26/20 09/26/20 21:59 05:59 13:59 Intake Total 2033 2513 1534 Output Total 1500 1925 1070 Balance 533 588 464 Weight 129 lb 3.2 oz Patient Weight 09/27/20 05:59 Weight 129 lb 3.2 oz Intake & Output: Intake & Output 09/25/20 09/26/20 09/26/20 21:59 05:59 13:59 Intake Total 2033 2513 1534 Output Total 1500 1925 1070 Balance 533 588 464 Weight 129 lb 3.2 oz Intake: IV 1723 2513 1534 Sodium Chloride 0.9% 1,000 ml @ 1000 1000 1000 150 mls/hr IV .Q6H40M [facility] Rx#: [id number] Sodium Chloride 0.9% 250 ml @ 0 212 20 mls/hr IV .[id number] [facility] Rx#: [id number] Calcium Gluconate 10 Meq 713 Magnesium Sulfate 32.48 Meq Sodium Chloride 240 Meq Infuvite Adult 10 ml Potassium Phosphate 60 Meq Sodium Acetate 40 Meq Potassium Acetate 20 Meq In Clinimix 5%-20% Solution 2,000 ml @ 80 mls/hr IV DAILY@ 1100 [facility] Rx#:[id number] Intralipid 20% 250 ml In Premix 250 1 Bag @ 25 mls/hr IV MoWeFr@ 1600 [facility] Rx#:[id number] Versed 50 mg In Sodium Chloride 13 113 0.9% 90 ml @ 0.02 MG/KG/HR 2. 344 mls/hr IV Q12H [facility] Rx#: [id number] Levophed 16 mg In Sodium 10 Chloride 0.9% 234 ml @ 10 MCG/ MIN 9.375 mls/hr IV Q24H [facility] Rx #:[id number] Zosyn 3.375 gm In Dextrose 5% 100 in Water 50 ml @ 100 mls/hr IV Q6H [facility] Rx#:[id number] fentaNYL 2,500 MCG In Sodium 28 91 Chloride 0.9% 200 ml @ 25 MCG/ HR 2.5 mls/hr IV Q24H [facility] Rx#: [id number] Tube Feeding 0 Blood Product 310 Output: Gastric Drainage 350 150 NG/OG 350 150 Urine Catheter Amount 1250 1300 870 Void Amount 130 Stool 145 50 Estimated Blood Loss 250 Other: Urine Appearance Clear Clear Clear Uretheral (Vincent) Clear Clear Urine Color Dark Yellow Dark Yellow Dark Yellow Uretheral (Vincent) Dark Yellow Dark Yellow Urine Odor Normal Normal Uretheral (Vincent) Normal Normal Stool Color Brown Pale Stool Consistency Liquid Watery # Unmeasured Emesis 1 Head Head exam: Present atraumatic and normocephalic ENT ENT exam: Present normal oropharynx Neck Neck exam: Present full ROM; Absent lymphadenopathy Respiratory Respiratory exam: Present accessory muscle use and decreased breath sounds; Absent rales, rhonchi and wheezes Additional comments: patient is ventilated Cardiovascular Cardiovascular exam: Present +S1, +S2 and tachycardia; Absent JVD GI/Abdominal GI/Abdominal exam: Present diminished bowel sounds and distended Rectal Rectal exam: Present bloody stool (bloody drainage per rectum) Extremities Exam Extremities exam: Present full ROM and neurovascular intact; Absent pedal edema Neurological Exam Additional comments: patient is sedated and ventilated A/P Assessment and plan (1) Colostomy status: Status: Acute (2) Chronic blood loss anemia: Status: Acute (3) Radiation injury of bowel: Status: Acute Qualifiers: Encounter type: subsequent encounter Qualified Code(s): T66.XXXD - Radiation sickness, unspecified, subsequent encounter (4) Cachexia: Status: Acute Narrative A/P Narrative: patient is clinically improved from last evening. His hemoglobin has drifted down, so he will be transfused 2 units of packed red cells. There is no major bleeding from his rectum so this is probably dilutional. Chest x- ray is significantly improved and he is started on Solu-Medrol IV. Electrolytes will be adjusted as needed Since he is on TPN. He may potentially be able to be taken off ventilatory support tomorrow. Time Spent With Patient Time: Total time spent is greater than 50% in coordination of care (as documented) at patient's floor/unit and/or counseling patient:
[2020-09-26] MEDS ORDERED: NOREPINEPHRINE BITARTRATE 16 MG in 0.9 % SODIUM CHLORIDE 234 ML IV PRN (18:00)
[2020-09-26 22:15] LABS: POC Blood Urea Nitrogen 15 mg/dL (6-20); POC CO2 23 mmol/L (22-30); POC Calcium, Ionized 1.13 mmEq/L (1.16-1.32); POC Chloride 110 mEq/L (96-108); POC Creatinine < 0.2 mg/dL; POC Glucose, Random 140 mg/dL (70-105); POC Hematocrit 27 % (41-55); POC Potassium 2.7 mEql/L (3.3-5.1); POC Sodium 146 mEq/L (133-145)
[2020-09-26] MEDS ORDERED: POTASSIUM CHLORIDE IV ONE (22:18)
[2020-09-26] MEDS ORDERED: WATER IV ONE (22:18)
[2020-09-26] MEDS ORDERED: DEXTROSE 5% IV ONE (22:18)
[2020-09-26] MEDS ORDERED: POTASSIUM CHLORIDE 20 MEQ/10 ML VIAL IV ONE (22:34)
[2020-09-27] MEDS: fentaNYL 2,500 MCG in 0.9 % SODIUM CHLORIDE 200 ML IV SCH (04:00)
[2020-09-27] MEDS: ACETAMINOPHEN 800 MG/80 ML BAG IV SCH ×3 (05:20→17:46)
[2020-09-27] MEDS: METOCLOPRAMIDE 10 MG/2 ML VIAL IV SCH ×3 (05:21→17:10)
[2020-09-27] MEDS: PIPERACILLIN SODIUM/TAZOBACTAM 3.375 GM in DEXTROSE 5% IN WATER 50 ML IV SCH ×3 (05:21→17:09)
[2020-09-27] MEDS: INSULIN LISPRO 1 UNIT/0.01 ML UNIT SQ SCH ×4 (05:22→17:49)
[2020-09-27] MEDS: LEVOTHYROXINE 100 MCG VIAL IV SCH (06:50)
[2020-09-27] MEDS: MIDAZOLAM PF 50 MG in 0.9 % SODIUM CHLORIDE 90 ML IV SCH (07:20)
[2020-09-27 08:00] LABS: ALT/SGPT 138 U/L (<40); AST/SGOT 152 U/L (<40); Albumin 1.9 gm/dL (3.2-5.2); Albumin/Globulin Ratio 0.8 (1.0-2.3); Alkaline Phosphatase 102 U/L (39-117); Bilirubin,Direct 1.8 mg/dL (<0.3); Bilirubin,Total 2.2 mg/dL (0.1-1.0); Blood Urea Nitrogen 22 mg/dL (6-20); Calcium 7.9 mg/dL (8.6-10.4); Carbon Dioxide 23 mmol/L (22-30); Chloride 109 mmol/L (96-108); Globulin 2.3 gm/dL (2.2-3.7); Glomerular Filtration Rate 155; Glucose 130 mg/dL (70-105); Lactate Dehydrogenase 249 U/L (135-225); Phosphorous 2.5 mg/dL (2.5-4.5); Triglycerides 71 mg/dL (<150); Uric Acid 0.9 mg/dL (2.5-8.0)
[2020-09-27] MEDS: methylPREDNISolone SOD SUCC 125 MG/2 ML VIAL IV SCH ×2 (09:25→21:22)
[2020-09-27] MEDS: CHLORHEXIDINE GLUCONATE 1 ML ORAL.SOL SWABMOUTH SCH (09:25)
[2020-09-27] MEDS: FAMOTIDINE/PF 20 MG/2 ML VIAL IV SCH ×2 (09:25→21:22)
[2020-09-27] MEDS: 0.9 % SODIUM CHLORIDE 10 ML SYRINGE IV SCH ×2 (09:26→21:22)
--- NOTE | 2020-09-27 09:33 | XRay Report ---
CLINICAL INFORMATION: Mechanically Ventilated COMPARISON: 09/26/2020 FINDINGS: Lines and tubes remain in stable satisfactory position. Heart size, mediastinum and pulmonary vessels are normal. Mild patchy infiltrate in the right mid and lower lung show continued improvement. On the previous study, there was left lower lobe atelectasis, but this lobe is now re-aerated with only minimal residual airspace disease. IMPRESSION: Improving bilateral infiltrates/atelectasis. Interpreted and Authenticated by: Jose Patricia 09/27/20
--- NOTE | 2020-09-27 10:15 | XRay Report ---
CLINICAL INFORMATION: NG tube placement COMPARISON: 09/26/2020 FINDINGS: NG tube overlies the gastric body. Mild ileus pattern unchanged. No free air. IMPRESSION: Mild ileus. NG tube overlies the gastric body. Interpreted and Authenticated by: Jose Patricia 09/27/20
[2020-09-27] MEDS ORDERED: CALCIUM GLUCONATE IV SCH (11:00)
[2020-09-27] MEDS ORDERED: [UNRECOGNIZED DRUG - OTHER] IV SCH (11:00)
[2020-09-27] MEDS ORDERED: POTASSIUM CHLORIDE 40 MEQ in DEXTROSE 5% IN WATER 500 ML IV ONE (11:00)
[2020-09-27] MEDS ORDERED: SODIUM CHLORIDE IV SCH (11:00)
[2020-09-27] MEDS ORDERED: MAGNESIUM SULFATE IV SCH (11:00)
--- NOTE | 2020-09-27 11:29 | Internal Med Progress Note ---
SUBJECTIVE Subjective Patient information: Note initiated : 09/27/20 at 11:24 am Service Date, if different from initiated Date: [] Patient: oJse Moulton a 50 y/o M admitted on 09/16/20 for weakness, dizziness, failure to thrive. Chief Complaint: [] Principal diagnosis: severe radiation necrosis of rectum.protein calorie malnutrition Interval history: severe radiation necrosis of rectum.protein calorie malnutrition Interval history: Mr. Moulton is a 50 year old M Presents with severe weakness and lightheadedness. Patient states the reason he came in the ED is because he was severely weak and could hardly move around and became lightheaded and get up and move. 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 Was recommended to him to get a diverting colostomy he has not made a decision on that yet. He has not been eating very much for the past couple months because it hurts to go to the bathroom. And especially the past few weeks he is eating hardly anything. He says a couple days ago he had 8 ounces of Slim fast and then nothing for the few days prior to that nothing yesterday. He has had some water and some electrolyte drinks that about it. Denies fevers chills chest pain abdominal pain. In the ED is found to be hyponatremic hypokalemic hypochloremic. An elevated TSH but denies cold intolerance dry skin or constipation. 09/17 Poor sleep. Complains of leg pain and some rectal pain from stooling. States difficulty in urinating. Electrolyte imbalance slowly improving. Patient is supposed to receive a diverting colostomy. Will consult surgery to discuss timing. 09/18 no overnight events or new complaints. Seen by general surgery and scheduled for diverting colostomy on Wednesday. TPN started.. 09/19 Poor sleep. No new complaints. Will be prepped for surgery tomorrow. 09/20-patient seen postop. Doing well. Anxious and appears uncomfortable. On pain management per surgery. Currently on TPN. No fever. White count stable. Stable electrolytes and renal function. 09/21-patient doing well. No overnight events. No concerns per staff. Postop day 2. Managed per surgery. Feels little uncomfortable unable to get a restful night sleep. Ongoing TPN. 09/22-patient doing well postop. Ongoing management per surgery. Continue TPN. Denies overnight events. Minimal anxiety. No additional recommendations from hospitalist service. Case discussed with surgery. At this time hospital service will sign off 09/25-received phone call from Dr. Hardy postoperatively for reconsultation and management of mechanical ventilation/circulatory shock. Patient intubated currently on mechanical ventilation at 100% FiO2. On vasopressors. Patient also received 2 units PRBC transfusion. Levophed 12 mics. Case discussed with anesthesia Julia Sandoval. Patient had over 4500 cc of NG aspirate and possibly aspirated which may explain the profound hypoxemia despite 100% FiO2 on mechanical ventilation. Patient critically ill with Kaw 2 score over 20 and very high risk mortality. Surgery confirms extremely poor prognosis. At this time patient is being transferred to ICU for continued management of mechanical ventilation/circulatory shock and postop care will be managed as per surgery. We will initiate fentanyl/propofol sedation along with continued TPN/vasopressors and crystalloid challenges to keep MAP at goal. Serial electrolytes/blood gases and vent titration will be managed per protocol. Reviewed ABG/chest imaging. Bilateral diffuse airspace disease. Likely aspiration. On empiric antibiotic coverage. ABG 7.1 /50 on 100% FiO2. Remains critically ill. Surgery discussed patient's critical status with patient's family. Continue mechanical ventilation per protocol 09/26-patient continuing on mechanical ventilation. On midazolam/Versed. Improved interval chest infiltrate. On antibiotic coverage. Continue TPN/potassium replacement, potassium 2.7. Off pressors. Will undergo trial of spontaneous breathing/sedation holiday in a.m. Case discussed with surgery. No major telemetry events or concerns per staff. Blood gases stable, white count 5.4, hemoglobin 8.4 additional units transfusion ongoing per surgery. 09/27-favorable rapid shallow breathing index. On PEEP 5/FiO2 35%. Interval chest imaging improving infiltrates. Extubated to nasal cannula. NG output minimal. On TPN. Urine output at goal. Stable labs and hemodynamics excessive potassium at 3 on aggressive replacement. Continue antibiotic coverage. Osto my output liquid. Postop care ongoing per Surgery. Hematocrit 27 status post 4 units PRBC, elevated LFTs secondary early shock liver. Continue monitoring. Constitutional Vitals: Vital Signs Temp Pulse Resp BP Pulse Ox 99 F 97 H 24 H 123/80 92 09/27/20 08:01 09/27/20 11:01 09/27/20 11:01 09/27/20 11:01 09/27/20 11:01 Period Temp Pulse Resp BP Sys/Greer Pulse Ox Last 24 Hr 98.2 F-100.0 F 92-126 14-31 82-130/53-85 92-99 Intake and Output 09/26/20 09/27/20 09/27/20 21:59 05:59 13:59 Intake Total 2641.1417 740 149 Output Total 1155 835 355 Balance 1486.14195 -206 Weight 66.224 kg extubated to nasal cannula Vincent draining clear urine NG output minimal Nontender nondistended abdomen, ostomy with good output Patient alert and oriented Intake & Output: Intake & Output 09/26/20 09/27/20 09/27/20 21:59 05:59 13:59 Intake Total 2641.1417 740 149 Output Total 1155 835 355 Balance 1486.141206 Weight 66.224 kg Intake: IV 1959.1417 740 149 Sodium Chloride 0.9% 250 ml @ 250 250 20 mls/hr IV .[id number] [facility] Rx#: [id number] Calcium Gluconate 10 Meq 1430.1417 Magnesium Sulfate 32.48 Meq Sodium Chloride 240 Meq Infuvite Adult 10 ml Potassium Phosphate 60 Meq Sodium Acetate 40 Meq Potassium Acetate 20 Meq In Clinimix 5%-20% Solution 2,000 ml @ 80 mls/hr IV DAILY@ 1100 [facility] Rx#:[id number] Versed 50 mg In Sodium Chloride 74 23 0.9% 90 ml @ 0.02 MG/KG/HR 2. 344 mls/hr IV Q12H [facility] Rx#: [id number] Zosyn 3.375 gm In Dextrose 5% 50 50 50 in Water 50 ml @ 100 mls/hr IV Q6H [facility] Rx#:[id number] Potassium Chloride 60 Meq In 280 Dextrose 5% in Water 250 ml @ 67.5 mls/hr IV ONCE ONE Rx#: [id number] fentaNYL 2,500 MCG In Sodium 75 57 19 Chloride 0.9% 200 ml @ 25 MCG/ HR 2.5 mls/hr IV Q24H [facility] Rx#: [id number] Tube Feeding 0 Blood Product 682 Output: Gastric Drainage 325 Left Lower Quadrant 75 NG/OG 250 Urine Catheter Amount 830 735 155 Stool 100 200 Other: Urine Appearance Clear Clear Clear Uretheral (Vincent) Clear Clear Urine Color Dark Yellow Tea Colored Bright Yellow Uretheral (Vincent) Dark Yellow Dark Yellow Urine Odor Normal Normal Normal Uretheral (Vincent) Normal Normal Stool Size Moderate Moderate Stool Color Brown Brown Brown Stool Consistency Liquid Liquid Liquid Watery Exam: General: Alert, Awake, No acute Distress, cachectic Eyes/N/T: EOMI, Head/Neck: neck supple, CV: RRR, No murmurs, Pulm: Clear b/l, no wheezing/rhonchi/rales Abd: soft, nontender, +BS x4 Ext: no clubbing/cyanosis/edema Neuro: Alert, no focal deficits, moves all extremities, Skin: warm/dry, OBJ DATA Labs CBC & Chem 7: 09/26/20 05:01 09/27/20 07:14 Labs: Abnormal Lab Results 09/27/20 09/26/20 09/26/20 07:14 22:02 05:01 WBC RBC 2.96 L Hgb 8.4 L Hct 25.8 L POC Hct 27 L RDW 17.1 H Plt Count 138 L MPV 10.6 H Neut % (Auto) Lymph % (Auto) Lymph # (Auto) Addison # (Auto) Seg Neutrophils % 32 L Band Neutrophils % 55 H Lymphocytes % 10 L Absolute Neutrophils WBC Morphology Abnormal A Toxic Granulation 2+ A RBC Morphology Abnormal A Polychromasia 1+ A Hypochromasia 1+ A Poikilocytosis 1+ A Anisocytosis 1+ A Spherocytes 1+ A Tear Drop Cells Occ A RBC Fragments Occ A POC Sodium 146 H Sodium POC Potassium 2.7 L* Potassium 3.0 L POC Chloride 110 H Chloride 109 H Carbon Dioxide BUN 22 H Creatinine 0.3 L POC Creatinine < 0.2 L Glucose 130 H POC Glucose 140 H Uric Acid 0.9 L Calcium 7.9 L POC WB Ioniz Calcium 1.13 L Total Bilirubin 2.2 H Direct Bilirubin 1.8 H GGT 92 H AST 152 H ALT 138 H Alkaline Phosphatase Lactate Dehydrogenase 249 H Total Protein 4.2 L Albumin 1.9 L Albumin/Globulin Ratio 0.8 L 09/26/20 09/25/20 09/25/20 05:01 21:57 06:39 WBC RBC Hgb Hct POC Hct 30 L RDW Plt Count MPV Neut % (Auto) Lymph % (Auto) Lymph # (Auto) Addison # (Auto) Seg Neutrophils % Band Neutrophils % Lymphocytes % Absolute Neutrophils WBC Morphology Toxic Granulation RBC Morphology Polychromasia Hypochromasia Poikilocytosis Anisocytosis Spherocytes Tear Drop Cells RBC Fragments POC Sodium Sodium 127 L POC Potassium 3.2 L Potassium 2.9 L* POC Chloride Chloride 111 H 92 L Carbon Dioxide 20 L BUN 24 H Creatinine 0.4 L 0.3 L POC Creatinine < 0.2 L Glucose 162 H 197 H POC Glucose 245 H Uric Acid 0.7 L 1.0 L Calcium 6.9 L POC WB Ioniz Calcium 0.88 L Total Bilirubin 2.2 H 2.0 H Direct Bilirubin 1.7 H 1.7 H GGT 117 H 244 H AST ALT 42 H Alkaline Phosphatase 171 H Lactate Dehydrogenase Total Protein 3.8 L 5.6 L Albumin 1.6 L 2.7 L Albumin/Globulin Ratio 0.7 L 0.9 L 09/25/20 06:39 WBC 12.9 H RBC 3.08 L Hgb 8.3 L Hct 25.9 L POC Hct RDW 20.3 H Plt Count MPV Neut % (Auto) 79.9 H Lymph % (Auto) 11.4 L Lymph # (Auto) 1.48 L Addison # (Auto) 1.09 H Seg Neutrophils % Band Neutrophils % Lymphocytes % Absolute Neutrophils 10.33 H WBC Morphology Toxic Granulation RBC Morphology Polychromasia Hypochromasia Poikilocytosis Anisocytosis Spherocytes Tear Drop Cells RBC Fragments POC Sodium Sodium POC Potassium Potassium POC Chloride Chloride Carbon Dioxide BUN Creatinine POC Creatinine Glucose POC Glucose Uric Acid Calcium POC WB Ioniz Calcium Total Bilirubin Direct Bilirubin GGT AST ALT Alkaline Phosphatase Lactate Dehydrogenase Total Protein Albumin Albumin/Globulin Ratio Meds: Medications Albuterol/Ipratropium (Duoneb) 3 ml NEB Q4HP PRN PRN Reason: Shortness Of Breath Diagnostic Test (Pha) (Accu-Chek) 1 each FS Q6 [facility] Last Admin: 09/27/20 05:22 Dose: 1 each Documented by: Famotidine (Pepcid) 20 mg IV Q12 [facility] Last Admin: 09/27/20 09:25 Dose: 20 mg Documented by: Hydromorphone HCl (Dilaudid) 1 mg IV Q1HP PRN; Protocol PRN Reason: Per Pain Protocol Last Admin: 09/26/20 07:28 Dose: 1 mg Documented by: Acetaminophen (Ofirmev) 800 mg in 80 mls @ 160 mls/hr IV Q6H [facility]; Protocol Last Infusion: 09/27/20 06:09 Dose: Infused Documented by: Fat Emulsion Intravenous 250 (ml/ Premix) 250 mls @ 25 mls/hr IV [id number]@1600 [facility] Magnesium Sulfate (Magnesium Sulfate) 2 gm in 50 mls @ 50 mls/hr IV UD PRN PRN Reason: Magnesium </= 1.6 Norepinephrine Bitartrate 16 (mg/ Sodium Chloride) 250 mls @ 9.375 mls/hr IV Q24HP PRN; Protocol PRN Reason: Hypotension Piperacillin Sod/Tazobactam (Sod 3.375 gm/ Dextrose) 50 mls @ 100 mls/hr IV Q6H [facility]; Protocol Last Infusion: 09/27/20 06:09 Dose: Infused Documented by: Potassium Chloride 40 meq/ (Dextrose) 520 mls @ 130 mls/hr IV UD PRN PRN Reason: Potassium < 3 Last Infusion: 09/26/20 11:58 Dose: Infused Documented by: Heparin Sodium/Sodium Chloride (Heparin/Ns) 500 mls @ 0 mls/hr IV .Q0M [facility]; Protocol Calcium Gluconate 15 meq/Magnesium Sulfate 32.48 meq/Sodium Chloride 100 meq/Potassium Chloride 120 meq/Potassium Phosphate 80 meq/Multivitamins/Minerals 10 ml/Amino Acids 2,153.4398 mls @ 80 mls/hr IV Q24H [facility] Potassium Chloride 40 meq/ (Dextrose) 520 mls @ 130 mls/hr IV ONCE ONE Stop: 09/27/20 14:59 Potassium Chloride 20 meq/ (Dextrose) 260 mls @ 130 mls/hr IV ONCE ONE Stop: 09/27/20 16:59 Insulin Human Lispro (Humalog) 0 unit SQ Q6H [facility]; Protocol Last Admin: 09/27/20 05:22 Dose: 4 units Documented by: Levothyroxine Sodium (Synthroid) 125 mcg IV QAMAC [facility] Last Admin: 09/27/20 06:50 Dose: Not Given Documented by: Methylprednisolone Sodium Succinate (Solu-Medrol) 62.5 mg IV Q12 [facility] Last Admin: 09/27/20 09:25 Dose: 62.5 mg Documented by: Metoclopramide HCl (Reglan) 10 mg IV Q6 [facility] Last Admin: 09/27/20 05:21 Dose: 10 mg Documented by: Ondansetron HCl (Zofran) 4 mg IV Q4HP PRN PRN Reason: Nausea And Vomiting Sodium Chloride (Saline Flush) 10 ml IV Q12 [facility] Last Admin: 09/27/20 09:26 Dose: 10 ml Documented by: Sodium Chloride (Saline Flush) 10 ml IV UD PRN PRN Reason: FLUSH A/P Assessment and plan (1) Colostomy status: Status: Acute (2) Chronic constipation: Status: Chronic (3) Radiation injury of bowel: Status: Acute Qualifiers: Encounter type: subsequent encounter Qualified Code(s): T66.XXXD - Radiation sickness, unspecified, subsequent encounter Narrative A/P Narrative: * Acute hypoxic respiratory failure secondary to aspiration pneumonia. Secondary to aspiration pneumonitis. Now on 2 L oxygen. Extubated 09/27 * Aspiration pneumonia-on antibiotic coverage. Maintain aspiration precautions. * Circulatory shock - Clinically resolved. Off pressors. * Acute blood loss anemia status post 4 units PRBC transfusion, hematocrit 27. * Hypokalemia @ 2.7->3-on replacement IV/per TPN * 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 Status post repeat ex lap today. For details refer to surgery note/description of procedure. Management per surgery. * Nutrition on TPN * Full code * Prophylaxis heparin Plan * Wean oxygen as tolerated * Antibiotic coverage * Electrolyte replacement * TPN * Aggressive postop rehab * Postop care/therapies as per surgery Critical care time 35 minutes on management mechanical ventilation /ventilator weaning/extubation Time Spent With Patient Time: Total time spent is greater than 50% in coordination of care (as documented) at patient's floor/unit and/or counseling patient: QUALITY VTE Deep Vein Thrombosis/Pulmonary Embolism Present on Admission: No
--- NOTE | 2020-09-27 14:01 | Surgical Pathology Report ---
Histology Microscopic Diagnosis Specimen A- APPENDIX, APPENDECTOMY: --- APPENDIX WITH FIBROUS OBLITERATION OF THE TIP. --- NO ACUTE APPENDICITIS IDENTIFIED. Clinical History Radiation injury to bowel, chronic blood loss. Gross Description Received in formalin designated as appendix, is a thomason-john appendix that is 2.7 cm in length by 0.5 cm in diameter. The margin is inked black. Cut surfaces are thomason-john. Sectioned, entirely submitted - one cassette. Microscopic Diagnosis Specimen B- COLON AND SKIN, STOMA, COLOSTOMY REVISION: --- SKIN AND COLON WITH FOCI OF FIBROSIS, MILD CHRONIC INFLAMMATION, AND MULTINUCLEATED GIANT CELL RESPONSE. --- VIABLE MARGINS OF RESECTION. --- NO MALIGNANCY IDENTIFIED. (RLF:sln) Gross Description Received in formalin designated as stoma, are two pieces of tissue. The first is a piece of skin with attached bowel. The skin measures 3.6 x 1.3 cm and has an open area centrally measuring 3 x 0.6 cm. The segment of colon measure 4.2 cm in diameter and 3.2 cm in length and is closed with a staple line. There is a 3.1 x 1 cm disrupted are approximately 0.3 cm beneath the skin surface. The colon margin is inked black. Upon opening, the mucosa is john and plicated and the wall is up to 0.5 cm thick. Also in the container is a thomason-john membranous strip of tissue that measures 4.3 x 0.6 x 0.3 cm. Assembly Machine Set Up Mechanic sections submitted in three cassettes: B1 - ends of skin; B2 - artist representative sections showing transition from skin to mucosal surface; B3 - colon margin and artist representative sections of additional fragment. (SCB:sln) Electronically Signed Lala Cardoso MD, FCAP Electronically Signed 09/27/2020 14:00
[2020-09-27] MEDS ORDERED: POTASSIUM CHLORIDE 20 MEQ in DEXTROSE 5% IN WATER 250 ML IV ONE (15:00)
[2020-09-27] MEDS ORDERED: FAT EMULSION 20% 250 ML in PREMIX 1 BAG IV SCH (16:00)
[2020-09-27] MEDS ORDERED: ALTEPLASE 2 MG VIAL IV PRN (16:00)
[2020-09-27] MEDS: MAGNESIUM CITRATE 300 ML ORAL.SOL PO SCH ×2 (17:09→19:09)
--- NOTE | 2020-09-27 17:27 | General Surgery Progress Note ---
SUBJECTIVE Subjective Patient information: Note initiated : 09/27/20 at 5:27 pm Service Date, if different from initiated Date: [] Patient: Jose Moulton 50 y/o M admitted on 09/16/20 for weakness, dizziness, failure to thrive. Chief Complaint: [] Principal diagnosis: severe radiation necrosis of rectum.protein calorie malnutrition Interval history: Patient is doing well. He has improved ventilatory status throughout the night and was extubated earlier today. Chest x-ray shows improving infiltrates. He states that his pain is well controlled. Potassium 3, BUN 22, creatinine 0.3, liver function tests are trending down. Urine output is good. He has increased volume liquid output via his stoma. Constitutional Vitals: Vital Signs Temp Pulse Resp BP Pulse Ox 98 F 80 28 H 134/84 97 09/27/20 16:01 09/27/20 15:01 09/27/20 16:01 09/27/20 16:01 09/27/20 16:01 Period Temp Pulse Resp BP Sys/Greer Pulse Ox Last 24 Hr 98 F-99.3 F 80-122 14-28 107-134/68-85 92-99 Intake and Output 09/27/20 09/27/20 09/27/20 05:59 13:59 21:59 Intake Total 740 2418.3489 520 Output Total 835 964 130 Balance -95 1454.3489 390 Intake & Output: Intake & Output 09/27/20 09/27/20 09/27/20 05:59 13:59 21:59 Intake Total 740 2418.3489 520 Output Total 835 964 130 Balance -95 1454.3489 390 Intake: IV 740 2418.3489 520 Sodium Chloride 0.9% 250 ml @ 250 20 mls/hr IV .[id number] [facility] Rx#: [id number] Calcium Gluconate 15 Meq 2139.3489 Magnesium Sulfate 32.48 Meq Sodium Chloride 160 Meq Potassium Chloride 80 Meq Potassium Phosphate 40 Meq Infuvite Adult 10 ml In Clinimix 5%-20% Solution 2,000 ml @ 80 mls/hr IV Q24H [facility] Rx#: [id number] Versed 50 mg In Sodium Chloride 23 0.9% 90 ml @ 0.02 MG/KG/HR 2. 344 mls/hr IV Q12H [facility] Rx#: [id number] Zosyn 3.375 gm In Dextrose 5% 50 100 in Water 50 ml @ 100 mls/hr IV Q6H [facility] Rx#:[id number] Potassium Chloride 60 Meq In 280 Dextrose 5% in Water 250 ml @ 67.5 mls/hr IV ONCE ONE Rx#: [id number] Potassium Chloride 40 Meq In 520 Dextrose 5% in Water 500 ml @ 130 mls/hr IV ONCE ONE Rx#: [id number] fentaNYL 2,500 MCG In Sodium 57 19 Chloride 0.9% 200 ml @ 25 MCG/ HR 2.5 mls/hr IV Q24H [facility] Rx#: [id number] Tube Feeding 0 Output: Gastric Drainage 50 NG/OG 50 Urine Catheter Amount 735 414 130 Stool 100 500 Other: Urine Appearance Clear Cloudy Cloudy Uretheral (Vincent) Clear Clear Clear Urine Color Tea Colored Dark Alisha Dark Alisha Uretheral (Vincent) Dark Yellow Dark Yellow Dark Yellow Urine Odor Normal Normal Normal Uretheral (Vincent) Normal Normal Normal Stool Size Moderate Large Stool Color Brown Brown Brown Stool Consistency Liquid Liquid Liquid Eye Eye exam: Present EOMI and normal appearance Pupils: Present PERRL Neck Neck exam: Present full ROM; Absent lymphadenopathy Respiratory Respiratory exam: Present accessory muscle use and decreased breath sounds; Absent rales, rhonchi and wheezes Additional comments: patient is ventilated Cardiovascular Cardiovascular exam: Present bradycardia, irregular rhythm, +S1 and +S2; Absent JVD GI/Abdominal GI/Abdominal exam: Present diminished bowel sounds and distended Rectal Rectal exam: Present bloody stool (bloody drainage per rectum) Extremities Exam Extremities exam: Present full ROM and neurovascular intact; Absent pedal edema Back Exam Back exam: Present full ROM and normal inspection Neurological Exam Neurological exam: Absent CN II-XII intact and motor sensory deficit Psychiatric Psychiatric exam: Present anxious and normal mood A/P Assessment and plan (1) Colostomy status: Status: Acute (2) Chronic blood loss anemia: Status: Acute (3) Moderate dehydration: Status: Acute (4) Malnutrition: Status: Acute Qualifiers: Malnutrition type: unspecified type Qualified Code(s): E46 - Unspecified protein-calorie malnutrition (5) Radiation injury of bowel: Status: Acute Qualifiers: Encounter type: subsequent encounter Qualified Code(s): T66.XXXD - Radiation sickness, unspecified, subsequent encounter (6) Chronic constipation: Status: Chronic Narrative A/P Narrative: Patient is making steady improvement We will consider discontinuing nasogastric tube if he tolerates having it clamped Discussed long-term care with the patient and with our discharge planners Time Spent With Patient Time: Total time spent is greater than 50% in coordination of care (as documented) at patient's floor/unit and/or counseling patient:
[2020-09-27] MEDS: HYDROmorphone 1 MG/ML SYRINGE IV PRN ×2 (19:16→20:33)
[2020-09-28] MEDS: ACETAMINOPHEN 800 MG/80 ML BAG IV SCH ×4 (00:23→17:58)
[2020-09-28] MEDS: METOCLOPRAMIDE 10 MG/2 ML VIAL IV SCH ×4 (00:23→17:56)
[2020-09-28] MEDS: PIPERACILLIN SODIUM/TAZOBACTAM 3.375 GM in DEXTROSE 5% IN WATER 50 ML IV SCH ×4 (00:23→17:57)
[2020-09-28] MEDS: INSULIN LISPRO 1 UNIT/0.01 ML UNIT SQ SCH ×4 (00:25→18:15)
[2020-09-28] MEDS: HYDROmorphone 1 MG/ML SYRINGE IV PRN ×8 (06:10→20:10)
[2020-09-28 06:57] LABS: Basophils # (Auto) 0.01 K/mcL (0.00-0.20); Basophils % (Auto) 0.1 % (0.0-2.0); Eosinophils # (Auto) 0 K/mcL (0.00-0.70); Eosinophils % (Auto) 0 % (0.0-7.0); Hematocrit 30.3 % (41.0-55.0); Lymphocytes # (Auto) 0.61 K/mcL (1.50-4.80); Lymphocytes % (Auto) 4.6 % (15.0-49.0); Mean Cell Volume 86.3 fL (80.0-100.0); Mean Platelet Volume 9.9 fL (7.4-10.4); Monocytes # (Auto) 0.39 K/mcL (0.10-0.90); Platelet Count 291 K/mcL (140-440); RBC 3.51 M/mcL (4.50-5.90); Red Cell Distribution Width 18.4 % (11.5-14.5); WBC 13.2 K/mcL (4.5-11.0)
[2020-09-28 07:04] LABS: ALT/SGPT 271 U/L (<40); AST/SGOT 187 U/L (<40); Albumin 2.1 gm/dL (3.2-5.2); Albumin/Globulin Ratio 0.9 (1.0-2.3); Alkaline Phosphatase 153 U/L (39-117); Bilirubin,Direct 1.6 mg/dL (<0.3); Bilirubin,Total 2.1 mg/dL (0.1-1.0); Blood Urea Nitrogen 26 mg/dL (6-20); Calcium 8.2 mg/dL (8.6-10.4); Carbon Dioxide 21 mmol/L (22-30); Chloride 106 mmol/L (96-108); Globulin 2.4 gm/dL (2.2-3.7); Glomerular Filtration Rate 155; Glucose 182 mg/dL (70-105); Lactate Dehydrogenase 256 U/L (135-225); Phosphorous 2.9 mg/dL (2.5-4.5); Triglycerides 200 mg/dL (<150)
[2020-09-28] MEDS: LEVOTHYROXINE 100 MCG VIAL IV SCH (07:40)
[2020-09-28 08:22] LABS: Neutrophils % (Auto) 92.3 % (38.0-78.0)
[2020-09-28] MEDS: methylPREDNISolone SOD SUCC 125 MG/2 ML VIAL IV SCH ×2 (09:49→21:42)
[2020-09-28] MEDS: FAMOTIDINE/PF 20 MG/2 ML VIAL IV SCH ×2 (09:49→21:42)
[2020-09-28] MEDS: 0.9 % SODIUM CHLORIDE 10 ML SYRINGE IV SCH ×2 (09:49→21:42)
[2020-09-28] MEDS: 0.9 % SODIUM CHLORIDE 1,000 ML IV SCH (10:05)
--- NOTE | 2020-09-28 10:08 | Internal Med Progress Note ---
SUBJECTIVE Subjective Patient information: Note initiated : 09/28/20 at 10:03 am Service Date, if different from initiated Date: [] Patient: Jose Moulton a 50 y/o M admitted on 09/16/20 for weakness, dizziness, failure to thrive. Chief Complaint: [] Principal diagnosis: severe radiation necrosis of rectum.protein calorie malnutrition Interval history: severe radiation necrosis of rectum.protein calorie malnutrition Interval history: Mr. Moulton is a 50 year old M Presents with severe weakness and lightheadedness. Patient states the reason he came in the ED is because he was severely weak and could hardly move around and became lightheaded and get up and move. 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 Was recommended to him to get a diverting colostomy he has not made a decision on that yet. He has not been eating very much for the past couple months because it hurts to go to the bathroom. And especially the past few weeks he is eating hardly anything. He says a couple days ago he had 8 ounces of Slim fast and then nothing for the few days prior to that nothing yesterday. He has had some water and some electrolyte drinks that about it. Denies fevers chills chest pain abdominal pain. In the ED is found to be hyponatremic hypokalemic hypochloremic. An elevated TSH but denies cold intolerance dry skin or constipation. 09/17 Poor sleep. Complains of leg pain and some rectal pain from stooling. States difficulty in urinating. Electrolyte imbalance slowly improving. Patient is supposed to receive a diverting colostomy. Will consult surgery to discuss timing. 09/18 no overnight events or new complaints. Seen by general surgery and scheduled for diverting colostomy on Wednesday. TPN started.. 09/19 Poor sleep. No new complaints. Will be prepped for surgery tomorrow. 09/20-patient seen postop. Doing well. Anxious and appears uncomfortable. On pain management per surgery. Currently on TPN. No fever. White count stable. Stable electrolytes and renal function. 09/21-patient doing well. No overnight events. No concerns per staff. Postop day 2. Managed per surgery. Feels little uncomfortable unable to get a restful night sleep. Ongoing TPN. 09/22-patient doing well postop. Ongoing management per surgery. Continue TPN. Denies overnight events. Minimal anxiety. No additional recommendations from hospitalist service. Case discussed with surgery. At this time hospital service will sign off 09/25-received phone call from Dr. Hardy postoperatively for reconsultation and management of mechanical ventilation/circulatory shock. Patient intubated currently on mechanical ventilation at 100% FiO2. On vasopressors. Patient also received 2 units PRBC transfusion. Levophed 12 mics. Case discussed with anesthesia Julia Sandoval. Patient had over 4500 cc of NG aspirate and possibly aspirated which may explain the profound hypoxemia despite 100% FiO2 on mechanical ventilation. Patient critically ill with [place] 2 score over 20 and very high risk mortality. Surgery confirms extremely poor prognosis. At this time patient is being transferred to ICU for continued management of mechanical ventilation/circulatory shock and postop care will be managed as per surgery. We will initiate fentanyl/propofol sedation along with continued TPN/vasopressors and crystalloid challenges to keep MAP at goal. Serial electrolytes/blood gases and vent titration will be managed per protocol. Reviewed ABG/chest imaging. Bilateral diffuse airspace disease. Likely aspiration. On empiric antibiotic coverage. ABG 7.1 /50 on 100% FiO2. Remains critically ill. Surgery discussed patient's critical status with patient's family. Continue mechanical ventilation per protocol 09/26-patient continuing on mechanical ventilation. On midazolam/Versed. Improved interval chest infiltrate. On antibiotic coverage. Continue TPN/potassium replacement, potassium 2.7. Off pressors. Will undergo trial of spontaneous breathing/sedation holiday in a.m. Case discussed with surgery. No major telemetry events or concerns per staff. Blood gases stable, white count 5.4, hemoglobin 8.4 additional units transfusion ongoing per surgery. 09/27-favorable rapid shallow breathing index. On PEEP 5/FiO2 35%. Interval chest imaging improving infiltrates. Extubated to nasal cannula. NG output minimal. On TPN. Urine output at goal. Stable labs and hemodynamics excessive potassium at 3 on aggressive replacement. Continue antibiotic coverage. Osto my output liquid. Postop care ongoing per Surgery. Hematocrit 27 status post 4 units PRBC, elevated LFTs secondary early shock liver. Continue monitoring. 09/28-patient extubated to room air doing well. No overnight events. Ongoing TPN. Potassium replacement ongoing. White count 13.2 on antibiotic coverage. Hemoglobin stable at 10.4 status post 4 unit PRBC transfusion. Stable hemodynamics. Case discussed with surgery. Surgery will attempt patient transfer to tertiary center [facility], NG tube 2000 cc output, colostomy output 600 cc Constitutional Vitals: Vital Signs Temp Pulse Resp BP Pulse Ox 97.4 F 60 17 143/79 97 09/28/20 07:00 09/28/20 08:01 09/28/20 08:01 09/28/20 08:01 09/28/20 08:01 Period Temp Pulse Resp BP Sys/Greer Pulse Ox Last 24 Hr 97.4 F-98.1 F 55-97 15-32 117-145/71-94 92-99 Intake and Output 09/27/20 09/28/20 09/28/20 21:59 05:59 13:59 Intake Total 1207 500 330 Output Total 2242 570 1661 Balance -1035 -70 -1331 Weight 65.907 kg Alert oriented NG tube Colostomy site no bleeding No lymphedema Vincent is draining clear urine Intake & Output: Intake & Output 09/27/20 09/28/20 09/28/20 21:59 05:59 13:59 Intake Total 1207 500 330 Output Total 2242 570 1661 Balance -1035 -70 -1331 Weight 65.907 kg Intake: IV 907 380 130 Intralipid 20% 250 ml In Premix 250 1 Bag @ 25 mls/hr IV MoWeFr@ 1600 [facility] Rx#:[id number] Zosyn 3.375 gm In Dextrose 5% 50 50 50 in Water 50 ml @ 100 mls/hr IV Q6H [facility] Rx#:[id number] Potassium Chloride 20 Meq In 260 Dextrose 5% in Water 250 ml @ 130 mls/hr IV ONCE ONE Rx#: [id number] Potassium Chloride 40 Meq In 520 Dextrose 5% in Water 500 ml @ 130 mls/hr IV ONCE ONE Rx#: [id number] Oral 100 120 200 Tube Feeding 200 0 Output: Gastric Drainage 1700 1050 NG/OG 1700 1050 Urine Catheter Amount 417 470 403 Void Amount 8 Stool 125 100 200 Other: Urine Appearance Cloudy Clear Clear Uretheral (Vincent) Clear Clear Urine Color Dark Alisha Dark Alisha Bright Yellow Uretheral (Vincent) Tea Colored Tea Colored Urine Odor Normal Normal Uretheral (Vincent) Normal Normal Stool Size Large Large Stool Color Brown Brown Brown Stool Consistency Liquid Soft Soft Liquid Liquid Loose Loose Exam: General: Alert, Awake, No acute Distress, cachectic Eyes/N/T: EOMI, Head/Neck: neck supple, CV: RRR, No murmurs, Pulm: Clear b/l, no wheezing/rhonchi/rales Abd: soft, nontender, +BS x4 Ext: no clubbing/cyanosis/edema Neuro: Alert, no focal deficits, moves all extremities, Skin: warm/dry, OBJ DATA Labs CBC & Chem 7: 09/28/20 05:11 09/28/20 05:11 Labs: Abnormal Lab Results 09/28/20 09/28/20 09/27/20 05:11 05:11 22:12 WBC 13.2 H RBC 3.51 L Hgb 10.0 L Hct 30.3 L POC Hct RDW 18.4 H Plt Count MPV Neut % (Auto) 92.3 H Lymph % (Auto) 4.6 L Lymph # (Auto) 0.61 L Seg Neutrophils % Band Neutrophils % Lymphocytes % Absolute Neutrophils 12.21 H WBC Morphology Toxic Granulation RBC Morphology Polychromasia Hypochromasia Poikilocytosis Anisocytosis Spherocytes Tear Drop Cells RBC Fragments POC Sodium POC Potassium Potassium 3.2 L POC Chloride Chloride Carbon Dioxide 21 L BUN 26 H Creatinine 0.3 L POC Creatinine Glucose 182 H POC Glucose Uric Acid 1.0 L Calcium 8.2 L POC WB Ioniz Calcium Total Bilirubin 2.1 H Direct Bilirubin 1.6 H GGT 120 H AST 187 H ALT 271 H Alkaline Phosphatase 153 H Lactate Dehydrogenase 256 H Total Protein 4.5 L Albumin 2.1 L Albumin/Globulin Ratio 0.9 L Triglycerides 200 H 09/27/20 09/26/20 09/26/20 07:14 22:02 05:01 WBC RBC 2.96 L Hgb 8.4 L Hct 25.8 L POC Hct 27 L RDW 17.1 H Plt Count 138 L MPV 10.6 H Neut % (Auto) Lymph % (Auto) Lymph # (Auto) Seg Neutrophils % 32 L Band Neutrophils % 55 H Lymphocytes % 10 L Absolute Neutrophils WBC Morphology Abnormal A Toxic Granulation 2+ A RBC Morphology Abnormal A Polychromasia 1+ A Hypochromasia 1+ A Poikilocytosis 1+ A Anisocytosis 1+ A Spherocytes 1+ A Tear Drop Cells Occ A RBC Fragments Occ A POC Sodium 146 H POC Potassium 2.7 L* Potassium 3.0 L POC Chloride 110 H Chloride 109 H Carbon Dioxide BUN 22 H Creatinine 0.3 L POC Creatinine < 0.2 L Glucose 130 H POC Glucose 140 H Uric Acid 0.9 L Calcium 7.9 L POC WB Ioniz Calcium 1.13 L Total Bilirubin 2.2 H Direct Bilirubin 1.8 H GGT 92 H AST 152 H ALT 138 H Alkaline Phosphatase Lactate Dehydrogenase 249 H Total Protein 4.2 L Albumin 1.9 L Albumin/Globulin Ratio 0.8 L Triglycerides 09/26/20 09/25/20 05:01 21:57 WBC RBC Hgb Hct POC Hct 30 L RDW Plt Count MPV Neut % (Auto) Lymph % (Auto) Lymph # (Auto) Seg Neutrophils % Band Neutrophils % Lymphocytes % Absolute Neutrophils WBC Morphology Toxic Granulation RBC Morphology Polychromasia Hypochromasia Poikilocytosis Anisocytosis Spherocytes Tear Drop Cells RBC Fragments POC Sodium POC Potassium 3.2 L Potassium 2.9 L* POC Chloride Chloride 111 H Carbon Dioxide BUN Creatinine 0.4 L POC Creatinine < 0.2 L Glucose 162 H POC Glucose 245 H Uric Acid 0.7 L Calcium 6.9 L POC WB Ioniz Calcium 0.88 L Total Bilirubin 2.2 H Direct Bilirubin 1.7 H GGT 117 H AST ALT Alkaline Phosphatase Lactate Dehydrogenase Total Protein 3.8 L Albumin 1.6 L Albumin/Globulin Ratio 0.7 L Triglycerides Meds: Medications Albuterol/Ipratropium (Duoneb) 3 ml NEB Q4HP PRN PRN Reason: Shortness Of Breath Alteplase, Recombinant (Cathflo) 2 mg IV PRN PRN PRN Reason: Line Patency Last Admin: 09/27/20 17:09 Dose: 2 mg Documented by: Diagnostic Test (Pha) (Accu-Chek) 1 each FS Q6 [facility] Last Admin: 09/28/20 06:10 Dose: 1 each Documented by: Famotidine (Pepcid) 20 mg IV Q12 [facility] Last Admin: 09/28/20 09:49 Dose: 20 mg Documented by: Hydromorphone HCl (Dilaudid) 1 mg IV Q1HP PRN; Protocol PRN Reason: Per Pain Protocol Last Admin: 09/28/20 08:34 Dose: 1 mg Documented by: Acetaminophen (Ofirmev) 800 mg in 80 mls @ 160 mls/hr IV Q6H [facility]; Protocol Last Infusion: 09/28/20 07:16 Dose: Infused Documented by: Fat Emulsion Intravenous 250 (ml/ Premix) 250 mls @ 25 mls/hr IV MoWeFr@1600 [facility] Last Infusion: 09/28/20 04:24 Dose: Infused Documented by: Magnesium Sulfate (Magnesium Sulfate) 2 gm in 50 mls @ 50 mls/hr IV UD PRN PRN Reason: Magnesium </= 1.6 Norepinephrine Bitartrate 16 (mg/ Sodium Chloride) 250 mls @ 9.375 mls/hr IV Q24HP PRN; Protocol PRN Reason: Hypotension Piperacillin Sod/Tazobactam (Sod 3.375 gm/ Dextrose) 50 mls @ 100 mls/hr IV Q6H [facility]; Protocol Last Infusion: 09/28/20 07:16 Dose: Infused Documented by: Potassium Chloride 40 meq/ (Dextrose) 520 mls @ 130 mls/hr IV UD PRN PRN Reason: Potassium < 3 Last Infusion: 09/26/20 11:58 Dose: Infused Documented by: Heparin Sodium/Sodium Chloride (Heparin/Ns) 500 mls @ 0 mls/hr IV .Q0M [facility]; Protocol Calcium Gluconate 15 meq/Magnesium Sulfate 32.48 meq/Sodium Chloride 100 meq/Potassium Chloride 120 meq/Potassium Phosphate 80 meq/Multivitamins/Minerals 10 ml/Amino Acids 2,153.4398 mls @ 80 mls/hr IV Q24H [facility] Stop: 09/28/20 10:59 Last Admin: 09/27/20 11:34 Dose: 80 mls/hr Documented by: Calcium Gluconate 15 meq/Magnesium Sulfate 16.24 meq/Sodium Chloride 120 meq/Potassium Chloride 120 meq/Potassium Phosphate 120 meq/Amino Acids 2,153.5307 mls @ 80 mls/hr IV Q24H [facility] Insulin Human Lispro (Humalog) 0 unit SQ Q6H [facility]; Protocol Last Admin: 09/28/20 06:13 Dose: 6 units Documented by: Levothyroxine Sodium (Synthroid) 125 mcg IV QAMAC [facility] Last Admin: 09/28/20 07:40 Dose: 125 mcg Documented by: Methylprednisolone Sodium Succinate (Solu-Medrol) 62.5 mg IV Q12 [facility] Last Admin: 09/28/20 09:49 Dose: 62.5 mg Documented by: Metoclopramide HCl (Reglan) 10 mg IV Q6 [facility] Last Admin: 09/28/20 06:08 Dose: 10 mg Documented by: Ondansetron HCl (Zofran) 4 mg IV Q4HP PRN PRN Reason: Nausea And Vomiting Last Admin: 09/27/20 19:15 Dose: 4 mg Documented by: Sodium Chloride (Saline Flush) 10 ml IV Q12 [facility] Last Admin: 09/28/20 09:49 Dose: 10 ml Documented by: Sodium Chloride (Saline Flush) 10 ml IV UD PRN PRN Reason: FLUSH A/P Assessment and plan (1) Colostomy status: Status: Acute (2) Chronic constipation: Status: Chronic (3) Radiation injury of bowel: Status: Acute Qualifiers: Encounter type: subsequent encounter Qualified Code(s): T66.XXXD - Radiation sickness, unspecified, subsequent encounter Narrative A/P Narrative: * Acute hypoxic respiratory failure secondary to aspiration pneumonia. Secondary to aspiration pneumonitis. Now on room air. Off mechanical ventilation * Aspiration pneumonia-continue antibiotic coverage. Now on room air. Clinically resolved. * Circulatory shock -clinically resolved. Off pressors. * Acute blood loss anemia status post 4 units PRBC transfusion, hemoglobin 10.2 * Hypokalemia -resolved with replacement. Potassium now at 3.8 * 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 Status post repeat ex lap today. For details refer to surgery note/description of procedure. Management per surgery. Will likely transfer to [place] for further management and need of complex surgical intervention * Nutrition on TPN * Full code * Prophylaxis heparin Plan * Continue antibiotics * TPN * Electrolyte replacement * Postop care/therapies as per surgery * No additional recommendations from hospitalist service Critical care time 35 minutes on management mechanical ventilation /ventilator weaning/extubation Time Spent With Patient Time: Total time spent is greater than 50% in coordination of care (as documented) at patient's floor/unit and/or counseling patient: QUALITY VTE Deep Vein Thrombosis/Pulmonary Embolism Present on Admission: No
[2020-09-28] MEDS ORDERED: SODIUM CHLORIDE IV SCH (11:00)
[2020-09-28] MEDS ORDERED: [UNRECOGNIZED DRUG - OTHER] IV SCH (11:00)
[2020-09-28] MEDS ORDERED: MAGNESIUM SULFATE IV SCH (11:00)
[2020-09-28] MEDS ORDERED: CALCIUM GLUCONATE IV SCH (11:00)
--- NOTE | 2020-09-28 14:56 | General Surgery Progress Note ---
SUBJECTIVE Subjective Patient information: Note initiated : 09/28/20 at 2:51 pm Service Date, if different from initiated Date: [] Patient: Jose Moulton 50 y/o M admitted on 09/16/20 for weakness, dizziness, failure to thrive. Chief Complaint: [] Principal diagnosis: severe radiation necrosis of rectum.protein calorie malnutrition Interval history: patient is more alert and very talkative. His mentation is appropriate. He is having increased output through his stoma. He no longer has abdominal distention. Vital signs remained stable. Oxygen saturation is excellent on room air. White blood count 13.2, hemoglobin 10, hematocrit 30.3, potassium 3.8, BUN 26, creatinine 0.3. Constitutional Vitals: Vital Signs Temp Pulse Resp BP Pulse Ox 97.4 F 61 20 130/75 96 09/28/20 12:01 09/28/20 14:01 09/28/20 10:01 09/28/20 14:01 09/28/20 14:01 Period Temp Pulse Resp BP Sys/Greer Pulse Ox Last 24 Hr 97.4 F-98.1 F 53-80 17-32 120-151/70-94 96-99 Intake and Output 09/28/20 09/28/20 09/28/20 05:59 13:59 21:59 Intake Total 500 410 Output Total 570 2101 225 Balance -70 -1691 -225 Weight 145 lb 4.8 oz Patient Weight 09/29/20 05:59 Weight 145 lb 4.8 oz Intake & Output: Intake & Output 09/28/20 09/28/20 09/28/20 05:59 13:59 21:59 Intake Total 500 410 Output Total 570 2101 225 Balance -70 -1691 -225 Weight 145 lb 4.8 oz Intake: IV 380 210 Intralipid 20% 250 ml In Premix 250 1 Bag @ 25 mls/hr IV MoWeFr@ 1600 [facility] Rx#:[id number] Zosyn 3.375 gm In Dextrose 5% 50 50 in Water 50 ml @ 100 mls/hr IV Q6H [facility] Rx#:[id number] Oral 120 200 Tube Feeding 0 Output: Gastric Drainage 1050 NG/OG 1050 Urine Catheter Amount 470 693 225 Void Amount 8 Stool 100 350 Other: Urine Appearance Clear Clear Clear Uretheral (Vincent) Clear Clear Urine Color Dark Alisha Light Alisha Light Alisha Uretheral (Vincent) Tea Colored Light Alisha Urine Odor Normal Uretheral (Vincent) Normal Stool Size Large Stool Color Brown Brown Stool Consistency Soft Soft Liquid Loose Head Head exam: Present atraumatic and normocephalic Eye Eye exam: Present EOMI and normal appearance Pupils: Present PERRL ENT ENT exam: Present normal oropharynx Neck Neck exam: Present full ROM; Absent lymphadenopathy Respiratory Respiratory exam: Present accessory muscle use and decreased breath sounds; Absent rales, rhonchi and wheezes Additional comments: patient is ventilated Cardiovascular Cardiovascular exam: Present bradycardia, irregular rhythm, +S1 and +S2; Absent JVD GI/Abdominal GI/Abdominal exam: Present diminished bowel sounds and distended Extremities Exam Extremities exam: Present full ROM and neurovascular intact; Absent pedal edema Back Exam Back exam: Present full ROM and normal inspection Neurological Exam Neurological exam: Present alert and oriented X3; Absent CN II-XII intact and motor sensory deficit Additional comments: patient is sedated and ventilated Psychiatric Psychiatric exam: Present anxious and normal mood A/P Assessment and plan (1) Colostomy status: Status: Acute (2) Chronic blood loss anemia: Status: Acute (3) Radiation injury of bowel: Status: Acute Qualifiers: Encounter type: subsequent encounter Qualified Code(s): T66.XXXD - Radiation sickness, unspecified, subsequent encounter (4) Chronic constipation: Status: Chronic (5) Unintended weight loss: Status: Acute Narrative A/P Narrative: repeat citrate of magnesia via NG tube. Clamp NG tube. 2 view abdominal x-ray in the morning Time Spent With Patient Time: Total time spent is greater than 50% in coordination of care (as documented) at patient's floor/unit and/or counseling patient:
[2020-09-28] MEDS ORDERED: MAGNESIUM CITRATE 300 ML ORAL.SOL PO ONE (15:43)
[2020-09-28] MEDS ORDERED: fentaNYL 50 MCG PATCH TOPICAL SCH (16:15)
[2020-09-29] MEDS: INSULIN LISPRO 1 UNIT/0.01 ML UNIT SQ SCH ×4 (00:10→18:02)
[2020-09-29] MEDS: PIPERACILLIN SODIUM/TAZOBACTAM 3.375 GM in DEXTROSE 5% IN WATER 50 ML IV SCH ×4 (00:10→17:49)
[2020-09-29] MEDS: ACETAMINOPHEN 800 MG/80 ML BAG IV SCH ×4 (00:11→17:51)
[2020-09-29] MEDS: METOCLOPRAMIDE 10 MG/2 ML VIAL IV SCH ×4 (00:12→17:51)
[2020-09-29] MEDS: HYDROmorphone 1 MG/ML SYRINGE IV PRN ×7 (00:44→20:38)
[2020-09-29 06:14] LABS: Basophils # (Auto) 0.04 K/mcL (0.00-0.20); Basophils % (Auto) 0.3 % (0.0-2.0); Eosinophils # (Auto) 0.01 K/mcL (0.00-0.70); Eosinophils % (Auto) 0.1 % (0.0-7.0); Hematocrit 32.6 % (41.0-55.0); Hemoglobin 10.9 g/dL (13.5-16.5); Lymphocytes # (Auto) 0.79 K/mcL (1.50-4.80); Lymphocytes % (Auto) 5.2 % (15.0-49.0); Mean Corpuscular HGB Conc 33.4 g/dL (31.0-36.0); Mean Platelet Volume 9.4 fL (7.4-10.4); Monocytes # (Auto) 0.49 K/mcL (0.10-0.90); Monocytes % (Auto) 3.2 % (1.0-12.0); Neutrophils % (Auto) 91.2 % (38.0-78.0); Platelet Count 324 K/mcL (140-440); RBC 3.79 M/mcL (4.50-5.90); Red Cell Distribution Width 18.6 % (11.5-14.5); WBC 15.2 K/mcL (4.5-11.0)
[2020-09-29 06:45] LABS: ALT/SGPT 253 U/L (<40); AST/SGOT 83 U/L (<40); Albumin/Globulin Ratio 0.7 (1.0-2.3); Alkaline Phosphatase 151 U/L (39-117); Bilirubin,Direct 1.8 mg/dL (<0.3); Bilirubin,Total 2.3 mg/dL (0.1-1.0); Blood Urea Nitrogen 21 mg/dL (6-20); Carbon Dioxide 24 mmol/L (22-30); Chloride 105 mmol/L (96-108); Globulin 2.8 gm/dL (2.2-3.7); Glomerular Filtration Rate 155; Glucose 177 mg/dL (70-105); Lactate Dehydrogenase 218 U/L (135-225); Phosphorous 3.9 mg/dL (2.5-4.5); Triglycerides 169 mg/dL (<150); Uric Acid 0.7 mg/dL (2.5-8.0)
[2020-09-29] MEDS: LEVOTHYROXINE 100 MCG VIAL IV SCH (07:48)
[2020-09-29] MEDS: 0.9 % SODIUM CHLORIDE 1,000 ML IV SCH ×2 (08:02→16:50)
[2020-09-29] MEDS: FAMOTIDINE/PF 20 MG/2 ML VIAL IV SCH ×2 (08:57→20:35)
[2020-09-29] MEDS: methylPREDNISolone SOD SUCC 125 MG/2 ML VIAL IV SCH ×2 (08:58→20:39)
--- NOTE | 2020-09-29 10:20 | Internal Med Progress Note ---
SUBJECTIVE Subjective Patient information: Note initiated : 09/29/20 at 10:16 am Service Date, if different from initiated Date: [] Patient: Jose Moulton a 50 y/o M admitted on 09/16/20 for weakness, dizziness, failure to thrive. Chief Complaint: [] Principal diagnosis: severe radiation necrosis of rectum.protein calorie malnutrition Interval history: Mr. Moulton is a 50 year old M Presents with severe weakness and lightheadedness. Patient states the reason he came in the ED is because he was severely weak and could hardly move around and became lightheaded and get up and move. 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 Was recommended to him to get a diverting colostomy he has not made a decision on that yet. He has not been eating very much for the past couple months because it hurts to go to the bathroom. And especially the past few weeks he is eating hardly anything. He says a couple days ago he had 8 ounces of Slim fast and then nothing for the few days prior to that nothing yesterday. He has had some water and some electrolyte drinks that about it. Denies fevers chills chest pain abdominal pain. In the ED is found to be hyponatremic hypokalemic hypochloremic. An elevated TSH but denies cold intolerance dry skin or constipation. 09/17 Poor sleep. Complains of leg pain and some rectal pain from stooling. States difficulty in urinating. Electrolyte imbalance slowly improving. Patient is supposed to receive a diverting colostomy. Will consult surgery to discuss timing. 09/18 no overnight events or new complaints. Seen by general surgery and scheduled for diverting colostomy on Wednesday. TPN started.. 09/19 Poor sleep. No new complaints. Will be prepped for surgery tomorrow. 09/20-patient seen postop. Doing well. Anxious and appears uncomfortable. On pain management per surgery. Currently on TPN. No fever. White count stable. Stable electrolytes and renal function. 09/21-patient doing well. No overnight events. No concerns per staff. Postop day 2. Managed per surgery. Feels little uncomfortable unable to get a restful night sleep. Ongoing TPN. 09/22-patient doing well postop. Ongoing management per surgery. Continue TPN. Denies overnight events. Minimal anxiety. No additional recommendations from hospitalist service. Case discussed with surgery. At this time hospital service will sign off 09/25-received phone call from Dr. Hardy postoperatively for reconsultation and management of mechanical ventilation/circulatory shock. Patient intubated currently on mechanical ventilation at 100% FiO2. On vasopressors. Patient also received 2 units PRBC transfusion. Levophed 12 mics. Case discussed with anesthesia Julia Sandoval. Patient had over 4500 cc of NG aspirate and possibly aspirated which may explain the profound hypoxemia despite 100% FiO2 on mechanical ventilation. Patient critically ill with Grant 2 score over 20 and very high risk mortality. Surgery confirms extremely poor prognosis. At this time patient is being transferred to ICU for continued management of mechanical ventilation/circulatory shock and postop care will be managed as per surgery. We will initiate fentanyl/propofol sedation along with continued TPN/vasopressors and crystalloid challenges to keep MAP at goal. Serial electrolytes/blood gases and vent titration will be managed per protocol. Reviewed ABG/chest imaging. Bilateral diffuse airspace disease. Likely aspiration. On empiric antibiotic coverage. ABG 7.1 8/64/50 on 100% FiO2. Remains critically ill. Surgery discussed patient's critical status with patient's family. Continue mechanical ventilation per protocol 09/26-patient continuing on mechanical ventilation. On midazolam/Versed. Improved interval chest infiltrate. On antibiotic coverage. Continue TPN/potas sium replacement, potassium 2.7. Off pressors. Will undergo trial of spontaneous breathing/sedation holiday in a.m. Case discussed with surgery. No major telemetry events or concerns per staff. Blood gases stable, white count 5.4, hemoglobin 8.4 additional units transfusion ongoing per surgery. 09/27-favorable rapid shallow breathing index. On PEEP 5/FiO2 35%. Interval chest imaging improving infiltrates. Extubated to nasal cannula. NG output minimal. On TPN. Urine output at goal. Stable labs and hemodynamics excessive potassium at 3 on aggressive replacement. Continue antibiotic coverage. Ostomy output liquid. Postop care ongoing per Surgery. Hematocrit 27 status post 4 units PRBC, elevated LFTs secondary early shock liver. Continue monitoring. 09/28-patient extubated to room air doing well. No overnight events. Ongoing TPN. Potassium replacement ongoing. White count 13.2 on antibiotic coverage. Hemoglobin stable at 10.4 status post 4 unit PRBC transfusion. Stable hemodynamics. Case discussed with surgery. Surgery will attempt patient transfer to tertiary center possibly [facility], NG tube 2000 cc output, colostomy output 600 cc 09/29. Patient doing well. However white count 15.3. Initiate antifungal coverage. Able to ambulate with physical therapies. On TPN. Electrolytes improving. Await further recommendations from surgery regarding transfer to tertiary center. Potassium improved to 4.5., Hemodynamic stable. Constitutional Vitals: Vital Signs Temp Pulse Resp BP Pulse Ox 97.7 F 60 20 139/69 97 09/29/20 08:01 09/29/20 08:01 09/29/20 08:01 09/29/20 08:01 09/29/20 08:01 Period Temp Pulse Resp BP Sys/Greer Pulse Ox Last 24 Hr 97.4 F-97.8 F 55-62 16-26 120-150/66-83 96-100 Intake and Output 09/28/20 09/29/20 09/29/20 21:59 05:59 13:59 Intake Total 2283.4398 130 1130 Output Total 1420 1355 764 Balance 863.4398 -1225 366 Weight 66.281 kg alert oriented NG tube minimal output On TPN Vincent draining clear urine No anxiety Nonlabored breathing Intake & Output: Intake & Output 09/28/20 09/29/20 09/29/20 21:59 05:59 13:59 Intake Total 2283.4398 130 1130 Output Total 1420 1355 764 Balance 863.4398 -1225 366 Weight 66.281 kg Intake: IV 2283.4398 130 1130 Sodium Chloride 0.9% 1,000 ml @ 1000 50 mls/hr IV .Q20H [facility] Rx#: [id number] Calcium Gluconate 15 Meq 2153.4398 Magnesium Sulfate 32.48 Meq Sodium Chloride 100 Meq Potassium Chloride 120 Meq Potassium Phosphate 80 Meq Infuvite Adult 10 ml In Clinimix 5%-20% Solution 2,000 ml @ 80 mls/hr IV Q24H [facility] Rx#: [id number] Zosyn 3.375 gm In Dextrose 5% 50 50 50 in Water 50 ml @ 100 mls/hr IV Q6H [facility] Rx#:[id number] Tube Feeding 0 0 Output: Gastric Drainage 270 NG/OG 270 Urine Catheter Amount 975 1105 689 Stool 175 250 75 Other: Urine Appearance Clear Clear Clear Uretheral (Vincent) Clear Clear Urine Color Dark Alisha Light Alisha Bright Yellow Uretheral (Vincent) Light Alisha Light Alisha Urine Odor Normal Normal Normal Stool Color Brown Brown Stool Consistency Soft Soft Liquid Liquid OBJ DATA Labs CBC & Chem 7: 09/29/20 05:13 09/29/20 05:13 Labs: Abnormal Lab Results 09/29/20 09/29/20 09/28/20 05:13 05:13 05:11 WBC 15.2 H 13.2 H RBC 3.79 L 3.51 L Hgb 10.9 L 10.0 L Hct 32.6 L 30.3 L POC Hct RDW 18.6 H 18.4 H Neut % (Auto) 91.2 H 92.3 H Lymph % (Auto) 5.2 L 4.6 L Lymph # (Auto) 0.79 L 0.61 L Absolute Neutrophils 13.87 H 12.21 H POC Sodium POC Potassium Potassium POC Chloride Chloride Carbon Dioxide Anion Gap 7.0 L BUN 21 H Creatinine 0.3 L POC Creatinine Glucose 177 H POC Glucose Uric Acid 0.7 L Calcium 8.0 L POC WB Ioniz Calcium Total Bilirubin 2.3 H Direct Bilirubin 1.8 H GGT 171 H AST 83 H ALT 253 H Alkaline Phosphatase 151 H Lactate Dehydrogenase Total Protein 4.8 L Albumin 2.0 L Albumin/Globulin Ratio 0.7 L Triglycerides 169 H 09/28/20 09/27/20 09/27/20 05:11 22:12 07:14 WBC RBC Hgb Hct POC Hct RDW Neut % (Auto) Lymph % (Auto) Lymph # (Auto) Absolute Neutrophils POC Sodium POC Potassium Potassium 3.2 L 3.0 L POC Chloride Chloride 109 H Carbon Dioxide 21 L Anion Gap BUN 26 H 22 H Creatinine 0.3 L 0.3 L POC Creatinine Glucose 182 H 130 H POC Glucose Uric Acid 1.0 L 0.9 L Calcium 8.2 L 7.9 L POC WB Ioniz Calcium Total Bilirubin 2.1 H 2.2 H Direct Bilirubin 1.6 H 1.8 H GGT 120 H 92 H AST 187 H 152 H ALT 271 H 138 H Alkaline Phosphatase 153 H Lactate Dehydrogenase 256 H 249 H Total Protein 4.5 L 4.2 L Albumin 2.1 L 1.9 L Albumin/Globulin Ratio 0.9 L 0.8 L Triglycerides 200 H 09/26/20 22:02 WBC RBC Hgb Hct POC Hct 27 L RDW Neut % (Auto) Lymph % (Auto) Lymph # (Auto) Absolute Neutrophils POC Sodium 146 H POC Potassium 2.7 L* Potassium POC Chloride 110 H Chloride Carbon Dioxide Anion Gap BUN Creatinine POC Creatinine < 0.2 L Glucose POC Glucose 140 H Uric Acid Calcium POC WB Ioniz Calcium 1.13 L Total Bilirubin Direct Bilirubin GGT AST ALT Alkaline Phosphatase Lactate Dehydrogenase Total Protein Albumin Albumin/Globulin Ratio Triglycerides Meds: Medications Albuterol/Ipratropium (Duoneb) 3 ml NEB Q4HP PRN PRN Reason: Shortness Of Breath Alteplase, Recombinant (Cathflo) 2 mg IV PRN PRN PRN Reason: Line Patency Last Admin: 09/27/20 17:09 Dose: 2 mg Documented by: Diagnostic Test (Pha) (Accu-Chek) 1 each FS Q6 [facility] Last Admin: 09/29/20 05:46 Dose: 1 each Documented by: Famotidine (Pepcid) 20 mg IV Q12 [facility] Last Admin: 09/29/20 08:57 Dose: 20 mg Documented by: Fentanyl (Duragesic) 50 mcg TOPICAL Q72H [facility] Last Admin: 09/28/20 21:41 Dose: 50 mcg Documented by: Hydromorphone HCl (Dilaudid) 1 mg IV Q1HP PRN; Protocol PRN Reason: Per Pain Protocol Last Admin: 09/29/20 08:07 Dose: 1 mg Documented by: Acetaminophen (Ofirmev) 800 mg in 80 mls @ 160 mls/hr IV Q6H [facility]; Protocol Last Infusion: 09/29/20 06:30 Dose: Infused Documented by: Fat Emulsion Intravenous 250 (ml/ Premix) 250 mls @ 25 mls/hr IV [id number] [facility] Last Infusion: 09/28/20 04:24 Dose: Infused Documented by: Magnesium Sulfate (Magnesium Sulfate) 2 gm in 50 mls @ 50 mls/hr IV UD PRN PRN Reason: Magnesium </= 1.6 Norepinephrine Bitartrate 16 (mg/ Sodium Chloride) 250 mls @ 9.375 mls/hr IV Q24HP PRN; Protocol PRN Reason: Hypotension Piperacillin Sod/Tazobactam (Sod 3.375 gm/ Dextrose) 50 mls @ 100 mls/hr IV Q6H [facility]; Protocol Last Infusion: 09/29/20 06:31 Dose: Infused Documented by: Potassium Chloride 40 meq/ (Dextrose) 520 mls @ 130 mls/hr IV UD PRN PRN Reason: Potassium < 3 Last Infusion: 09/26/20 11:58 Dose: Infused Documented by: Heparin Sodium/Sodium Chloride (Heparin/Ns) 500 mls @ 0 mls/hr IV .Q0M [facility]; Protocol Calcium Gluconate 15 meq/Magnesium Sulfate 16.24 meq/Sodium Chloride 120 meq/Potassium Chloride 120 meq/Potassium Phosphate 120 meq/Amino Acids 2,153.5307 mls @ 80 mls/hr IV Q24H [facility] Stop: 09/29/20 10:59 Last Admin: 09/28/20 13:04 Dose: 80 mls/hr Documented by: Sodium Chloride (Sodium Chloride 0.9%) 1,000 mls @ 50 mls/hr IV .Q20H [facility] Last Admin: 09/29/20 08:02 Dose: 50 mls/hr Documented by: Calcium Gluconate 15 meq/Magnesium Sulfate 16.24 meq/Sodium Chloride 160 meq/Potassium Chloride 120 meq/Potassium Phosphate 40 meq/Amino Acids 2,145.3489 mls @ 80 mls/hr IV Q24H [facility] Insulin Human Lispro (Humalog) 0 unit SQ Q6H [facility]; Protocol Last Admin: 09/29/20 05:46 Dose: 4 units Documented by: Levothyroxine Sodium (Synthroid) 125 mcg IV QAMAC [facility] Last Admin: 09/29/20 07:48 Dose: 125 mcg Documented by: Methylprednisolone Sodium Succinate (Solu-Medrol) 62.5 mg IV Q12 [facility] Last Admin: 09/29/20 08:58 Dose: 62.5 mg Documented by: Metoclopramide HCl (Reglan) 10 mg IV Q6 [facility] Last Admin: 09/29/20 05:47 Dose: 10 mg Documented by: Ondansetron HCl (Zofran) 4 mg IV Q4HP PRN PRN Reason: Nausea And Vomiting Last Admin: 09/27/20 19:15 Dose: 4 mg Documented by: Sodium Chloride (Saline Flush) 10 ml IV Q12 [facility] Last Admin: 09/28/20 21:42 Dose: 10 ml Documented by: Sodium Chloride (Saline Flush) 10 ml IV UD PRN PRN Reason: FLUSH A/P Narrative A/P Narrative: * Sepsis secondary to pneumonia. White count at 15.3. On broad antibiotic coverage. Start antifungal coverage * Acute hypoxic respiratory failure secondary to aspiration pneumonia. Clinically resolved. Continue antibiotic coverage. Off mechanical venti lation. Now on room air * Aspiration pneumonia-clinically resolved * Circulatory shock -clinically resolved. Off pressors. Stable hemodynamics. * Acute blood loss anemia status post 4 units PRBC transfusion, hemoglobin 10.2 * Hypokalemia -resolved with replacement * 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 Status post repeat ex lap 09/25. For details refer to surgery note/description of procedure. Continue postop management per surgery. * Nutrition on TPN, initiation of oral diet will be as per surgery recommendations. * Full code * Prophylaxis heparin Plan * Initiate antifungal coverage * Continue TPN * Postop care/therapies as per surgery Critical care time 35 minutes on management mechanical ventilation /ventilator weaning/extubation Time Spent With Patient Time: Total time spent is greater than 50% in coordination of care (as documented) at patient's floor/unit and/or counseling patient: QUALITY VTE Deep Vein Thrombosis/Pulmonary Embolism Present on Admission: No
[2020-09-29] MEDS ORDERED: [UNRECOGNIZED DRUG - OTHER] IV SCH (11:00)
[2020-09-29] MEDS ORDERED: FLUCONAZOLE 400 MG/200 ML BAG IV SCH (11:00)
[2020-09-29] MEDS ORDERED: MAGNESIUM SULFATE IV SCH (11:00)
[2020-09-29] MEDS ORDERED: SODIUM CHLORIDE IV SCH (11:00)
[2020-09-29] MEDS ORDERED: CALCIUM GLUCONATE IV SCH (11:00)
[2020-09-29] MEDS: 0.9 % SODIUM CHLORIDE 10 ML SYRINGE IV SCH ×2 (11:03→20:42)
--- NOTE | 2020-09-29 13:58 | General Surgery Progress Note ---
SUBJECTIVE Subjective Patient information: Note initiated : 09/29/20 at 1:49 pm Service Date, if different from initiated Date: [] Patient: Jose Moulton 50 y/o M admitted on 09/16/20 for weakness, dizziness, failure to thrive. Chief Complaint: [] Principal diagnosis: severe radiation necrosis of rectum.protein calorie malnutrition Interval history: patient continues to improve. vital signs stable, and blood pressure is well controlled. He is bright and alert. His pain is well controlled. He has good stomal function. He has not had any rectal bleeding for the past 36 hours. He denies any respiratory difficulty. Constitutional Vitals: Vital Signs Temp Pulse Resp BP Pulse Ox 97.3 F 70 16 128/54 97 09/29/20 12:00 09/29/20 13:01 09/29/20 12:00 09/29/20 13:01 09/29/20 13:01 Period Temp Pulse Resp BP Sys/Greer Pulse Ox Last 24 Hr 97.3 F-97.8 F 55-70 16-26 126-150/54-83 96-100 Intake and Output 09/28/20 09/29/20 09/29/20 21:59 05:59 13:59 Intake Total 2283.4398 130 2940 Output Total 1420 1355 1654 Balance 863.4398 -1225 1286 Weight 146 lb 2 oz Intake & Output: Intake & Output 09/28/20 09/29/20 09/29/20 21:59 05:59 13:59 Intake Total 2283.4398 130 2940 Output Total 1420 1355 1654 Balance 863.4398 -1225 1286 Weight 146 lb 2 oz Intake: IV 2283.4398 130 2940 Sodium Chloride 0.9% 1,000 ml @ 1000 50 mls/hr IV .Q20H [facility] Rx#: [id number] Calcium Gluconate 15 Meq 1760 Magnesium Sulfate 16.24 Meq Sodium Chloride 120 Meq Potassium Chloride 120 Meq Potassium Phosphate 120 Meq In Clinimix 5%-20% Solution 2,000 ml @ 80 mls/hr IV Q24H [facility] Rx#: [id number] Calcium Gluconate 15 Meq 2153.4398 Magnesium Sulfate 32.48 Meq Sodium Chloride 100 Meq Potassium Chloride 120 Meq Potassium Phosphate 80 Meq Infuvite Adult 10 ml In Clinimix 5%-20% Solution 2,000 ml @ 80 mls/hr IV Q24H [facility] Rx#: [id number] Zosyn 3.375 gm In Dextrose 5% 50 50 100 in Water 50 ml @ 100 mls/hr IV Q6H [facility] Rx#:[id number] Tube Feeding 0 0 Output: Gastric Drainage 270 NG/OG 270 Urine Catheter Amount 975 1105 1579 Stool 175 250 75 Other: Urine Appearance Clear Clear Clear Uretheral (Vincent) Clear Clear Clear Urine Color Dark Alisha Light Alisha Dark Yellow Uretheral (Vincent) Light Alisha Light Alisha Bright Yellow Urine Odor Normal Normal Normal Stool Color Brown Brown Brown Stool Consistency Soft Soft Soft Liquid Liquid Head Head exam: Present atraumatic and normocephalic Eye Eye exam: Present EOMI and normal appearance Pupils: Present PERRL ENT ENT exam: Present normal oropharynx Neck Neck exam: Present full ROM; Absent lymphadenopathy Respiratory Respiratory exam: Present accessory muscle use and decreased breath sounds; Absent rales, rhonchi and wheezes Additional comments: patient is ventilated Cardiovascular Cardiovascular exam: Present bradycardia, irregular rhythm, +S1 and +S2; Absent JVD GI/Abdominal GI/Abdominal exam: Present diminished bowel sounds and distended Extremities Exam Extremities exam: Present full ROM and neurovascular intact; Absent pedal edema Neurological Exam Neurological exam: Absent CN II-XII intact and motor sensory deficit Psychiatric Psychiatric exam: Present anxious and normal mood Skin Skin exam: Present intact and normal color; Absent cyanosis and rash A/P Assessment and plan (1) Colostomy status: Status: Acute (2) Chronic blood loss anemia: Status: Acute (3) Radiation injury of bowel: Status: Acute Qualifiers: Encounter type: subsequent encounter Qualified Code(s): T66.XXXD - Radiation sickness, unspecified, subsequent encounter (4) Unintended weight loss: Status: Acute Narrative A/P Narrative: discontinue nasogastric tube. Full liquid diet. Transfer to medical floor Time Spent With Patient Time: Total time spent is greater than 50% in coordination of care (as documented) at patient's floor/unit and/or counseling patient:
[2020-09-29] MEDS ORDERED: TPN PER PHARMACY IV SCH (15:23)
[2020-09-29] MEDS ORDERED: ONDANSETRON 4 MG/2 ML VIAL IV PRN (15:23)
[2020-09-29] MEDS ORDERED: IPRATROPIUM/ALBUTEROL 3 ML AMPUL.NEB NEB PRN (15:23)
[2020-09-29] MEDS ORDERED: ALTEPLASE 2 MG VIAL IV PRN (15:23)
[2020-09-29] MEDS ORDERED: 0.9 % SODIUM CHLORIDE 10 ML SYRINGE IV PRN (15:23)
[2020-09-29] MEDS ORDERED: HEPARIN/NS 500 ML IV SCH (15:23)
[2020-09-29] MEDS ORDERED: NOREPINEPHRINE BITARTRATE 16 MG in 0.9 % SODIUM CHLORIDE 234 ML IV PRN (15:23)
[2020-09-29] MEDS ORDERED: MAGNESIUM SULFATE 2 GM/50 ML BAG IV PRN (15:23)
[2020-09-29] MEDS ORDERED: POTASSIUM CHLORIDE 40 MEQ in DEXTROSE 5% IN WATER 500 ML IV PRN (15:23)
[2020-09-29] MEDS: fentaNYL 50 MCG PATCH TOPICAL SCH (20:57)
[2020-09-30] MEDS: METOCLOPRAMIDE 10 MG/2 ML VIAL IV SCH ×5 (00:10→23:32)
[2020-09-30] MEDS: ACETAMINOPHEN 800 MG/80 ML BAG IV SCH ×5 (00:10→23:29)
[2020-09-30] MEDS: PIPERACILLIN SODIUM/TAZOBACTAM 3.375 GM in DEXTROSE 5% IN WATER 50 ML IV SCH ×4 (00:15→17:14)
[2020-09-30] MEDS: INSULIN LISPRO 1 UNIT/0.01 ML UNIT SQ SCH ×5 (00:23→23:36)
[2020-09-30] MEDS: HYDROmorphone 1 MG/ML SYRINGE IV PRN ×2 (05:12→10:24)
[2020-09-30] MEDS ORDERED: LEVOTHYROXINE 100 MCG VIAL IV SCH (07:30)
[2020-09-30 08:11] LABS: Basophils # (Auto) 0.05 K/mcL (0.00-0.20); Basophils % (Auto) 0.2 % (0.0-2.0); Eosinophils # (Auto) 0 K/mcL (0.00-0.70); Eosinophils % (Auto) 0 % (0.0-7.0); Hematocrit 37.6 % (41.0-55.0); Hemoglobin 12.4 g/dL (13.5-16.5); Lymphocytes # (Auto) 1.08 K/mcL (1.50-4.80); Lymphocytes % (Auto) 5.3 % (15.0-49.0); Mean Cell Volume 86.6 fL (80.0-100.0); Mean Platelet Volume 9.3 fL (7.4-10.4); Monocytes # (Auto) 0.59 K/mcL (0.10-0.90); Monocytes % (Auto) 2.9 % (1.0-12.0); Neutrophils % (Auto) 91.6 % (38.0-78.0); Platelet Count 369 K/mcL (140-440); RBC 4.34 M/mcL (4.50-5.90); Red Cell Distribution Width 18.3 % (11.5-14.5); WBC 20.4 K/mcL (4.5-11.0)
--- NOTE | 2020-09-30 08:18 | Internal Med Progress Note ---
SUBJECTIVE Subjective Patient information: Note initiated : 09/30/20 at 8:13 am Service Date, if different from initiated Date: [] Patient: Jose Moulton 50 y/o M admitted on 09/16/20 for weakness, dizziness, failure to thrive. Chief Complaint: [ Principal diagnosis: severe radiation necrosis of rectum.protein calorie malnutrition Interval history: Presents with severe weakness and lightheadedness. Patient states the reason he came in the ED is because he was severely weak and could hardly move around and became lightheaded and get up and move. 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 Was recommended to him to get a diverting colostomy he has not made a decision on that yet. He has not been eating very much for the past couple months because it hurts to go to the bathroom. And especially the past few weeks he is eating hardly anything. He says a couple days ago he had 8 ounces of Slim fast and then nothing for the few days prior to that nothing yesterday. He has had some water and some electrolyte drinks that about it. Denies fevers chills chest pain abdominal pain. In the ED is found to be hyponatremic hypokalemic hypochloremic. An elevated TSH but denies cold intolerance dry skin or constipation. 09/17 Poor sleep. Complains of leg pain and some rectal pain from stooling. States difficulty in urinating. Electrolyte imbalance slowly improving. Patient is supposed to receive a diverting colostomy. Will consult surgery to discuss timing. 09/18 no overnight events or new complaints. Seen by general surgery and scheduled for diverting colostomy on Wednesday. TPN started.. 09/19 Poor sleep. No new complaints. Will be prepped for surgery tomorrow. 09/20-patient seen postop. Doing well. Anxious and appears uncomfortable. On pain management per surgery. Currently on TPN. No fever. White count stable. Stable electrolytes and renal function. 09/21-patient doing well. No overnight events. No concerns per staff. Postop day 2. Managed per surgery. Feels little uncomfortable unable to get a restful night sleep. Ongoing TPN. 09/22-patient doing well postop. Ongoing management per surgery. Continue TPN. Denies overnight events. Minimal anxiety. No additional recommendations from hospitalist service. Case discussed with surgery. At this time hospital service will sign off 09/25-received phone call from Dr. Hardy postoperatively for reconsultation and management of mechanical ventilation/circulatory shock. Patient intubated currently on mechanical ventilation at 100% FiO2. On vasopressors. Patient also received 2 units PRBC transfusion. Levophed 12 mics. Case discussed with anesthesia Julia Sandoval. Patient had over 4500 cc of NG aspirate and possibly aspirated which may explain the profound hypoxemia despite 100% FiO2 on mechanical ventilation. Patient critically ill with [place] 2 score over 20 and very high risk mortality. Surgery confirms extremely poor prognosis. At this time patient is being transferred to ICU for continued management of mechanical ventilation/circulatory shock and postop care will be managed as per surgery. We will initiate fentanyl/propofol sedation along with continued TPN/vasopressors and crystalloid challenges to keep MAP at goal. Serial electrolytes/blood gases and vent titration will be managed per protocol. Reviewed ABG/chest imaging. Bilateral diffuse airspace disease. Likely a spiration. On empiric antibiotic coverage. ABG 7.1 /50 on 100% FiO2. Remains critically ill. Surgery discussed patient's critical status with patient's family. Continue mechanical ventilation per protocol 09/26-patient continuing on mechanical ventilation. On midazolam/Versed. Improved interval chest infiltrate. On antibiotic coverage. Continue TPN/potassium replacement, potassium 2.7. Off pressors. Will undergo trial of spontaneous breathing/sedation holiday in a.m. Case discussed with surgery. No major telemetry events or concerns per staff. Blood gases stable, white count 5.4, hemoglobin 8.4 additional units transfusion ongoing per surgery. 09/27-favorable rapid shallow breathing index. On PEEP 5/FiO2 35%. Interval chest imaging improving infiltrates. Extubated to nasal cannula. NG output minimal. On TPN. Urine output at goal. Stable labs and hemodynamics excessive potassium at 3 on aggressive replacement. Continue antibiotic coverage. Ostomy output liquid. Postop care ongoing per Surgery. Hematocrit 27 status post 4 units PRBC, elevated LFTs secondary early shock liver. Continue monitoring. 09/28-patient extubated to room air doing well. No overnight events. Ongoing TPN. Potassium replacement ongoing. White count 13.2 on antibiotic coverage. Hemoglobin stable at 10.4 status post 4 unit PRBC transfusion. Stable hemodynamics. Case discussed with surgery. Surgery will attempt patient transfer to tertiary center [facility], NG tube 2000 cc output, colostomy output 600 cc 09/29. Patient doing well. However white count 15.3. Initiate antifungal coverage. Able to ambulate with physical therapies. On TPN. Electrolytes improving. Await further recommendations from surgery regarding transfer to tertiary center. Potassium improved to 4.5., Hemodynamic stable. 09/30-worsening leukocytosis at 20,400. Rule out intra-abdominal process with a CT abdomen pelvis with contrast. Case discussed with surgery. Patient otherwi se doing and feeling better. Stable hemodynamics currently on room air. On antifungal coverage in addition to antibiotics, on IV steroids per surgery. On aggressive electrolyte replacement. Ongoing TPN Constitutional Vitals: Vital Signs Temp Pulse Resp BP Pulse Ox 98.0 F 60 18 128/78 96 09/30/20 04:00 09/30/20 04:00 09/30/20 04:00 09/30/20 04:00 09/30/20 04:00 Period Temp Pulse Resp BP Sys/Greer Pulse Ox Last 24 Hr 97.3 F-98.3 F 55-70 16-22 119-138/54-82 95-98 Intake and Output 09/29/20 09/30/20 09/30/20 21:59 05:59 13:59 Intake Total 210 370 80 Output Total 525 1650 Balance -315 -1280 80 Weight 66.224 kg patient in good spirits Vincent is draining clear urine No lymphedema Ostomy output 500 cc On TPN Intake & Output: Intake & Output 09/29/20 09/30/20 09/30/20 21:59 05:59 13:59 Intake Total 210 370 80 Output Total 525 1650 Balance -315 -1280 80 Weight 66.224 kg Intake: IV 210 130 80 Zosyn 3.375 gm In Dextrose 5% 50 50 in Water 50 ml @ 100 mls/hr IV Q6H [facility] Rx#:[id number] Oral 240 Output: Urine Catheter Amount 525 1550 Stool 100 Other: Urine Appearance Clear Clear Uretheral (Vincent) Clear Urine Color Bright Yellow Bright Yellow Uretheral (Vincent) Bright Yellow Urine Odor Normal Normal Uretheral (Vincent) Normal Stool Size Large Stool Color Brown Brown Stool Consistency Soft Liquid OBJ DATA Labs CBC & Chem 7: 09/30/20 07:34 09/29/20 05:13 Labs: Abnormal Lab Results 09/30/20 09/29/20 09/29/20 07:34 05:13 05:13 WBC 20.4 H 15.2 H RBC 4.34 L 3.79 L Hgb 12.4 L 10.9 L Hct 37.6 L 32.6 L RDW 18.3 H 18.6 H Neut % (Auto) 91.6 H 91.2 H Lymph % (Auto) 5.3 L 5.2 L Lymph # (Auto) 1.08 L 0.79 L Absolute Neutrophils 18.65 H 13.87 H Potassium Carbon Dioxide Anion Gap 7.0 L BUN 21 H Creatinine 0.3 L Glucose 177 H Uric Acid 0.7 L Calcium 8.0 L Total Bilirubin 2.3 H Direct Bilirubin 1.8 H GGT 171 H AST 83 H ALT 253 H Alkaline Phosphatase 151 H Lactate Dehydrogenase Total Protein 4.8 L Albumin 2.0 L Albumin/Globulin Ratio 0.7 L Triglycerides 169 H 09/28/20 09/28/20 09/27/20 05:11 05:11 22:12 WBC 13.2 H RBC 3.51 L Hgb 10.0 L Hct 30.3 L RDW 18.4 H Neut % (Auto) 92.3 H Lymph % (Auto) 4.6 L Lymph # (Auto) 0.61 L Absolute Neutrophils 12.21 H Potassium 3.2 L Carbon Dioxide 21 L Anion Gap BUN 26 H Creatinine 0.3 L Glucose 182 H Uric Acid 1.0 L Calcium 8.2 L Total Bilirubin 2.1 H Direct Bilirubin 1.6 H GGT 120 H AST 187 H ALT 271 H Alkaline Phosphatase 153 H Lactate Dehydrogenase 256 H Total Protein 4.5 L Albumin 2.1 L Albumin/Globulin Ratio 0.9 L Triglycerides 200 H Meds: Medications Albuterol/Ipratropium (Duoneb) 3 ml NEB Q4HP PRN PRN Reason: Shortness Of Breath Alteplase, Recombinant (Cathflo) 2 mg IV PRN PRN PRN Reason: Line Patency Diagnostic Test (Pha) (Accu-Chek) 1 each FS Q6 [facility] Last Admin: 09/30/20 05:21 Dose: 1 each Documented by: Famotidine (Pepcid) 20 mg IV Q12 [facility] Last Admin: 09/29/20 20:35 Dose: 20 mg Documented by: Fentanyl (Duragesic) 50 mcg TOPICAL Q72H [facility] Last Admin: 09/29/20 20:57 Dose: Not Given Documented by: Hydromorphone HCl (Dilaudid) 1 mg IV Q1HP PRN; Protocol PRN Reason: Per Pain Protocol Last Admin: 09/30/20 05:12 Dose: 1 mg Documented by: Sodium Chloride (Sodium Chloride 0.9%) 1,000 mls @ 50 mls/hr IV .Q20H [facility] Last Admin: 09/29/20 16:50 Dose: Not Given Documented by: Acetaminophen (Ofirmev) 800 mg in 80 mls @ 160 mls/hr IV Q6H [facility]; Protocol Last Infusion: 09/30/20 06:30 Dose: Infused Documented by: Calcium Gluconate 15 meq/Magnesium Sulfate 16.24 meq/Sodium Chloride 160 meq/Potassium Chloride 120 meq/Potassium Phosphate 40 meq/Amino Acids 2,145.3489 mls @ 80 mls/hr IV Q24H [facility] Fat Emulsion Intravenous 250 (ml/ Premix) 250 mls @ 25 mls/hr IV [id number] [facility] Heparin Sodium/Sodium Chloride (Heparin/Ns) 500 mls @ 0 mls/hr IV .Q0M [facility]; Protocol Magnesium Sulfate (Magnesium Sulfate) 2 gm in 50 mls @ 50 mls/hr IV UD PRN PRN Reason: Magnesium </= 1.6 Piperacillin Sod/Tazobactam (Sod 3.375 gm/ Dextrose) 50 mls @ 100 mls/hr IV Q6H [facility]; Protocol Last Admin: 09/30/20 05:57 Dose: 100 mls/hr Documented by: Norepinephrine Bitartrate 16 (mg/ Sodium Chloride) 250 mls @ 9.375 mls/hr IV Q24HP PRN; Protocol PRN Reason: Hypotension Potassium Chloride 40 meq/ (Dextrose) 520 mls @ 130 mls/hr IV UD PRN PRN Reason: Potassium < 3 Fluconazole (Diflucan) 400 mg in 200 mls @ 100 mls/hr IV Q24H [facility] Insulin Human Lispro (Humalog) 0 unit SQ Q6H [facility]; Protocol Last Admin: 09/30/20 05:22 Dose: Not Given Documented by: Levothyroxine Sodium (Synthroid) 125 mcg IV QAMAC [facility] Methylprednisolone Sodium Succinate (Solu-Medrol) 62.5 mg IV Q12 [facility] Last Admin: 09/29/20 20:39 Dose: 62.5 mg Documented by: Metoclopramide HCl (Reglan) 10 mg IV Q6 [facility] Last Admin: 09/30/20 05:55 Dose: 10 mg Documented by: Ondansetron HCl (Zofran) 4 mg IV Q4HP PRN PRN Reason: Nausea And Vomiting Sodium Chloride (Saline Flush) 10 ml IV Q12 [facility] Last Admin: 09/29/20 20:42 Dose: 10 ml Documented by: Sodium Chloride (Saline Flush) 10 ml IV UD PRN PRN Reason: FLUSH A/P Narrative A/P Narrative: * Sepsis secondary to pneumonia. Worsening white count now at 20,400. CT abdomen pelvis with contrast. Continue antifungal/broad antibiotic coverage. Case discussed with surgery. * Persistent hypokalemia on IV replacement * Acute hypoxic respiratory failure secondary to aspiration pneumonia. Clinically resolved. Now on room air * Aspiration pneumonia-clinically resolved * Circulatory shock -clinically resolved. Off pressors. Stable hemodynamics. * Acute blood loss anemia status post 4 units PRBC transfusion, hemoglobin 10.2 * 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 Status post repeat ex lap 09/25. For details refer to surgery note/description of procedure. Continue postop management per surgery. * Nutrition on TPN, initiation of oral diet will be as per surgery recommendations. * Full code * Prophylaxis heparin Plan * CT abdomen pelvis with contrast(leukocytosis 20,400) * Continue antifungal/antibiotic coverage * Continue TPN/electrolyte replacements * Postop care/therapies as per surgery Critical care time 35 minutes on management mechanical ventilation /ventilator weaning/extubation Time Spent With Patient Time: Total time spent is greater than 50% in coordination of care (as documented) at patient's floor/unit and/or counseling patient: QUALITY VTE Deep Vein Thrombosis/Pulmonary Embolism Present on Admission: No
[2020-09-30 08:24] LABS: ALT/SGPT 288 U/L (<40); AST/SGOT 77 U/L (<40); Albumin 2.5 gm/dL (3.2-5.2); Albumin/Globulin Ratio 1.1 (1.0-2.3); Alkaline Phosphatase 188 U/L (39-117); Bilirubin,Total 2.5 mg/dL (0.1-1.0); Blood Urea Nitrogen 16 mg/dL (6-20); Calcium 8.2 mg/dL (8.6-10.4); Carbon Dioxide 25 mmol/L (22-30); Chloride 96 mmol/L (96-108); Globulin 2.2 gm/dL (2.2-3.7); Glomerular Filtration Rate 183; Glucose 117 mg/dL (70-105); Lactate Dehydrogenase 248 U/L (135-225); Phosphorous 2.6 mg/dL (2.5-4.5); Triglycerides 220 mg/dL (<150); Uric Acid 0.7 mg/dL (2.5-8.0)
[2020-09-30] MEDS: 0.9 % SODIUM CHLORIDE 1,000 ML IV SCH ×2 (08:39→10:23)
[2020-09-30] MEDS: methylPREDNISolone SOD SUCC 125 MG/2 ML VIAL IV SCH (09:06)
[2020-09-30] MEDS: FAMOTIDINE/PF 20 MG/2 ML VIAL IV SCH ×2 (09:08→20:29)
[2020-09-30] MEDS: 0.9 % SODIUM CHLORIDE 10 ML SYRINGE IV SCH ×2 (09:09→20:30)
[2020-09-30] MEDS: FLUCONAZOLE 400 MG/200 ML BAG IV SCH (09:09)
[2020-09-30] MEDS ORDERED: IOPAMIDOL 100 ML BOTTLE IV ONE (10:43)
[2020-09-30] MEDS ORDERED: [UNRECOGNIZED DRUG - OTHER] IV SCH (11:00)
[2020-09-30] MEDS ORDERED: MAGNESIUM SULFATE IV SCH ×2 (11:00)
[2020-09-30] MEDS ORDERED: CALCIUM GLUCONATE IV SCH ×2 (11:00)
[2020-09-30] MEDS ORDERED: SODIUM CHLORIDE IV SCH ×2 (11:00)
[2020-09-30] MEDS ORDERED: FLUCONAZOLE 400 MG/200 ML BAG IV SCH (11:00)
[2020-09-30] MEDS ORDERED: [UNRECOGNIZED DRUG - OTHER] IV SCH (11:00)
--- NOTE | 2020-09-30 11:34 | Cat Scan Report ---
History: Weakness, failure to thrive, two weeks following colostomy, history of prostate cancer, elevated white blood cell count, post radiation necrosis of the rectum TECHNIQUE: Patient was imaged following injection of 80 cc of Isovue-370 contrast scanning during the portal venous phase from the diaphragm through the symphysis pubis. During the recent surgery, the patient had received Gastrografin contrast via the colostomy. Sagittal and coronal reformats were created. The radiation exposure was limited using dose reduction technology. FINDINGS: Patient has small bilateral pleural effusions. There is also small pericardial effusion. There is alveolar consolidation in both lower lobes, left worse than right. Bands of discoid atelectasis are present in the right lower lobe. Liver is normal in size. There is mild fatty infiltration. The spleen is normal in size and homogeneous. The gallbladder is borderline distended but the wall is thin and there are no stones within the lumen. The bile ducts are nondilated. No mass or inflammation are present in the pancreas. The adrenals and kidneys are normal. There is no hydronephrosis. Moderate amount calcified plaque is present in the mid and distal aorta and common iliac arteries. The arteries within the abdomen and pelvis are normal in caliber and are not occluded. There are several loops of dilated jejunum in the mid and upper abdomen. The measure up to 5.1 cm in transverse dimension. Some of the segments of jejunum have thickened sosa measuring up to 1 cm. The ileum is normal in caliber. The ileocecal valve is normal. Patient's had a recent appendectomy performed. There is a colostomy in the left anterior pelvic wall. There is no evidence of inflammation or obstruction around the ostomy. The wall of the colon in the subcutaneous region is circumferentially thickened which is normal following recent surgery. There is a loculated pocket of fluid deep in the pelvis surrounding the prostate and anterior to the disrupted anterior wall of the rectum. It measures 3 x 5 x 8 cm and contains air-fluid levels. There is anteverted segment of the distal sigmoid colon which contains some air but is not abnormally distended and the sosa not thickened. Prostate is relatively small. There is a Vincent catheter within a decompressed urinary bladder. Small amount of ascites is present throughout the abdomen and pelvis. There is subcutaneous edema throughout the wall of the abdomen and pelvis as well as the upper thighs. IMPRESSION: Loculated fluid collection deep in the pelvis involving the anterior wall of the rectum. This is probably related to the post radiation necrosis and breakdown of the anterior wall of the rectum Pneumonia or atelectasis in both lower lobes Dilated jejunum with thickened wall. Elizabeth Hardy was called with the results Interpreted and Authenticated by: Urban Guido 09/30/20
--- NOTE | 2020-09-30 13:01 | Internal Med Progress Note ---
SUBJECTIVE Subjective Patient information: Note initiated : 09/30/20 at 12:55 pm Service Date, if different from initiated Date: [] Patient: Jose Moulton 50 y/o M admitted on 09/16/20 for weakness, dizziness, failure to thrive. Chief Complaint: [] Principal diagnosis: severe radiation necrosis of rectum.protein calorie malnutrition Interval history: Presents with severe weakness and lightheadedness. Patient states the reason he came in the ED is because he was severely weak and could hardly move around and became lightheaded and get up and move. 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 Was recommended to him to get a diverting colostomy he has not made a decision on that yet. He has not been eating very much for the past couple months because it hurts to go to the bathroom. And especially the past few weeks he is eating hardly anything. He says a couple days ago he had 8 ounces of Slim fast and then nothing for the few days prior to that nothing yesterday. He has had some water and some electrolyte drinks that about it. Denies fevers chills chest pain abdominal pain. In the ED is found to be hyponatremic hypokalemic hypochloremic. An elevated TSH but denies cold intolerance dry skin or constipation. 09/17 Poor sleep. Complains of leg pain and some rectal pain from stooling. States difficulty in urinating. Electrolyte imbalance slowly improving. Patient is supposed to receive a diverting colostomy. Will consult surgery to discuss timing. 09/18 no overnight events or new complaints. Seen by general surgery and scheduled for diverting colostomy on Wednesday. TPN started.. 09/19 Poor sleep. No new complaints. Will be prepped for surgery tomorrow. 09/20-patient seen postop. Doing well. Anxious and appears uncomfortable. On pain management per surgery. Currently on TPN. No fever. White count stable. Stable electrolytes and renal function. 09/21-patient doing well. No overnight events. No concerns per staff. Postop day 2. Managed per surgery. Feels little uncomfortable unable to get a restful night sleep. Ongoing TPN. 09/22-patient doing well postop. Ongoing management per surgery. Continue TPN. Denies overnight events. Minimal anxiety. No additional recommendations from hospitalist service. Case discussed with surgery. At this time hospital service will sign off 09/25-received phone call from Dr. Hardy postoperatively for reconsultation and management of mechanical ventilation/circulatory shock. Patient intubated currently on mechanical ventilation at 100% FiO2. On vasopressors. Patient also received 2 units PRBC transfusion. Levophed 12 mics. Case discussed with anesthesia Julia Sandoval. Patient had over 4500 cc of NG aspirate and possibly aspirated which may explain the profound hypoxemia despite 100% FiO2 on mechanical ventilation. Patient critically ill with [place] 2 score over 20 and very high risk mortality. Surgery confirms extremely poor prognosis. At this time patient is being transferred to ICU for continued management of mechanical ventilation/circulatory shock and postop care will be managed as per surgery. We will initiate fentanyl/propofol sedation along with continued TPN/vasopressors and crystalloid challenges to keep MAP at goal. Serial electrolytes/blood gases and vent titration will be managed per protocol. Reviewed ABG/chest imaging. Bilateral diffuse airspace disease. Likely aspiration. On empiric antibiotic coverage. ABG 7.1 /50 on 100% FiO2. Remains critically ill. Surgery discussed patient's critical status with patient's family. Continue mechanical ventilation per protocol 09/26-patient continuing on mechanical ventilation. On midazolam/Versed. Improved interval chest infiltrate. On antibiotic coverage. Continue TPN/potassium replacement, potassium 2.7. Off pressors. Will undergo trial of spontaneous breathing/sedation holiday in a.m. Case discussed with surgery. No major telemetry events or concerns per staff. Blood gases stable, white count 5.4, hemoglobin 8.4 additional units transfusion ongoing per surgery. 09/27-favorable rapid shallow breathing index. On PEEP 5/FiO2 35%. Interval chest imaging improving infiltrates. Extubated to nasal cannula. NG output minimal. On TPN. Urine output at goal. Stable labs and hemodynamics excessive potassium at 3 on aggressive replacement. Continue antibiotic coverage. Ostomy output liquid. Postop care ongoing per Surgery. Hematocrit 27 status post 4 units PRBC, elevated LFTs secondary early shock liver. Continue monitoring. 09/28-patient extubated to room air doing well. No overnight events. Ongoing TPN. Potassium replacement ongoing. White count 13.2 on antibiotic coverage. Hemoglobin stable at 10.4 status post 4 unit PRBC transfusion. Stable hemodynamics. Case discussed with surgery. Surgery will attempt patient transfer to tertiary center possibly [facility], NG tube 2000 cc output, colostomy output 600 cc 09/29. Patient doing well. However white count 15.3. Initiate antifungal coverage. Able to ambulate with physical therapies. On TPN. Electrolytes imp roving. Await further recommendations from surgery regarding transfer to tertiary center. Potassium improved to 4.5., Hemodynamic stable. 09/30-worsening leukocytosis at 20,400. Rule out intra-abdominal process with a CT abdomen pelvis with contrast. Case discussed with surgery. Patient other medellin doing and feeling better. Stable hemodynamics currently on room air. On antifungal coverage in addition to antibiotics, on IV steroids per surgery. On aggressive electrolyte replacement. Ongoing TPN Constitutional Vitals: Vital Signs Temp Pulse Resp BP Pulse Ox 98.4 F 61 16 130/77 97 09/30/20 12:00 09/30/20 12:00 09/30/20 12:00 09/30/20 12:00 09/30/20 12:00 Period Temp Pulse Resp BP Sys/Greer Pulse Ox Last 24 Hr 97.8 F-98.4 F 60-70 16-20 119-135/54-83 95-97 Intake and Output 09/29/20 09/30/20 09/30/20 21:59 05:59 13:59 Intake Total 396 290 2265 Output Total 525 1650 Balance -315 -1280 3063 Weight 66.224 kg Intake & Output: Intake & Output 09/29/20 09/30/20 09/30/20 21:59 05:59 13:59 Intake Total 865 316 4268 Output Total 525 1650 Balance -315 -1280 3063 Weight 66.224 kg Intake: IV 977 427 6170 Sodium Chloride 0.9% 1,000 ml @ 1000 50 mls/hr IV .Q20H [facility] Rx#: [id number] Calcium Gluconate 15 Meq 1933 Magnesium Sulfate 16.24 Meq Sodium Chloride 160 Meq Potassium Chloride 120 Meq Potassium Phosphate 40 Meq In Clinimix 5%-20% Solution 2,000 ml @ 80 mls/hr IV Q24H [facility] Rx#: [id number] Zosyn 3.375 gm In Dextrose 5% 50 50 50 in Water 50 ml @ 100 mls/hr IV Q6H [facility] Rx#:[id number] Oral 240 Output: Urine Catheter Amount 525 1550 Stool 100 Other: Urine Appearance Clear Clear Uretheral (Vincent) Clear Urine Color Bright Yellow Bright Yellow Uretheral (Vincent) Bright Yellow Urine Odor Normal Normal Uretheral (Vincent) Normal Stool Size Large Stool Color Brown Brown Stool Consistency Soft Liquid Exam: General: Alert, Awake, No acute Distress, cachectic Eyes/N/T: EOMI, Head/Neck: neck supple, CV: RRR, No murmurs, Pulm: Clear b/l, no wheezing/rhonchi/rales Abd: soft, nontender, +BS x4, Ostomy in place Ext: no clubbing/cyanosis/edema Neuro: Alert, no focal deficits, moves all extremities, Skin: warm/dry, OBJ DATA Labs CBC & Chem 7: 09/30/20 07:34 09/30/20 07:34 Labs: Abnormal Lab Results 09/30/20 09/30/20 09/29/20 07:34 07:34 05:13 WBC 20.4 H RBC 4.34 L Hgb 12.4 L Hct 37.6 L RDW 18.3 H Neut % (Auto) 91.6 H Lymph % (Auto) 5.3 L Lymph # (Auto) 1.08 L Absolute Neutrophils 18.65 H Sodium 131 L Potassium Carbon Dioxide Anion Gap 7.0 L BUN 21 H Creatinine 0.2 L 0.3 L Glucose 117 H 177 H Uric Acid 0.7 L 0.7 L Calcium 8.2 L 8.0 L Total Bilirubin 2.5 H 2.3 H Direct Bilirubin 2.0 H 1.8 H GGT 256 H 171 H AST 77 H 83 H ALT 288 H 253 H Alkaline Phosphatase 188 H 151 H Lactate Dehydrogenase 248 H Total Protein 4.7 L 4.8 L Albumin 2.5 L 2.0 L Albumin/Globulin Ratio 0.7 L Triglycerides 220 H 169 H 09/29/20 09/28/20 09/28/20 05:13 05:11 05:11 WBC 15.2 H 13.2 H RBC 3.79 L 3.51 L Hgb 10.9 L 10.0 L Hct 32.6 L 30.3 L RDW 18.6 H 18.4 H Neut % (Auto) 91.2 H 92.3 H Lymph % (Auto) 5.2 L 4.6 L Lymph # (Auto) 0.79 L 0.61 L Absolute Neutrophils 13.87 H 12.21 H Sodium Potassium Carbon Dioxide 21 L Anion Gap BUN 26 H Creatinine 0.3 L Glucose 182 H Uric Acid 1.0 L Calcium 8.2 L Total Bilirubin 2.1 H Direct Bilirubin 1.6 H GGT 120 H AST 187 H ALT 271 H Alkaline Phosphatase 153 H Lactate Dehydrogenase 256 H Total Protein 4.5 L Albumin 2.1 L Albumin/Globulin Ratio 0.9 L Triglycerides 200 H 09/27/20 22:12 WBC RBC Hgb Hct RDW Neut % (Auto) Lymph % (Auto) Lymph # (Auto) Absolute Neutrophils Sodium Potassium 3.2 L Carbon Dioxide Anion Gap BUN Creatinine Glucose Uric Acid Calcium Total Bilirubin Direct Bilirubin GGT AST ALT Alkaline Phosphatase Lactate Dehydrogenase Total Protein Albumin Albumin/Globulin Ratio Triglycerides Meds: Medications Albuterol/Ipratropium (Duoneb) 3 ml NEB Q4HP PRN PRN Reason: Shortness Of Breath Alteplase, Recombinant (Cathflo) 2 mg IV PRN PRN PRN Reason: Line Patency Diagnostic Test (Pha) (Accu-Chek) 1 each FS Q6 [facility] Last Admin: 09/30/20 05:21 Dose: 1 each Documented by: Famotidine (Pepcid) 20 mg IV Q12 [facility] Last Admin: 09/30/20 09:08 Dose: 20 mg Documented by: Fentanyl (Duragesic) 50 mcg TOPICAL Q72H [facility] Last Admin: 09/29/20 20:57 Dose: Not Given Documented by: Hydromorphone HCl (Dilaudid) 1 mg IV Q1HP PRN; Protocol PRN Reason: Per Pain Protocol Last Admin: 09/30/20 10:24 Dose: 1 mg Documented by: Sodium Chloride (Sodium Chloride 0.9%) 1,000 mls @ 50 mls/hr IV .Q20H [facility] Last Admin: 09/30/20 10:23 Dose: Not Given Documented by: Acetaminophen (Ofirmev) 800 mg in 80 mls @ 160 mls/hr IV Q6H [facility]; Protocol Last Infusion: 09/30/20 06:30 Dose: Infused Documented by: Fat Emulsion Intravenous 250 (ml/ Premix) 250 mls @ 25 mls/hr IV [id number]@[id number] [facility] Heparin Sodium/Sodium Chloride (Heparin/Ns) 500 mls @ 0 mls/hr IV .Q0M [facility]; Protocol Magnesium Sulfate (Magnesium Sulfate) 2 gm in 50 mls @ 50 mls/hr IV UD PRN PRN Reason: Magnesium </= 1.6 Piperacillin Sod/Tazobactam (Sod 3.375 gm/ Dextrose) 50 mls @ 100 mls/hr IV Q6H [facility]; Protocol Last Infusion: 09/30/20 06:30 Dose: Infused Documented by: Norepinephrine Bitartrate 16 (mg/ Sodium Chloride) 250 mls @ 9.375 mls/hr IV Q24HP PRN; Protocol PRN Reason: Hypotension Potassium Chloride 40 meq/ (Dextrose) 520 mls @ 130 mls/hr IV UD PRN PRN Reason: Potassium < 3 Fluconazole (Diflucan) 400 mg in 200 mls @ 100 mls/hr IV Q24H [facility] Last Admin: 09/30/20 09:09 Dose: 100 mls/hr Documented by: Calcium Gluconate 15 meq/Magnesium Sulfate 16.24 meq/Sodium Chloride 200 meq/Potassium Chloride 80 meq/Potassium Phosphate 80 meq/Amino Acids 2,144.4398 mls @ 80 mls/hr IV Q24H [facility] Last Admin: 09/30/20 10:59 Dose: 80 mls/hr Documented by: Insulin Human Lispro (Humalog) 0 unit SQ Q6H [facility]; Protocol Last Admin: 09/30/20 05:22 Dose: Not Given Documented by: Levothyroxine Sodium (Synthroid) 125 mcg IV QAMAC [facility] Last Admin: 09/30/20 09:08 Dose: 125 mcg Documented by: Methylprednisolone Sodium Succinate (Solu-Medrol) 62.5 mg IV Q12 [facility] Last Admin: 09/30/20 09:06 Dose: 62.5 mg Documented by: Metoclopramide HCl (Reglan) 10 mg IV Q6 [facility] Last Admin: 09/30/20 05:55 Dose: 10 mg Documented by: Ondansetron HCl (Zofran) 4 mg IV Q4HP PRN PRN Reason: Nausea And Vomiting Sodium Chloride (Saline Flush) 10 ml IV Q12 [facility] Last Admin: 09/30/20 09:09 Dose: 10 ml Documented by: Sodium Chloride (Saline Flush) 10 ml IV UD PRN PRN Reason: FLUSH A/P Narrative A/P Narrative: A: *Sepsis: 2/2 asp pna - Worsening white count now at 20,400. CT abdomen pelvis with contrast. *Aspiration pneumonia-clinically resolved *Acute hypoxic respiratory failure secondary to aspiration pneumonia. Clinical ly resolved. Now on room air *Hypokalemia: *Circulatory shock -clinically resolved. Off pressors. Stable hemodynamics. 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 Status post repeat ex lap (09/25) *Severe generalized weakness *Failure to thrive/Severe malnutrition:*Anemia, chronic: *Anxiety: *GERD: *Chronic pain: *Tobacco abuse: *Primary Hypothyroidism: Plan: -CT abdomen pelvis with contrast(leukocytosis 20,400) -Continue antifungal/broad antibiotic coverage as discussed with surgery. -Continue postop management per surgery. -electrolyte replacement -TPN, initiation of oral diet will be as per surgery recommendations. -wound care -Dietary consult, nutritional supplements -started Low-dose levothyroxine and follow-up with PCP for repeat labs -Smoking cessation counseling -pt/ot -ppx: heparin Full code * Critical care time 35 minutes on management mechanical ventilation /ventilator weaning/extubation Time Spent With Patient Time: Total time spent is greater than 50% in coordination of care (as documented) at patient's floor/unit and/or counseling patient: QUALITY VTE Deep Vein Thrombosis/Pulmonary Embolism Present on Admission: No
--- NOTE | 2020-09-30 14:19 | General Surgery Progress Note ---
SUBJECTIVE Subjective Patient information: Note initiated : 09/30/20 at 1:53 pm Service Date, if different from initiated Date: [] Patient: Jose Moulton 50 y/o M admitted on 09/16/20 for weakness, dizziness, failure to thrive. Chief Complaint: [] Principal diagnosis: severe radiation necrosis of rectum.protein calorie malnutrition Interval history: patient appears to be clinically better. He is bright and alert. He is afebrile. He states that he feels stronger. He denies having any respiratory difficulty. Oxygen saturations are good. He has good movement through his stoma and his abdomen is softer. He has not had much draining from his anus. Potassium 4.6, BUN 18, creatinine 0.2, white count 20.4, hemoglobin 12.4, hematocrit 37.6. Discussed CT findings with radiologist. This shows support the clinical find ings. The prostate is partially eroded and it appears that portion of the catheter in the prostatic urethra was now exposed. The necrosis extends to the pubic rami bilaterally with lack of rectal mucosa. Constitutional Vitals: Vital Signs Temp Pulse Resp BP Pulse Ox 98.4 F 61 16 130/77 97 09/30/20 12:00 09/30/20 12:00 09/30/20 12:00 09/30/20 12:00 09/30/20 12:00 Period Temp Pulse Resp BP Sys/Greer Pulse Ox Last 24 Hr 97.8 F-98.4 F 60-61 16-20 119-135/74-83 95-97 Intake and Output 09/29/20 09/30/20 09/30/20 21:59 05:59 13:59 Intake Total 702 666 0625 Output Total 525 1650 Balance -315 -1280 3393 Weight 146 lb Intake & Output: Intake & Output 09/29/20 09/30/20 09/30/20 21:59 05:59 13:59 Intake Total 182 868 8692 Output Total 525 1650 Balance -315 -1280 3393 Weight 146 lb Intake: IV 091 809 3033 Sodium Chloride 0.9% 1,000 ml @ 1000 50 mls/hr IV .Q20H [facility] Rx#: [id number] Calcium Gluconate 15 Meq 1933 Magnesium Sulfate 16.24 Meq Sodium Chloride 160 Meq Potassium Chloride 120 Meq Potassium Phosphate 40 Meq In Clinimix 5%-20% Solution 2,000 ml @ 80 mls/hr IV Q24H [facility] Rx#: [id number] Zosyn 3.375 gm In Dextrose 5% 50 50 100 in Water 50 ml @ 100 mls/hr IV Q6H [facility] Rx#:[id number] Oral 240 Output: Urine Catheter Amount 525 1550 Stool 100 Other: Urine Appearance Clear Clear Uretheral (Vincent) Clear Urine Color Bright Yellow Bright Yellow Uretheral (Vincent) Bright Yellow Urine Odor Normal Normal Uretheral (Vincent) Normal Stool Size Large Stool Color Brown Brown Stool Consistency Soft Liquid Head Head exam: Present atraumatic and normocephalic Eye Eye exam: Present EOMI and normal appearance Pupils: Present PERRL ENT ENT exam: Present normal oropharynx Neck Neck exam: Present full ROM; Absent lymphadenopathy Respiratory Respiratory exam: Present accessory muscle use and decreased breath sounds; Absent rales, rhonchi and wheezes Additional comments: patient is ventilated Cardiovascular Cardiovascular exam: Present bradycardia, irregular rhythm, +S1 and +S2; Absent JVD GI/Abdominal GI/Abdominal exam: Present diminished bowel sounds and distended Extremities Exam Extremities exam: Present full ROM and neurovascular intact; Absent pedal edema Neurological Exam Neurological exam: Absent CN II-XII intact and motor sensory deficit Psychiatric Psychiatric exam: Present anxious and normal mood Skin Skin exam: Present intact and normal color; Absent cyanosis and rash A/P Assessment and plan (1) Colostomy status: Status: Acute (2) Chronic blood loss anemia: Status: Acute (3) Malnutrition: Status: Acute Qualifiers: Malnutrition type: unspecified type Qualified Code(s): E46 - U nspecified protein-calorie malnutrition (4) Radiation injury of bowel: Status: Acute Qualifiers: Encounter type: subsequent encounter Qualified Code(s): T66.XXXD - Radiation sickness, unspecified, subsequent encounter (5) Leukocytosis (leucocytosis): Status: Acute Qualifiers: Leukocytosis type: unspecified Qualified Code(s): D72.829 - Elevated white blood cell count, unspecified Narrative A/P Narrative: patient's lung status appears to be stable, though he does have some infiltrate posteriorly in both lung mueller. The leukocytosis is probably related to steroid therapy and discussed with hospitalist who will taper his steroids. His hemoglobin has increased and this suggests decreased blood loss. Discussed long-term placement with case management and they will make arrangements for long-term care Rehabilitation. Time Spent With Patient Time: Total time spent is greater than 50% in coordination of care (as documented) at patient's floor/unit and/or counseling patient:
[2020-09-30] MEDS ORDERED: FAT EMULSION 20% 250 ML in PREMIX 1 BAG IV SCH (16:00)
[2020-10-01] MEDS: PIPERACILLIN SODIUM/TAZOBACTAM 3.375 GM in DEXTROSE 5% IN WATER 50 ML IV SCH ×5 (00:07→23:26)
[2020-10-01] MEDS: METOCLOPRAMIDE 10 MG/2 ML VIAL IV SCH ×4 (05:31→23:27)
[2020-10-01] MEDS: INSULIN LISPRO 1 UNIT/0.01 ML UNIT SQ SCH ×4 (05:33→23:37)
[2020-10-01] MEDS: ACETAMINOPHEN 800 MG/80 ML BAG IV SCH ×3 (06:05→17:36)
[2020-10-01] MEDS: LEVOTHYROXINE 100 MCG VIAL IV SCH (07:20)
--- NOTE | 2020-10-01 07:23 | Internal Med Progress Note ---
SUBJECTIVE Subjective Patient information: Note initiated : 10/01/20 at 7:20 am Service Date, if different from initiated Date: [] Patient: Jose Moulton 50 y/o M admitted on 09/16/20 for weakness, dizziness, failure to thrive. Chief Complaint: [] Principal diagnosis: severe radiation necrosis of rectum.protein calorie malnutrition Interval history: Principal diagnosis: severe radiation necrosis of rectum.protein calorie m alnutrition Interval history: Presents with severe weakness and lightheadedness. Patient states the reason he came in the ED is because he was severely weak and could hardly move around and became lightheaded and get up and move. 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 Was recommended to him to get a diverting colostomy he has not made a decision on that yet. He has not been eating very much for the past couple months because it hurts to go to the bathroom. And especially the past few weeks he is eating hardly anything. He says a couple days ago he had 8 ounces of Slim fast and then nothing for the few days prior to that nothing yesterday. He has had some water and some electrolyte drinks that about it. Denies fevers chills chest pain abdominal pain. In the ED is found to be hyponatremic hypokalemic hypochloremic. An elevated TSH but denies cold intolerance dry skin or constipation. 09/17 Poor sleep. Complains of leg pain and some rectal pain from stooling. States difficulty in urinating. Electrolyte imbalance slowly improving. Patient is supposed to receive a diverting colostomy. Will consult surgery to discuss timing. 09/18 no overnight events or new complaints. Seen by general surgery and scheduled for diverting colostomy on Wednesday. TPN started.. 09/19 Poor sleep. No new complaints. Will be prepped for surgery tomorrow. 09/20-patient seen postop. Doing well. Anxious and appears uncomfortable. On pain management per surgery. Currently on TPN. No fever. White count stable. Stable electrolytes and renal function. 09/21-patient doing well. No overnight events. No concerns per staff. Postop day 2. Managed per surgery. Feels little uncomfortable unable to get a restful night sleep. Ongoing TPN. 09/22-patient doing well postop. Ongoing management per surgery. Continue TPN. Denies overnight events. Minimal anxiety. No additional recommendations from hospitalist service. Case discussed with surgery. At this time hospital service will sign off 09/25-received phone call from Dr. Hardy postoperatively for reconsultation and management of mechanical ventilation/circulatory shock. Patient intubated curre ntly on mechanical ventilation at 100% FiO2. On vasopressors. Patient also received 2 units PRBC transfusion. Levophed 12 mics. Case discussed with anesthesia Julia Sandoval. Patient had over 4500 cc of NG aspirate and possibly aspirated which may explain the profound hypoxemia despite 100% FiO2 on mechanical ventilation. Patient critically ill with Lummi 2 score over 20 and very high risk mortality. Surgery confirms extremely poor prognosis. At this time patient is being transferred to ICU for continued management of mechanical ventilation/circulatory shock and postop care will be managed as per surgery. We will initiate fentanyl/propofol sedation along with continued TPN/vasopressors and crystalloid challenges to keep MAP at goal. Serial electrolytes/blood gases and vent titration will be managed per protocol. Reviewed ABG/chest imaging. Bilateral diffuse airspace disease. Likely aspiration. On empiric antibiotic coverage. ABG 7.1 8/50 on 100% FiO2. Remains critically ill. Surgery discussed patient's critical status with patient's family. Continue mechanical ventilation per protocol 09/26-patient continuing on mechanical ventilation. On midazolam/Versed. Impro jose interval chest infiltrate. On antibiotic coverage. Continue TPN/potassium replacement, potassium 2.7. Off pressors. Will undergo trial of spontaneous breathing/sedation holiday in a.m. Case discussed with surgery. No major telemetry events or concerns per staff. Blood gases stable, white count 5.4, hemoglobin 8.4 additional units transfusion ongoing per surgery. 09/27-favorable rapid shallow breathing index. On PEEP 5/FiO2 35%. Interval chest imaging improving infiltrates. Extubated to nasal cannula. NG output minimal. On TPN. Urine output at goal. Stable labs and hemodynamics excessive potassium at 3 on aggressive replacement. Continue antibiotic coverage. Ostomy output liquid. Postop care ongoing per Surgery. Hematocrit 27 status post 4 units PRBC, elevated LFTs secondary early shock liver. Continue monitoring. 09/28-patient extubated to room air doing well. No overnight events. Ongoing TPN. Potassium replacement ongoing. White count 13.2 on antibiotic coverage. Hemoglobin stable at 10.4 status post 4 unit PRBC transfusion. Stable hemodynamics. Case discussed with surgery. Surgery will attempt patient transfer to tertiary center possibly [facility], NG tube 2000 cc output, colostomy output 600 cc 09/29. Patient doing well. However white count 15.3. Initiate antifungal coverage. Able to ambulate with physical therapies. On TPN. Electrolytes improving. Await further recommendations from surgery regarding transfer to tertiary center. Potassium improved to 4.5., Hemodynamic stable. 09/30-worsening leukocytosis at 20,400. Rule out intra-abdominal process with a CT abdomen pelvis with contrast. Case discussed with surgery. Patient ot herwise doing and feeling better. Stable hemodynamics currently on room air. On antifungal coverage in addition to antibiotics, on IV steroids per surgery. On aggressive electrolyte replacement. Ongoing TPN 10/01 Feeling better every day. Has some ostomy output. Overnight event or new complaints. Pending CBC. Constitutional Vitals: Vital Signs Temp Pulse Resp BP Pulse Ox 98.1 F 48 L 16 119/79 97 10/01/20 04:00 10/01/20 04:00 10/01/20 04:00 10/01/20 04:00 10/01/20 04:00 Period Temp Pulse Resp BP Sys/Greer Pulse Ox Last 24 Hr 98.1 F-99.0 F 48-61 16-16 108-131/77-84 95-97 Intake and Output 09/30/20 10/01/20 10/01/20 21:59 05:59 13:59 Intake Total 470 380 Output Total 2325 Balance -1855 380 Weight 63.82 kg Intake & Output: Intake & Output 09/30/20 10/01/20 10/01/20 21:59 05:59 13:59 Intake Total 470 380 Output Total 2325 Balance -1855 380 Weight 63.82 kg Intake: IV 130 380 Intralipid 20% 250 ml In Premix 250 1 Bag @ 25 mls/hr IV MoWeFr@ 1600 [facility] Rx#:[id number] Zosyn 3.375 gm In Dextrose 5% 50 50 in Water 50 ml @ 100 mls/hr IV Q6H [facility] Rx#:[id number] Oral 340 Output: Urine Catheter Amount 2325 Other: Meal Breakfast Percent of Meal Consumed 50% Feeding Ability Independent Urine Appearance Clear Uretheral (Vincent) Clear Urine Color Dark Yellow Uretheral (Vincent) Dark Yellow Urine Odor Normal Exam: General: Alert, Awake, No acute Distress, cachectic Eyes/N/T: EOMI, Head/Neck: neck supple, CV: RRR, No murmurs, Pulm: Clear b/l, no wheezing/rhonchi/rales Abd: soft, nontender, +BS x4, Ostomy in place Ext: no clubbing/cyanosis/edema Neuro: Alert, no focal deficits, moves all extremities, Skin: warm/dry, OBJ DATA Labs CBC & Chem 7: 09/30/20 07:34 09/30/20 07:34 Labs: Abnormal Lab Results 09/30/20 09/30/20 09/29/20 07:34 07:34 05:13 WBC 20.4 H RBC 4.34 L Hgb 12.4 L Hct 37.6 L RDW 18.3 H Neut % (Auto) 91.6 H Lymph % (Auto) 5.3 L Lymph # (Auto) 1.08 L Absolute Neutrophils 18.65 H Sodium 131 L Anion Gap 7.0 L BUN 21 H Creatinine 0.2 L 0.3 L Glucose 117 H 177 H Uric Acid 0.7 L 0.7 L Calcium 8.2 L 8.0 L Total Bilirubin 2.5 H 2.3 H Direct Bilirubin 2.0 H 1.8 H GGT 256 H 171 H AST 77 H 83 H ALT 288 H 253 H Alkaline Phosphatase 188 H 151 H Lactate Dehydrogenase 248 H Total Protein 4.7 L 4.8 L Albumin 2.5 L 2.0 L Albumin/Globulin Ratio 0.7 L Triglycerides 220 H 169 H 09/29/20 09/28/20 05:13 05:11 WBC 15.2 H RBC 3.79 L Hgb 10.9 L Hct 32.6 L RDW 18.6 H Neut % (Auto) 91.2 H 92.3 H Lymph % (Auto) 5.2 L Lymph # (Auto) 0.79 L Absolute Neutrophils 13.87 H Sodium Anion Gap BUN Creatinine Glucose Uric Acid Calcium Total Bilirubin Direct Bilirubin GGT AST ALT Alkaline Phosphatase Lactate Dehydrogenase Total Protein Albumin Albumin/Globulin Ratio Triglycerides Meds: Medications Albuterol/Ipratropium (Duoneb) 3 ml NEB Q4HP PRN PRN Reason: Shortness Of Breath Alteplase, Recombinant (Cathflo) 2 mg IV PRN PRN PRN Reason: Line Patency Diagnostic Test (Pha) (Accu-Chek) 1 each FS Q6 [facility] Last Admin: 10/01/20 05:33 Dose: 1 each Documented by: Famotidine (Pepcid) 20 mg IV Q12 [facility] Last Admin: 09/30/20 20:29 Dose: 20 mg Documented by: Fentanyl (Duragesic) 50 mcg TOPICAL Q72H [facility] Last Admin: 09/29/20 20:57 Dose: Not Given Documented by: Hydromorphone HCl (Dilaudid) 1 mg IV Q1HP PRN; Protocol PRN Reason: Per Pain Protocol Last Admin: 09/30/20 10:24 Dose: 1 mg Documented by: Sodium Chloride (Sodium Chloride 0.9%) 1,000 mls @ 50 mls/hr IV .Q20H [facility] Last Admin: 09/30/20 10:23 Dose: Not Given Documented by: Acetaminophen (Ofirmev) 800 mg in 80 mls @ 160 mls/hr IV Q6H [facility]; Protocol Last Admin: 10/01/20 06:05 Dose: 160 mls/hr Documented by: Fat Emulsion Intravenous 250 (ml/ Premix) 250 mls @ 25 mls/hr IV MoWeFr@1600 [facility] Last Infusion: 10/01/20 04:55 Dose: Infused Documented by: Heparin Sodium/Sodium Chloride (Heparin/Ns) 500 mls @ 0 mls/hr IV .Q0M [facility]; Protocol Magnesium Sulfate (Magnesium Sulfate) 2 gm in 50 mls @ 50 mls/hr IV UD PRN PRN Reason: Magnesium </= 1.6 Piperacillin Sod/Tazobactam (Sod 3.375 gm/ Dextrose) 50 mls @ 100 mls/hr IV Q6H [facility]; Protocol Last Admin: 10/01/20 05:29 Dose: 100 mls/hr Documented by: Norepinephrine Bitartrate 16 (mg/ Sodium Chloride) 250 mls @ 9.375 mls/hr IV Q24HP PRN; Protocol PRN Reason: Hypotension Potassium Chloride 40 meq/ (Dextrose) 520 mls @ 130 mls/hr IV UD PRN PRN Reason: Potassium < 3 Fluconazole (Diflucan) 400 mg in 200 mls @ 100 mls/hr IV Q24H [facility] Last Infusion: 09/30/20 11:10 Dose: Infused Documented by: Calcium Gluconate 15 meq/Magnesium Sulfate 16.24 meq/Sodium Chloride 200 meq/Potassium Chloride 80 meq/Potassium Phosphate 80 meq/Amino Acids 2,144.4398 mls @ 80 mls/hr IV Q24H [facility] Last Admin: 09/30/20 10:59 Dose: 80 mls/hr Documented by: Insulin Human Lispro (Humalog) 0 unit SQ Q6H [facility]; Protocol Last Admin: 10/01/20 05:33 Dose: Not Given Documented by: Levothyroxine Sodium (Synthroid) 125 mcg IV QAMAC [facility] Last Admin: 09/30/20 09:08 Dose: 125 mcg Documented by: Metoclopramide HCl (Reglan) 10 mg IV Q6 [facility] Last Admin: 10/01/20 05:31 Dose: 10 mg Documented by: Ondansetron HCl (Zofran) 4 mg IV Q4HP PRN PRN Reason: Nausea And Vomiting Sodium Chloride (Saline Flush) 10 ml IV Q12 [facility] Last Admin: 09/30/20 20:30 Dose: 10 ml Documented by: Sodium Chloride (Saline Flush) 10 ml IV UD PRN PRN Reason: FLUSH A/P Narrative A/P Narrative: A: *Sepsis: 2/2 asp pna - Worsening white count yesterday, ?steroid affect -CT a/p no acute per surgery *Aspiration pneumonia: improved *Acute hypoxic respiratory failure: 2/2 aspiration pneumonia. improved, Now on room air *Hypokalemia: improved *Circulatory shock: clinically resolved. Off pressors. Stable hemodynamics. 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 Status post repeat ex lap (09/25) *Severe generalized weakness *Failure to thrive/Severe malnutrition:*Anemia, chronic: *Anxiety: *GERD: *Chronic pain: *Tobacco abuse: *Primary Hypothyroidism: Plan: -Continue antifungal/broad antibiotic coverage as discussed with surgery. -Continue postop management per surgery. -electrolyte replacement -TPN, initiation of oral diet will be as per surgery recommendations. -wound care -Dietary consult, nutritional supplements -started levothyroxine and follow-up with PCP for repeat labs -Smoking cessation counseling -pt/ot -ppx: SCD (heparin stopped d/t rectal bleed from wedable tissue/necrosis upon surgery) Time Spent With Patient Time: Total time spent is greater than 50% in coordination of care (as documented) at patient's floor/unit and/or counseling patient: QUALITY VTE Deep Vein Thrombosis/Pulmonary Embolism Present on Admission: No
[2020-10-01] MEDS: 0.9 % SODIUM CHLORIDE 1,000 ML IV SCH ×3 (07:47→23:26)
[2020-10-01 08:27] LABS: Basophils # (Auto) 0.04 K/mcL (0.00-0.20); Basophils % (Auto) 0.3 % (0.0-2.0); Eosinophils # (Auto) 0.01 K/mcL (0.00-0.70); Eosinophils % (Auto) 0.1 % (0.0-7.0); Hematocrit 35.7 % (41.0-55.0); Hemoglobin 11.8 g/dL (13.5-16.5); Lymphocytes # (Auto) 1.25 K/mcL (1.50-4.80); Lymphocytes % (Auto) 8.6 % (15.0-49.0); Mean Cell Volume 87.7 fL (80.0-100.0); Mean Corpuscular HGB Conc 33.1 g/dL (31.0-36.0); Mean Platelet Volume 9.8 fL (7.4-10.4); Monocytes # (Auto) 0.64 K/mcL (0.10-0.90); Monocytes % (Auto) 4.4 % (1.0-12.0); Platelet Count 359 K/mcL (140-440); RBC 4.07 M/mcL (4.50-5.90); WBC 14.5 K/mcL (4.5-11.0)
[2020-10-01 08:52] LABS: ALT/SGPT 292 U/L (<40); AST/SGOT 99 U/L (<40); Albumin/Globulin Ratio 0.8 (1.0-2.3); Alkaline Phosphatase 218 U/L (39-117); Bilirubin,Direct 1.2 mg/dL (<0.3); Bilirubin,Total 1.7 mg/dL (0.1-1.0); Blood Urea Nitrogen 18 mg/dL (6-20); Calcium 7.7 mg/dL (8.6-10.4); Carbon Dioxide 24 mmol/L (22-30); Chloride 97 mmol/L (96-108); Globulin 2.4 gm/dL (2.2-3.7); Glomerular Filtration Rate 137; Glucose 100 mg/dL (70-105); Lactate Dehydrogenase 301 U/L (135-225); Phosphorous 3.2 mg/dL (2.5-4.5); Triglycerides 273 mg/dL (<150)
[2020-10-01] MEDS: HYDROmorphone 1 MG/ML SYRINGE IV PRN (09:18)
[2020-10-01] MEDS: 0.9 % SODIUM CHLORIDE 10 ML SYRINGE IV SCH ×2 (09:19→21:05)
[2020-10-01] MEDS: FLUCONAZOLE 400 MG/200 ML BAG IV SCH (10:08)
[2020-10-01] MEDS: FAMOTIDINE/PF 20 MG/2 ML VIAL IV SCH ×2 (10:08→21:05)
[2020-10-01 10:24] LABS: Neutrophils % (Auto) 86.6 % (38.0-78.0)
[2020-10-01] MEDS: CALCIUM GLUCONATE IV SCH (11:06)
[2020-10-01] MEDS: SODIUM CHLORIDE IV SCH (11:06)
[2020-10-01] MEDS: MAGNESIUM SULFATE IV SCH (11:06)
[2020-10-01] MEDS: [UNRECOGNIZED DRUG - OTHER] IV SCH (11:06)
--- NOTE | 2020-10-01 15:33 | General Surgery Progress Note ---
SUBJECTIVE Subjective Patient information: Note initiated : 10/01/20 at 3:30 pm Service Date, if different from initiated Date: [] Patient: Jose Moulton 50 y/o M admitted on 09/16/20 for weakness, dizziness, failure to thrive. Chief Complaint: [] Principal diagnosis: severe radiation necrosis of rectum.protein calorie malnutrition Interval history: patient continued to improve. He is bright and alert. He has been afebrile. His stoma is functioning and he is tolerating diet without difficulty. White blood count 14.5, hemoglobin 11.8, hematocrit 35.7, BUN 18, creatinine 0.4 Constitutional Vitals: Vital Signs Temp Pulse Resp BP Pulse Ox 98.4 F 55 L 16 123/81 95 10/01/20 11:58 10/01/20 11:58 10/01/20 11:58 10/01/20 11:58 10/01/20 11:58 Period Temp Pulse Resp BP Sys/Greer Pulse Ox Last 24 Hr 98.1 F-99.0 F 48-60 16-16 108-130/73-84 95-97 Intake and Output 10/01/20 10/01/20 10/01/20 05:59 13:59 21:59 Intake Total 380 3531 50 Output Total 500 Balance 380 3031 50 Weight 140 lb 11.2 oz Patient Weight 10/02/20 05:59 Weight 140 lb 11.2 oz Intake & Output: Intake & Output 10/01/20 10/01/20 10/01/20 05:59 13:59 21:59 Intake Total 380 3531 50 Output Total 500 Balance 380 3031 50 Weight 140 lb 11.2 oz Intake: IV 380 3331 50 Sodium Chloride 0.9% 1,000 ml @ 1000 50 mls/hr IV .Q20H [facility] Rx#: [id number] Calcium Gluconate 15 Meq 1921 0 Magnesium Sulfate 16.24 Meq Sodium Chloride 200 Meq Potassium Chloride 80 Meq Potassium Phosphate 80 Meq In Clinimix 5%-20% Solution 2,000 ml @ 80 mls/hr IV Q24H [facility] Rx#: [id number] Intralipid 20% 250 ml In Premix 250 1 Bag @ 25 mls/hr IV MoWeFr@ 1600 [facility] Rx#:[id number] Zosyn 3.375 gm In Dextrose 5% 50 50 50 in Water 50 ml @ 100 mls/hr IV Q6H [facility] Rx#:[id number] Oral 200 Output: Urine Catheter Amount 500 Other: Meal Breakfast Percent of Meal Consumed 50% Urine Appearance Cloudy Uretheral (Vincent) Clear Urine Color Dark Yellow Uretheral (Vincent) Dark Yellow Urine Odor Normal Head Head exam: Present atraumatic and normocephalic Eye Eye exam: Present EOMI and normal appearance Pupils: Present PERRL ENT ENT exam: Present normal oropharynx Neck Neck exam: Present full ROM; Absent lymphadenopathy Respiratory Respiratory exam: Present accessory muscle use and decreased breath sounds; Absent rales, rhonchi and wheezes Additional comments: patient is ventilated GI/Abdominal GI/Abdominal exam: Present diminished bowel sounds and distended Extremities Exam Extremities exam: Present full ROM and neurovascular intact; Absent pedal edema Back Exam Back exam: Present full ROM and normal inspection A/P Assessment and plan (1) Leukocytosis (leucocytosis): Status: Acute Qualifiers: Leukocytosis type: unspecified Qualified Code(s): D72.829 - Elevated white blood cell count, unspecified (2) Colostomy status: Status: Acute (3) Chronic blood loss anemia: Status: Acute (4) Radiation proctitis: Status: Chronic (5) Chronic constipation: Status: Chronic Narrative A/P Narrative: advanced to regular diet. Continue present therapy Time Spent With Patient Time: Total time spent is greater than 50% in coordination of care (as documented) at patient's floor/unit and/or counseling patient:
[2020-10-01] MEDS: ALPRAZolam 0.25 MG TABLET PO PRN (17:35)
[2020-10-02] MEDS: ACETAMINOPHEN 800 MG/80 ML BAG IV SCH ×5 (00:14→23:56)
[2020-10-02] MEDS: HYDROmorphone 1 MG/ML SYRINGE IV PRN ×4 (01:46→21:05)
[2020-10-02] MEDS: PIPERACILLIN SODIUM/TAZOBACTAM 3.375 GM in DEXTROSE 5% IN WATER 50 ML IV SCH ×4 (05:26→23:57)
[2020-10-02] MEDS: METOCLOPRAMIDE 10 MG/2 ML VIAL IV SCH ×4 (05:33→23:57)
[2020-10-02] MEDS: INSULIN LISPRO 1 UNIT/0.01 ML UNIT SQ SCH ×3 (06:09→17:13)
[2020-10-02 06:35] LABS: Basophils # (Auto) 0.05 K/mcL (0.00-0.20); Basophils % (Auto) 0.4 % (0.0-2.0); Eosinophils # (Auto) 0.13 K/mcL (0.00-0.70); Hematocrit 39.4 % (41.0-55.0); Hemoglobin 12.8 g/dL (13.5-16.5); Lymphocytes # (Auto) 1.27 K/mcL (1.50-4.80); Lymphocytes % (Auto) 9.4 % (15.0-49.0); Mean Cell Volume 88.1 fL (80.0-100.0); Mean Corpuscular HGB Conc 32.5 g/dL (31.0-36.0); Mean Platelet Volume 9.6 fL (7.4-10.4); Monocytes # (Auto) 0.22 K/mcL (0.10-0.90); Monocytes % (Auto) 1.6 % (1.0-12.0); Neutrophils % (Auto) 87.6 % (38.0-78.0); Platelet Count 429 K/mcL (140-440); RBC 4.47 M/mcL (4.50-5.90); Red Cell Distribution Width 18.5 % (11.5-14.5); WBC 13.5 K/mcL (4.5-11.0)
[2020-10-02 07:02] LABS: ALT/SGPT 275 U/L (<40); AST/SGOT 50 U/L (<40); Albumin 2.3 gm/dL (3.2-5.2); Alkaline Phosphatase 234 U/L (39-117); Bilirubin,Direct 1.1 mg/dL (<0.3); Bilirubin,Total 1.6 mg/dL (0.1-1.0); Blood Urea Nitrogen 13 mg/dL (6-20); Calcium 7.9 mg/dL (8.6-10.4); Carbon Dioxide 24 mmol/L (22-30); Chloride 96 mmol/L (96-108); Globulin 2.4 gm/dL (2.2-3.7); Glomerular Filtration Rate 155; Glucose 76 mg/dL (70-105); Lactate Dehydrogenase 199 U/L (135-225); Triglycerides 245 mg/dL (<150); Uric Acid 0.7 mg/dL (2.5-8.0)
--- NOTE | 2020-10-02 07:11 | Internal Med Progress Note ---
SUBJECTIVE Subjective Patient information: Note initiated : 10/02/20 at 7:06 am Service Date, if different from initiated Date: [] Patient: Jose Moulton 50 y/o M admitted on 09/16/20 for weakness, dizziness, failure to thrive. Chief Complaint: [] Principal diagnosis: severe radiation necrosis of rectum.protein calorie malnutrition Interval history: nterval history: Principal diagnosis: severe radiation necrosis of rectum.protein calorie malnutrition Interval history: Presents with severe weakness and lightheadedness. Patient states the reason he came in the ED is because he was severely weak and could hardly move around and became lightheaded and get up and move. 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 Was recommended to him to get a diverting colostomy he has not made a decision on that yet. He has not been eating very much for the past couple months because it hurts to go to the bathroom. And especially the past few weeks he is eating hardly anything. He says a couple days ago he had 8 ounces of Slim fast and then nothing for the few days prior to that nothing yesterday. He has had some water and some electrolyte drinks that about it. Denies fevers chills chest pain abdominal pain. In the ED is found to be hyponatremic hypokalemic hypochloremic. An elevated TSH but denies cold intolerance dry skin or constipation. 09/17 Poor sleep. Complains of leg pain and some rectal pain from stooling. States difficulty in urinating. Electrolyte imbalance slowly improving. Patient is supposed to receive a diverting colostomy. Will consult surgery to discuss timing. 09/18 no overnight events or new complaints. Seen by general surgery and scheduled for diverting colostomy on Wednesday. TPN started.. 09/19 Poor sleep. No new complaints. Will be prepped for surgery tomorrow. 09/20-patient seen postop. Doing well. Anxious and appears uncomfortable. On pain management per surgery. Currently on TPN. No fever. White count stable. Stable electrolytes and renal function. 09/21-patient doing well. No overnight events. No concerns per staff. Postop day 2. Managed per surgery. Feels little uncomfortable unable to get a restful night sleep. Ongoing TPN. 09/22-patient doing well postop. Ongoing management per surgery. Continue TPN. Denies overnight events. Minimal anxiety. No additional recommendations from hospitalist service. Case discussed with surgery. At this time hospital service will sign off 09/25-received phone call from Dr. Hardy postoperatively for reconsultation and management of mechanical ventilation/circulatory shock. Patient intubated currently on mechanical ventilation at 100% FiO2. On vasopressors. Patient also received 2 units PRBC transfusion. Levophed 12 mics. Case discussed with anesthesia Julia Sandoval. Patient had over 4500 cc of NG aspirate and possibly aspirated which may explain the profound hypoxemia despite 100% FiO2 on mechanical ventilation. Patient critically ill with [place] 2 score over 20 and very high risk mortality. Surgery confirms extremely poor prognosis. At this time patient is being transferred to ICU for continued management of mechanical ventilation/circulatory shock and postop care will be managed as per surgery. We will initiate fentanyl/propofol sedation along with continued TPN/vasopressors and crystalloid challenges to keep MAP at goal. Serial electrolytes/blood gases and vent titration will be managed per protocol. Reviewed ABG/chest imaging. Bilateral diffuse airspace disease. Likely aspiration. On empiric antibiotic coverage. ABG 7.1 /50 on 100% FiO2. R emains critically ill. Surgery discussed patient's critical status with patient's family. Continue mechanical ventilation per protocol 09/26-patient continuing on mechanical ventilation. On midazolam/Versed. Improved interval chest infiltrate. On antibiotic coverage. Continue TPN/potassium replacement, potassium 2.7. Off pressors. Will undergo trial of spontaneous breathing/sedation holiday in a.m. Case discussed with surgery. No major telemetry events or concerns per staff. Blood gases stable, white count 5.4, hemoglobin 8.4 additional units transfusion ongoing per surgery. 09/27-favorable rapid shallow breathing index. On PEEP 5/FiO2 35%. Interval chest imaging improving infiltrates. Extubated to nasal cannula. NG output minimal. On TPN. Urine output at goal. Stable labs and hemodynamics excessive potassium at 3 on aggressive replacement. Continue antibiotic coverage. Ostomy output liquid. Postop care ongoing per Surgery. Hematocrit 27 status post 4 units PRBC, elevated LFTs secondary early shock liver. Continue monitoring. 09/28-patient extubated to room air doing well. No overnight events. Ongoing TPN. Potassium replacement ongoing. White count 13.2 on antibiotic coverage. Hemoglobin stable at 10.4 status post 4 unit PRBC transfusion. Stable hemod ynamics. Case discussed with surgery. Surgery will attempt patient transfer to tertiary center possibly [facility], NG tube 2000 cc output, colostomy output 600 cc 09/29. Patient doing well. However white count 15.3. Initiate antifungal coverage. Able to ambulate with physical therapies. On TPN. Electrolytes improving. Await further recommendations from surgery regarding transfer to tertiary center. Potassium improved to 4.5., Hemodynamic stable. 09/30-worsening leukocytosis at 20,400. Rule out intra-abdominal process with a CT abdomen pelvis with contrast. Case discussed with surgery. Patient otherwise doing and feeling better. Stable hemodynamics currently on room air. On antifungal coverage in addition to antibiotics, on IV steroids per surgery. On aggressive electrolyte replacement. Ongoing TPN 10/01 Feeling better every day. Has some ostomy output. Overnight event or new complaints. Pending CBC. 10/02 Continues to feel better. Diet increased. No overnight events or new complaints. Review of Systems: denies headache/fever/chills/nausea/vomiting/chest or abdominal pain/cough/dyspnea. Otherwise see above. Constitutional Vitals: Vital Signs Temp Pulse Resp BP Pulse Ox 98.0 F 74 16 112/74 94 10/02/20 04:00 10/02/20 04:00 10/02/20 04:00 10/02/20 04:00 10/02/20 04:00 Period Temp Pulse Resp BP Sys/Greer Pulse Ox Last 24 Hr 98.0 F-99.3 F 50-74 16-20 95-124/71-81 93-97 Intake and Output 10/01/20 10/02/20 10/02/20 21:59 05:59 13:59 Intake Total 680 130 80 Output Total 3300 1800 600 Balance -2620 1670 -520 Weight 63.412 kg Intake & Output: Intake & Output 10/01/20 10/02/20 10/02/20 21:59 05:59 13:59 Intake Total 680 130 80 Output Total 3300 1800 600 Balance -2620 -1670 -520 Weight 63.412 kg Intake: IV 180 130 80 Calcium Gluconate 15 Meq 0 Magnesium Sulfate 16.24 Meq Sodium Chloride 200 Meq Potassium Chloride 80 Meq Potassium Phosphate 80 Meq In Clinimix 5%-20% Solution 2,000 ml @ 80 mls/hr IV Q24H [facility] Rx#: [id number] Zosyn 3.375 gm In Dextrose 5% 100 50 in Water 50 ml @ 100 mls/hr IV Q6H [facility] Rx#:[id number] Oral 500 Output: Urine Catheter Amount 3300 1800 600 Other: Meal Dinner Percent of Meal Consumed 25% Feeding Ability Independent Urine Appearance Clear Clear Clear Uretheral (Loyd) Clear Urine Color Bright Yellow Bright Yellow Bright Yellow Uretheral (Loyd) Bright Yellow Urine Odor Normal Normal Uretheral (Loyd) Normal Stool Size Small Stool Color Brown Brown Stool Consistency Liquid Liquid # of times incontinent of 1 Bowels Exam: General: Alert, Awake, No acute Distress, cachectic Eyes/N/T: EOMI, Head/Neck: neck supple, CV: RRR, No murmurs, Pulm: Clear b/l, no wheezing/rhonchi/rales Abd: soft, nontender, +BS x4, Ostomy in place with output Ext: no clubbing/cyanosis/edema Neuro: Alert, no focal deficits, moves all extremities, Skin: warm/dry, OBJ DATA Labs CBC & Chem 7: 10/02/20 05:23 10/02/20 05:23 Labs: Abnormal Lab Results 10/02/20 10/02/20 10/01/20 05:23 05:23 07:43 WBC 13.5 H RBC 4.47 L Hgb 12.8 L Hct 39.4 L RDW 18.5 H Neut % (Auto) 87.6 H Lymph % (Auto) 9.4 L Lymph # (Auto) 1.27 L Absolute Neutrophils 11.82 H Sodium 130 L 128 L Anion Gap 7.0 L Creatinine 0.3 L 0.4 L Glucose Uric Acid 0.7 L 1.0 L Calcium 7.9 L 7.7 L Total Bilirubin 1.6 H 1.7 H Direct Bilirubin 1.1 H 1.2 H GGT 417 H 356 H AST 50 H 99 H ALT 275 H 292 H Alkaline Phosphatase 234 H 218 H Lactate Dehydrogenase 301 H Total Protein 4.7 L 4.4 L Albumin 2.3 L 2.0 L Albumin/Globulin Ratio 0.8 L Triglycerides 245 H 273 H 10/01/20 09/30/20 09/30/20 07:43 07:34 07:34 WBC 14.5 H 20.4 H RBC 4.07 L 4.34 L Hgb 11.8 L 12.4 L Hct 35.7 L 37.6 L RDW 18.0 H 18.3 H Neut % (Auto) 86.6 H 91.6 H Lymph % (Auto) 8.6 L 5.3 L Lymph # (Auto) 1.25 L 1.08 L Absolute Neutrophils 12.59 H 18.65 H Sodium 131 L Anion Gap Creatinine 0.2 L Glucose 117 H Uric Acid 0.7 L Calcium 8.2 L Total Bilirubin 2.5 H Direct Bilirubin 2.0 H GGT 256 H AST 77 H ALT 288 H Alkaline Phosphatase 188 H Lactate Dehydrogenase 248 H Total Protein 4.7 L Albumin 2.5 L Albumin/Globulin Ratio Triglycerides 220 H Meds: Medications Albuterol/Ipratropium (Duoneb) 3 ml NEB Q4HP PRN PRN Reason: Shortness Of Breath Alprazolam (Xanax) 0.25 mg PO TIDP PRN PRN Reason: Anxiety Last Admin: 10/01/20 17:35 Dose: 0.25 mg Documented by: Alteplase, Recombinant (Cathflo) 2 mg IV PRN PRN PRN Reason: Line Patency Diagnostic Test (Pha) (Accu-Chek) 1 each FS Q6 [facility] Last Admin: 10/02/20 06:09 Dose: 1 each Documented by: Famotidine (Pepcid) 20 mg IV Q12 [facility] Last Admin: 10/01/20 21:05 Dose: 20 mg Documented by: Fentanyl (Duragesic) 50 mcg TOPICAL Q72H [facility] Last Admin: 09/29/20 20:57 Dose: Not Given Documented by: Heparin Sodium (Porcine) (Heparin 10 Units/Ml Flush) 2 ml IV Q12 [facility] Last Admin: 10/01/20 21:44 Dose: 2 ml Documented by: Hydromorphone HCl (Dilaudid) 1 mg IV Q1HP PRN; Protocol PRN Reason: Per Pain Protocol Last Admin: 10/02/20 01:46 Dose: 1 mg Documented by: Acetaminophen (Ofirmev) 800 mg in 80 mls @ 160 mls/hr IV Q6H [facility]; Protocol Last Infusion: 10/02/20 06:09 Dose: Infused Documented by: Heparin Sodium/Sodium Chloride (Heparin/Ns) 500 mls @ 0 mls/hr IV .Q0M [facility]; Protocol Magnesium Sulfate (Magnesium Sulfate) 2 gm in 50 mls @ 50 mls/hr IV UD PRN PRN Reason: Magnesium </= 1.6 Piperacillin Sod/Tazobactam (Sod 3.375 gm/ Dextrose) 50 mls @ 100 mls/hr IV Q6H [facility]; Protocol Last Admin: 10/02/20 05:26 Dose: 100 mls/hr Documented by: Norepinephrine Bitartrate 16 (mg/ Sodium Chloride) 250 mls @ 9.375 mls/hr IV Q24HP PRN; Protocol PRN Reason: Hypotension Potassium Chloride 40 meq/ (Dextrose) 520 mls @ 130 mls/hr IV UD PRN PRN Reason: Potassium < 3 Calcium Gluconate 15 meq/Magnesium Sulfate 16.24 meq/Sodium Chloride 240 meq/Potassium Chloride 80 meq/Potassium Phosphate 80 meq/Amino Acids 2,154.4398 mls @ 80 mls/hr IV Q24H [facility] Last Admin: 10/01/20 11:06 Dose: 80 mls/hr Documented by: Sodium Chloride (Sodium Chloride 0.9%) 1,000 mls @ 20 mls/hr IV .Q24H [facility] Last Admin: 10/01/20 23:26 Dose: 20 mls/hr Documented by: Fat Emulsion Intravenous 250 (ml/ Premix) 250 mls @ 25 mls/hr IV MoFr@1600 [facility] Fluconazole (Diflucan) 400 mg in 200 mls @ 100 mls/hr IV DAILY@1000 [facility] Insulin Human Lispro (Humalog) 0 unit SQ Q6H [facility]; Protocol Last Admin: 10/02/20 06:09 Dose: Not Given Documented by: Levothyroxine Sodium (Synthroid) 100 mcg IV QAMAC [facility] Last Admin: 10/01/20 07:20 Dose: 100 mcg Documented by: Metoclopramide HCl (Reglan) 10 mg IV Q6 [facility] Last Admin: 10/02/20 05:33 Dose: 10 mg Documented by: Ondansetron HCl (Zofran) 4 mg IV Q4HP PRN PRN Reason: Nausea And Vomiting Sodium Chloride (Saline Flush) 10 ml IV Q12 [facility] Last Admin: 10/01/20 21:05 Dose: 10 ml Documented by: Sodium Chloride (Saline Flush) 10 ml IV UD PRN PRN Reason: FLUSH A/P Narrative A/P Narrative: A: *Sepsis: 2/2 asp pna -CT a/p no acute per surgery -leukocytosis improved *Aspiration pneumonia: improved *Acute hypoxic respiratory failure: 2/2 aspiration pneumonia. improved, Now on room air *Hypokalemia: improved *Circulatory shock: clinically resolved. Off pressors. Stable hemodynamics. 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 Status post repeat ex lap (09/25) *pelvic erosion d/t radiation including through prostate: likely will need supra pubic cath *Severe generalized weakness *Failure to thrive/Severe malnutrition: *Anemia, chronic: *Anxiety: *GERD: *Chronic pain: *Tobacco abuse: *Primary Hypothyroidism: *Transaminitis: likely 2/2 tpn Plan: -Continue antifungal/broad antibiotic coverage as discussed with surgery. -Continue postop management per surgery. -electrolyte replacement -TPN/oral diet per surgery -wound care -maintain loyd, likely will need suprapubic cath, f/u with [facility] ([facility]) -Dietary consult, nutritional supplements -started levothyroxine and follow-up with PCP for repeat labs -Smoking cessation counseling -pt/ot -CM for placement to [facility] -ppx: SCD (heparin stopped d/t rectal bleed from friable tissue/necrosis upon surgery)/pepcid Time Spent With Patient Time: Total time spent is greater than 50% in coordination of care (as documented) at patient's floor/unit and/or counseling patient: QUALITY VTE Deep Vein Thrombosis/Pulmonary Embolism Present on Admission: No
[2020-10-02] MEDS: LEVOTHYROXINE 100 MCG VIAL IV SCH (07:27)
[2020-10-02] MEDS: 0.9 % SODIUM CHLORIDE 10 ML SYRINGE IV SCH ×2 (08:11→20:04)
[2020-10-02] MEDS: FAMOTIDINE/PF 20 MG/2 ML VIAL IV SCH ×2 (08:11→20:44)
[2020-10-02] MEDS: FLUCONAZOLE 400 MG/200 ML BAG IV SCH (09:54)
[2020-10-02] MEDS: [UNRECOGNIZED DRUG - OTHER] IV SCH (11:05)
[2020-10-02] MEDS: CALCIUM GLUCONATE IV SCH (11:05)
[2020-10-02] MEDS: MAGNESIUM SULFATE IV SCH (11:05)
[2020-10-02] MEDS: SODIUM CHLORIDE IV SCH (11:05)
--- NOTE | 2020-10-02 11:50 | Discharge Summary ---
Discharge Provider Provider Patient information: Note initiated : 10/02/20 at 11:46 am Service Date, if different from initiated Date: [] Patient: Jose Moulton 50 y/o M admitted on 09/16/20 for weakness, dizziness, failure to thrive. Chief Complaint: [] Date of admission: 09/16/20 21:58 Discharge date: 10/04/20 Primary care physician: Jose Watkins DO Consults: 09/16/20 Consult to Physician [CONS] Stat Comment: Consulting Provider: Pravin Salvador Reason For Exam: Physician to Consult 09/17/20 08:21 Consult to Physician [CONS] Routine Comment: Consulting Provider: Bud Hardy Reason For Exam: Physician to Consult Discharge Meds Discharge Medications Home Medications omeprazole 40 mg capsule,delayed release 40 mg PO DAILY cap 03/22/18 [History Confirmed 09/16/20 Last Taken 09/15/20 08:00] clotrimazole 10 mg nico 10 mg MUCOUS MEM TID PRN 03/28/20 [History Confirmed 09/16/20 Last Taken 09/15/20 21:00] vitamin E (dl, acetate) 400 unit capsule 400 unit PO QDAY 03/28/20 [History Confirmed 09/16/20 Last Taken 09/15/20 09:00] loratadine 10 mg PO DAILY 06/17/20 [History Confirmed 09/16/20 Last Taken 09/15/20 08:00] potassium chloride 20 mEq tablet,extended release 20 meq PO BID #60 tab 06/17/20 [Rx Confirmed 09/16/20 Last Taken 08/12/20] tamsulosin 0.4 mg capsule 0.8 mg PO QHS #180 cap 07/29/20 [Rx Confirmed 09/16/20 Last Taken 09/15/20 21:00] fentanyl 50 mcg/hr transdermal patch 1 patch TRANSDERMA Q72H #10 each 08/15/20 [Rx Confirmed 09/16/20 Last Taken 09/15/20 10:00] hydrocodone 10 mg-acetaminophen 325 mg tablet 1 tab PO Q8H PRN #90 tab 08/26/20 [Rx Confirmed 09/16/20 Last Taken 09/16/20 06:00] alprazolam [Xanax] 0.25 mg PO TID PRN 09/16/20 [History Confirmed 09/16/20 Last Taken 09/09/20] amoxicillin-pot clavulanate [Augmentin] 1 tab PO BID #4 tab 10/03/20 [Rx Last Taken Unknown] levothyroxine 100 mcg PO QAMAC #30 tab 10/03/20 [Rx Last Taken Unknown] COURSE Hospital Course Hospital course: Principal diagnosis: severe radiation necrosis of rectum.protein calorie malnutrition Interval history: Presents with severe weakness and lightheadedness. Patient states the reason he came in the ED is because he was severely weak and could hardly move around and became lightheaded and get up and move. 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 Was recommended to him to get a diverting colostomy he has not made a decision on that yet. He has not been eating very much for the past couple months because it hurts to go to the bathroom. And especially the past few weeks he is eating hardly anything. He says a couple days ago he had 8 ounces of Slim fast and then nothing for the few days prior to that nothing yesterday. He has had some water and some electrolyte drinks that about it. Denies fevers chills chest pain abdominal pain. In the ED is found to be hyponatremic hypokalemic hypochloremic. An elevated TSH but denies cold intolerance dry skin or constipation. 09/17 Poor sleep. Complains of leg pain and some rectal pain from stooling. States difficulty in urinating. Electrolyte imbalance slowly improving. Patient is supposed to receive a diverting colostomy. Will consult surgery to discuss timing. 09/18 no overnight events or new complaints. Seen by general surgery and scheduled for diverting colostomy on Wednesday. TPN started.. 09/19 Poor sleep. No new complaints. Will be prepped for surgery tomorrow. 09/20-patient seen postop. Doing well. Anxious and appears uncomfortable. On pain management per surgery. Currently on TPN. No fever. White count stable. Stable electrolytes and renal function. 09/21-patient doing well. No overnight events. No concerns per staff. Postop day 2. Managed per surgery. Feels little uncomfortable unable to get a restful night sleep. Ongoing TPN. 09/22-patient doing well postop. Ongoing management per surgery. Continue TPN. Denies overnight events. Minimal anxiety. No additional recommendations from hospitalist service. Case discussed with surgery. At this time [facility] will sign off 09/25-received phone call from Dr. Hardy postoperatively for reconsultation and management of mechanical ventilation/circulatory shock. Patient intubated currently on mechanical ventilation at 100% FiO2. On vasopressors. Patient also received 2 units PRBC transfusion. Levophed 12 mics. Case discussed with anesthesia Julia Sandoval. Patient had over 4500 cc of NG aspirate and possibly aspirated which may explain the profound hypoxemia despite 100% FiO2 on mechanical ventilation. Patient critically ill with Huron 2 score over 20 and very high risk mortality. Surgery confirms extremely poor prognosis. At this time patient is being transferred to ICU for continued management of mechanical ventilation/circulatory shock and postop care will be managed as per surgery. We will initiate fentanyl/propofol sedation along with continued TPN/vasopressors and crystalloid challenges to keep MAP at goal. Serial electrolytes/blood gases and vent titration will be managed per protocol. Reviewed ABG/chest imaging. Bilateral diffuse airspace disease. Likely aspiration. On empiric antibiotic coverage. ABG 7.1 /50 on 100% FiO2. Remains critically ill. Surgery discussed patient's critical status with patient's family. Continue mechanical ventilation per protocol 09/26-patient continuing on mechanical ventilation. On midazolam/Versed. Improved interval chest infiltrate. On antibiotic coverage. Continue TPN/potassium replacement, potassium 2.7. Off pressors. Will undergo trial of spontaneous breathing/sedation holiday in a.m. Case discussed with surgery. No major telemetry events or concerns per staff. Blood gases stable, white count 5.4, hemoglobin 8.4 additional units transfusion ongoing per surgery. 09/27-favorable rapid shallow breathing index. On PEEP 5/FiO2 35%. Interval chest imaging improving infiltrates. Extubated to nasal cannula. NG output minimal. On TPN. Urine output at goal. Stable labs and hemodynamics excessive potassium at 3 on aggressive replacement. Continue antibiotic coverage. Ostomy output liquid. Postop care ongoing per Surgery. Hematocrit 27 status post 4 units PRBC, elevated LFTs secondary early shock liver. Continue monitoring. 09/28-patient extubated to room air doing well. No overnight events. Ongoing TPN. Potassium replacement ongoing. White count 13.2 on antibiotic coverage. Hemoglobin stable at 10.4 status post 4 unit PRBC transfusion. Stable hemodynamics. Case discussed with surgery. Surgery will attempt patient transfer to tertiary center possibly Vi, NG tube 2000 cc output, colostomy output 600 cc 09/29. Patient doing well. However white count 15.3. Initiate antifungal coverage. Able to ambulate with physical therapies. On TPN. Electrolytes improving. Await further recommendations from surgery regarding transfer to tertiary center. Potassium improved to 4.5., Hemodynamic stable. 09/30-worsening leukocytosis at 20,400. Rule out intra-abdominal process with a CT abdomen pelvis with contrast. Case discussed with surgery. Patient otherwise doing and feeling better. Stable hemodynamics currently on room air. On antifungal coverage in addition to antibiotics, on IV steroids per surgery. On aggressive electrolyte replacement. Ongoing TPN 10/01 Feeling better every day. Has some ostomy output. Overnight event or new complaints. Pending CBC. 10/02 Continues to feel better. Diet increased. No overnight events or new complaints. 10/03 Tolerating increased diet. Good ostomy output. No new complaints. 10/04 Stable for discharge. Doing well. A: *Severe electrolyte abnormalities 2/2 poor oral intake/volume depletion 2/2 pain from radiation proctocolitis: *Circulatory shock: clinically resolved. Off pressors. Stable hemodynamics. *Severe generalized weakness *Failure to thrive/Severe malnutrition: *Sepsis: 2/2 asp pna *Aspiration pneumonia: improved *Acute hypoxic respiratory failure: 2/2 aspiration pneumonia. improved, Now on room air *Acute blood loss anemia on chronic: 2/2 hemorrhage from necrotic tissue during surgery *Radiation proctocolitis: 2/2 radiation for prostate cancer. Status post repeat ex lap (09/25) *pelvic erosion d/t radiation including through prostate: likely will need suprapubic cath *Anxiety: *GERD: *Chronic pain: *Tobacco abuse: *Primary Hypothyroidism: *Transaminitis: likely 2/2 tpnwean off Discharge diagnosis: Malnutrition electrolyte abnormalities pelvic tissue erosion from prior rad Secondary discharge diagnosis: Pelvic tissue erosion from prior radiation therapy radiation proximal to colitis electrolyte abnormalities severe malnutrition failure to thrive generalized weakness. Hypotension volume depletion chronic anemia anxiety GERD chronic pain tobacco abuse primary hypothyroidism Time Spent with Patient Time attestation: Total time spent providing and/or coordinating discharge services: Time spent: Greater than 30 minutes EXAM Constitutional Vitals: Temp Pulse Resp BP Pulse Ox 98.1 F 68 16 105/74 95 10/02/20 08:00 10/02/20 08:00 10/02/20 08:00 10/02/20 08:00 10/02/20 08:00 Discharge Data Data Completed and Pending Labs on day of discharge: Labs from last 24 hours 10/02/20 10/02/20 05:23 05:23 WBC 13.5 H RBC 4.47 L Hgb 12.8 L Hct 39.4 L MCV 88.1 MCH 28.6 MCHC 32.5 RDW 18.5 H Plt Count 429 MPV 9.6 Neut % (Auto) 87.6 H Lymph % (Auto) 9.4 L Preston % (Auto) 1.6 Eos % (Auto) 1.0 Baso % (Auto) 0.4 Lymph # (Auto) 1.27 L Preston # (Auto) 0.22 Eos # (Auto) 0.13 Baso # (Auto) 0.05 Absolute Neutrophils 11.82 H Sodium 130 L Potassium 4.8 Chloride 96 Carbon Dioxide 24 Anion Gap 10.0 BUN 13 Creatinine 0.3 L GFR Calculation 155 Glucose 76 Uric Acid 0.7 L Calcium 7.9 L Phosphorus 3.0 Magnesium 2.2 Total Bilirubin 1.6 H Direct Bilirubin 1.1 H GGT 417 H AST 50 H ALT 275 H Alkaline Phosphatase 234 H Lactate Dehydrogenase 199 Total Protein 4.7 L Albumin 2.3 L Globulin 2.4 Albumin/Globulin Ratio 1.0 Triglycerides 245 H Discharge Plan Patient/Caregiver Discharge Instructions Activity: increase activity as tolerated Diet: Regular Diet Activity Restrictions/Additional Instructions: Will need f/u with Urology, likely needs suprapubic catheter given erosion of tract from prior radiation therapy. Surgeon would like TPN for another 30-days or until albumin approaches normal. rashel to be removed in 7-days. Follow-up with wound care, PT/OT, Nutrition. Follow-up PCP regarding thyroid function tests follow-up. Prescriptions: New levothyroxine 100 mcg Tablet 100 mcg PO QAMAC Qty: 30 RF: 0 amoxicillin-pot clavulanate [Augmentin] 875-125 mg tablet 1 tab PO BID Qty: 4 RF: 0 Continued tamsulosin 0.4 mg capsule 0.8 mg PO QHS Qty: 180 RF: 1 fentanyl 50 mcg/hr patch 72 hour 1 patch TRANSDERMA Q72H Qty: 10 RF: 0 hydrocodone-acetaminophen [Brumley] 10-325 mg tablet 1 tab PO Q8H PRN (Reason: pain) Qty: 90 RF: 0 vitamin E (dl, acetate) 400 unit capsule 400 unit PO QDAY RF: 0 clotrimazole 10 mg nico 10 mg MUCOUS MEM TID PRN (Reason: Mouth Pain) RF: 0 loratadine 10 mg PO DAILY RF: 0 potassium chloride 20 mEq tablet extended release 20 meq PO BID Qty: 60 RF: 2 alprazolam [Xanax] 1 mg tablet 0.25 mg PO TID PRN (Reason: Anxiety) RF: 0 omeprazole 40 mg capsule,delayed release(DR/EC) 40 mg PO DAILY RF: 0 Follow Up Plan Follow up with: Jose Watkins DO [Primary Care Provider] - Bud Hardy MD [Physician] - Patient Disposition: Xfer [facility] Prognosis: Undetermined Rehab Potential: Fair I certify that the patient requires SNF services: Yes Overall status at discharge: patient is progressing back to baseline Discharge Orders: Discharge Order (Routine); Ordered 10/04/20 [facility]/Pulmonary Embolism Present on Admission: No
--- NOTE | 2020-10-02 12:58 | General Surgery Progress Note ---
SUBJECTIVE Subjective Patient information: Note initiated : 10/02/20 at 12:50 pm Service Date, if different from initiated Date: [] Patient: Jose Moulton 50 y/o M admitted on 09/16/20 for weakness, dizziness, failure to thrive. Chief Complaint: [] Principal diagnosis: severe radiation necrosis of rectum.protein calorie malnutrition Interval history: patient continues to improve his oral intake is minimal. His pain is controlled. He denies nausea. He has been afebrile and his white blood count is 13.5. Hemoglobin 12.8, hematocrit 39.4, sodium 1:30, BUN 13, creatinine 0.3.. Constitutional Vitals: Vital Signs Temp Pulse Resp BP Pulse Ox 98.1 F 68 18 105/74 95 10/02/20 08:00 10/02/20 08:00 10/02/20 08:00 10/02/20 08:00 10/02/20 08:00 Period Temp Pulse Resp BP Sys/Greer Pulse Ox Last 24 Hr 98.0 F-99.3 F 60-74 16-20 95-117/71-80 93-96 Intake and Output 10/01/20 10/02/20 10/02/20 21:59 05:59 13:59 Intake Total 335 329 8045 Output Total 3300 1800 600 Balance -2620 -1670 1859 Weight 139 lb 12.8 oz Intake & Output: Intake & Output 10/01/20 10/02/20 10/02/20 21:59 05:59 13:59 Intake Total 361 405 4217 Output Total 3300 1800 600 Balance -2620 -1670 1859 Weight 139 lb 12.8 oz Intake: IV 103 192 5729 Sodium Chloride 0.9% 1,000 ml @ 170 20 mls/hr IV .Q24H KSENIA Rx#: [id number] Calcium Gluconate 15 Meq 0 1919 Magnesium Sulfate 16.24 Meq Sodium Chloride 240 Meq Potassium Chloride 80 Meq Potassium Phosphate 80 Meq In Clinimix 5%-20% Solution 2,000 ml @ 80 mls/hr IV Q24H KSENIA Rx#: [id number] Zosyn 3.375 gm In Dextrose 5% 100 50 50 in Water 50 ml @ 100 mls/hr IV Q6H KSENIA Rx#:[id number] Oral 500 240 Output: Urine Catheter Amount 3300 1800 600 Other: Meal Dinner Breakfast Percent of Meal Consumed 25% 75% Feeding Ability Independent Urine Appearance Clear Clear Clear Uretheral (Vincent) Clear Clear Urine Color Bright Yellow Bright Yellow Bright Yellow Uretheral (Vincent) Bright Yellow Bright Yellow Urine Odor Normal Normal Normal Uretheral (Vincent) Normal Normal Stool Size Small Small Stool Color Brown Brown Brown Stool Consistency Liquid Liquid Liquid # of times incontinent of 1 Bowels Head Head exam: Present atraumatic and normocephalic Eye Eye exam: Present EOMI and normal appearance Pupils: Present PERRL ENT ENT exam: Present normal oropharynx Neck Neck exam: Present full ROM; Absent lymphadenopathy Respiratory Respiratory exam: Present accessory muscle use and decreased breath sounds; Absent rales, rhonchi and wheezes Additional comments: patient is ventilated Cardiovascular Cardiovascular exam: Present bradycardia, irregular rhythm, +S1 and +S2; Absent JVD GI/Abdominal GI/Abdominal exam: Present diminished bowel sounds and distended Extremities Exam Extremities exam: Present full ROM and neurovascular intact; Absent pedal edema Neurological Exam Neurological exam: Absent CN II-XII intact and motor sensory deficit Psychiatric Psychiatric exam: Present anxious and normal mood Skin Skin exam: Present intact and normal color; Absent cyanosis and rash A/P Assessment and plan (1) Colostomy status: Status: Acute (2) Chronic blood loss anemia: Status: Acute (3) Chronic constipation: Status: Chronic Narrative A/P Narrative: continue present therapy. Make arrangements for TPN at time of discharge Time Spent With Patient Time: Total time spent is greater than 50% in coordination of care (as documented) at patient's floor/unit and/or counseling patient:
[2020-10-02] MEDS: fentaNYL 50 MCG PATCH TOPICAL SCH (20:42)
[2020-10-03] MEDS: INSULIN LISPRO 1 UNIT/0.01 ML UNIT SQ SCH ×4 (00:05→18:02)
[2020-10-03] MEDS: PIPERACILLIN SODIUM/TAZOBACTAM 3.375 GM in DEXTROSE 5% IN WATER 50 ML IV SCH ×3 (05:52→18:03)
[2020-10-03] MEDS: ACETAMINOPHEN 800 MG/80 ML BAG IV SCH ×3 (05:53→18:02)
[2020-10-03] MEDS: METOCLOPRAMIDE 10 MG/2 ML VIAL IV SCH ×3 (05:54→18:02)
[2020-10-03] MEDS: 0.9 % SODIUM CHLORIDE 10 ML SYRINGE IV SCH ×3 (05:54→21:40)
[2020-10-03 06:54] LABS: ALT/SGPT 276 U/L (<40); AST/SGOT 61 U/L (<40); Albumin 2.3 gm/dL (3.2-5.2); Albumin/Globulin Ratio 0.8 (1.0-2.3); Alkaline Phosphatase 302 U/L (39-117); Bilirubin,Direct 0.8 mg/dL (<0.3); Bilirubin,Total 1.3 mg/dL (0.1-1.0); Blood Urea Nitrogen 15 mg/dL (6-20); Carbon Dioxide 24 mmol/L (22-30); Chloride 97 mmol/L (96-108); Globulin 2.8 gm/dL (2.2-3.7); Glomerular Filtration Rate 137; Glucose 83 mg/dL (70-105); Lactate Dehydrogenase 199 U/L (135-225); Phosphorous 2.8 mg/dL (2.5-4.5); Triglycerides 222 mg/dL (<150); Uric Acid 0.8 mg/dL (2.5-8.0)
[2020-10-03] MEDS ORDERED: LEVOTHYROXINE 88 MCG TABLET PO SCH ×2 (07:30)
--- NOTE | 2020-10-03 07:43 | Internal Med Progress Note ---
SUBJECTIVE Subjective Patient information: Note initiated : 10/03/20 at 7:36 am Service Date, if different from initiated Date: [] Patient: Jose Moulton 50 y/o M admitted on 09/16/20 for weakness, dizziness, failure to thrive. Chief Complaint: [] Principal diagnosis: severe radiation necrosis of rectum.protein calorie malnutrition Interval history: Principal diagnosis: severe radiation necrosis of rectum.protein calorie m alnutrition Interval history: nterval history: Principal diagnosis: severe radiation necrosis of rectum.protein calorie malnutrition Interval history: Presents with severe weakness and lightheadedness. Patient states the reason he came in the ED is because he was severely weak and could hardly move around and became lightheaded and get up and move. 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 Was recommended to him to get a diverting colostomy he has not made a decision on that yet. He has not been eating very much for the past couple months because it hurts to go to the bathroom. And especially the past few weeks he is eating hardly anything. He says a couple days ago he had 8 ounces of Slim fast and then nothing for the few days prior to that nothing yesterday. He has had some water and some electrolyte drinks that about it. Denies fevers chills chest pain abdominal pain. In the ED is found to be hyponatremic hypokalemic hypochloremic. An elevated TSH but denies cold intolerance dry skin or constipation. 09/17 Poor sleep. Complains of leg pain and some rectal pain from stooling. States difficulty in urinating. Electrolyte imbalance slowly improving. Patient is supposed to receive a diverting colostomy. Will consult surgery to discuss timing. 09/18 no overnight events or new complaints. Seen by general surgery and scheduled for diverting colostomy on Wednesday. TPN started.. 09/19 Poor sleep. No new complaints. Will be prepped for surgery tomorrow. 09/20-patient seen postop. Doing well. Anxious and appears uncomfortable. On pain management per surgery. Currently on TPN. No fever. White count stable. Stable electrolytes and renal function. 09/21-patient doing well. No overnight events. No concerns per staff. Postop day 2. Managed per surgery. Feels little uncomfortable unable to get a restful night sleep. Ongoing TPN. 09/22-patient doing well postop. Ongoing management per surgery. Continue TPN. Denies overnight events. Minimal anxiety. No additional recommendations from hospitalist service. Case discussed with surgery. At this time hospital service will sign off 09/25-received phone call from Dr. Hardy postoperatively for reconsultation and management of mechanical ventilation/circulatory shock. Patient intubated currently on mechanical ventilation at 100% FiO2. On vasopressors. Patient also received 2 units PRBC transfusion. Levophed 12 mics. Case discussed with anesthesia Julia Sandoval. Patient had over 4500 cc of NG aspirate and possibly aspirated which may explain the profound hypoxemia despite 100% FiO2 on mechanical ventilation. Patient critically ill with [place] 2 score over 20 and very high risk mortality. Surgery confirms extremely poor prognosis. At this time patient is being transferred to ICU for continued management of mechanical ventilation/circulatory shock and postop care will be managed as per surgery. We will initiate fentanyl/propofol sedation along with continued TPN/vasopressors and crystalloid challenges to keep MAP at goal. Serial electrolytes/blood gases and vent titration will be managed per protocol. Reviewed ABG/chest imaging. Bilateral diffuse airspace disease. Likely aspiration. On empiric antibiotic coverage. ABG 7.1 /50 on 100% FiO2. Remains critically ill. Surgery discussed patient's critical status with patient's family. Continue mechanical ventilation per protocol 09/26-patient continuing on mechanical ventilation. On midazolam/Versed. Improved interval chest infiltrate. On antibiotic coverage. Continue TPN/potassium replacement, potassium 2.7. Off pressors. Will undergo trial of spontaneous breathing/sedation holiday in a.m. Case discussed with surgery. No major telemetry events or concerns per staff. Blood gases stable, white count 5.4, hemoglobin 8.4 additional units transfusion ongoing per surgery. 09/27-favorable rapid shallow breathing index. On PEEP 5/FiO2 35%. Interval chest imaging improving infiltrates. Extubated to nasal cannula. NG output minimal. On TPN. Urine output at goal. Stable labs and hemodynamics excessive potassium at 3 on aggressive replacement. Continue antibiotic coverage. Ostomy output liquid. Postop care ongoing per Surgery. Hematocrit 27 status post 4 units PRBC, elevated LFTs secondary early shock liver. Continue monitoring. 09/28-patient extubated to room air doing well. No overnight events. Ongoing TPN. Potassium replacement ongoing. White count 13.2 on antibiotic coverage. Hemoglobin stable at 10.4 status post 4 unit PRBC transfusion. Stable h emodynamics. Case discussed with surgery. Surgery will attempt patient transfer to tertiary center [facility], NG tube 2000 cc output, colostomy output 600 cc 09/29. Patient doing well. However white count 15.3. Initiate antifungal coverage. Able to ambulate with physical therapies. On TPN. Electrolytes improving. Await further recommendations from surgery regarding transfer to [facility]. Potassium improved to 4.5., Hemodynamic stable. 09/30-worsening leukocytosis at 20,400. Rule out intra-abdominal process with a CT abdomen pelvis with contrast. Case discussed with surgery. Patient otherwise doing and feeling better. Stable hemodynamics currently on room air. On antifungal coverage in addition to antibiotics, on IV steroids per surgery. On aggressive electrolyte replacement. Ongoing TPN 10/01 Feeling better every day. Has some ostomy output. Overnight event or new complaints. Pending CBC. 10/02 Continues to feel better. Diet increased. No overnight events or new complaints. 10/03 Tolerating increased diet. Good ostomy output. No new complaints. Review of Systems: denies headache/fever/chills/nausea/vomiting/chest or abdominal pain/cough/dyspn ea. Otherwise see above. Constitutional Vitals: Vital Signs Temp Pulse Resp BP Pulse Ox 97.4 F 74 16 91/59 97 10/03/20 04:28 10/03/20 04:28 10/03/20 04:28 10/03/20 04:28 10/03/20 04:28 Period Temp Pulse Resp BP Sys/Greer Pulse Ox Last 24 Hr 97.4 F-99 F 68-85 16-20 84-121/55-77 94-97 Intake and Output 10/02/20 10/03/20 10/03/20 21:59 05:59 13:59 Intake Total 610 130 130 Output Total 1800 1500 Balance -1190 -1370 130 Weight 63.594 kg Intake & Output: Intake & Output 10/02/20 10/03/20 10/03/20 21:59 05:59 13:59 Intake Total 610 130 130 Output Total 1800 1500 Balance -1190 -1370 130 Weight 63.594 kg Intake: Nourishment/Supplement quantity 120 (ml) IV 130 130 130 Zosyn 3.375 gm In Dextrose 5% 50 50 50 in Water 50 ml @ 100 mls/hr IV Q6H [facility] Rx#:[id number] Oral 360 Output: Urine Catheter Amount 1800 1500 Other: Meal Dinner Percent of Meal Consumed 25% Nourishment/Supplement name Ensure Urine Appearance Clear Clear Uretheral (Loyd) Clear Urine Color Bright Yellow Dark Yellow Uretheral (Loyd) Bright Yellow Urine Odor Normal Stool Consistency Liquid Exam: General: Alert, Awake, No acute Distress, cachectic Eyes/N/T: EOMI, Head/Neck: neck supple, CV: RRR, No murmurs, Pulm: Clear b/l, no wheezing/rhonchi/rales Abd: soft, nontender, +BS x4, Ostomy in place with output Ext: no clubbing/cyanosis/edema Neuro: Alert, no focal deficits, moves all extremities, Skin: warm/dry, OBJ DATA Labs CBC & Chem 7: 10/02/20 05:23 10/03/20 05:00 Labs: Abnormal Lab Results 10/03/20 10/02/20 10/02/20 05:00 05:23 05:23 WBC 13.5 H RBC 4.47 L Hgb 12.8 L Hct 39.4 L RDW 18.5 H Neut % (Auto) 87.6 H Lymph % (Auto) 9.4 L Lymph # (Auto) 1.27 L Absolute Neutrophils 11.82 H Sodium 128 L 130 L Anion Gap 7.0 L Creatinine 0.4 L 0.3 L Glucose Uric Acid 0.8 L 0.7 L Calcium 8.0 L 7.9 L Total Bilirubin 1.3 H 1.6 H Direct Bilirubin 0.8 H 1.1 H GGT 481 H 417 H AST 61 H 50 H ALT 276 H 275 H Alkaline Phosphatase 302 H 234 H Lactate Dehydrogenase Total Protein 5.1 L 4.7 L Albumin 2.3 L 2.3 L Albumin/Globulin Ratio 0.8 L Triglycerides 222 H 245 H 10/01/20 10/01/20 09/30/20 07:43 07:43 07:34 WBC 14.5 H RBC 4.07 L Hgb 11.8 L Hct 35.7 L RDW 18.0 H Neut % (Auto) 86.6 H Lymph % (Auto) 8.6 L Lymph # (Auto) 1.25 L Absolute Neutrophils 12.59 H Sodium 128 L 131 L Anion Gap 7.0 L Creatinine 0.4 L 0.2 L Glucose 117 H Uric Acid 1.0 L 0.7 L Calcium 7.7 L 8.2 L Total Bilirubin 1.7 H 2.5 H Direct Bilirubin 1.2 H 2.0 H GGT 356 H 256 H AST 99 H 77 H ALT 292 H 288 H Alkaline Phosphatase 218 H 188 H Lactate Dehydrogenase 301 H 248 H Total Protein 4.4 L 4.7 L Albumin 2.0 L 2.5 L Albumin/Globulin Ratio 0.8 L Triglycerides 273 H 220 H 09/30/20 07:34 WBC 20.4 H RBC 4.34 L Hgb 12.4 L Hct 37.6 L RDW 18.3 H Neut % (Auto) 91.6 H Lymph % (Auto) 5.3 L Lymph # (Auto) 1.08 L Absolute Neutrophils 18.65 H Sodium Anion Gap Creatinine Glucose Uric Acid Calcium Total Bilirubin Direct Bilirubin GGT AST ALT Alkaline Phosphatase Lactate Dehydrogenase Total Protein Albumin Albumin/Globulin Ratio Triglycerides Meds: Medications Albuterol/Ipratropium (Duoneb) 3 ml NEB Q4HP PRN PRN Reason: Shortness Of Breath Alprazolam (Xanax) 0.25 mg PO TIDP PRN PRN Reason: Anxiety Last Admin: 10/01/20 17:35 Dose: 0.25 mg Documented by: Alteplase, Recombinant (Cathflo) 2 mg IV PRN PRN PRN Reason: Line Patency Diagnostic Test (Pha) (Accu-Chek) 1 each FS Q6 [facility] Last Admin: 10/03/20 06:01 Dose: 1 each Documented by: Famotidine (Pepcid) 20 mg IV Q12 [facility] Last Admin: 10/02/20 20:44 Dose: 20 mg Documented by: Fentanyl (Duragesic) 50 mcg TOPICAL Q72H [facility] Last Admin: 10/02/20 20:42 Dose: 50 mcg Documented by: Heparin Sodium (Porcine) (Heparin 10 Units/Ml Flush) 2 ml IV Q12 [facility] Last Admin: 10/02/20 20:42 Dose: 2 ml Documented by: Hydromorphone HCl (Dilaudid) 1 mg IV Q1HP PRN; Protocol PRN Reason: Per Pain Protocol Last Admin: 10/02/20 21:05 Dose: 1 mg Documented by: Acetaminophen (Ofirmev) 800 mg in 80 mls @ 160 mls/hr IV Q6H [facility]; Protocol Last Infusion: 10/03/20 06:30 Dose: Infused Documented by: Heparin Sodium/Sodium Chloride (Heparin/Ns) 500 mls @ 0 mls/hr IV .Q0M [facility]; Protocol Magnesium Sulfate (Magnesium Sulfate) 2 gm in 50 mls @ 50 mls/hr IV UD PRN PRN Reason: Magnesium </= 1.6 Piperacillin Sod/Tazobactam (Sod 3.375 gm/ Dextrose) 50 mls @ 100 mls/hr IV Q6H [facility]; Protocol Last Infusion: 10/03/20 06:30 Dose: Infused Documented by: Norepinephrine Bitartrate 16 (mg/ Sodium Chloride) 250 mls @ 9.375 mls/hr IV Q24HP PRN; Protocol PRN Reason: Hypotension Potassium Chloride 40 meq/ (Dextrose) 520 mls @ 130 mls/hr IV UD PRN PRN Reason: Potassium < 3 Calcium Gluconate 15 meq/Magnesium Sulfate 16.24 meq/Sodium Chloride 240 meq/Potassium Chloride 80 meq/Potassium Phosphate 80 meq/Amino Acids 2,154.4398 mls @ 80 mls/hr IV Q24H [facility] Last Admin: 10/02/20 11:05 Dose: 80 mls/hr Documented by: Fat Emulsion Intravenous 250 (ml/ Premix) 250 mls @ 25 mls/hr IV MoFr@1600 [facility] Fluconazole (Diflucan) 400 mg in 200 mls @ 100 mls/hr IV DAILY@1000 [facility] Last Infusion: 10/02/20 11:55 Dose: Infused Documented by: Insulin Human Lispro (Humalog) 0 unit SQ Q6H [facility]; Protocol Last Admin: 10/03/20 06:01 Dose: Not Given Documented by: Levothyroxine Sodium (Synthroid) 100 mcg PO QAMAC [facility] Metoclopramide HCl (Reglan) 10 mg IV Q6 [facility] Last Admin: 10/03/20 05:54 Dose: 10 mg Documented by: Ondansetron HCl (Zofran) 4 mg IV Q4HP PRN PRN Reason: Nausea And Vomiting Sodium Chloride (Saline Flush) 10 ml IV Q12 [facility] Last Admin: 10/03/20 05:54 Dose: 10 ml Documented by: Sodium Chloride (Saline Flush) 10 ml IV UD PRN PRN Reason: FLUSH A/P Narrative A/P Narrative: A: *Severe electrolyte abnormalities 2/2 poor oral intake/volume depletion 2/2 pain from radiation proctocolitis: *Circulatory shock: clinically resolved. Off pressors. Stable hemodynamics. *Severe generalized weakness *Failure to thrive/Severe malnutrition: *Sepsis: 2/2 asp pna -CT a/p no acute per surgery -leukocytosis improved *Aspiration pneumonia: improved *Acute hypoxic respiratory failure: 2/2 aspiration pneumonia. 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 Status post repeat ex lap (09/25) *pelvic erosion d/t radiation including through prostate: likely will need suprapubic cath *Anxiety: *GERD: *Chronic pain: *Tobacco abuse: *Primary Hypothyroidism: *Transaminitis: likely 2/2 tpn Plan: -finish course of abx for aspiration pna -Continue postop management per surgery. -electrolyte replacement prn -TPN/oral diet per surgery -wound care -maintain loyd, likely will need suprapubic cath, f/u with Urology ([facility]) -Dietary consult, nutritional supplements -started levothyroxine and follow-up with PCP for repeat labs -Smoking cessation counseling -pt/ot -CM for placement to [facility] -ppx: SCD (heparin stopped d/t rectal bleed from friable tissue/necrosis upon surgery)/pepcid Time Spent With Patient Time: Total time spent is greater than 50% in coordination of care (as documented) at patient's floor/unit and/or counseling patient: QUALITY VTE Deep Vein Thrombosis/Pulmonary Embolism Present on Admission: No
[2020-10-03] MEDS: FAMOTIDINE/PF 20 MG/2 ML VIAL IV SCH ×2 (08:05→21:44)
[2020-10-03] MEDS: LEVOTHYROXINE 100 MCG TABLET PO SCH (08:05)
[2020-10-03] MEDS: FLUCONAZOLE 400 MG/200 ML BAG IV SCH (09:54)
[2020-10-03] MEDS: HYDROmorphone 1 MG/ML SYRINGE IV PRN ×2 (09:54→21:43)
[2020-10-03] MEDS ORDERED: [UNRECOGNIZED DRUG - OTHER] IV SCH (11:00)
[2020-10-03] MEDS ORDERED: SODIUM CHLORIDE IV SCH (11:00)
[2020-10-03] MEDS ORDERED: MAGNESIUM SULFATE IV SCH (11:00)
[2020-10-03] MEDS ORDERED: CALCIUM GLUCONATE IV SCH (11:00)
[2020-10-03] MEDS: ALPRAZolam 0.25 MG TABLET PO PRN (11:28)
[2020-10-04] MEDS: INSULIN LISPRO 1 UNIT/0.01 ML UNIT SQ SCH ×2 (00:05→06:04)
[2020-10-04] MEDS: METOCLOPRAMIDE 10 MG/2 ML VIAL IV SCH ×2 (01:00→05:58)
[2020-10-04] MEDS: ACETAMINOPHEN 800 MG/80 ML BAG IV SCH ×2 (01:05→05:58)
[2020-10-04] MEDS: PIPERACILLIN SODIUM/TAZOBACTAM 3.375 GM in DEXTROSE 5% IN WATER 50 ML IV SCH ×2 (01:07→05:58)
[2020-10-04] MEDS: LEVOTHYROXINE 100 MCG TABLET PO SCH (07:01)
[2020-10-04] MEDS: FAMOTIDINE/PF 20 MG/2 ML VIAL IV SCH (08:12)
[2020-10-04] MEDS: 0.9 % SODIUM CHLORIDE 10 ML SYRINGE IV SCH (08:13)
[2020-10-04] MEDS: HYDROmorphone 1 MG/ML SYRINGE IV PRN (08:21)
[2020-10-04] MEDS: FLUCONAZOLE 400 MG/200 ML BAG IV SCH (09:23)
[2020-10-04 10:17] LABS: ALT/SGPT 224 U/L (<40); AST/SGOT 39 U/L (<40); Albumin 3.1 gm/dL (3.2-5.2); Albumin/Globulin Ratio 1.1 (1.0-2.3); Alkaline Phosphatase 342 U/L (39-117); Bilirubin,Direct 0.8 mg/dL (<0.3); Bilirubin,Total 1.3 mg/dL (0.1-1.0); Blood Urea Nitrogen 16 mg/dL (6-20); Calcium 8.5 mg/dL (8.6-10.4); Carbon Dioxide 24 mmol/L (22-30); Chloride 93 mmol/L (96-108); Globulin 2.9 gm/dL (2.2-3.7); Glomerular Filtration Rate 137; Glucose 98 mg/dL (70-105); Lactate Dehydrogenase 188 U/L (135-225); Phosphorous 2.9 mg/dL (2.5-4.5); Triglycerides 182 mg/dL (<150)
[2020-10-04] MEDS ORDERED: FAT EMULSION 20% 250 ML in PREMIX 1 BAG IV SCH (16:00)
--- NOTE | 2020-10-08 15:55 | Operative Note ---
DATE OF OPERATION: 10/02/2020 PREOPERATIVE DIAGNOSES: Small bowel obstruction, fecal impaction, rectal bleeding from radiation injury. POSTOPERATIVE DIAGNOSES: Small bowel obstruction, fecal impaction, ulceration of anterior half of the rectal stump. PROCEDURE: Laparotomy with appendectomy and lavage of the colon with Gastrografin and Fleet's enema via the appendiceal stump and colostomy revision; endoscopy with evaluation of bleeding from rectal stump; packing of rectal pouch. SURGEON: Bud Hardy M.D. DESCRIPTION OF PROCEDURE: Under general anesthesia, the patient was prepped and draped in the sterile field. A midline incision was made. The incision was extended into the peritoneal cavity. Massive dilation of the small bowel was encountered. There were some acute adhesions which were taken down with sharp dissection using Metzenbaum scissors. Once the small bowel was freed up, I was able to remove this from the peritoneal cavity to explore the colon. There was extensive major fecal impaction involving the entire colon. I tried to gently maneuver some of this hard stool towards the sigmoid and the stoma; however, this could not be done. It was, therefore, decided that the best method would be to lavage the entire colon using Gastrografin and Fleet's enemas. An appendectomy was done and the stump of the appendix was used to place a nasogastric tube into the mid transverse colon. The colon was then lavaged with three vials of Gastrografin and three Fleet's enemas. The nasogastric tube was removed and the appendiceal stump was closed with three fires of the TA 30 stapler. Because of the size of the stoma and the large amount of stool, it was elected to take down the stoma. The opening was enlarged and the stoma was reapplied, suturing it to the fascia with 3-0 silk. The peritoneum was copiously irrigated as was the subcutaneous tissue. The nasogastric tube was positioned in the distal stomach. The fascia was closed with a running #1 Prolene. Subcutaneous fat was closed with 2-0 Monocryl in two layers. Skin was closed with rashel. The colostomy was matured using 3-0 silk on the fascia and 2-0 Vicryl on the end of the stoma to suture it to the dermis. Stoma appliance was placed. Dressing was placed over the incision. The patient was then placed in high lithotomy position. Operating anoscope was introduced into the anal canal. There was moderate bleeding from the rectal stump. This was irrigated out, and once I could see the rectal pouch it was apparent that there was tunneling of the wall of the rectum on the right side, and this tunnel extended down to the pubic ring. Anteriorly, there was no normal mucosa. However, the mucosa was necrotic and most of the vault was simply perirectal tissue. The prostate was palpated and there was a major concern that the urinary catheter was palpated via the rectal pouch suggesting that the tissue between the prostate and the rectum was necrosed. Copious irrigation was carried out once more and there was slight oozing, but no parker pulsatile bleeding. The rectal vault was packed with three large hemostatic rolls. There was no tissue to cauterize or to suture. The patient was hypotensive during the procedure and required intravenous Levophed and large volume intravenous fluids and albumin. He was, therefore, left intubated. He was transferred to the postanesthetic care unit in the ICU in critical condition. LCS:maricruz Job ID: [id number] Doc ID: [id number] Bud Hardy M.D.
--- NOTE | 2020-11-07 16:19 | Operative Note ---
DATE OF OPERATION: 09/20/2020 PREOPERATIVE DIAGNOSIS: Radiation proctitis with ulceration. POSTOPERATIVE DIAGNOSIS: Radiation proctitis with ulceration and severe constipation. PROCEDURE: Laparotomy with diverting end colostomy. SURGEON: Bud Hardy M.D. FINDINGS: Severe total colonic constipation with near total obstruction, radiation proctitis. DESCRIPTION OF PROCEDURE: Under general anesthesia, the patient's abdomen was prepped and draped in a sterile field. A timeout procedure was carried out as per protocol. A midline incision was made. Upon entering the abdomen, it was noted that the small bowel was dilated and the colon was totally filled with stool. I made an attempt to try to evacuate the stool but because of its consistency it could not be removed. The left colon was mobilized. The distal sigmoid was compressed between the fingers to get enough space for a Contour stapler. A rent was made in the mesocolon and the Contour stapler was used to divide the distal rectum above the peritoneal reflection. Opening for the stoma was made in the left lower quadrant. The end of the colon was brought through this opening. The wall of the colon was sutured to the peritoneum using multiple interrupted sutures of 3-0 silk. The rectal stump was oversewn using running 2-0 Prolene. There was no contamination. Sponge, needle, and instrument counts were verified as correct. Peritoneum was closed using running #1 Prolene. The subcutaneous fat was minimal, so the skin was closed with rashel. The end of the colon was fashioned and was then sutured to the anterior rectus fascia using interrupted 3-0 silk and the mucosa was sutured to the dermis of the skin with running locking 3-0 Vicryl. Tegaderm was placed over the incision and a stoma appliance was placed over the colostomy. The patient tolerated the procedure well. He was awakened and transferred to the postanesthetic care unit in satisfactory condition. LCS:maricruz Job ID: [id number] Doc ID: [id number] Bud Hardy M.D.
== END 2020-10-04 11:11 | DRG 329 ==
LOC: ED 14:24 → MEDSUR 21:58 → ICU 09-25 19:04
PROVIDERS: ADMIT Internal Medicine; ATTEND Internal Medicine